=== PATIENT | female | born 1975 | race Caucasian/White ===

== ENCOUNTER → 2021-05-23 11:13 | Outpatient (BNVA) | payer MEDICAID, SELFPAY | PROVIDERS: Family Provider Nurse Practitioner Family; Visit Provider Nurse Practitioner Women's Health | DX: Z01.419 Encounter for gynecological examination (general) (routine) without abnormal findings (principal); N93.9 Abnormal uterine and vaginal bleeding, unspecified | CPT/HCPCS: 85025; 87624 ==

== ENCOUNTER → 2021-06-22 15:44 | Outpatient (BNVA) | payer MEDICAID, SELFPAY | PROVIDERS: Family Provider Nurse Practitioner Family; PCP Nurse Practitioner Family; Visit Provider Nurse Practitioner Women's Health | DX: N93.9 Abnormal uterine and vaginal bleeding, unspecified (principal) | CPT/HCPCS: 76830 ==

== ENCOUNTER → 2021-06-29 11:49 | Outpatient (BNVA) | payer MEDICAID, SELFPAY | PROVIDERS: Family Provider Nurse Practitioner Family; PCP Nurse Practitioner Family; Visit Provider Nurse Practitioner Women's Health | DX: N93.9 Abnormal uterine and vaginal bleeding, unspecified (principal) | CPT/HCPCS: 88305 ==

== ENCOUNTER → 2021-07-16 09:25 | Outpatient (BNVA) | payer MEDICAID, SELFPAY | PROVIDERS: Family Provider Nurse Practitioner Family; PCP Nurse Practitioner Family; Visit Provider Obstetrics & Gynecology | DX: Z20.822 Contact with and (suspected) exposure to COVID-19 (principal) | CPT/HCPCS: 87635 ==

== ENCOUNTER 2021-07-18 12:44 | Observation (INO) | payer MEDICAID, SELFPAY ==
[2021-07-17 10:00] VITALS: BMI 34.2
[2021-07-17 10:20] LABS: OR HCG Qualitative Urine Negative (Negative)
[2021-07-17 10:30] LABS: Add Urine Microscopic? NO; Charge for UA Resulting for Rev
[2021-07-17 10:45] LABS: Bilirubin Urine Neg (Negative); Blood Urine Neg (Negative); Glucose Urine UA Norm (Normal); Ketones Urine Negative (Negative); Leukocyte Esterase Urine Negative (Negative); Nitrate Urine Negative (Negative); Protein Urine Neg (Negative); Specific Gravity, Urine 1.015 (1.005-1.030); Urine Appearance Clear (CLEAR); Urine Color Yellow (Yellow); Urobilinogen Urine Norm (Negative); pH Urine 5 (5-7)
[2021-07-17 11:15] LABS: Alanine Aminotransferase 17 U/L (0-33); Albumin Level 4.5 g/dL (3.5-5.2); Alkaline Phosphatase 55 IU/L (35-105); Anion Gap 16.3 (5-19); Aspartate Amino Transferase 14 U/L (0-32); Blood Urea Nitrogen 12 mg/dL (6-20); Calcium 9.5 mg/dL (8.5-10.5); Carbon Dioxide 24 mmol/L (22-29); Chloride 101 mmol/L (98-107); Globulin 3.3 g/dL (1.3-4.6); Glomerular Filtration Rate 133.4 mL/min (90-130); Glucose 109 mg/dL (65-115); Osmolality Calculated 284 mOsm/kg (285-295); Potassium 4.3 mmol/L (3.5-5.1); Sodium 137 mmol/L (136-145); Total Bilirubin 0.3 mg/dL (0.15-1.2); Total Protein 7.8 g/dL (6.6-8.7)
--- NOTE | 2021-07-17 11:51 | P.ANESASSM_ITS ---
Pre-Anesthetic Assessment Height/Weight: Height 1.68 m Weight 96.162 kg Operation Date: 07/18/21 10:05 Proposed Procedures p Total Vaginal Hysterectomy(Not Applicable) - Matthew Panda MD Familial anesthetic complications: None Was Beta Genet taken within 24 hours: N/A Was Clonidine taken within 24 hours: N/A Social No alcohol and No tobacco Exam alert, oriented x 3, clear to auscultation bilaterally and regular rate & rhythm Airway Submandibular: within normal limits Cervical ROM: within normal limits Mallampati: Class II Dentition: full Metabolic Diabetes Mellitus, Morbid Obesity and Thyroid Disease Anesthetic Plan ASA status: 2 Anesthesia: General Risk of > 500 ml blood loss (7ml/kg in children): No Medications/Allergies Home Medications Medication Instructions Recorded Confirmed Last Taken Type levothyroxine 125 mcg capsule 125 mcg PO DAILY 05/23/21 07/17/21 Unknown History metformin 500 mg tablet 500 mg PO BID 05/23/21 07/17/21 Unknown History multivitamin (One Daily 1 tab PO DAILY 05/23/21 07/17/21 Unknown History Multivitamin) triamterene 37.5 1 tab PO DAILY 06/26/21 07/17/21 Unknown History mg-hydrochlorothiazide 25 mg tablet Iron supplement PO 07/16/21 07/16/21 Unknown History ibuprofen 800 mg tablet 800 mg PO Q8H PRN 07/16/21 07/17/21 Unknown History Allergies Allergy/AdvReac Type Severity Reaction Status Date / Time morphine Allergy anaphylaxis Verified 07/16/21 08:30 PFS Anesthesia Medical History Hypothyroid No pertinent past medical history neghx: htn,dvt/pe PCP: Comfort Ferguson Type 2 diabetes mellitus Surgical History (Updated 05/23/21 @ 13:20 by Alta Obrien APN, VARGHESE) Hx of abdominal surgery (~2020) tummy tuck, muscle reconstruction Hx of tubal ligation (~1996) Family History Family/Other Breast cancer Maternal Aunt--dx age 40's Colon cancer Paternal Uncle---dx age 60's Maternal Aunt-- dx age 60's Mother Diabetes Heart disease Hypercholesteremia Hypertension Ovarian cancer dx age 20's Thyroid disease Father Diabetes Heart disease Stroke Grandmother Diabetes Paternal Grandfather Diabetes Paternal Denies family history of Uterine cancer Data Anesthesia : 07/17/21 10:24 BMP 07/17/21 10:24 Sodium 137 Potassium 4.3 Chloride 101 Carbon Dioxide 24 BUN 12 Creatinine 0.5 Glucose 109 Calcium 9.5 Liver Function 07/17/21 Range/Units 10:24 Total Bilirubin 0.3 (0.15-1.2) mg/dL AST 14 (0-32) U/L ALT 17 (0-33) U/L Alkaline Phosphatase 55 (35-105) IU/L Albumin 4.5 (3.5-5.2) g/dL Urine 07/17/21 Range/Units 10:24 Urine Color Yellow (Yellow) Urine Appearance Clear (CLEAR) Urine pH 5 (5-7) Ur Specific [place] 1.015 (1.005-1.030) Urine Protein Neg (Negative) Urine Glucose (UA) Norm (Normal) Urine Ketones Negative (Negative) Urine Nitrate Negative (Negative) Urine Bilirubin Neg (Negative) Ur Leukocyte Esterase Negative (Negative) Blood Bank 07/17/21 10:24 Blood Type O Positive Rho(D) Type Positive Antibody Screen Negative Cardiac Studies: No Data to Display
[2021-07-18] VITALS (21 sets, daily range): BP systolic 96–143; BP diastolic 59–96; PULSE 79–109; RESP 16–18; TEMP 36.2–36.9; O2SAT 92–100
[2021-07-18] MEDS: sodium chloride 0.9% 500 ML IV (08:37)
[2021-07-18] MEDS: scopolamine 1.5 Patch 1 PATCH TRANSDERMA (08:40)
[2021-07-18 08:47] LABS: Glucose Point of Care 134 mg/dL (70-110)
--- NOTE | 2021-07-18 09:39 | P.ANESUD_ITS ---
Pre-Anesthetic Update Pre-Anesthetic Assessment: Date of Surgery/Procedure: 07/18/21 Preop Tracy gnosis: Abnormal uterine bleeding, stress incontinence, pelvic pain Proposed Procedure: Operation Date: 07/18/21 09:55 Proposed Procedures p Total Vaginal Hysterectomy(Not Applicable) - Matthew Panda MD Any changes to Pre-Anesthetic Assessment?: No Last Intake: Intake Last Liquid Date 07/17/21 Last Liquid Time 21:30 Last Solid Date 07/17/21 Last Solid Time 21:30 Labs Last 48hrs: BMP 07/17/21 10:24 Sodium 137 Potassium 4.3 Chloride 101 Carbon Dioxide 24 BUN 12 Creatinine 0.5 Glucose 109 Calcium 9.5 Liver Function 07/17/21 Range/Units 10:24 Total Bilirubin 0.3 (0.15-1.2) mg/dL AST 14 (0-32) U/L ALT 17 (0-33) U/L Alkaline Phosphata se 55 (35-105) IU/L Albumin 4.5 (3.5-5.2) g/dL Urine 07/17/21 Range/Units 10:24 Urine Color Yellow (Yellow) Urine Appearance Clear (CLEAR) Urine pH 5 (5-7) Ur Specific [place] 1.015 (1.005-1.030) Urine Protein Neg (Negative) Urine Glucose (UA) Norm (Normal) Urine Ketones Negative (Negative) Urine Nitrate Negative (Negative) Urine Bilirubin Neg (Negative) Ur Leukocyte [place] Negative (Negative) Blood Bank 07/17/21 10:24 Blood Type O Positive Rho(D) Type Positive Antibody Screen Negative Vitals: Temperature 98.2 F 07/18/21 08:26 Temperature Source Temporal Artery S can 07/18/21 08:26 Pulse Rate 79 07/18/21 08:26 Respiratory Rate 16 07/18/21 08:26 Blood Pressure 116/96 07/18/21 08:26 Blood Pressure Katherine n 102 07/18/21 08:26 Pulse Oximetry 98 07/18/21 08:26 Oxygen Delivery Me thod 07/18/21 08:26 Exam: Pre-Anes Outpt Exam: alert, oriented x 3, clear to auscultation bilaterally and regular rate & rhythm Cardiac Studies: No Data to Display
--- NOTE | 2021-07-18 09:40 | W.PM.OPSUD ---
Surgery/Procedure H&P Update DATE OF PROCEDURE: July 18, 2021 DATE H&P PERFORMED: 07/16/21 H&P UPDATE INFORMATION: I have reviewed H&P completed within last 30 days, I have examined patient prior to procedure and No changes to prior documentation PREOP DIAGNOSIS: Abnormal uterine bleeding, stress incontinence, pelvic pain PLANNED PROCEDURE: Operation Date: 07/18/21 09:55 Proposed Procedures p Total Vaginal Hysterectomy(Not Applicable) - Matthew Panda MD
[2021-07-18] MEDS: ceFOXitin 2,000 MG in sodium chloride 0.9% (plus) 50 ML 100 MG IV (09:53)
[2021-07-18] MEDS: sodium chloride 0.9% 1,000 ML 30 ML IV (10:22)
--- NOTE | 2021-07-18 10:59 | SUR.OPER ---
1040 updated of surgical status
--- NOTE | 2021-07-18 11:40 | P.OP_ITS ---
Operative Report Date of procedure: July 18, 2021 Pre-op diagnosis: Preop Diagnosis Abnormal uterine bleeding, stress incontinence, pelvic pain Post-op diagnosis: same Procedure done: Total vaginal hysterectomy. Single incision mid urethral sling. Cystoscopy. Implants: Coloplast Altis single incision sling Specimens removed/disposition: Uterus and left fallopian tube Surgeon: Matthew Panda MD Estimated blood loss: 250 IV fluids: 800 Urine output: 300 Complications: None Findings: Enlarged uterus dilated left fallopian tube Procedure: After informed consent and risks, benefits, indications and alternatives reviewed with the patient was taken to the operating room. The patient was placed in dorsal lithotomy position prepped, and draped in the usual sterile fashion. The pre-procedure timeout verifying the correct patient, procedure, site and side, could not requirements was performed and acknowledge by the OR team. A Rivera catheter was placed. A Bookwalter vaginal retractor was placed into the vagina in usual manner visualize the cervix. Cervix was grasped with a single tooth tenaculum and circumferentially infiltrated with 2% Lidocaine with epinephrine. Then cervix was circumferentially incised with bovie and the bladder was dissected off the pubovesical cervical fascia anteriorly with a sponge stick and Metzenbaum scissors. The anterior peritoneal reflection was identified and the anterior cul-de-sac was entered sharply with Metzenbaum scissors. The same procedure was performed posteriorly and a posterior c olpotomy was made through the posterior cul-de-sac space without difficulty and the posterior blade of the Bookwalter vaginal retractor was advanced posteriorly into the cul-de-sac. At this time, the left and right uterosacral ligaments were isolated and ligated with 0 Vicryl. The Enseal device was placed over the uterosacral ligaments on either side and was then used in a serial fashion up through the cardinal ligaments bilaterally cross-clamped, cut, and sealed with the Enseal device. Finally, the uterine arteries were cross-clamped, cut, sealed and ligated with the Enseal device. Hemostasis was assured. The broad ligaments were then serially clamped, sealed and cut with the Enseal device on both sides. Excellent hemostasis was visualized. Both cornua were clamped, sealed and cut with the Enseal device. Then the pedicles were then suture ligated with excellent hemostasis. The uterus was excised and submitted for pathologic evaluation. No other abnormalities were noted in the pelvic cavity. The peritoneum was then closed in a pursestring fashion with 0 Vicryl suture. The vaginal cuff angles were closed with [id number] #0 Vicryl suture on both sides and transfixed with the ipsilateral cardinal and uterosacral ligaments. The remainder of the vaginal cuff was closed with #0 Vicryl in a running locked fashion. Then proceeded to perform the single incision midurethr al sling. The anterior vaginal mucosa beneath the midurethra was infiltrated with 0.5% Marcaine with epinephrine. A vertical midline incision was made beneath the midurethra, nearly 1.5 cm length. Careful submucosal dissection was performed bilaterally up to the interior portion of the inferior pubic ramus. The insertion of adductor longus tendon on the patient?s pubic ramus was identified as reference land bernard. Palpated the notch along the internal edge of ischiopubic ramus where the adductor longus tendon and the inferior pubic ramus meet. The Altis single incision sling (SIS) was selected. Then the needle of the SIS inserted aiming at the location of this notch. One of the integrated self- fixating tips place onto the needle by sliding it over the end of the needle. The needle/sling assembly was inserted toward the location of identified reference notch making sure that the flat of the handle is perpendicular to the desired path. The needle was tracked along the posterior surface of the ischiopubic ramus until the midline bernard on the mesh is approximately at the midline position under the urethra. The needle was removed and the same was repeated on the contralateral side until the appropriate sling tension under the urethra was achieved ensuring that the mesh lays flat. The needle was removed and vaginal incision was closed in a running interlocking fashion with 2-0 Vicryl. At this time, instruments were removed from the vagina at hemostasis assured. Then the Rivera catheter was removed and cystoscope was inserted. The bladder was filled with sterile water. Complete evaluation of the bladder mucosa was performed noting no lacerations, dimpling, tears, bleeding of the mucosa or muscular layers. Both ureteral orifices were identified. Prompt excretion of urine from both ureteral orifices was noted. Cystoscope was withdrawn. Rivera catheter was then placed yielding blue/clear urine. The patient was taken out of dorsal lithotomy position and awakened from the general anesthesia. The patient tolerated the procedure well and was taken to the PACU recovery room in a stable condition. Sponge, lap, needle and instruments counts were correct x3.
[2021-07-18] MEDS: HYDROmorphone 1 mg/mL INJ 1 mL 0.5 MG IVP ×2 (13:26→17:26)
[2021-07-18] MEDS: dextrose 5%-lactated ringers 1,000 ML 125 ML IV ×2 (14:17→22:14)
[2021-07-18] MEDS: HYDROcodone-acetaminophen 5-325 mg Tablet PO ×2 (14:17→20:20)
[2021-07-18] MEDS: fentaNYL 50 mcg/mL INJ 2mL IVP (15:53)
--- NOTE | 2021-07-18 16:18 | ANE.PACU2 ---
Inpatient post-anesthesia follow up: Airway intact: Yes Vital signs: Temperature 97.9 F Pulse Rate 91 Respiratory Rate 17 Blood Pressure 143/82 Pulse Oximetry 95 Oxygen Delivery Me thod Room Air Oxygen Flow Rate 6 Fraction of Inspir ed Oxygen Hydration adequate: Yes Nausea and vomiting: No Pain level: Pain well controlled in PACU prior to discharge to floor. Mental status: Baseline Additional Comments: Pain scores high on floor despite receiving multi modal theaaph.
[2021-07-18] MEDS: docusate sodium 100 mg Capsule PO (17:27)
[2021-07-18] MEDS: metformin 500 mg Tablet PO (17:27)
[2021-07-18] MEDS: ondansetron 2 mg/ML SDV 2 mL 4 MG IVP (17:38)
--- NOTE | 2021-07-18 17:50 | PC.NURSE ---
Pt up to chair this nurse assisted pt to chair, pt reported nausea and pain radiating from right quadrant pain into right leg. patient reported chest pressure and shoulder pain. blood pressure attained 96/59 pulse 109, respirations 17.
--- NOTE | 2021-07-18 18:02 | ECG_ITS ---
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 Measurements Intervals [place] Rate: 93 P: 63 IA: 201 QRS: 18 QRSD: 170 T: 35 QT: 448 QTc: 560 Interpretive Statements SINUS RHYTHM Compared to ECG 11/06/2015 13:00:22 Sinus tachycardia no longer present T-wave abnormality no longer present Electronically Signed On 07-18-2021 21:20:29 PROPAGATOR LABORER by Nyla Gonzalez M.D. [id number]
[2021-07-18 18:44] LABS: Basophils % 0.1 %; Hematocrit 35.4 % (37.0-47.0); Hemoglobin 11.2 g/dL (11.5-15.3); Lymphocytes # 1.2 10^3/uL (0.8-4.8); Lymphocytes % 7.9 %; Mean Corpuscular HGB Conc 31.6 g/dL (30.0-36.0); Mean Corpuscular Volume 82.1 fl (81-99); Mean Platelet Volume 10.2 fL (7.4-10.4); Monocytes # 0.2 10^3/uL (0.2-0.9); Monocytes % 1.4 %; Neutrophils # 13.29 10^3/uL (1.8-7.7); Neutrophils % 90.1 %; Nucleated Red Blood Cells % 0 %; Platelet Count 376 10^3/cmm (130-400); Red Blood Count 4.31 10^6/uL (4.1-5.3); Red Cell Distribution Width 14.3 % (12.1-15.1); White Blood Count 14.8 10^3/uL (4.0-10.0)
[2021-07-18] MEDS: zolpidem 5 mg Tablet 10 MG PO (22:45)
[2021-07-19] MEDS: HYDROcodone-acetaminophen 5-325 mg Tablet PO ×3 (01:05→10:36)
[2021-07-19 04:30] VITALS: BP 106/74; PULSE 86; TEMP 37; O2SAT 95
[2021-07-19 05:10] LABS: Hematocrit 33.4 % (37.0-47.0); Hemoglobin 10.5 g/dL (11.5-15.3); Mean Corpuscular HGB Conc 31.4 g/dL (30.0-36.0); Mean Corpuscular Hemoglobin 26.1 pg (28.0-34.0); Mean Corpuscular Volume 83.1 fl (81-99); Mean Platelet Volume 9.5 fL (7.4-10.4); Platelet Count 316 10^3/cmm (130-400); Red Blood Count 4.02 10^6/uL (4.1-5.3); Red Cell Distribution Width 14.4 % (12.1-15.1); White Blood Count 9.5 10^3/uL (4.0-10.0)
--- NOTE | 2021-07-19 07:52 | PM.OBGYDC ---
Discharge Providers ULTRASONIC SEAMING MACHINE OPERATOR Date of Admission: 07/18/21 12:44 Date of Discharge: 07/19/21 Attending Provider at Admission: Matthew Panda MD Attending Provider at Discharge: Matthew Panda MD Primary ULTRASONIC SEAMING MACHINE OPERATOR: Matthew Panda MD Primary Care Provider: Junie Ferguson APN Diagnoses at Discharge Discharge Diagnosis (1) Status post vaginal hysterectomy: Status: Acute Reason for Visit Reason for Visit: abnormal uterine bleeding, urinary incontinence Brief History: Mrs. Cortes 46-year-old female with a history of abnormal uterine bleeding unresponsive to medical management and stress urinary incontinence. Hospital Course Hospital Course Mrs. Cortes 46-year-old female admitted for planned total vaginal hysterectomy and single incision mid urethral sling. The procedures were performed without complication. Overnight observation was uneventful except for pain management. She is afebrile hemodynamically stable postoperative day 1. Tolerating diet well. Pain under control. Ambulating without difficulty. Passing flatus. Physical Exam Narrative: GA: Alert and oriented ?3. HEENT: WNL. Heart: Regular rate and rhythm. Lungs: Clear to auscultation bilaterally. Abdomen: Bowel sounds present, nontender, minimal tenderness, incision clean and dry, no redness, pain or edema. UNDER WATER ASSISTANT: Spotting bleeding. Extremities: No edema, no cyanosis, no calves pain. Urinary Catheter Management: Rivera Latex: Cath Placed During This Visit: yes Urinary Catheter Date of Insertion: 07/18/21 Urinary Catheter Time of Insertion: 10:20 History History History 4 Term 3 Miscarriages/Ectopic 1 0 Living Children 3 Discharge Data Studies Completed and Pending Pending at discharge Category Date Time Status ES surgery / GI images Routine Exams 07/18/21 09:50 Taken Pathology: Surgical [PTH] Routine Pth 07/18/21 11:35 Received Laboratory Results WBC 9.5 10^3/uL (4.0-10.0) 07/19/21 05:05 RBC 4.02 10^6/uL (4.1-5.3) L 07/19/21 05:05 Hgb 10.5 g/dL (11.5-15.3) L 07/19/21 05:05 Hct 33.4 % (37.0-47.0) L 07/19/21 05:05 MCV 83.1 fl (81-99) 07/19/21 05:05 MCH 26.1 pg (28.0-34.0) L 07/19/21 05:05 MCHC 31.4 g/dL (30.0-36.0) 07/19/21 05:05 RDW 14.4 % (12.1-15.1) 07/19/21 05:05 Plt Count 316 10^3/cmm (130-400) 07/19/21 05:05 MPV 9.5 fL (7.4-10.4) 07/19/21 05:05 Neut % (Auto) 90.1 % 07/18/21 18:13 Lymph % (Auto) 7.9 % 07/18/21 18:13 [place] % (Auto) 1.4 % 07/18/21 18:13 Eos % (Auto) 0.0 % 07/18/21 18:13 Baso % (Auto) 0.1 % 07/18/21 18:13 Neut # (Auto) 13.29 10^3/uL (1.8-7.7) H 07/18/21 18:13 Lymph # (Auto) 1.2 10^3/uL (0.8-4.8) 07/18/21 18:13 [place] # (Auto) 0.2 10^3/uL (0.2-0.9) 07/18/21 18:13 Eos # (Auto) 0.0 10^3/uL (0.0-0.8) 07/18/21 18:13 Baso # (Auto) 0.0 10^3/uL (0.0-0.1) 07/18/21 18:13 Nucleated RBC % (auto) 0 % 07/18/21 18:13 Nucleated RBCs # 0.0 /100WBC 07/18/21 18:13 Sodium 137 mmol/L (136-145) 07/17/21 10:24 Potassium 4.3 mmol/L (3.5-5.1) 07/17/21 10:24 Chloride 101 mmol/L (98-107) 07/17/21 10:24 Carbon Dioxide 24 mmol/L (22-29) 07/17/21 10:24 Anion Gap 16.3 (5-19) 07/17/21 10:24 BUN 12 mg/dL (6-20) 07/17/21 10:24 Creatinine 0.5 mg/dL (0.5-0.9) 07/17/21 10:24 GFR Calculation 133.4 mL/min (90-130) H 07/17/21 10:24 Glucose 109 mg/dL (65-115) 07/17/21 10:24 POC Glucose 134 mg/dL (70-110) H 07/18/21 08:35 Calculated Osmolality 284 mOsm/kg (285-295) L 07/17/21 10:24 Calcium 9.5 mg/dL (8.5-10.5) 07/17/21 10:24 Total Bilirubin 0.3 mg/dL (0.15-1.2) 07/17/21 10:24 AST 14 U/L (0-32) 07/17/21 10:24 ALT 17 U/L (0-33) 07/17/21 10:24 Alkaline Phosphatase 55 IU/L (35-105) 07/17/21 10:24 Total Protein 7.8 g/dL (6.6-8.7) 07/17/21 10:24 Albumin 4.5 g/dL (3.5-5.2) 07/17/21 10:24 Globulin 3.3 g/dL (1.3-4.6) 07/17/21 10:24 Urine Color Yellow (Yellow) 07/17/21 10:24 Urine Appearance Clear (CLEAR) 07/17/21 10:24 Urine pH 5 (5-7) 07/17/21 10:24 Ur Specific [place] 1.015 (1.005-1.030) 07/17/21 10:24 Urine Protein Neg (Negative) 07/17/21 10:24 Urine Glucose (UA) Norm (Normal) 07/17/21 10:24 Urine Ketones Negative (Negative) 07/17/21 10:24 Urine Blood Neg (Negative) 07/17/21 10:24 Urine Nitrate Negative (Negative) 07/17/21 10:24 Urine Bilirubin Neg (Negative) 07/17/21 10:24 Urine Urobilinogen Norm mg/dL (Negative) 07/17/21 10:24 Ur Leukocyte Esterase Negative (Negative) 07/17/21 10:24 Urine HCG, Qual Negative (Negative) 07/17/21 09:44 Blood Type O Positive 07/17/21 10:24 Rho(D) Type Positive 07/17/21 10:24 Antibody Screen Negative 07/17/21 10:24 Vitals Last Vital Signs Temp 98.6 F 07/19/21 04:30 Pulse 86 07/19/21 04:30 Resp 17 07/18/21 18:00 BP 106/74 07/19/21 04:30 Pulse Ox 95 07/19/21 04:30 Discharge Plan Discharge Patient Disposition: Home Condition: Stable Prescriptions: New docusate sodium [Colace] 100 mg capsule 100 mg PO BID Qty: 60 0RF acetaminophen 325 mg capsule 325 mg PO Q4H PRN (Reason: fever or pain) Qty: 60 0RF ferrous sulfate [Iron (ferrous sulfate)] 325 mg (65 mg iron) tablet 325 mg PO BID Qty: 30 0RF ketorolac 10 mg tablet 10 mg PO Q6H Qty: 30 0RF Continued triamterene-hydrochlorothiazid 37.5-25 mg tablet 1 tab PO DAILY 0RF Iron supplement 3 tab PO DAILY 0RF Label Comments: 3 capsules daily levothyroxine 125 mcg capsule 125 mcg PO DAILY 0RF metformin 500 mg tablet 500 mg PO BID 0RF multivitamin [One Daily Multivitamin] Tablet 1 tab PO DAILY 0RF ibuprofen 800 mg tablet 800 mg PO Q8H PRN (Reason: Pain) 0RF Discharge Orders: Discharge Order (Routine); Ordered 07/19/21 Ordered By: Matthew Panda Discharge Diet: Usual diet Discharge Activity: Limit activity as instructed Patient Instructions: Opioid Safety Activity Restrictions/Additional Instructions: 1. Please call [facility] on next working day to make your post-operative appointment in 2 weeks. 2. Please stay home until you come back to the clinic on first post-operative check up. 3. Please follow instructions on your medications CAREFULLY. 4. If you have abdominal incision, do not cover it unless dressing is necessary because of drainage. OK to shower, but avoid bath. Leave steri-strips until they fall off. If they are still on one week after surgery, you may remove them. 5. If you had vaginal surgery or vaginal repair, Dr. Panda may instruct you to take SITZ bath. 6. Yellow, blood tinged odorous vaginal discharge is usually normal after hysterectomy or vaginal surgeries. 7. No sexual intercourse, tampons, or douches until you are completely released from the post-operative care. 8. Avoid constipation by eating right and maybe using some Metamucil or Milk of Magnesia. 9. All prescription refills are given during the working hours. Please do no wait till it runs out. Call the clinic at [phone] before your medication runs out. The clinic will get in touch with your doctor to prescribe medications if necessary. 10. Please remain within 40 mile radius from our hospital because emergencies do happen now and then during the post-operative period. 11. If you have stairs at home, take one step at a time slowly and minimize the number of trips. It helps to stay in one floor for the next few days. No lifting except what you can lift by one hand until you are released from the post-operative care. 12. Driving is discouraged until you are well healed. It may be 3-4 weeks before you feel strong enough to drive. You should be able to turn and look through the rear window without pain and you should be able to push the brake pedal very hard without pain before you drive. No fast rules, but SAFETY should be your primary concern. DO NOT drive if you are on sedating medications such as narcotics. 13. Call the clinic (during working hours) to make urgent appointment or go to the Emergency room, if any of the following occurs: i. Vaginal bleeding becomes heavy, more than a period. ii. Incision becomes red and sore, or drains pus. iii. Your temperature is over 100.4 or you have chill. iv. IV site becomes red and swollen (a little ``knot?? is usually OK) v. Persistent nausea and vomiting vi. Persistent constipation or diarrhea vii. Rash or allergic reaction to medications. 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
[2021-07-19] MEDS: docusate sodium 100 mg Capsule PO (10:36)
[2021-07-19] MEDS: metformin 500 mg Tablet PO (10:36)
[2021-07-19] MEDS: prenatal vitamin Capsule 1 CAP PO (10:36)
[2021-07-19 11:00] VITALS: BP 103/78; PULSE 84; RESP 17; TEMP 36.8; O2SAT 98
[2021-07-19 11:05] VITALS: BP 103/78; PULSE 84; RESP 17; TEMP 36.8; O2SAT 98
== END 2021-07-19 11:05 | disposition home or self-care (01) ==
LOC: OBGYN 12:44
PROVIDERS: Admitting Provider Obstetrics & Gynecology; PCP Nurse Practitioner Family; Visit Provider Obstetrics & Gynecology
PROC: (CPT 57288; principal; 2021-07-18 09:35)
PROC: (CPT 57288; 2021-07-18 09:35)
PROC: 0TJB8ZZ Inspection of Bladder, Via Natural or Artificial Opening Endoscopic (ICD-10-PCS; CPT 52000; 2021-07-18 09:35)
DX: N93.9 Abnormal uterine and vaginal bleeding, unspecified (principal); N39.3 Stress incontinence (female) (male); R10.2 Pelvic and perineal pain; E11.9 Type 2 diabetes mellitus without complications; E66.01 Morbid (severe) obesity due to excess calories; Z68.34 Body mass index [BMI] 34.0-34.9, adult; E03.9 Hypothyroidism, unspecified; Z80.0 Family history of malignant neoplasm of digestive organs; Z80.3 Family history of malignant neoplasm of breast; Z82.49 Family history of ischemic heart disease and other diseases of the circulatory system; Z83.3 Family history of diabetes mellitus; Z82.3 Family history of stroke; Z79.84 Long term (current) use of oral hypoglycemic drugs
CPT/HCPCS: 57288; 58150; 36415; 36416; 51798; 80053; 81003; 81025; 82962; 84703; 85025; 85027; 86850; 86900; 88307; 93005; 96365; 96374; C1713; G0378; J0694; J1100; J1170; J2405; J2704; J3010; J3490; J7030; J7040

== ENCOUNTER 2021-07-21 18:17 | Emergency (ER) | payer MEDICAID, SELFPAY ==
[2021-07-21 18:33] VITALS: BP 167/97; PULSE 83; RESP 18; TEMP 36.8; O2SAT 98; BMI 35.6
--- NOTE | 2021-07-21 18:45 | ED_ITS ---
HPI - Abdominal Pain General: Chief Complaint: Abdominal Pain Stated Complaint: Surgury wed\Keeps peeing Drops Time Seen by Provider: 07/21/21 18:45 History of Present Illness: 46-year-old female comes in today for complaints of left lower abdominal tenderness for the last 2 days. Patient had a hysterectomy and bladder sling done by Dr. Panda on Friday. Patient was discharged from the hospital on . Since arriving home patient has had urinary frequency with small amounts of urination. Patient denies any fever or chills. Patient reports significant pain and discomfort with pressure in the bladder area. Patient denies any significant bleeding. Patient reports passing of gas. MD elicited complaint: abdominal pain Pertinent past history: other (recent hysterectomy) Onset (ago): day(s) Location: LLQ Quality: fullness Migration to: no migration Context: recent surgery/procedure and other (urinary frequency) Review of Systems General: Reports: 10 or more systems reviewed and unremarkable except in HPI and below : Reports: difficulty voiding, urinary urgency, urinary hesitancy and dribbling PFSH ED PFSH: Medical History Hypothyroid No pertinent past medical history neghx: htn,dvt/pe PCP: Comfort Ferguson Type 2 diabetes mellitus Surgical History (Updated 07/19/21 @ 08:07 by Matthew Panda MD) Hx of abdominal surgery (~2020) tummy tuck, muscle reconstruction Hx of tubal ligation (~1996) Family History Family/Other Breast cancer Maternal Aunt--dx age 40's Colon cancer Paternal Uncle---dx age 60's Maternal Aunt-- dx age 60's Mother Diabetes Heart disease Hypercholesteremia Hypertension Ovarian cancer dx age 20's Thyroid disease Father Diabetes Heart disease Stroke Grandmother Diabetes Paternal Grandfather Diabetes Paternal Denies family history of Uterine cancer Physical Exam Const: COMMON NORMALS: alert Neck/C-Spine: COMMON NORMALS: full ROM Resp: COMMON NORMALS: normal respiratory effort Cardio: COMMON NORMALS: regular rate and regular rhythm RATE: regular rate RHYTHM: regular rhythm GI: COMMON NORMALS: Soft to palpation PALPATION: Yes Soft to palpation and Yes Tenderness to palpation present (GI) Details: LLQ Neuro: SENSORIUM/ORIENTATION: Yes alert Psych: COMMON NORMALS: cooperative Skin: COMMON NORMALS: no rashes or lesions noted GENERAL SKIN EXAM: no r ashes or lesions noted Course Vital Signs: Vital signs: Vital Signs Temperature 98.2 F 07/21/21 18:33 Pulse Rate 77 07/21/21 21:49 Respiratory Rate 17 07/21/21 21:50 Blood Pressure 139/79 07/21/21 21:49 Pulse Oximetry 96 07/21/21 21:50 MDM - Abdominal Pain Medical Decision Making 46-year-old female comes in today with urinary difficulty for the last 2 days. Patient had a hysterectomy on Friday with a bladder tie. Patient was discharged on and notes that she has been able to urinate but has had frequent small amounts of urine now instead of good voiding pattern. Patient denies any fever. On exam abdomen soft nontender. No CVA tenderness. Respirations even lungs are clear to auscultation. Vital signs normal. Differential diagnosis includes but not limited to acute urinary retention, cystitis, surgical wound infection. CBC had no abnormality in white blood cell count, CMP was unremarkable. Urinalysis had a large amount of red blood cells and white blood cells but did also note contamination. CT of the abdomen and pelvis was done which noted no significant abnormalities. I believe patient probably has some mild cystitis. Patient will be started on Macrobid 100 mg twice a day for 5 days. Patient was also given some Pyridium 200 mg every 8 hours as needed for urinary discomfort. We did insert a Rivera catheter at first but it only drained out 100 mL of urine. Patient was given the option to keep Rivera catheter in but opted not to. Recommended patient come back to the ER in 12 hours if there is no urine output. Patient reported understanding. Lab Data : 07/21/21 19:43 07/21/21 19:43 Labs/Radiology: Radiology Impressions Abdomen/Pelvis CT 07/21/21 20:15 IMPRESSION: Hazy in strandy opacities are seen along the pelvic floor likely representing mild edematous or inflammatory changes in this patient is status post recent hysterectomy. 2. Probable mild edematous or inflammatory changes seen within the subcutaneous fat and fascia of the anterior pelvis. Laboratory Results WBC 9.2 10^3/uL (4.0-10.0) 07/21/21 19:43 RBC 4.23 10^6/uL (4.1-5.3) 07/21/21 19:43 Hgb 11.3 g/dL (11.5-15.3) L 07/21/21 19:43 Hct 35.1 % (37.0-47.0) L 07/21/21 19:43 MCV 83.0 fl (81-99) 07/21/21 19:43 MCH 26.7 pg (28.0-34.0) L 07/21/21 19:43 MCHC 32.2 g/dL (30.0-36.0) 07/21/21: RDW 14.1 % (12.1-15.1) 07/21/21: Plt Count 385 10^3/cmm (130-400) 07/21/21:43 MPV 9.6 fL (7.4-10.4) 07/21/21 19:43 Neut % (Auto) 56.8 % 07/21/21 19:43 Lymph % (Auto) 33.9 % 07/21/21 19:43 [place] % (Auto) 5.6 % 07/21/21 19:43 Eos % (Auto) 2.7 % 07/21/21 19:43 Baso % (Auto) 0.7 % 07/21/21 19:43 Neut # (Auto) 5.24 10^3/uL (1.8-7.7) 07/21/21 19:43 Lymph # (Auto) 3.1 10^3/uL (0.8-4.8) 07/21/21 19:43 [place] # (Auto) 0.5 10^3/uL (0.2-0.9) 07/21/21 19:43 Eos # (Auto) 0.3 10^3/uL (0.0-0.8) 07/21/21:43 Baso # (Auto) 0.1 10^3/uL (0.0-0.1) 07/21/21 19:43 Nucleated RBC % (auto) 0 % 07/21/21: Nucleated RBCs # 0.0 /100WBC 07/21/21 19: Sodium 138 mmol/L (136-145) 07/21/21 19:43 Potassium 3.9 mmol/L (3.5-5.1) 07/21/21 19:43 Chloride 98 mmol/L (98-107) 07/21/21 19:43 Carbon Dioxide 27 mmol/L (22-29) 07/21/21 19:43 Anion Gap 16.9 (5-19) 07/21/21 19:43 BUN 10 mg/dL (6-20) 07/21/21 19:43 Creatinine 0.5 mg/dL (0.5-0.9) 07/21/21 19:43 GFR Calculation 133.4 mL/min (90-130) H 07/21/21:43 Glucose 135 mg/dL (65-115) H 07/21/21:43 Calculated Osmolality 287 mOsm/kg (285-295) 07/21/21:43 Calcium 9.6 mg/dL (8.5-10.5) 07/21/21:43 Total Bilirubin 0.2 mg/dL (0.15-1.2) 07/21/21:43 AST 15 U/L (0-32) 07/21/21 19:43 ALT 18 U/L (0-33) 07/21/21 19:43 Alkaline Phosphatase 56 IU/L (35-105) 07/21/21 19:43 Total Protein 7.6 g/dL (6.6-8.7) 07/21/21 19:43 Albumin 4.3 g/dL (3.5-5.2) 07/21/21 19:43 Globulin 3.3 g/dL (1.3-4.6) 07/21/21 19:43 Urine Color Yellow (Yellow) 07/21/21 18:58 Urine Appearance Sl hazy (CLEAR) 07/21/21 18:58 Urine pH 9 (5-7) H 07/21/21 18:58 Ur Specific [place] 1.010 (1.005-1.030) 07/21/21 18:58 Urine Protein Neg (Negative) 07/21/21 18:58 Urine Glucose (UA) Norm (Normal) 07/21/21 18:58 Urine Ketones 1+ (Negative) H 07/21/21 18:58 Urine Blood 3+ (Negative) H 07/21/21 18:58 Urine Nitrate Negative (Negative) 07/21/21 18:58 Urine Bilirubin Neg (Negative) 07/21/21 18:58 Prot Sulfosalicylic Acd Negative (Negative) 07/21/21 18:58 Urine Urobilinogen Norm mg/dL (Negative) 07/21/21 18:58 Ur Leukocyte Esterase 2+ (Negative) H 07/21/21 18:58 Urine RBC 25-40 /hpf (0-2) H 07/21/21 18:58 Urine WBC 15-25 /hpf (0-5) H 07/21/21 18:58 Ur Squamous Epith Cells 15-25 /hpf (0-5) H 07/21/21 18:58 Amorphous Sediment 1+ /hpf 07/21/21 18:58 Urine Bacteria 2+ /hpf (NONE) H 07/21/21 18:58 Discharge Plan Discharge Patient Disposition: Home Clinical Impression: Cystitis Condition: Stable Prescriptions: New Macrobid 100 mg capsule 100 mg PO BID 5 Days Qty: 10 0RF Rx Instructions: must administer with a meal/food phenazopyridine 200 mg tablet 200 mg PO Q8H PRN (Reason: urinary discomfort) Qty: 6 0RF No Action triamterene-hydrochlorothiazid 37.5-25 mg tablet 1 tab PO DAILY 0RF Iron supplement 3 tab PO DAILY 0RF Label Comments: 3 capsules daily levothyroxine 125 mcg capsule 125 mcg PO DAILY 0RF metformin 500 mg tablet 500 mg PO BID 0RF multivitamin [One Daily Multivitamin] Tablet 1 tab PO DAILY 0RF ibuprofen 800 mg tablet 800 mg PO Q8H PRN (Reason: Pain) 0RF acetaminophen 325 mg capsule 325 mg PO Q4H PRN (Reason: fever or pain) Qty: 60 0RF ketorolac 10 mg tablet 10 mg PO Q6H Qty: 30 0RF Iron (ferrous sulfate) 325 mg (65 mg iron) tablet 325 mg PO BID Qty: 30 0RF Colace 100 mg capsule 100 mg PO BID Qty: 60 0RF Discharge Orders: Discharge ED (Routine); Ordered 07/21/21 Ordered By: Porfirio Billy Referrals: Junie Ferguson APN [Primary Care Provider] - Discharge Diet: Usual diet Discharge Activity: Increase activity as tolerated Patient Instructions: Urinary Tract Infection in Women (ED) Activity Restrictions/Additional Instructions: Drink plenty of water. Use medications as directed. Follow-up with primary care or surgeon on Friday. Return to the ER for no urinary output within 12 hours. Coding Level of Care Code ED Senior Quality Methods Specialist for Kelyg Fwd Exam Detailed
[2021-07-21 19:06] VITALS: BP 147/102; PULSE 80; RESP 17; O2SAT 97
[2021-07-21 19:23] LABS: Add Urine Microscopic? YES; Bilirubin Urine Neg (Negative); Blood Urine 3+ (Negative); Glucose Urine UA Norm (Normal); Ketones Urine 1+ (Negative); Leukocyte Esterase Urine 2+ (Negative); Nitrate Urine Negative (Negative); Protein Urine Neg (Negative); Sulfosalicylic Acid Urine Negative (Negative); Urine Appearance SL Hazy (CLEAR); Urine Color Yellow (Yellow); Urobilinogen Urine Norm (Negative); pH Urine 9 (5-7)
[2021-07-21 19:25] LABS: Add Urine Culture? No; Amorphous Sediment Urine 1+ /hpf; Bacteria Urine 2+ /hpf; RBC Urine 25-40 /hpf (0-2); Squamous Epithelial Cell Urine 15-25 /hpf (0-5); WBC Urine 15-25 /hpf (0-5)
[2021-07-21 19:54] LABS: Basophils # 0.1 10^3/uL (0.0-0.1); Basophils % 0.7 %; Eosinophils # 0.3 10^3/uL (0.0-0.8); Eosinophils % 2.7 %; Hematocrit 35.1 % (37.0-47.0); Hemoglobin 11.3 g/dL (11.5-15.3); Lymphocytes # 3.1 10^3/uL (0.8-4.8); Lymphocytes % 33.9 %; Mean Corpuscular HGB Conc 32.2 g/dL (30.0-36.0); Mean Corpuscular Hemoglobin 26.7 pg (28.0-34.0); Mean Platelet Volume 9.6 fL (7.4-10.4); Monocytes # 0.5 10^3/uL (0.2-0.9); Monocytes % 5.6 %; Neutrophils # 5.24 10^3/uL (1.8-7.7); Neutrophils % 56.8 %; Nucleated Red Blood Cells % 0 %; Platelet Count 385 10^3/cmm (130-400); Red Blood Count 4.23 10^6/uL (4.1-5.3); Red Cell Distribution Width 14.1 % (12.1-15.1); White Blood Count 9.2 10^3/uL (4.0-10.0)
--- NOTE | 2021-07-21 20:15 | CTR_ITS ---
PROCEDURE INFORMATION: Exam: CT Abdomen And Pelvis With Contrast Exam date and time: 07/21/2021 8:15 PM Age: 46 years old Clinical indication: Abdominal pain; Localized; Lower; Prior surgery; Surgery date: Post-operative (0-2 days); Surgery type: Hyst; Additional info: Abd pain, recent hysterectomy, trouble urinating TECHNIQUE: Imaging protocol: Computed tomography of the abdomen and pelvis with contrast. Radiation optimization: All CT scans at this facility use at least one of these dose optimization techniques: automated exposure control; mA and/or kV adjustment per patient size (includes targeted exams where dose is matched to clinical indication); or iterative reconstruction. Contrast material: OMNI 300; Contrast volume: 95 ml; Contrast route: INTRAVENOUS (IV); COMPARISON: CT abdomen pelvis w con* [id number] 07/10/2015 4:29 PM RADIATION DOSE METRICS: Total DLP (mGy-cm): 1810.09 FINDINGS: Tubes, catheters and devices: A Rivera catheter is present. Liver: Normal. No mass. Gallbladder and bile ducts: Normal. No calcified stones. No ductal dilation. Pancreas: Normal. No ductal dilation. Spleen: Normal. No splenomegaly. Adrenal glands: Normal. No mass. Kidneys and ureters: Normal. No hydronephrosis. Stomach and bowel: Unremarkable. No obstruction. No mucosal thickening. Appendix: No evidence of appendicitis. Intraperitoneal space: Unremarkable. No free air. No significant fluid collection. Vasculature: Unremarkable. No abdominal aortic aneurysm. Lymph nodes: Unremarkable. No enlarged lymph nodes. Urinary bladder: The bladder appears contracted. Reproductive: Status post hysterectomy. There are some hazy in strandy opacity seen along the pelvic floor likely representing mild postoperative edema or inflammatory changes. Bones/joints: Unremarkable. No acute fracture. Soft tissues: Some strandy opacities are seen in the anterior pelvic wall subcutaneous fat possibly representing mild edematous or inflammatory postoperative changes as well. CT/CT abdomen pelvis w con* [id number] IMPRESSION: Hazy in strandy opacities are seen along the pelvic floor likely representing mild edematous or inflammatory changes in this patient is status post recent hysterectomy. 2. Probable mild edematous or inflammatory changes seen within the subcutaneous fat and fascia of the anterior pelvis.
[2021-07-21 20:17] LABS: Alanine Aminotransferase 18 U/L (0-33); Albumin Level 4.3 g/dL (3.5-5.2); Alkaline Phosphatase 56 IU/L (35-105); Anion Gap 16.9 (5-19); Aspartate Amino Transferase 15 U/L (0-32); Blood Urea Nitrogen 10 mg/dL (6-20); Calcium 9.6 mg/dL (8.5-10.5); Carbon Dioxide 27 mmol/L (22-29); Chloride 98 mmol/L (98-107); Globulin 3.3 g/dL (1.3-4.6); Glomerular Filtration Rate 133.4 mL/min (90-130); Glucose 135 mg/dL (65-115); Osmolality Calculated 287 mOsm/kg (285-295); Potassium 3.9 mmol/L (3.5-5.1); Sodium 138 mmol/L (136-145); Total Bilirubin 0.2 mg/dL (0.15-1.2); Total Protein 7.6 g/dL (6.6-8.7)
[2021-07-21] MEDS: iohexol 300 mg/mL 100 mL Btl IV (21:34)
[2021-07-21 21:49] VITALS: BP 139/79; PULSE 77; RESP 16; O2SAT 96
[2021-07-21 21:50] VITALS: RESP 17; O2SAT 96
[2021-07-21] MEDS: fentaNYL 50 mcg/mL INJ 2mL 25 MCG IVP (21:50)
[2021-07-21] MEDS: phenazopyridine 100 mg Tablet 200 MG PO (23:03)
[2021-07-21] MEDS: nitrofurantoin SR (BID) 100 mg Capsule PO (23:03)
[2021-07-21 23:08] VITALS: BP 129/79; PULSE 88; RESP 16; O2SAT 96
== END 2021-07-21 23:15 | disposition home or self-care (01) ==
PROVIDERS: Emergency Provider Nurse Practitioner Family; PCP Nurse Practitioner Family
DX: N30.90 Cystitis, unspecified without hematuria (principal); Z98.890 Other specified postprocedural states; Z90.710 Acquired absence of both cervix and uterus; E11.9 Type 2 diabetes mellitus without complications; Z79.84 Long term (current) use of oral hypoglycemic drugs
CPT/HCPCS: 51702; 74177; 80053; 81001; 85025; 96374; 99284; J3010; Q9967

== ENCOUNTER → 2021-07-31 09:29 | Outpatient (BNVA) | payer MEDICAID, SELFPAY | PROVIDERS: PCP Nurse Practitioner Family; Visit Provider Obstetrics & Gynecology | DX: R30.0 Dysuria (principal) | CPT/HCPCS: 81000 ==

== ENCOUNTER → 2021-08-10 13:27 | Outpatient (BNVA) | payer MEDICAID, SELFPAY | PROVIDERS: PCP Nurse Practitioner Family; Visit Provider Obstetrics & Gynecology | DX: R39.9 Unspecified symptoms and signs involving the genitourinary system (principal) | CPT/HCPCS: 81000; 87086 ==

== ENCOUNTER → 2021-08-28 11:20 | Outpatient (BNVA) | payer MEDICAID, SELFPAY | PROVIDERS: PCP Nurse Practitioner Family; Visit Provider Obstetrics & Gynecology | DX: R23.2 Flushing (principal); Z48.816 Encounter for surgical aftercare following surgery on the genitourinary system; Z90.710 Acquired absence of both cervix and uterus | CPT/HCPCS: 83001; 84443; 85025 ==

== ENCOUNTER 2021-12-19 08:41 | Emergency (ER) | payer MEDICAID, SELFPAY ==
--- NOTE | 2021-12-19 08:51 | ECG_ITS ---
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 Measurements Intervals [place] Rate: 75 P: 65 IA: 207 QRS: 38 QRSD: 86 T: 43 QT: 418 QTc: 467 Interpretive Statements SINUS RHYTHM POSSIBLE LEFT ATRIAL ENLARGEMENT [-0.1mV P WAVE IN V1/V2] Compared to ECG 07/18/2021 18:22:30 No significant changes Electronically Signed On 12-19-2021 16:29:31 CDT by Nikita Klein M.D. [email or web address] / Meont[employer] Incsharkey issaquena community hospitalGearbox Softwarelakehealth tripoint medical center.GoMoto/store/[id number] f
--- NOTE | 2021-12-19 08:51 | XR_ITS ---
WS: [id number] XR chest 1V portable [id number] REASON FOR EXAM: cp FINDINGS: The heart and mediastinum are within normal limits. Calcified granulomatous disease in both hemithoraces. No acute pulmonary parenchymal or pleural abnormality. Bony thorax is intact with no significant abnormality. XR/XR chest 1V portable [id number] IMPRESSION: No acute chest abnormality.
[2021-12-19 08:57] VITALS: BP 147/112; PULSE 81; RESP 15; O2SAT 97
--- NOTE | 2021-12-19 09:08 | W.ED.CHESTPA ---
Documented by User: QUINTIN Resendez 12/20/21 07:30 HPI - Chest Pain General: Chief Complaint: Chest Pain Stated Complaint: Chest pain Time Seen by Provider: 12/19/21 08:51 History of Present Illness: Patient is a 46-year-old female comes to the ED with chest pain. Past medical history of type 2 diabetes, hypothyroid. Symptoms started yesterday at rest when she woke up. She describes feeling pain on the right side of her chest that radiates up into her right shoulder. She rates the pain currently a 7 out of 10. Endorses feeling some chest pressure and short of breath. She also states she has a dry cough as well. She has never had chest pain like this before. She describes feeling like she has some fluid in her lungs that she cannot get out. Patient took a baby aspirin yesterday, but none today. Patient does endorse being under a lot of stress recently. She has 2 kids that are going through a lot of stressful life events and patient says she has been working a lot as well. Associated symptoms: Reports dyspnea; Deny abdominal pain, fever(s), nausea, palpitations or vomiting Review of Systems Const: Denies: fever(s), chills or fatigue Eyes: Denies: change in vision or eye discomfort ENMT: Denies: throat pain, odynophagia, nasal discharge or nasal congestion Card: Reports: chest pain; Denies: palpitations, edema, swelling of feet/ankles, dyspnea on exertion or orthopnea Resp: Reports: dyspnea and non-productive cough; Denies: productive cough GI: Denies: abdominal pain, nausea, vomiting, diarrhea, constipation or hematochezia : Denies: flank pain, dysuria or hematuria Musc: Denies: neck pain, back pain or extremity swelling Skin/Breast: Denies: rash or new lesions Neuro: Reports: headache(s); Denies: numbness in extremities or weakness in extremities PFSH ED PFSH: Medical History Aftercare following surgery of the genitourinary system Hypothyroid No pertinent past medical history neghx: htn,dvt/pe PCP: Comfort Ferguson Type 2 diabetes mellitus Surgical History Hx of abdominal surgery (~2020) joi clemente, muscle reconstruction Hx of tubal ligation (~1996) Family History Family/Other Breast cancer Maternal Aunt--dx age 40's Colon cancer Paternal Uncle---dx age 60's Maternal Aunt-- dx age 60's Mother Diabetes Heart disease Hypercholesteremia Hypertension Ovarian cancer dx age 20's Thyroid disease Father Diabetes Heart disease Stroke Grandmother Diabetes Paternal Grandfather Diabetes Paternal Denies family history of Uterine cancer Physical Exam Const: COMMON NORMALS: patient oriented x3 and alert GENERAL APPEARANCE: cooperative HENMT: COMMON NORMALS: normocephalic HEAD & SCALP: normocephalic MOUTH: Normal oral and palatal mucosa present THROAT: posterior oropharynx normal and uvula midline Eye: COMMON NORMALS: Equal, round and reactive pupils present and conjunctivae normal CONJUNCTIVA: Yes conjunctivae normal PUPIL: Yes Equal, round and reactive pupils present Neck/C-Spine: COMMON NORMALS: supple GENERAL: Yes normal visual inspection Resp: COMMON NORMALS: normal respiratory effort, No retractions, No use of accessory muscles and clear to auscultation bilaterally AUSCULTATION: clear to auscultation bilaterally Cardio: COMMON NORMALS: regular rate, regular rhythm, S1 normal heart sound present, S2 normal heart sound present, No gallops present (Cardio), No clicks present (Cardio), No murmurs present (Cardio) and Peripheral pulses 2+ throughout RATE: regular rate RHYTHM: regular rhythm HEART SOUNDS: S1 normal heart sound present and S2 normal heart sound present PERIPHERAL PULSES: Peripheral pulses 2+ throughout GI: COMMON NORMALS: Normal to inspection, nondistended, normoactive bowel sounds present, Soft to palpation, non-tender and no masses PALPATION: Yes Soft to palpation : COMMON NORMALS: Yes no CVA tenderness BLADDER/KIDNEY EXAM: Yes no CVA tenderness Back/Pelvis: COMMON NORMALS: no CVA tenderness Extremity: COMMON NORMALS: normal to inspection Neuro: COMMON NORMALS: patient oriented x3 and moves all extremities SENSORIUM/ORIENTATION: Yes alert Skin: GENERAL SKIN EXAM: dry skin Course Vital Signs: Vital signs: Vital Signs Pulse Rate 73 12/19/21 13:26 Respiratory Rate 15 12/19/21 08:57 Blood Pressure 118/88 12/19/21 13:26 Pulse Oximetry 96 12/19/21 13:26 MDM - Chest Pain Medical Decision Making Patient is a 46-year-old female comes in the ED with chest pain. Symptoms started yesterday at rest when she woke up. 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 Vitals are stable. Exam of patient is benign. Baseline troponin 6 and 2-hour troponin was 6 as well with a delta of 0. D-dimer was normal at 0.4 and the rest of CBC and CMP were unremarkable. Chest x-ray showed no acute findings. EKG showed sinus rhythm with no ST segment elevation or depression seen. Patient was given a dose of Ativan in the symptoms improved. She was stable for discharge home and diagnosed with noncardiac chest pain likely due to stress/anxiety. Send her home with a prescription for Vistaril for any acute anxiety. She was told to follow-up with her PCP in the next week for reevaluation. Return ED precautions given. Patient understood and agreed with plan. Lab Data I reviewed the patient's lab results. : 12/19/21 10:40 12/19/21 10:40 Radiology Impressions Chest X-Ray 12/19/21 08:51 IMPRESSION: No acute chest abnormality. Laboratory Results WBC 4.7 10^3/uL (4.0-10.0) 12/19/21 10:40 RBC 4.60 10^6/uL (4.1-5.3) 12/19/21 10:40 Hgb 12.6 g/dL (11.5-15.3) 12/19/21 10:40 Hct 38.6 % (37.0-47.0) 12/19/21 10:40 MCV 83.9 fl (81-99) 12/19/21 10:40 MCH 27.4 pg (28.0-34.0) L 12/19/21 10:40 MCHC 32.6 g/dL (30.0-36.0) 12/19/21 10:40 RDW 12.9 % (12.1-15.1) 12/19/21 10:40 Plt Count 280 10^3/cmm (130-400) 12/19/21 10:40 MPV 10.0 fL (7.4-10.4) 12/19/21 10:40 Neut % (Auto) 41.1 % 12/19/21 10:40 Lymph % (Auto) 46.3 % 12/19/21 10:40 [place] % (Auto) 10.0 % 12/19/21 10:40 Eos % (Auto) 1.5 % 12/19/21 10:40 Baso % (Auto) 0.9 % 12/19/21 10:40 Neut # (Auto) 1.93 10^3/uL (1.8-7.7) 12/19/21 10:40 Lymph # (Auto) 2.2 10^3/uL (0.8-4.8) 12/19/21 10:40 [place] # (Auto) 0.5 10^3/uL (0.2-0.9) 12/19/21 10:40 Eos # (Auto) 0.1 10^3/uL (0.0-0.8) 12/19/21 10:40 Baso # (Auto) 0.0 10^3/uL (0.0-0.1) 12/19/21 10:40 Nucleated RBC % (auto) 0 % 12/19/21 10:40 Nucleated RBCs # 0.0 /100WBC 12/19/21 10:40 D-Dimer 0.40 ug/mIFEU (0-0.59) 12/19/21 10:40 Sodium 134 mmol/L (136-145) L 12/19/21 10:40 Potassium 3.9 mmol/L (3.5-5.1) 12/19/21 10:40 Chloride 97 mmol/L (98-107) L 12/19/21 10:40 Carbon Dioxide 25 mmol/L (22-29) 12/19/21 10:40 Anion Gap 15.9 (5-19) 12/19/21 10:40 BUN 13 mg/dL (6-20) 12/19/21 10:40 Creatinine 0.6 mg/dL (0.5-0.9) 12/19/21 10:40 GFR Calculation 108.1 mL/min (90-130) 12/19/21 10:40 Glucose 136 mg/dL (65-115) H 12/19/21 10:40 Calculated Osmolality 280 mOsm/kg (285-295) L 12/19/21 10:40 Calcium 9.1 mg/dL (8.5-10.5) 12/19/21 10:40 Total Bilirubin 0.3 mg/dL (0.15-1.2) 12/19/21 10:40 AST 21 U/L (0-32) 12/19/21 10:40 ALT 34 U/L (0-33) H 12/19/21 10:40 Alkaline Phosphatase 55 IU/L (35-105) 12/19/21 10:40 Troponin T Baseline 6 ng/L (0-10) 12/19/21 10:40 Troponin T 120 Minute 6.00 ng/L (0-10) 12/19/21 12:15 Delta Troponin T 0 ABS# (0-10) 12/19/21 12:15 Total Protein 7.1 g/dL (6.6-8.7) 12/19/21 10:40 Albumin 4.3 g/dL (3.5-5.2) 12/19/21 10:40 Globulin 2.8 g/dL (1.3-4.6) 12/19/21 10:40 EKG Data EKG 1: EKG interpretation date: 12/19/21 Interpretation: Sinus rhythm, no ST segment elevation or depression seen. 75 bpm. Discharge Plan Discharge Patient Disposition: Home Clinical Impression: Non-cardiac chest pain Condition: Stable Prescriptions: New Vistaril 50 mg capsule 50 mg PO Q8H PRN (Reason: acute anxiety) Qty: 30 0RF No Action triamterene-hydrochlorothiazid 37.5-25 mg tablet 1 tab PO QAM 0RF metformin 500 mg tablet 500 mg PO BID 0RF ibuprofen 800 mg tablet 800 mg PO Q8H PRN (Reason: Pain) 0RF multivitamin Tablet 2 tab PO DAILY 0RF levothyroxine 137 mcg tablet 137 mcg PO QAM 0RF Aspir-81 81 mg Tablet,Delayed Release (Dr/Ec) 81 mg PO .ONCE 0RF Probiotic 15 billion cell Capsule 1 cap PO DAILY 0RF albuterol sulfate 90 mcg/actuation HFA aerosol inhaler 2 puff INHALATION QID PRN (Reason: Shortness Of Breath) 0RF Discharge Orders: Discharge ED (Routine); Ordered 12/19/21 Ordered By: Garfield Brothers Referrals: Ferguson,CLAUDIA Zaman [Primary Care Provider] - Discharge Diet: Regular Discharge Activity: Increase activity as tolerated Patient Instructions: Noncardiac Chest Pain (ED) Activity Restrictions/Additional Instructions: Follow-up with medical provider as directed in the next 5 to 7 days for reevaluation. Continue taking all home meds as previously prescribed. Return to the ER or your medical provider if condition worsens. Please read and understand discharge instructions. Thank you for choosing [facility] for your healthcare needs today. Please realize this is an emergency room and that we are providing you with a medical screening exam and this may not be complete and all inclusive of all the testing and or work up that you may need to determine your ailment or severity of your illness. It is very important that you follow up as instructed or that you return to the Emergency Department should you have concerns or if your condition changes or worsens in any way. Coding Level of Care Code ED Joint Cutter Machine for Chg Fwd Exam Comprehensive Documented by User: Thuan Gatica DO 12/20/21 08:50 HPI - Chest Pain General: Chief Complaint: Chest Pain Stated Complaint: Chest pain Time Seen by Provider: 12/19/21 08:51 [facility] ED PFSH: Medical History Aftercare following surgery of the genitourinary system Hypothyroid No pertinent past medical history neghx: htn,dvt/pe PCP: Comfort Ferguson Type 2 diabetes mellitus Surgical History Hx of abdominal surgery (~2020) tummy tuck, muscle reconstruction Hx of tubal ligation (~1996) Family History Family/Other Breast cancer Maternal Aunt--dx age 40's Colon cancer Paternal Uncle---dx age 60's Maternal Aunt-- dx age 60's Mother Diabetes Heart disease Hypercholesteremia Hypertension Ovarian cancer dx age 20's Thyroid disease Father Diabetes Heart disease Stroke Grandmother Diabetes Paternal Grandfather Diabetes Paternal Denies family history of Uterine cancer Course Vital Signs: Vital signs: Vital Signs Pulse Rate 73 12/19/21 13:26 Respiratory Rate 15 12/19/21 08:57 Blood Pressure 118/88 12/19/21 13:26 Pulse Oximetry 96 12/19/21 13:26 MDM - Chest Pain Medical Decision Making Patient is a 46-year-old female comes in the ED with chest pain. Symptoms started yesterday at rest when she woke up. 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 Vitals are stable. Exam of patient is benign. Baseline troponin 6 and 2-hour troponin was 6 as well with a delta of 0. D-dimer was normal at 0.4 and the rest of CBC and CMP were unremarkable. Chest x-ray showed no acute findings. EKG showed sinus rhythm with no ST segment elevation or depression seen. Patient was given a dose of Ativan in the symptoms improved. She was stable for discharge home and diagnosed with noncardiac chest pain likely due to stress/anxiety. Send her home with a prescription for Vistaril for any acute anxiety. She was told to follow-up with her PCP in the next week for reevaluation. Return ED precautions given. Patient understood and agreed with plan. Chart reviewed and patient discussed with midlevel. Agree with assessment and plan. Lab Data : 12/19/21 10:40 12/19/21 10:40 Radiology Impressions Chest X-Ray 12/19/21 08:51 IMPRESSION: No acute chest abnormality. Laboratory Results WBC 4.7 10^3/uL (4.0-10.0) 12/19/21 10:40 RBC 4.60 10^6/uL (4.1-5.3) 12/19/21 10:40 Hgb 12.6 g/dL (11.5-15.3) 12/19/21 10:40 Hct 38.6 % (37.0-47.0) 12/19/21 10:40 MCV 83.9 fl (81-99) 12/19/21 10:40 MCH 27.4 pg (28.0-34.0) L 12/19/21 10:40 MCHC 32.6 g/dL (30.0-36.0) 12/19/21 10:40 RDW 12.9 % (12.1-15.1) 12/19/21 10:40 Plt Count 280 10^3/cmm (130-400) 12/19/21 10:40 MPV 10.0 fL (7.4-10.4) 12/19/21 10:40 Neut % (Auto) 41.1 % 12/19/21 10:40 Lymph % (Auto) 46.3 % 12/19/21 10:40 [place] % (Auto) 10.0 % 12/19/21 10:40 Eos % (Auto) 1.5 % 12/19/21 10:40 Baso % (Auto) 0.9 % 12/19/21 10:40 Neut # (Auto) 1.93 10^3/uL (1.8-7.7) 12/19/21 10:40 Lymph # (Auto) 2.2 10^3/uL (0.8-4.8) 12/19/21 10:40 [place] # (Auto) 0.5 10^3/uL (0.2-0.9) 12/19/21 10:40 Eos # (Auto) 0.1 10^3/uL (0.0-0.8) 12/19/21 10:40 Baso # (Auto) 0.0 10^3/uL (0.0-0.1) 12/19/21 10:40 Nucleated RBC % (auto) 0 % 12/19/21 10:40 Nucleated RBCs # 0.0 /100WBC 12/19/21 10:40 D-Dimer 0.40 ug/mIFEU (0-0.59) 12/19/21 10:40 Sodium 134 mmol/L (136-145) L 12/19/21 10:40 Potassium 3.9 mmol/L (3.5-5.1) 12/19/21 10:40 Chloride 97 mmol/L (98-107) L 12/19/21 10:40 Carbon Dioxide 25 mmol/L (22-29) 12/19/21 10:40 Anion Gap 15.9 (5-19) 12/19/21 10:40 BUN 13 mg/dL (6-20) 12/19/21 10:40 Creatinine 0.6 mg/dL (0.5-0.9) 12/19/21 10:40 GFR Calculation 108.1 mL/min (90-130) 12/19/21 10:40 Glucose 136 mg/dL (65-115) H 12/19/21 10:40 Calculated Osmolality 280 mOsm/kg (285-295) L 12/19/21 10:40 Calcium 9.1 mg/dL (8.5-10.5) 12/19/21 10:40 Total Bilirubin 0.3 mg/dL (0.15-1.2) 12/19/21 10:40 AST 21 U/L (0-32) 12/19/21 10:40 ALT 34 U/L (0-33) H 12/19/21 10:40 Alkaline Phosphatase 55 IU/L (35-105) 12/19/21 10:40 Troponin T Baseline 6 ng/L (0-10) 12/19/21 10:40 Troponin T 120 Minute 6.00 ng/L (0-10) 12/19/21 12:15 Delta Troponin T 0 ABS# (0-10) 12/19/21 12:15 Total Protein 7.1 g/dL (6.6-8.7) 12/19/21 10:40 Albumin 4.3 g/dL (3.5-5.2) 12/19/21 10:40 Globulin 2.8 g/dL (1.3-4.6) 12/19/21 10:40 Discharge Plan Discharge Patient Disposition: Home Clinical Impression: Non-cardiac chest pain Condition: Stable Prescriptions: New Vistaril 50 mg capsule 50 mg PO Q8H PRN (Reason: acute anxiety) Qty: 30 0RF No Action triamterene-hydrochlorothiazid 37.5-25 mg tablet 1 tab PO QAM 0RF metformin 500 mg tablet 500 mg PO BID 0RF ibuprofen 800 mg tablet 800 mg PO Q8H PRN (Reason: Pain) 0RF multivitamin Tablet 2 tab PO DAILY 0RF levothyroxine 137 mcg tablet 137 mcg PO QAM 0RF Aspir-81 81 mg Tablet,Delayed Release (Dr/Ec) 81 mg PO .ONCE 0RF Probiotic 15 billion cell Capsule 1 cap PO DAILY 0RF albuterol sulfate 90 mcg/actuation HFA aerosol inhaler 2 puff INHALATION QID PRN (Reason: Shortness Of Breath) 0RF Discharge Orders: Discharge ED (Routine); Ordered 12/19/21 Ordered By: Garfield Brothers Referrals: Junie Ferguson APN [Primary Care Provider] - Discharge Diet: Regular Discharge Activity: Increase activity as tolerated Patient Instructions: Noncardiac Chest Pain (ED) Activity Restrictions/Additional Instructions: Follow-up with medical provider as directed in the next 5 to 7 days for reevaluation. Continue taking all home meds as previously prescribed. Return to the ER or your medical provider if condition worsens. Please read and understand discharge instructions. Thank you for choosing [facility] for your healthcare needs today. Please realize this is an emergency room and that we are providing you with a medical screening exam and this may not be complete and all inclusive of all the testing and or work up that you may need to determine your ailment or severity of your illness. It is very important that you follow up as instructed or that you return to the Emergency Department should you have concerns or if your condition changes or worsens in any way. Coding Level of Care Code ED Joint Cutter Machine for [place] Fwd Exam Comprehensive
[2021-12-19] MEDS: aspirin 81 mg Chew Tablet 324 MG PO (09:46)
[2021-12-19 10:44] LABS: Basophils % 0.9 %; Eosinophils # 0.1 10^3/uL (0.0-0.8); Eosinophils % 1.5 %; Hematocrit 38.6 % (37.0-47.0); Hemoglobin 12.6 g/dL (11.5-15.3); Lymphocytes # 2.2 10^3/uL (0.8-4.8); Lymphocytes % 46.3 %; Mean Corpuscular HGB Conc 32.6 g/dL (30.0-36.0); Mean Corpuscular Hemoglobin 27.4 pg (28.0-34.0); Mean Corpuscular Volume 83.9 fl (81-99); Monocytes # 0.5 10^3/uL (0.2-0.9); Neutrophils # 1.93 10^3/uL (1.8-7.7); Neutrophils % 41.1 %; Nucleated Red Blood Cells % 0 %; Platelet Count 280 10^3/cmm (130-400); Red Cell Distribution Width 12.9 % (12.1-15.1); White Blood Count 4.7 10^3/uL (4.0-10.0)
--- NOTE | 2021-12-19 10:51 | ECG_ITS ---
[facility] Test Date: 2021-12-19 Pat Name: Kathleen Cortes Department: Room: Gender: Female Pacu Rn: : 1975 Requested By: Garfield Brothers Order Number: [id number] MD: Nikita Klein M.D. Measurements Intervals [place] Rate: 74 P: 61 VT: 202 QRS: 37 QRSD: 84 T: 48 QT: 428 QTc: 475 Interpretive Statements SINUS RHYTHM POSSIBLE LEFT ATRIAL ENLARGEMENT [-0.1mV P-WAVE IN V1/V2] Compared to ECG 12/19/2021 09:30:07 No significant changes Electronically Signed On 12-19-2021 16:33:27 CDT by Nikita Klein M.D. [id number]
[2021-12-19 11:29] LABS: Troponin(5th) Baseline 6 ng/L (0-10)
[2021-12-19 11:30] LABS: Alanine Aminotransferase 34 U/L (0-33); Albumin Level 4.3 g/dL (3.5-5.2); Alkaline Phosphatase 55 IU/L (35-105); Anion Gap 15.9 (5-19); Aspartate Amino Transferase 21 U/L (0-32); Blood Urea Nitrogen 13 mg/dL (6-20); Calcium 9.1 mg/dL (8.5-10.5); Carbon Dioxide 25 mmol/L (22-29); Chloride 97 mmol/L (98-107); Globulin 2.8 g/dL (1.3-4.6); Glomerular Filtration Rate 108.1 mL/min (90-130); Glucose 136 mg/dL (65-115); Osmolality Calculated 280 mOsm/kg (285-295); Potassium 3.9 mmol/L (3.5-5.1); Sodium 134 mmol/L (136-145); Total Bilirubin 0.3 mg/dL (0.15-1.2); Total Protein 7.1 g/dL (6.6-8.7)
[2021-12-19] MEDS: LORazepam 1 mg Tablet PO (11:47)
--- NOTE | 2021-12-19 11:51 | PC.PHAR ---
pt states she takes care of her own medications-pt states she stop taking lisinopril a month ago ext med history shows lisinopril 10mg daily filled 10/25/21 30d/s-pt states she takes metformin 500mg bid ext med history shows last filled 09/10/21 30d/s for 1000mg bid-notes are made in the pharmacy comments
[2021-12-19] MEDS: ketorolac 30 mg/mL INJ IVP (12:14)
[2021-12-19 13:26] VITALS: BP 118/88; PULSE 73; O2SAT 96
[2021-12-19 14:09] LABS: Troponin 5 2HR Delta 0 ABS# (0-10)
== END 2021-12-19 13:28 | disposition home or self-care (01) ==
PROVIDERS: Emergency Provider Physician Assistant; PCP Nurse Practitioner Family
DX: R07.89 Other chest pain (principal); Z79.84 Long term (current) use of oral hypoglycemic drugs; Z79.82 Long term (current) use of aspirin; E11.9 Type 2 diabetes mellitus without complications
CPT/HCPCS: 71045; 80053; 84484; 85025; 85378; 93005; 96374; 99285; J1885

== ENCOUNTER → 2022-01-01 10:18 | Outpatient (BNVA) | payer MEDICAID, SELFPAY | PROVIDERS: PCP Nurse Practitioner Family; Visit Provider Nurse Practitioner Family | DX: I10 Essential (primary) hypertension (principal); J45.41 Moderate persistent asthma with (acute) exacerbation | CPT/HCPCS: 71046 ==

== ENCOUNTER 2022-12-06 14:20 | Emergency (ER) | payer MEDICAID, SELFPAY ==
[2022-12-06 14:54] VITALS: BP 131/86; PULSE 82; RESP 17; TEMP 36.5; O2SAT 100; BMI 33.9
--- NOTE | 2022-12-06 16:43 | ED_ITS ---
HPI - Weakness General: Chief complaint: Weakness Stated complaint: Gastric bipass 2 wks ago, Headpain,weakness Time Seen by Provider: 12/06/22 16:34 Source: patient Mode of arrival: ambulatory History of Present Illness: 47-year-old female presents emergency room on December 21 patient had gastric bypass surgery at [place]. She has been nauseous has been having a difficult time with being lightheaded dizzy headaches decreased energy she denies any dysuria urgency or frequency she has some siri-incisional pain but no significant abdominal pain she denies any dysuria urgency or frequency. No vomiting or diarrhea. She has nausea scrips at home but has not really taken anything for it yet. MD Complaint: generalized weakness Onset (ago): day(s) Duration: constant Location: generalized Severity: mild Relieving factors: none Exacerbating factors: none Associated symptoms: Denies chest pain, chills, confusion, melena, decreased appetite, diaphoresis, dysuria, easy bruising, fever(s), headache(s), myalgias, nausea, rash, short of breath, syncope or vomiting Review of Systems Const: Denies: fever(s), chills or diaphoresis Card: Denies: chest pain or syncope Resp: Denies: dyspnea or productive cough GI: Reports: abdominal pain; Denies: nausea, vomiting or melena : Denies: dysuria, urinary frequency or urinary urgency Musc: Denies: neck pain or back pain Neuro: Denies: headache(s) or confusion Danilo/Lymph: Denies: easy bruising PFSH ED PFSH: Medical History Aftercare following surgery of the genitourinary system Hypothyroid No pertinent past medical history neghx: htn,dvt/pe PCP: Comfort Ferguson Type 2 diabetes mellitus Surgical History Hx of abdominal surgery (~2020) jeanmariemy tuck, muscle reconstruction Hx of tubal ligation (~1996) Family History Family/Other Breast cancer Maternal Aunt--dx age 40's Colon cancer Paternal Uncle---dx age 60's Maternal Aunt-- dx age 60's Mother Diabetes Heart disease Hypercholesteremia Hypertension Ovarian cancer dx age 20's Thyroid disease Father Diabetes Heart disease Stroke Grandmother Diabetes Paternal Grandfather Diabetes Paternal Denies family history of Uterine cancer Physical Exam Const: GENERAL APPEARANCE: cooperative and comfortable ORIENTATION/CONSCIOUSNESS: Yes awake, Yes oriented to person, Yes oriented to place and Yes oriented to time HENMT: COMMON NORMALS: normocephalic, atraumatic and hearing grossly normal bilaterally HEAD & SCALP: normocephalic and atraumatic Resp: COMMON NORMALS: normal respiratory effort, No retractions, No use of a ccessory muscles and clear to auscultation bilaterally AUSCULTATION: clear to auscultation bilaterally Cardio: COMMON NORMALS: regular rate, regular rhythm and No murmurs present (Cardio) RATE: regular rate RHYTHM: regular rhythm GI: COMMON NORMALS: Soft to palpation and No hepatosplenomegaly present AUSCULTATION: Yes normoactive bowel sounds PALPATION: Yes Soft to palpation, No Tenderness to palpation present (GI), No Guarding due to palpation present (GI) and Yes No hepatosplenomegaly present OTHER: Incision sites on the abdomen show no sign of erythema thickening drainage or infection no induration Extremity: COMMON NORMALS: normal to inspection, capillary refill normal, no clubbing, cyanosis or edema, no calf tenderness and no pedal edema Neuro: SENSORIUM/ORIENTATION: Yes oriented to person, Yes oriented to place and Yes oriented to time Skin: COMMON NORMALS: no rashes or lesions noted GENERAL SKIN EXAM: no rashes or lesions noted Course Vital Signs: Vital signs: Vital Signs Temperature 97.7 F 12/06/22 14:54 Pulse Rate 78 12/06/22 18:41 Respiratory Rate 17 12/06/22 14:54 Blood Pressure 129/89 12/06/22 18:41 Pulse Oximetry 97 12/06/22 18:41 Oxygen Delivery Me thod Room Air 12/06/22 16:50 MDM - Weakness Medical Decision Making Labs and imaging reviewed. Patient has been instructed to take given around 13 to 1500 mL water per day which she is struggling with. She has extremely early satiety since her Bal-en-Y gastric bypass. Encouraged her to drink small amounts of fluids consistently throughout the day. She is given IV fluids is feeling better will discharge home with ondansetron to use as needed follow-up as needed Medical Records I reviewed the patient's medical records. Lab Data I reviewed the patient's lab results. 12/06/22 16:45 12/06/22 16:45 Laboratory Results WBC 7.5 10^3/uL (4.0-10.0) 12/06/22 16:45 RBC 4.59 10^6/uL (4.1-5.3) 12/06/22 16:45 Hgb 12.1 g/dL (11.5-15.3) 12/06/22 16:45 Hct 39.6 % (37.0-47.0) 12/06/22 16:45 MCV 86.3 fl (81-99) 12/06/22 16:45 MCH 26.4 pg (28.0-34.0) L 12/06/22 16:45 MCHC 30.6 g/dL (30.0-36.0) 12/06/22 16:45 RDW 12.8 % (12.1-15.1) 12/06/22 16:45 Plt Count 403 10^3/cmm (130-400) H 12/06/22 16:45 MPV 9.5 fL (7.4-10.4) 12/06/22 16:45 Neut % (Auto) 57.0 % 12/06/22 16:45 Lymph % (Auto) 34.0 % 12/06/22 16:45 [place] % (Auto) 6.2 % 12/06/22 16:45 Eos % (Auto) 1.9 % 12/06/22 16:45 Baso % (Auto) 0.5 % 12/06/22 16:45 Neut # (Auto) 4.30 10^3/uL (1.8-7.7) 12/06/22 16:45 Lymph # (Auto) 2.6 10^3/uL (0.8-4.8) 12/06/22 16:45 [place] # (Auto) 0.5 10^3/uL (0.2-0.9) 12/06/22 16:45 Eos # (Auto) 0.1 10^3/uL (0.0-0.8) 12/06/22 16:45 Baso # (Auto) 0.0 10^3/uL (0.0-0.1) 12/06/22 16:45 Nucleated RBC % (auto) 0 % 12/06/22 16:45 Nucleated RBCs # 0.0 /100WBC 12/06/22 16:45 Sodium 136 mmol/L (136-145) 12/06/22 16:45 Potassium 3.9 mmol/L (3.5-5.1) 12/06/22 16:45 Chloride 101 mmol/L (98-107) 12/06/22 16:45 Carbon Dioxide 23 mmol/L (22-29) 12/06/22 16:45 Anion Gap 15.9 (5-19) 12/06/22 16:45 BUN 19 mg/dL (6-20) 12/06/22 16:45 Creatinine 0.6 mg/dL (0.5-0.9) 12/06/22 16:45 GFR Calculation 107.6 mL/min (90-130) 12/06/22 16:45 Glucose 106 mg/dL (65-115) 12/06/22 16:45 Calculated Osmolality 285 mOsm/kg (285-295) 12/06/22 16:45 Calcium 9.4 mg/dL (8.5-10.5) 12/06/22 16:45 Total Bilirubin 0.2 mg/dL (0.15-1.2) 12/06/22 16:45 AST 16 U/L (0-32) 12/06/22 16:45 ALT 24 U/L (0-33) 12/06/22 16:45 Alkaline Phosphatase 50 U/L (35-105) 12/06/22 16:45 Total Protein 7.8 g/dL (6.6-8.7) 12/06/22 16:45 Albumin 4.5 g/dL (3.5-5.2) 12/06/22 16:45 Globulin 3.3 g/dL (1.3-4.6) 12/06/22 16:45 Lipase 77 U/L (13-60) H 12/06/22 16:45 Urine Color Yellow (Yellow) 12/06/22 16:49 Urine Appearance Clear (CLEAR) 12/06/22 16:49 Urine pH 5 (5-7) 12/06/22 16:49 Ur Specific [place] 1.020 (1.005-1.030) 12/06/22 16:49 Urine Protein Neg (Negative) 12/06/22 16:49 Urine Glucose (UA) Norm (Normal) 12/06/22 16:49 Urine Ketones 2+ (Negative) H 12/06/22 16:49 Urine Blood Neg (Negative) 12/06/22 16:49 Urine Nitrate Negative (Negative) 12/06/22 16:49 Urine Bilirubin Neg (Negative) 12/06/22 16:49 Urine Urobilinogen Norm mg/dL (Negative) 12/06/22 16:49 Ur Leukocyte Esterase Negative (Negative) 12/06/22 16:49 Discharge Plan Discharge Patient Disposition: Home Clinical Impression: Dehydration, S/P gastric bypass Condition: Stable Prescriptions: New ondansetron HCl 4 mg tablet 4 mg PO Q6H PRN (Reason: nausea and vomiting) Qty: 20 0RF No Action triamterene-hydrochlorothiazid 37.5-25 mg tablet 1 tab PO QAM metformin 500 mg tablet 500 mg PO BID ibuprofen 800 mg tablet 800 mg PO Q8H PRN (Reason: Pain) lisinopril 20 mg tablet 20 mg PO DAILY multivitamin Tablet 2 tab PO DAILY levothyroxine 137 mcg tablet 137 mcg PO QAM Aspir-81 81 mg Tablet,Delayed Release (Dr/Ec) 81 mg PO .ONCE Probiotic 15 billion cell Capsule 1 cap PO DAILY albuterol sulfate 90 mcg/actuation HFA aerosol inhaler 2 puff INHALATION QID PRN (Reason: Shortness Of Breath) Vistaril 50 mg capsule 50 mg PO Q8H PRN (Reason: acute anxiety) Qty: 30 0RF Discharge Orders: Discharge ED (Routine); Ordered 12/06/22 Ordered By: Thuan Gatica Referrals: Ferguson,GIULIANA ZamanN [Primary Care Provider] - Discharge Diet: Usual diet Discharge Activity: Resume usual activity Patient Instructions: Opioid Safety, Pain Management Activity Restrictions/Additional Instructions: Small amounts of fluid frequently. Coding Level of Care Code ED Electronic Warfare Operator for Katalina Kolb
[2022-12-06 16:50] VITALS: BP 125/93; PULSE 74; O2SAT 100
[2022-12-06 16:54] LABS: Basophils % 0.5 %; Eosinophils # 0.1 10^3/uL (0.0-0.8); Eosinophils % 1.9 %; Hematocrit 39.6 % (37.0-47.0); Hemoglobin 12.1 g/dL (11.5-15.3); Lymphocytes # 2.6 10^3/uL (0.8-4.8); Mean Corpuscular HGB Conc 30.6 g/dL (30.0-36.0); Mean Corpuscular Hemoglobin 26.4 pg (28.0-34.0); Mean Corpuscular Volume 86.3 fl (81-99); Mean Platelet Volume 9.5 fL (7.4-10.4); Monocytes # 0.5 10^3/uL (0.2-0.9); Monocytes % 6.2 %; Nucleated Red Blood Cells % 0 %; Platelet Count 403 10^3/cmm (130-400); Red Blood Count 4.59 10^6/uL (4.1-5.3); Red Cell Distribution Width 12.8 % (12.1-15.1); White Blood Count 7.5 10^3/uL (4.0-10.0)
[2022-12-06 16:54] LABS: Add Urine Microscopic? NO; Charge for UA Resulting for Rev
[2022-12-06] MEDS: ondansetron 2 mg/ML SDV 2 mL 4 MG IVP (16:54)
[2022-12-06] MEDS: sodium chloride 0.9% 1,000 ML 999 ML IV ×2 (16:54→17:53)
[2022-12-06 17:00] LABS: Bilirubin Urine Neg (Negative); Blood Urine Neg (Negative); Glucose Urine UA Norm (Normal); Ketones Urine 2+ (Negative); Leukocyte Esterase Urine Negative (Negative); Nitrate Urine Negative (Negative); Protein Urine Neg (Negative); Urine Appearance Clear (CLEAR); Urine Color Yellow (Yellow); Urobilinogen Urine Norm (Negative); pH Urine 5 (5-7)
[2022-12-06 17:11] LABS: Alanine Aminotransferase 24 U/L (0-33); Albumin Level 4.5 g/dL (3.5-5.2); Alkaline Phosphatase 50 U/L (35-105); Anion Gap 15.9 (5-19); Aspartate Amino Transferase 16 U/L (0-32); Blood Urea Nitrogen 19 mg/dL (6-20); Calcium 9.4 mg/dL (8.5-10.5); Carbon Dioxide 23 mmol/L (22-29); Chloride 101 mmol/L (98-107); Globulin 3.3 g/dL (1.3-4.6); Glomerular Filtration Rate 107.6 mL/min (90-130); Glucose 106 mg/dL (65-115); Lipase 77 U/L (13-60); Osmolality Calculated 285 mOsm/kg (285-295); Potassium 3.9 mmol/L (3.5-5.1); Sodium 136 mmol/L (136-145); Total Bilirubin 0.2 mg/dL (0.15-1.2); Total Protein 7.8 g/dL (6.6-8.7)
[2022-12-06 17:55] VITALS: BP 131/86; PULSE 75; O2SAT 98
[2022-12-06 18:41] VITALS: BP 129/89; PULSE 78; O2SAT 97
--- NOTE | 2022-12-07 09:33 | PC.NURSE ---
[facility] CALLED FOR ZOFRAN 4 MG PO Q6H PRN X 20 TAB PER DAGMAR. - EB 12/07/22
== END 2022-12-06 18:41 | disposition home or self-care (01) ==
PROVIDERS: Physician Assistant; Emergency Provider Family Medicine; PCP Nurse Practitioner Family
DX: E86.0 Dehydration (principal); Z98.84 Bariatric surgery status; Z79.84 Long term (current) use of oral hypoglycemic drugs; E11.9 Type 2 diabetes mellitus without complications
CPT/HCPCS: 80053; 81003; 83690; 85025; 96361; 96374; 99284; J2405; J7030

== ENCOUNTER 2023-03-07 20:06 | Emergency (ER) | payer MEDICAID, SELFPAY ==
[2023-03-07 20:08] VITALS: PULSE 93; RESP 20; TEMP 36.6; O2SAT 99; BMI 22.6
--- NOTE | 2023-03-07 20:25 | W.ED.ABDPA2 ---
HPI - Abdominal Pain General: Chief Complaint: Abdominal Pain Stated Complaint: ABD PAIN Time Seen by Provider: 03/07/23 20:10 History of Present Illness: This 47-year-old female was brought in by EMS with progressively worsening abdominal pain. She had a laparoscopic cholecystectomy at [facility] earlier today and notes that even before she was discharged from the hospital she was already having significant abdominal pain. She states that the surgeon had explained to her that because her gallbladder was enlarged, they had to cut through her anterior abdominal wall muscle to retrieve the gallbladder. Patient notes that on getting home, she tried to get into bed and felt a rip through her abdominal muscle. Since then, pain has significantly worsened. She presents to the ER, quite tearful despite receiving fentanyl from EMS. She has no fever and has not vomited. Associated Symptoms: Denies chills and dysuria Review of Systems Const: Denies: chills, body aches or change in appetite Eyes: Denies: change in vision or eye discharge ENMT: Denies: throat pain, dental pain or nasal discharge Card: Denies: chest pain or lightheadedness GI: Reports: abdominal pain : Denies: dysuria Musc: Denies: neck pain or back pain Neuro: Denies: headache(s) or weakness in extremities Psych: Denies: depression Danilo/Lymph: Denies: easy bruising All/Imm: Denies: urticaria, tongue swelling or facial swelling PFSH ED PFSH: Medical History Aftercare following surgery of the genitourinary system Hypothyroid No pertinent past medical history neghx: htn,dvt/pe PCP: Comfort Ferguson Type 2 diabetes mellitus Surgical History Hx of abdominal surgery (~2020) tummy tuck, muscle reconstruction Hx of tubal ligation (~1996) Family History Family/Other Breast cancer Maternal Aunt--dx age 40's Colon cancer Paternal Uncle---dx age 60's Maternal Aunt-- dx age 60's Mother Diabetes Heart disease Hypercholesteremia Hypertension Ovarian cancer dx age 20's Thyroid disease Father Diabetes Heart disease Stroke Grandmother Diabetes Paternal Grandfather Diabetes Paternal Denies family history of Uterine cancer Physical Exam Const: COMMON NORMALS: patient oriented x3, no limitations and alert OTHER: Severe distress due to abdominal pain. HENMT: COMMON NORMALS: normocephalic HEAD & SCALP: normocephalic Eye: COMMON NORMALS: EOMs intact bilaterally Neck/C-Spine: COMMON NORMALS: full ROM and supple Chest: COMMONS NORMALS: normal inspection of the chest Resp: COMMON NORMALS: normal respiratory effort, No retractions, No use of accessory muscles and clear to auscultation bilaterally AUSCULTATION: clear to auscultation bilaterally Cardio: COMMON NORMALS: regular rate, regular rhythm and No murmurs present (Cardio) RATE: regular rate RHYTHM: regular rhythm GI: OTHER: 4 separate stab incisions from laparoscopic cholecystectomy earlier today. Abdomen is soft, nondistended. Tenderness on palpation of the right half of the abdomen. Normal bowel sounds. : COMMON NORMALS: Yes no CVA tenderness BLADDER/KIDNEY EXAM: Yes no CVA tenderness Back/Pelvis: COMMON NORMALS: no CVA tenderness and no thoracic nor lumbar tenderness Extremity: GENERAL: Yes normal exam except as noted Neuro: COMMON NORMALS: patient oriented x3 and no focal motor deficits SENSORIUM/ORIENTATION: Yes alert Psych: COMMON NORMALS: mental status grossly normal and cooperative Course Reevaluation(s): Reevaluation #1: Patient reevaluated. Pain is considerably better. She is comfortable going home. Consultations: Consultation #1: Case discussed with Dr. Brock with general surgery at [facility]. He notes that no additional intervention is needed besides controlling her pain. Patient should follow-up in their office. Vital Signs: Vital signs: Vital Signs Temperature 98 F 03/07/23 20:08 Pulse Rate 68 03/07/23 21:31 Respiratory Rate 22 H 03/07/23 21:31 Blood Pressure 144/93 03/07/23 21:31 Pulse Oximetry 98 03/07/23 21:31 MDM - Abdominal Pain Medical Decision Making Medical decision making: Patient had a laparoscopic cholecystitis earlier today at [facility]. She presents to the ER with progressively worsening postoperative pain. The family had gone to fill oxycodone that was prescribed for patient but the pharmacist refused because patient is allergic to morphine. She notes that when she takes morphine she quits breathing. CT abdomen/pelvis shows no postoperative complications. Completed blood tests are unremarkable. It is reasonable to believe that patient is having postoperative pain due to poorly controlled pain. After receiving IV fentanyl in the ER, patient felt considerably better. She feels comfortable going home. Regarding pain control, she cannot take morphine or any of the derivatives like hydrocodone or oxycodone. In addition, patient has taken tramadol in the past and did not tolerate it. So she would prefer something totally different. We will give her ketorolac and advised her to follow-up with her primary care physician within the next 2 days. Reasons to return were discussed. Patient verbalized understanding and agrees with the plan. Lab Data 03/07/23 20:12 03/07/23 20:12 Labs/Radiology: Radiology Impressions Abdomen/Pelvis CT 03/07/23 20:26 IMPRESSION: 1. Exam demonstrates features recent cholecystectomy. No complications seen along the laparoscopy port tracks. No sub hepatic fluid collection to suggest bile leak. 2. There is mild prominence of the bilateral intrarenal collecting systems and ureters without visible obstructing calculus. Findings could reflect robust hydration status. A simple supine KUB should suffice to exclude ureteral obstruction as contrast should opacify the collecting systems and bladder. Laboratory Results WBC 10.13 10^3/uL (3.29-11.43) 03/07/23 20:12 RBC 5.00 10^6/uL (3.85-5.65) 03/07/23 20:12 Hgb 13.20 g/dL (11.27-16.99) 03/07/23 20:12 Hct 40.0 % (36-47) 03/07/23 20:12 MCV 80.0 fl (85-98) L 03/07/23 20:12 MCH 26.4 pg (27-33) L 03/07/23 20:12 MCHC 33.0 g/dL (30-55) 03/07/23 20:12 RDW 13.4 % (12.1-15.1) 03/07/23 20:12 Plt Count 398 10^3/cmm (157-399) 03/07/23 20:12 MPV 10.1 fL (7.4-10.4) 03/07/23 20:12 Neut % (Auto) 88.1 % 03/07/23 20:12 Lymph % (Auto) 9.9 % 03/07/23 20:12 [place] % (Auto) 1.6 % 03/07/23 20:12 Eos % (Auto) 0.0 % 03/07/23 20:12 Baso % (Auto) 0.1 % 03/07/23 20:12 Neut # (Auto) 8.93 10^3/uL (1.8-7.7) H 03/07/23 20:12 Lymph # (Auto) 1.0 10^3/uL (0.8-4.8) 03/07/23 20:12 [place] # (Auto) 0.2 10^3/uL (0.2-0.9) 03/07/23 20:12 Eos # (Auto) 0.0 10^3/uL (0.0-0.8) 03/07/23 20:12 Baso # (Auto) 0.0 10^3/uL (0.0-0.1) 03/07/23 20:12 Nucleated RBC % (auto) 0 % 03/07/23 20:12 Nucleated RBCs # 0.0 /100WBC 03/07/23 20:12 Sodium 134 mmol/L (136-145) L 03/07/23 20:12 Potassium 4.1 mmol/L (3.5-5.1) 03/07/23 20:12 Chloride 97 mmol/L (98-107) L 03/07/23 20:12 Carbon Dioxide 21 mmol/L (22-29) L 03/07/23 20:12 Anion Gap 20.1 (5-19) H 03/07/23 20:12 BUN 13 mg/dL (6-20) 03/07/23 20:12 Creatinine 0.6 mg/dL (0.5-0.9) 03/07/23 20:12 GFR Calculation 107.6 mL/min (90-130) 03/07/23 20:12 Glucose 171 mg/dL (65-115) H 03/07/23 20:12 Calculated Osmolality 282 mOsm/kg (285-295) L 03/07/23 20:12 Calcium 9.8 mg/dL (8.5-10.5) 03/07/23 20:12 Total Bilirubin 0.4 mg/dL (0.15-1.2) 03/07/23 20:12 AST 17 U/L (0-32) 03/07/23 20:12 ALT 29 U/L (0-33) 03/07/23 20:12 Alkaline Phosphatase 75 U/L (35-105) 03/07/23 20:12 Total Protein 8.0 g/dL (6.6-8.7) 03/07/23 20:12 Albumin 4.9 g/dL (3.5-5.2) 03/07/23 20:12 Globulin 3.1 g/dL (1.3-4.6) 03/07/23 20:12 Lipase 29 U/L (13-60) 03/07/23 20:12 All radiology interpretation(s) finalized by discharge Discharge Plan Discharge Patient Disposition: Home Clinical Impression: Postoperative pain Condition: Stable Prescriptions: New ketorolac 10 mg tablet 10 mg PO Q6H PRN (Reason: pain) 1 Days Qty: 20 0RF No Action triamterene-hydrochlorothiazid 37.5-25 mg tablet 1 tab PO QAM lisinopril 20 mg tablet 20 mg PO DAILY multivitamin Tablet 2 tab PO DAILY levothyroxine 137 mcg tablet 137 mcg PO QAM albuterol sulfate 90 mcg/actuation HFA aerosol inhaler 2 puff INHALATION QID PRN (Reason: Shortness Of Breath) ondansetron HCl 4 mg tablet 4 mg PO Q6H PRN (Reason: nausea and vomiting) Qty: 20 0RF Discharge Orders: Discharge ED (Routine); Ordered 03/07/23 Ordered By: Frantz Couch Referrals: Ferguson,CLAUDIA Zaman [Primary Care Provider] - Discharge Diet: Usual diet Discharge Activity: Resume usual activity Patient Instructions: Opioid Safety, Pain Management Activity Restrictions/Additional Instructions: Take ketorolac as needed for pain. Rest. Maintain adequate hydration. Follow-up with your primary care physician within 2 to 3 days for reevaluation. Return if you develop any new or worsening symptoms. Coding Level of Care Code ED Wire Mill Operator for Katalina Kolb
--- NOTE | 2023-03-07 20:26 | CTR_ITS ---
PROCEDURE INFORMATION: Exam: CT Abdomen And Pelvis With Contrast Exam date and time: 03/07/2023 8:47 PM Age: 47 years old Clinical indication: Abdominal pain; Generalized; Prior surgery; Surgery date: Post-operative (0-2 days); Surgery type: Gb surgery today. Gastric bypass. Hysterectomy; Patient HX: Severe abd pain post gb surgery earlier today in [facility]. Patient states surgeon had to make larger muscular incsion in order to extract gb. ; Additional info: Post op abdominal pain TECHNIQUE: Imaging protocol: Computed tomography of the abdomen and pelvis with contrast. Radiation optimization: All CT scans at this facility use at least one of these dose optimization techniques: automated exposure control; mA and/or kV adjustment per patient size (includes targeted exams where dose is matched to clinical indication); or iterative reconstruction. Contrast material: OMNI 350; Contrast volume: 100 ml; Contrast route: INTRAVENOUS (IV); REPORTING DATA: Count of CT and Cardiac NM exams in prior 12 months: This patient has received 0 known CTs and 0 known cardiac nuclear medicine studies in the 12 months prior to the current study. COMPARISON: CT abdomen pelvis w con* [id number] 07/21/2021 9:36 PM RADIATION DOSE METRICS: Total DLP (mGy-cm): 1459.54 FINDINGS: Tubes, catheters and devices: Laparoscopy port sites are noted without complication. Lungs: Clear basilar lung parenchyma. Pleural spaces: No pleural fluid. Heart: Normal heart size. Liver: Liver is normal in attenuation measuring 22.2 cm in length. Gallbladder and bile ducts: Changes of cholecystectomy are noted. No biliary tree dilation. Pancreas: Normal. No ductal dilation. Spleen: Spleen measures 12.0 cm in length and is homogeneous. Adrenal glands: Normal configuration. Kidneys and ureters: There is mild prominence of the intrarenal collecting systems and ureters bilaterally without obstructing stones. Stomach and bowel: Changes of prior gastric bypass procedure with Bal-en-Y reconstruction noted. Normal caliber small bowel. Mild diverticulosis in the distal colon without evidence of acute diverticulitis. Appendix: Normal appendix is confirmed. Intraperitoneal space: Nose subhepatic fluid collection. Expected low volume postoperative pneumoperitoneum noted. Vasculature: Normal caliber arterial structures. Lymph nodes: No enlarged lymph nodes. Urinary bladder: Unremarkable as visualized. Reproductive: Physiologic appearance for age. Bones/joints: No fracture or destructive lesion. Soft tissues: Unremarkable. CT/CT abdomen pelvis w con* [id number] IMPRESSION: 1. Exam demonstrates features recent cholecystectomy. No complications seen along the laparoscopy port tracks. No sub hepatic fluid collection to suggest bile leak. 2. There is mild prominence of the bilateral intrarenal collecting systems and ureters without visible obstructing calculus. Findings could reflect robust hydration status. A simple supine KUB should suffice to exclude ureteral obstruction as contrast should opacify the collecting systems and bladder.
[2023-03-07 20:33] LABS: Basophils % 0.1 %; Lymphocytes % 9.9 %; Mean Corpuscular Hemoglobin 26.4 pg (27-33); Mean Platelet Volume 10.1 fL (7.4-10.4); Monocytes # 0.2 10^3/uL (0.2-0.9); Monocytes % 1.6 %; Neutrophils # 8.93 10^3/uL (1.8-7.7); Neutrophils % 88.1 %; Nucleated Red Blood Cells % 0 %; Platelet Count 398 10^3/cmm (157-399); Red Cell Distribution Width 13.4 % (12.1-15.1); White Blood Count 10.13 10^3/uL (3.29-11.43)
[2023-03-07 20:49] LABS: Alanine Aminotransferase 29 U/L (0-33); Albumin Level 4.9 g/dL (3.5-5.2); Alkaline Phosphatase 75 U/L (35-105); Anion Gap 20.1 (5-19); Aspartate Amino Transferase 17 U/L (0-32); Blood Urea Nitrogen 13 mg/dL (6-20); Calcium 9.8 mg/dL (8.5-10.5); Carbon Dioxide 21 mmol/L (22-29); Chloride 97 mmol/L (98-107); Globulin 3.1 g/dL (1.3-4.6); Glomerular Filtration Rate 107.6 mL/min (90-130); Glucose 171 mg/dL (65-115); Lipase 29 U/L (13-60); Osmolality Calculated 282 mOsm/kg (285-295); Potassium 4.1 mmol/L (3.5-5.1); Sodium 134 mmol/L (136-145); Total Bilirubin 0.4 mg/dL (0.15-1.2)
[2023-03-07] MEDS: iohexol 350 mg/mL 500 mL Btl (per mL) IV (20:50)
[2023-03-07 21:15] VITALS: RESP 24; O2SAT 98
[2023-03-07] MEDS: fentaNYL 50 mcg/mL INJ 2mL 25 MCG IVP (21:15)
[2023-03-07] MEDS: ondansetron 2 mg/ML SDV 2 mL 4 MG IVP (21:15)
[2023-03-07 21:31] VITALS: BP 144/93; PULSE 68; RESP 22; O2SAT 98
[2023-03-07] MEDS: ketorolac 30 mg/mL INJ IVP (22:59)
[2023-03-07 23:18] VITALS: BP 132/89; PULSE 90; O2SAT 97
[2023-03-07] MEDS: TRAMadol 50 mg Tablet 100 MG PO (23:38)
== END 2023-03-07 23:40 | disposition home or self-care (01) ==
PROVIDERS: Emergency Provider Family Medicine; PCP Nurse Practitioner Family
DX: G89.18 Other acute postprocedural pain (principal); E11.9 Type 2 diabetes mellitus without complications; Z90.49 Acquired absence of other specified parts of digestive tract
CPT/HCPCS: 74177; 80053; 83690; 85025; 96374; 96375; 99285; J1885; J2405; J3010; Q9967

== ENCOUNTER 2023-12-06 14:02 | Emergency (ER) | payer MEDICAID, SELFPAY ==
[2023-12-06 14:13] VITALS: BP 131/76; PULSE 79; RESP 17; TEMP 36.3; O2SAT 100; BMI 25.0
--- NOTE | 2023-12-06 14:21 | ED_ITS ---
HPI - Abdominal Pain 2 General: Chief Complaint: Abdominal Pain Stated Complaint: previous hysterectomy, swollen abd, abd pain Time Seen by Provider: 12/06/23 14:12 History of Present Illness: 48-year-old female comes in today for co mplaints of swollen abdomen and lower abdominal pain. Patient was seen 1 week ago on Friday at [facility] in [place] and was diagnosed with ovarian cyst. Patient was instructed to follow-up with [facility]. Patient comes in today due to increased pain and discomfort starting yesterday evening. Patient appears nontoxic. Patient has a history of gastric bypass, cholecystectomy, and hysterectomy. Patient also takes medications for thyroid, type 2 diabetes and blood pressure. Review of Systems 2 General: Reports: 10 or more systems reviewed and unremarkable except in HPI and below PFSH ED 2 PFSH: Medical History Aftercare following surgery of the genitourinary system Hypothyroid No pertinent past medical history neghx: htn,dvt/pe PCP: Comfort Ferguson Type 2 diabetes mellitus Surgical History Hx of abdominal surgery (~2020) tummy tuck, muscle reconstruction Hx of tubal ligation (~1996) Family History Family/Other Breast cancer Maternal Aunt--dx age 40's Colon cancer Paternal Uncle---dx age 60's Maternal Aunt-- dx age 60's Mother Diabetes Heart disease Hypercholesteremia Hypertension Ovarian cancer dx age 20's Thyroid disease Father Diabetes Heart disease Stroke Grandmother Diabetes Paternal Grandfather Diabetes Paternal Denies family history of Uterine cancer Physical Exam 2 Const: COMMON NORMALS: alert HENMT: COMMON NORMALS: normocephalic HEAD & SCALP: normocephalic Neck/C-Spine: COMMON NORMALS: full ROM Resp: COMMON NORMALS: normal respiratory effort Cardio: COMMON NORMALS: regular rate RATE: regular rate GI: COMMON NORMALS: Soft to palpation PALPATION: Yes Soft to palpation and Yes Tenderness to palpation present (GI) Details: RLQ : COMMON NORMALS: Yes no CVA tenderness BLADDER/KIDNEY EXAM: Yes no CVA tenderness Back/Pelvis: COMMON NORMALS: no CVA tenderness Extremity: COMMON NORMALS: no pedal edema Neuro: SENSORIUM/ORIENTATION: Yes alert Skin: COMMON NORMALS: turgor normal GENERAL SKIN EXAM: turgor normal Course 2 Vital Signs: Vital signs: Vital Signs Temperature 97.4 F L 12/06/23 14:13 Pulse Rate 58 L 12/06/23 15:27 Respiratory Rate 18 12/06/23 15:27 Blood Pressure 120/76 12/06/23 15:27 Pulse Oximetry 100 12/06/23 15:27 Oxygen Delivery Me thod Room Air 12/06/23 15:27 MDM - Abdominal Pain Medical Decision Making 48-year-old female comes in today for complaints of right lower abdominal pain for about 1 week. Patient was diagnosed with ovarian cyst last Friday at [facility] in [place]. Patient appears nontoxic. Patient appears in no acute distress. Respirations are even. Abdomen soft with some right lower tenderness. Vital signs are normal. Differential diagnosis surgical adhesions, ovarian cyst, UTI, appendicitis, constipation. I reviewed the record from [facility]. It was noted patient had a ovarian cyst that was stable at 3 cm on the left ovary. No signs of abnormality was noted to patient's gallbladder surgery or bile ducts. Remainder of the CT and MRIs were unremarkable. Laboratory values were unremarkable. Patient was recommended to follow-up with [facility] for further instructions. Lab Data 12/06/23 14:24 12/06/23 14:24 Labs/Radiology: Laboratory Results WBC 6.22 10^3/uL (3.29-11.43) 12/06/23 14:24 RBC 4.90 10^6/uL (3.85-5.65) 12/06/23 14:24 Hgb 13.60 g/dL (11.27-16.99) 12/06/23 14:24 Hct 41.8 % (36-47) 12/06/23 14:24 MCV 85.3 fl (85-98) 12/06/23 14:24 MCH 27.8 pg (27-33) 12/06/23 14:24 MCHC 32.5 g/dL (30-55) 12/06/23 14:24 RDW 12.8 % (12.1-15.1) 12/06/23 14:24 Plt Count 307 10^3/cmm (157-399) 12/06/23 14:24 MPV 9.5 fL (7.4-10.4) 12/06/23 14:24 Neut % (Auto) 53.2 % 12/06/23 14:24 Lymph % (Auto) 38.6 % 12/06/23 14:24 Mariposa % (Auto) 6.1 % 12/06/23 14:24 Eos % (Auto) 1.4 % 12/06/23 14:24 Baso % (Auto) 0.5 % 12/06/23 14:24 Neut # (Auto) 3.31 10^3/uL (1.8-7.7) 12/06/23 14:24 Lymph # (Auto) 2.4 10^3/uL (0.8-4.8) 12/06/23 14:24 Mariposa # (Auto) 0.4 10^3/uL (0.2-0.9) 12/06/23 14:24 Eos # (Auto) 0.1 10^3/uL (0.0-0.8) 12/06/23 14:24 Baso # (Auto) 0.0 10^3/uL (0.0-0.1) 12/06/23 14:24 Nucleated RBC % (auto) 0 % 12/06/23 14: Nucleated RBCs # 0.0 /100WBC 12/06/23 14:24 Sodium 138 mmol/L (136-145) 12/06/23 14:24 Potassium 4.1 mmol/L (3.5-5.1) 12/06/23 14:24 Chloride 100 mmol/L (98-107) 12/06/23 14:24 Carbon Dioxide 27 mmol/L (22-29) 12/06/23 14:24 Anion Gap 15.1 (5-19) 12/06/23 14:24 BUN 20 mg/dL (6-20) 12/06/23 14:24 Creatinine 0.6 mg/dL (0.5-0.9) 12/06/23 14:24 GFR Calculation 107.2 mL/min (90-130) 12/06/23 14:24 Glucose 92 mg/dL (65-115) 12/06/23 14:24 Calculated Osmolality 288 mOsm/kg (285-295) 12/06/23 14:24 Calcium 9.1 mg/dL (8.5-10.5) 12/06/23 14:24 Total Bilirubin 0.4 mg/dL (0.15-1.2) 12/06/23 14:24 AST 35 U/L (0-32) H 12/06/23 14:24 ALT 70 U/L (0-33) H 12/06/23 14:24 Alkaline Phosphatase 102 U/L (35-105) 12/06/23 14:24 Total Protein 7.8 g/dL (6.6-8.7) 12/06/23 14:24 Albumin 4.5 g/dL (3.5-5.2) 12/06/23 14:24 Globulin 3.3 g/dL (1.3-4.6) 12/06/23 14:24 Urine Color Yellow (Yellow) 12/06/23 14:37 Urine Appearance Clear (CLEAR) 12/06/23 14:37 Urine pH 6 (5-7) 12/06/23 14:37 Ur Specific Maple 1.010 (1.005-1.030) 12/06/23 14:37 Urine Protein Neg (Negative) 12/06/23 14:37 Urine Glucose (UA) Norm (Normal) 12/06/23 14:37 Urine Ketones Negative (Negative) 12/06/23 14:37 Urine Blood Neg (Negative) 12/06/23 14:37 Urine Nitrate Negative (Negative) 12/06/23 14:37 Urine Bilirubin Neg (Negative) 12/06/23 14:37 Urine Urobilinogen Norm mg/dL (Negative) 12/06/23 14:37 Ur Leukocyte Esterase Negative (Negative) 12/06/23 14:37 XR interpretation done by ED provider, pending radiology final review Discharge Plan Discharge Patient Disposition: Home Clinical Impression: Abdominal pain Qualifiers: Abdominal location: right lower quadrant Qualified Code(s): R10.31 - Right lower quadrant pain Condition: Stable Prescriptions: No Action triamterene-hydrochlorothiazid 37.5-25 mg tablet 1 tab PO QAM lisinopril 20 mg tablet 20 mg PO DAILY multivitamin Tablet 2 tab PO DAILY levothyroxine 137 mcg tablet 137 mcg PO QAM albuterol sulfate 90 mcg/actuation HFA aerosol inhaler 2 puff INHALATION QID PRN (Reason: Shortness Of Breath) ondansetron HCl 4 mg tablet 4 mg PO Q6H PRN (Reason: nausea and vomiting) Qty: 20 0RF Discharge Orders: Discharge ED (Routine); Ordered 12/06/23 Ordered By: Porfirio Billy Referrals: Junie Ferguson APN [Primary Care Provider] - Discharge Diet: Usual diet Discharge Activity: Increase activity as tolerated Patient Instructions: Abdominal Pain (ED) Activity Restrictions/Additional Instructions: Home and rest. Drink plenty water and fluids. Activity as tolerated. Follow- up with primary care for further instructions. Return to ED for new concerns, worsening symptoms such as high fever, blood in vomit or stool, or inability to hold down fluids. Coding Level of Care Code ED [place] Ring Sewer for Katalina Kolb
--- NOTE | 2023-12-06 14:22 | USR_ITS ---
PROCEDURE INFORMATION: Exam: US Pelvis, Complete, Non-Obstetric Exam date and time: 12/06/2023 3:14 PM Age: 48 years old Clinical indication: Condition or disease; Other: Cyst; Prior surgery; Surgery date: 6+ months; Surgery type: Unsure of dates. Patient had hysterectomy; Additional info: Ovarian cyst TECHNIQUE: Imaging protocol: Transabdominal pelvic nonobstetric ultrasound. Complete exam. Real time ultrasound with image documentation. COMPARISON: CT abdomen pelvis w con* [id number] 03/07/2023 8:47 PM FINDINGS: Uterus: Hysterectomy. Vaginal cuff is unremarkable. Left ovary/adnexa: Left adnexal simple appearing cyst measuring 3.4 x 3.0 x 3.8 cm. Intraperitoneal space: No intraperitoneal fluid. Other findings: Neither ovary is definitively identified on exam due to overlying bowel gas. US/US pelv w/transvag [id number] IMPRESSION: Simple appearing 3.8 cm cyst in the left adnexa, likely benign. Nonvisualized ovaries due to overlying bowel gas.
[2023-12-06 14:30] LABS: Basophils % 0.5 %; Eosinophils # 0.1 10^3/uL (0.0-0.8); Eosinophils % 1.4 %; Hematocrit 41.8 % (36-47); Lymphocytes # 2.4 10^3/uL (0.8-4.8); Lymphocytes % 38.6 %; Mean Corpuscular HGB Conc 32.5 g/dL (30-55); Mean Corpuscular Hemoglobin 27.8 pg (27-33); Mean Corpuscular Volume 85.3 fl (85-98); Mean Platelet Volume 9.5 fL (7.4-10.4); Monocytes # 0.4 10^3/uL (0.2-0.9); Monocytes % 6.1 %; Neutrophils # 3.31 10^3/uL (1.8-7.7); Neutrophils % 53.2 %; Nucleated Red Blood Cells % 0 %; Platelet Count 307 10^3/cmm (157-399); Red Cell Distribution Width 12.8 % (12.1-15.1); White Blood Count 6.22 10^3/uL (3.29-11.43)
[2023-12-06 14:40] LABS: Add Urine Microscopic? NO; Charge for UA Resulting for Rev
[2023-12-06 14:43] LABS: Urine Appearance Clear (CLEAR); Urine Color Yellow (Yellow); pH Urine 6 (5-7)
[2023-12-06 14:44] LABS: Bilirubin Urine Neg (Negative); Blood Urine Neg (Negative); Glucose Urine UA Norm (Normal); Ketones Urine Negative (Negative); Leukocyte Esterase Urine Negative (Negative); Nitrate Urine Negative (Negative); Protein Urine Neg (Negative); Urobilinogen Urine Norm (Negative)
[2023-12-06] MEDS: fentaNYL 50 mcg/mL INJ 2mL 70 MCG IVP (14:47)
[2023-12-06] MEDS: ketorolac 30 mg/mL INJ 15 MG IVP (14:48)
[2023-12-06] MEDS: ondansetron 2 mg/ML SDV 2 mL 4 MG IVP (14:48)
[2023-12-06 14:51] LABS: Alanine Aminotransferase 70 U/L (0-33); Albumin Level 4.5 g/dL (3.5-5.2); Alkaline Phosphatase 102 U/L (35-105); Anion Gap 15.1 (5-19); Aspartate Amino Transferase 35 U/L (0-32); Blood Urea Nitrogen 20 mg/dL (6-20); Calcium 9.1 mg/dL (8.5-10.5); Carbon Dioxide 27 mmol/L (22-29); Chloride 100 mmol/L (98-107); Creatinine Clr Calc Pharmacy 116.5673; Globulin 3.3 g/dL (1.3-4.6); Glomerular Filtration Rate 107.2 mL/min (90-130); Glucose 92 mg/dL (65-115); Osmolality Calculated 288 mOsm/kg (285-295); Potassium 4.1 mmol/L (3.5-5.1); Sodium 138 mmol/L (136-145); Total Bilirubin 0.4 mg/dL (0.15-1.2); Total Protein 7.8 g/dL (6.6-8.7)
[2023-12-06 14:58] VITALS: BP 120/76; PULSE 56; RESP 18; O2SAT 99
[2023-12-06 15:27] VITALS: BP 120/76; PULSE 58; RESP 18; O2SAT 100
[2023-12-06 16:05] VITALS: BP 117/72; PULSE 57; RESP 17; TEMP 36.3; O2SAT 100
--- NOTE | 2023-12-08 09:09 | DCPLANNER ---
Message sent to OFFICE CLERK ASSISTANT for follow up-
== END 2023-12-06 16:02 | disposition home or self-care (01) ==
PROVIDERS: Emergency Provider Nurse Practitioner Family; PCP Nurse Practitioner Family
DX: R10.31 Right lower quadrant pain (principal); E11.9 Type 2 diabetes mellitus without complications; Z79.899 Other long term (current) drug therapy; Z90.49 Acquired absence of other specified parts of digestive tract; Z90.710 Acquired absence of both cervix and uterus; Z98.84 Bariatric surgery status
CPT/HCPCS: 76830; 76856; 80053; 81003; 85025; 96374; 96375; 99285; J1885; J2405; J3010

== ENCOUNTER 2024-05-31 14:43 | Outpatient (CLI) | payer MEDICAID, SELFPAY ==
--- NOTE | 2024-05-31 14:51 | XR_ITS ---
WS: [id number] Left shoulder, 3 views, 05/31/2024 Clinical Data: LEFT SHOULDER PAIN Comparison: None. Findings: No fractures or dislocations are seen. The AC joint is normal. The adjacent left clavicle, left scapu la and ribs are normal. The soft tissues are unremarkable. XR/XR shoulder LT min 2V* [id number] Impression: Negative left shoulder.
== END 2024-05-31 14:44 | disposition home or self-care (01) ==
PROVIDERS: PCP Nurse Practitioner Family; Visit Provider Nurse Practitioner Family
DX: M25.512 Pain in left shoulder (principal)
CPT/HCPCS: 73030

== ENCOUNTER 2024-08-28 07:06 | Emergency (ER) | payer MEDICAID, SELFPAY ==
[2024-08-28 07:15] VITALS: BP 139/78; PULSE 92; RESP 18; TEMP 36.7; O2SAT 100; BMI 24.8
--- NOTE | 2024-08-28 07:17 | W.ED.EXTPRO ---
HPI - Extremity Problem General: Chief complaint: Extremity Problem,Nontraumatic Stated complaint: left arm shoulder pain Time Seen by Provider: 08/28/24 07:17 History of Present Illness: Patient presents with chronic shoulder pain. She says this been going on for a long time. She is been to see her primary had negative x-rays. She said the pain just got worse. Said Tylenol helps but then she will reach for something and will start hurting again. No recent injuries. No deformities. Pain is posterior rotator cuff area to the deltoid. Related Data Home Medications ?Medication ?Instructions ?Recorded ?Confirmed triamterene 37.5 1 tab PO QAM 06/26/21 01/23/24 mg-hydrochlorothiazide 25 mg tablet albuterol sulfate 90 mcg/actuation 2 puff inhalation QID PRN 12/19/21 01/23/24 aerosol inhaler Shortness Of Breath levothyroxine 137 mcg tablet 137 mcg PO QAM 12/19/21 01/23/24 multivitamin 2 tab PO DAILY 12/19/21 01/23/24 lisinopril 20 mg tablet 20 mg PO DAILY 09/06/22 01/23/24 Previous Rx's ?Medication ?Instructions ?Recorded ondansetron HCl 4 mg tablet 4 mg PO Q6H PRN nausea and 12/07/22 vomiting #20 tabs cyclobenzaprine 10 mg tablet 10 mg PO Q8H PRN muscle spasm #20 08/28/24 tabs tramadol 50 mg tablet 50 mg PO Q8H PRN pain #20 tabs 08/28/24 Allergies Allergy/AdvReac Type Severity Reaction Status Date / Time morphine Allergy anaphylaxis Verified 01/23/24 10:24 Review of Systems Narrative: Constitutional symptoms: Negative except as documented in HPI. Skin symptoms: Negative except as documented in HPI. Eye symptoms: Negative except as documented in HPI. ENMT symptoms: Negative except as documented in HPI. Respiratory symptoms: Negative except as documented in HPI. Cardiovascular symptoms: Negative except as documented in HPI. Gastrointestinal symptoms: Negative except as documented in HPI. Genitourinary symptoms: Negative except as documented in HPI. Musculoskeletal symptoms: Negative except as documented in HPI. Neurologic symptoms: Negative except as documented in HPI. Psychiatric symptoms: Negative except as documented in HPI. Endocrine symptoms: Negative except as documented in HPI. [facility] ED PFSH: Medical History Aftercare following surgery of the genitourinary system Hypothyroid No pertinent past medical history neghx: htn,dvt/pe PCP: Comfort Ferguson Type 2 diabetes mellitus Surgical History Hx of abdominal surgery (~2020) tummy tuck, muscle reconstruction Hx of tubal ligation (~1996) Family History Family/Other Breast cancer Maternal Aunt--dx age 40's Colon cancer Paternal Uncle---dx age 60's Maternal Aunt-- dx age 60's Mother Diabetes Heart disease Hypercholesteremia Hypertension Ovarian cancer dx age 20's Thyroid disease Father Diabetes Heart disease Stroke Grandmother Diabetes Paternal Grandfather Diabetes Paternal Denies family history of Uterine cancer Physical Exam Narrative: EXAM NARRATIVE: General: Alert, no acute distress. Skin: Warm, dry. Head: Normocephalic, atraumatic. Neck: Supple, trachea midline. Eye: Extraocular movements are intact. Ears, nose, mouth and throat: mucosa moist. Cardiovascular: Regular, Normal peripheral perfusion. Respiratory: Lungs are clear to auscultation, respirations are non-labored, breath sounds are equal, Symmetrical chest wall expansion. Gastrointestinal: Soft, Nontender, Non distended Musculoskeletal: Normal ROM, no deformity. Neurological: Alert and oriented, No focal neurological deficit observed. Psychiatric: Cooperative, appropriate mood & affect. Course Vital Signs: Vital signs: Vital Signs Temperature 98.1 F 08/28/24 07:15 Pulse Rate 92 08/28/24 07:15 Respiratory Rate 18 08/28/24 07:15 Blood Pressure 139/78 08/28/24 07:15 Pulse Oximetry 100 08/28/24 07:15 Oxygen Delivery Me thod Room Air 08/28/24 07:15 MDM - Extremity (Nontraumatic) Medical Decision Making Assessment and plan: Rotator cuff injury Shoulder pain - Discharged home - Discussed plan with patient. Answered any questions. - Evaluation and treatment of this problem were appropriate in the emergency setting. No radiology studies performed this visit Discharge Plan Discharge Patient Disposition: Home Clinical Impression: Left shoulder pain Condition: Stable Prescriptions: New cyclobenzaprine 10 mg tablet 10 mg PO Q8H PRN (Reason: muscle spasm) Qty: 20 0RF tramadol 50 mg tablet 50 mg PO Q8H PRN (Reason: pain) Qty: 20 0RF No Action triamterene-hydrochlorothiazid 37.5-25 mg tablet 1 tab PO QAM lisinopril 20 mg tablet 20 mg PO DAILY multivitamin Tablet 2 tab PO DAILY levothyroxine 137 mcg tablet 137 mcg PO QAM albuterol sulfate 90 mcg/actuation HFA aerosol inhaler 2 puff INHALATION QID PRN (Reason: Shortness Of Breath) ondansetron HCl 4 mg tablet 4 mg PO Q6H PRN (Reason: nausea and vomiting) Qty: 20 0RF Discharge Orders: Discharge ED (Routine); Ordered 08/28/24 Ordered By: Sonia Rice Referrals: Stewart Cee DO [Physician] - (Please call for follow-up with Dr. Cee or the orthopedist of your choice.) Junie Ferguson APN [Primary Care Provider] - Patient Instructions: Shoulder Pain (ED), Opioid Safety, Pain Management Activity Restrictions/Additional Instructions: Thank you for choosing [facility] for your healthcare needs today. Please realize this is an emergency room and that we are providing you with a medical screening exam and this may not be complete and all inclusive of all the testing and or work up that you may need to determine your ailment or severity of your illness. You have been screened and evaluated and felt safe for discharge. Health conditions do change or evolve sometimes and as such it is important that you follow up with your Primary Doctor to be re checked, 3-5 days is a general good time frame for follow up. You are always welcome to return to the ED for re assessment if your symptoms are worsening or you have new concerns Print Language: Taiwanese Coding Level of Care Code ED Class A Lineman for Katalina Kolb
[2024-08-28 07:40] VITALS: BP 118/81; PULSE 80; O2SAT 98
== END 2024-08-28 07:40 | disposition home or self-care (01) ==
PROVIDERS: Emergency Provider Emergency Medicine; PCP Nurse Practitioner Family
DX: M25.512 Pain in left shoulder (principal); E11.9 Type 2 diabetes mellitus without complications
CPT/HCPCS: 99283

== ENCOUNTER 2024-11-17 15:10 | Emergency (ER) | payer MEDICAID, SELFPAY ==
[2024-11-17] VITALS (22 sets, daily range): BP systolic 97–120; BP diastolic 58–75; PULSE 66–90; RESP 13–22; TEMP 36.6–37.1; O2SAT 95–99; BMI 24.7
--- NOTE | 2024-11-17 15:13 | XR_ITS ---
WS: [id number] Portable AP supine chest, 11/17/2024 Clinical Data: dyspnea/cough Comparison: Two-view chest, 01/01/2022 Findings: No nodules, masses or effusions are seen. The heart is normal. The pulmonary vascularity is not increased. No pneumonia or pneumothorax is seen. XR/XR chest 1V portable [id number] Impression: Negative chest.
--- NOTE | 2024-11-17 15:27 | ED_ITS ---
Documented by User: Thuan Gatica DO 11/18/24 05:20 HPI - General Adult 2 General: Chief complaint: General Medical Stated complaint: Post surgery issues Time Seen by Provider: 11/17/24 15:13 History of Present Illness: Patient is a 49-year-old female who presents to the ED via EMS for dizziness and chest palpitations. Last Friday patient had a gluteal with done in [place] at . She states there were some complications involving excessive bleeding and she had to have a second surgery to fix this issue. She was discharged 3 days ago and has been having postural change dizziness and heart palpitations since being home. She has accompanying nausea, headache, and chills, but denies a fever. She had a presyncopal episode after standing up today, which is why she decided to come in. She is having normal bowel movements and no urinary symptoms. She was seen at the chiropractor today as she thought this would help with her symptoms, but it has not. She has taken a dose of Zofran, which has helped slightly with the nausea. She says she has been trying to keep her fluids up. Denies history of any heart conditions, clotting disorders, or on blood thinners. Associated symptoms: Reports nausea and palpitations; Deny chest pain, dyspnea, malaise, rash or vomiting Related Data Home Medications ?Medication ?Instructions ?Recorded ?Confirmed levothyroxine 137 mcg tablet 137 mcg PO QAM 12/19/21 0 11/17/24 multivitamin 2 tab PO DAILY 12/19/2110/31 albuterol sulfate 90 mcg/actuation 2 puff inhalation Q ID 11/17/24 11/17/24 aerosol inhaler (Ventolin HFA) docusate calcium 240 mg capsule 240 mg PO DAILY consti pation 11/17/24 11/17/24 (Stool Softener (docusate calcium)) estradiol 0.1 mg/24 hr weekly 1 patch topical Q7D 10/3111/17/24 transdermal patch tamsulosin 0.4 mg capsule (Flomax) 0.4 mg PO DAILY 11/17/24 Previous Rx's ?Medication ?Instructions ?Recorded ondansetron HCl 4 mg tablet 4 mg PO Q6H PRN nausea and 12/07/22 vomiting #20 tabs tramadol 50 mg tablet 50 mg PO Q8H PRN pain #20 ta bs 08/28/24 Allergies Allergy/AdvReac Type Severity Reaction Status Date / Time morphine Allergy anaphylaxis Verified 01/23/24 10:24 Review of Systems 2 Const: Reports: chills and body aches; Denies: fever(s), change in appetite, fatigue or malaise Card: Reports: palpitations, lightheadedness and pre-syncope; Denies: chest pain, edema, dyspnea on exertion or orthopnea Resp: Denies: dyspnea, productive cough or non-productive cough GI: Reports: nausea; Denies: abdominal pain, vomiting, hematemesis, coffee ground emesis, diarrhea, constipation, bloating, hematochezia or melena : Denies: flank pain, difficulty voiding, dysuria, urinary frequency or urinary urgency Skin/Breast: Reports: surgical incision and other (Bruising along surgical site. No draining, redness, streaking.); Denies: rash or pruritus PFSH ED 2 PFSH: Medical History Aftercare following surgery of the genitourinary system Hypothyroid No pertinent past medical history neghx: htn,dvt/pe PCP: Comfort Ferguson Type 2 diabetes mellitus Surgical History Hx of abdominal surgery (~2020) tummy tuck, muscle reconstruction Hx of tubal ligation (~1996) Family History Family/Other Breast cancer Maternal Aunt--dx age 40's Colon cancer Paternal Uncle---dx age 60's Maternal Aunt-- dx age 60's Mother Diabetes Heart disease Hypercholesteremia Hypertension Ovarian cancer dx age 20's Thyroid disease Father Diabetes Heart disease Stroke Grandmother Diabetes Paternal Grandfather Diabetes Paternal Denies family history of Uterine cancer Physical Exam 2 Const: COMMON NORMALS: no acute distress GENERAL APPEARANCE: cooperative and comfortable ORIENTATION/CONSCIOUSNESS: Yes awake, Yes oriented to person, Yes oriented to place and Yes oriented to time Resp: COMMON NORMALS: normal respiratory effort, No retractions, No use of accessory muscles and clear to auscultation bilaterally AUSCULTATION: clear to auscultation bilaterally Cardio: COMMON NORMALS: regular rate, regular rhythm and No murmurs present (Cardio) RATE: regular rate RHYTHM: regular rhythm GI: COMMON NORMALS: Normal to inspection, nondistended, normoactive bowel sounds present, Soft to palpation and No hepatosplenomegaly present A USCULTATION: Yes normoactive bowel sounds PALPATION: Yes Soft to palpation, No Tenderness to palpation present (GI), No Guarding due to palpation present (GI) and Yes No hepatosplenomegaly present Extremity: COMMON NORMALS: normal to inspection, capillary refill normal, no clubbing, cyanosis or edema, no calf tenderness and no pedal edema Neuro: SENSORIUM/ORIENTATION: Yes oriented to person, Yes oriented to place and Yes oriented to time Skin: COMMON NORMALS: no rashes or lesions noted (Bruising present bilateral gluteus dania, mons pubis, vulva) GENERAL SKIN EXAM: no rashes or lesions noted (Bruising present bilateral gluteus dania, mons pubis, vulva) Course 2 Vital Signs: Vital signs: Vital Signs Temperature 98.8 F 11/17/24 22:20 Pulse Rate 68 11/18/24 00:08 Respiratory Rate 13 11/17/24 23:30 Blood Pressure 107/71 11/18/24 00:08 Pulse Oximetry 99 11/18/24 00:08 Oxygen Delivery Me thod Room Air 11/17/24 17:39 [facility] - General Adult Lab Data 11/17/24 14:48 11/17/24 14:48 Radiology Impressions Chest X-Ray 11/17/24 15:13 Impression: Negative chest. Laboratory Results WBC 5.94 10^3/uL (3.29-11.43) 11/17/24 14:48 RBC 2.77 10^6/uL (3.85-5.65) L 11/17/24 14:48 Hgb 7.50 g/dL (11.27-16.99) L 11/17/24 14:48 Hct 23.4 % (36-47) L 11/17/24 14:48 MCV 84.5 fl (85-98) L 11/17/24 14:48 MCH 27.1 pg (27-33) 11/17/24 14:48 MCHC 32.1 g/dL (30-55) 11/17/24 14:48 RDW 13.7 % (12.1-15.1) 11/17/24 14:48 Plt Count 273 10^3/cmm (157-399) 11/17/24 14:48 MPV 9.9 fL (7.4-10.4) 11/17/24 14:48 Neut % (Auto) 58.3 % 11/17/24 14:48 Lymph % (Auto) 29.5 % 11/17/24 14:48 [place] % (Auto) 7.1 % 11/17/24 14:48 Eos % (Auto) 2.4 % 11/17/24 14:48 Baso % (Auto) 0.3 % 11/17/24 14:48 Neut # (Auto) 3.47 10^3/uL (1.8-7.7) 11/17/24 14:48 Lymph # (Auto) 1.8 10^3/uL (0.8-4.8) 11/17/24 14:48 [place] # (Auto) 0.4 10^3/uL (0.2-0.9) 11/17/24 14:48 Eos # (Auto) 0.1 10^3/uL (0.0-0.8) 11/17/24 14:48 Baso # (Auto) 0.0 10^3/uL (0.0-0.1) 11/17/24 14:48 Nucleated RBC % (auto) 0 % 11/17/24 14:48 Nucleated RBCs # 0.0 /100WBC 11/17/24 14:48 Sodium 144 mmol/L (136-145) 11/17/24 14:48 Potassium 3.9 mmol/L (3.5-5.1) 11/17/24 14:48 Chloride 106 mmol/L (98-107) 11/17/24 14:48 Carbon Dioxide 26 mmol/L (22-29) 11/17/24 14:48 Anion Gap 15.9 (5-19) 11/17/24 14:48 BUN 14 mg/dL (6-20) 11/17/24 14:48 Creatinine 0.5 mg/dL (0.5-0.9) 11/17/24 14:48 GFR Calculation 131.7 mL/min (90-130) H 11/17/24 14:48 Glucose 79 mg/dL (65-115) 11/17/24 14:48 Calculated Osmolality 297 mOsm/kg (285-295) H 11/17/24 14:48 Calcium 8.9 mg/dL (8.5-10.5) 11/17/24 14:48 Total Bilirubin 0.6 mg/dL (0.15-1.2) 11/17/24 14:48 AST 32 U/L (0-32) 11/17/24 14:48 ALT 40 U/L (0-33) H 11/17/24 14:48 Alkaline Phosphatase 69 U/L (35-105) 11/17/24 14:48 Total Protein 6.7 g/dL (6.6-8.7) 11/17/24 14:48 Albumin 3.8 g/dL (3.5-5.2) 11/17/24 14:48 Globulin 2.9 g/dL (1.3-4.6) 11/17/24 14:48 Urine Color Yellow (Yellow) 11/17/24 15:35 Urine Appearance Clear (CLEAR) 11/17/24 15:35 Urine pH 8.5 (5-7) A 11/17/24 15:35 Ur Specific Hol[place] 1.009 (1.005-1.030) 11/17/24 15:35 Urine Protein Negative (Negative) 11/17/24 15:35 Urine Glucose (UA) Negative (Normal) 11/17/24 15:35 Urine Ketones Negative (Negative) 11/17/24 15:35 Urine Blood Negative (Negative) 11/17/24 15:35 Urine Nitrate Negative (Negative) 11/17/24 15:35 Urine Bilirubin Negative (Negative) 11/17/24 15:35 Urine Urobilinogen 1.0 mg/dL (Negative) 11/17/24 15:35 Ur Leukocyte Esterase Negative (Negative) 11/17/24 15:35 Urine RBC 0-2 /hpf (0-2) 11/17/24 15:35 Urine WBC 0-5 /hpf (0-5) 11/17/24 15:35 Ur Squamous Epith Cells 0-5 /hpf (0-5) 11/17/24 15:35 Amorphous Sediment Not Reportable 11/17/24 15:35 Urine Bacteria None seen /hpf (NONE) 11/17/24 15:35 Hyaline Casts 0-4 /lpf H 11/17/24 15:35 Blood Type O Positive 11/17/24 16:52 Rho(D) Type Rh positive 11/17/24 16:52 Antibody Screen Negative 11/17/24 16:52 Crossmatch See Detail 11/17/24 16:52 Discharge Plan Discharge Patient Disposition: Home Clinical Impression: Postoperative anemia Condition: Stable Prescriptions: No Action multivitamin Tablet 2 tab PO DAILY levothyroxine 137 mcg tablet 137 mcg PO QAM tramadol 50 mg tablet 50 mg PO Q8H PRN (Reason: pain) Qty: 20 0RF albuterol sulfate [Ventolin HFA] 90 mcg/actuation HFA aerosol inhaler 2 puff inhalation QID estradiol 0.1 mg/24 hr patch weekly 1 patch topical Q7D docusate calcium [Stool Softener (docusate jabier)] 240 mg Capsule 240 mg PO DAILY tamsulosin [Flomax] 0.4 mg Capsule 0.4 mg PO DAILY ondansetron HCl 4 mg tablet 4 mg PO Q6H PRN (Reason: nausea and vomiting) Qty: 20 0RF Discharge Orders: Discharge ED (Routine); Ordered 11/17/24 Ordered By: Sonia Rice Referrals: Ferguson,CLAUDIA Zaman [Primary Care Provider, Nurse Practitioner] Discharge Diet: Usual diet Discharge Activity: Increase activity as tolerated Patient Instructions: Anemia (ED), Opioid Safety, Pain Management Activity Restrictions/Additional Instructions: Thank you for choosing [facility] [place] for your healthcare needs today. You have been screened and evaluated and felt safe for discharge. Health conditions do change or evolve sometimes and as such it is important that you follow up with your Primary Doctor to be re checked, 3-5 days is a general good time frame for follow up. You are always welcome to return to the ED for re assessment if your symptoms are worsening or you have new concerns Print Language: Urdu Coding Level of Care Code ED Cooler Conveyor Loader for Chg Fwd Documented by User: Sonia Rice MD 11/17/24 17:55 HPI - General Adult 2 General: Chief complaint: General Medical Stated complaint: Post surgery issues Time Seen by Provider: 11/17/24 15:13 Related Data Home Medications ?Medication ?Instructions ?Recorded ?Confirmed levothyroxine 137 mcg tablet 137 mcg PO QAM 12/19/21 0 11/17/24 multivitamin 2 tab PO DAILY 12/19/2110/31 albuterol sulfate 90 mcg/actuation 2 puff inhalation Q ID 11/17/24 11/17/24 aerosol inhaler (Ventolin HFA) docusate calcium 240 mg capsule 240 mg PO DAILY consti pation 11/17/24 11/17/24 (Stool Softener (docusate calcium)) estradiol 0.1 mg/24 hr weekly 1 patch topical Q7D 10/3111/17/24 transdermal patch tamsulosin 0.4 mg capsule (Flomax) 0.4 mg PO DAILY 11/17/24 Previous Rx's ?Medication ?Instructions ?Recorded ondansetron HCl 4 mg tablet 4 mg PO Q6H PRN nausea and 12/07/22 vomiting #20 tabs tramadol 50 mg tablet 50 mg PO Q8H PRN pain #20 ta bs 08/28/24 Allergies Allergy/AdvReac Type Severity Reaction Status Date / Time morphine Allergy anaphylaxis Verified 01/23/24 10:24 PFS ED 2 PFSH: Medical History Aftercare following surgery of the genitourinary system Hypothyroid No pertinent past medical history neghx: htn,dvt/pe PCP: Comfort Ferguson Type 2 diabetes mellitus Surgical History Hx of abdominal surgery (~2020) tummy tuck, muscle reconstruction Hx of tubal ligation (~1996) Family History Family/Other Breast cancer Maternal Aunt--dx age 40's Colon cancer Paternal Uncle---dx age 60's Maternal Aunt-- dx age 60's Mother Diabetes Heart disease Hypercholesteremia Hypertension Ovarian cancer dx age 20's Thyroid disease Father Diabetes Heart disease Stroke Grandmother Diabetes Paternal Grandfather Diabetes Paternal Denies family history of Uterine cancer Course 2 Vital Signs: Vital signs: Vital Signs Temperature 98.8 F 11/17/24 22:20 Pulse Rate 68 11/18/24 00:08 Respiratory Rate 13 11/17/24 23:30 Blood Pressure 107/71 11/18/24 00:08 Pulse Oximetry 99 11/18/24 00:08 Oxygen Delivery Me thod Room Air 11/17/24 17:39 MDM - General Adult Medical Decision Making Patient care transitioned me at shift change. Patient is anemic. With a hemoglobin of 7.5 with symptoms. Apparently she had some blood loss during surgery. No signs of current bleeding. Being transfused 2 units PRBC and sent home. Lab Data 11/17/24 14:48 11/17/24 14:48 Radiology Impressions Chest X-Ray 11/17/24 15:13 Impression: Negative chest. Laboratory Results WBC 5.94 10^3/uL (3.29-11.43) 11/17/24 14:48 RBC 2.77 10^6/uL (3.85-5.65) L 11/17/24 14:48 Hgb 7.50 g/dL (11.27-16.99) L 11/17/24 14:48 Hct 23.4 % (36-47) L 11/17/24 14:48 MCV 84.5 fl (85-98) L 11/17/24 14:48 MCH 27.1 pg (27-33) 11/17/24 14:48 MCHC 32.1 g/dL (30-55) 11/17/24 14:48 RDW 13.7 % (12.1-15.1) 11/17/24 14:48 Plt Count 273 10^3/cmm (157-399) 11/17/24 14:48 MPV 9.9 fL (7.4-10.4) 11/17/24 14:48 Neut % (Auto) 58.3 % 11/17/24 14:48 Lymph % (Auto) 29.5 % 11/17/24 14:48 [place] % (Auto) 7.1 % 11/17/24 14:48 Eos % (Auto) 2.4 % 11/17/24 14:48 Baso % (Auto) 0.3 % 11/17/24 14:48 Neut # (Auto) 3.47 10^3/uL (1.8-7.7) 11/17/24 14:48 Lymph # (Auto) 1.8 10^3/uL (0.8-4.8) 11/17/24 14:48 [place] # (Auto) 0.4 10^3/uL (0.2-0.9) 11/17/24 14:48 Eos # (Auto) 0.1 10^3/uL (0.0-0.8) 11/17/24 14:48 Baso # (Auto) 0.0 10^3/uL (0.0-0.1) 11/17/24 14:48 Nucleated RBC % (auto) 0 % 11/17/24 14:48 Nucleated RBCs # 0.0 /100WBC 11/17/24 14:48 Sodium 144 mmol/L (136-145) 11/17/24 14:48 Potassium 3.9 mmol/L (3.5-5.1) 11/17/24 14:48 Chloride 106 mmol/L (98-107) 11/17/24 14:48 Carbon Dioxide 26 mmol/L (22-29) 11/17/24 14:48 Anion Gap 15.9 (5-19) 11/17/24 14:48 BUN 14 mg/dL (6-20) 11/17/24 14:48 Creatinine 0.5 mg/dL (0.5-0.9) 11/17/24 14:48 GFR Calculation 131.7 mL/min (90-130) H 11/17/24 14:48 Glucose 79 mg/dL (65-115) 11/17/24 14:48 Calculated Osmolality 297 mOsm/kg (285-295) H 11/17/24 14:48 Calcium 8.9 mg/dL (8.5-10.5) 11/17/24 14:48 Total Bilirubin 0.6 mg/dL (0.15-1.2) 11/17/24 14:48 AST 32 U/L (0-32) 11/17/24 14:48 ALT 40 U/L (0-33) H 11/17/24 14:48 Alkaline Phosphatase 69 U/L (35-105) 11/17/24 14:48 Total Protein 6.7 g/dL (6.6-8.7) 11/17/24 14:48 Albumin 3.8 g/dL (3.5-5.2) 11/17/24 14:48 Globulin 2.9 g/dL (1.3-4.6) 11/17/24 14:48 Urine Color Yellow (Yellow) 11/17/24 15:35 Urine Appearance Clear (CLEAR) 11/17/24 15:35 Urine pH 8.5 (5-7) A 11/17/24 15:35 Ur Specific [place] 1.009 (1.005-1.030) 11/17/24 15:35 Urine Protein Negative (Negative) 11/17/24 15:35 Urine Glucose (UA) Negative (Normal) 11/17/24 15:35 Urine Ketones Negative (Negative) 11/17/24 15:35 Urine Blood Negative (Negative) 11/17/24 15:35 Urine Nitrate Negative (Negative) 11/17/24 15:35 Urine Bilirubin Negative (Negative) 11/17/24 15:35 Urine Urobilinogen 1.0 mg/dL (Negative) 11/17/24 15:35 Ur Leukocyte Esterase Negative (Negative) 11/17/24 15:35 Urine RBC 0-2 /hpf (0-2) 11/17/24 15:35 Urine WBC 0-5 /hpf (0-5) 11/17/24 15:35 Ur Squamous Epith Cells 0-5 /hpf (0-5) 11/17/24 15:35 Amorphous Sediment Not Reportable 11/17/24 15:35 Urine Bacteria None seen /hpf (NONE) 11/17/24 15:35 Hyaline Casts 0-4 /lpf H 11/17/24 15:35 Blood Type O Positive 11/17/24 16:52 Rho(D) Type Rh positive 11/17/24 16:52 Antibody Screen Negative 11/17/24 16:52 Crossmatch See Detail 11/17/24 16:52 No radiology studies performed this visit Discharge Plan Discharge Patient Disposition: Home Clinical Impression: Postoperative anemia Condition: Stable Prescriptions: No Action multivitamin Tablet 2 tab PO DAILY levothyroxine 137 mcg tablet 137 mcg PO QAM tramadol 50 mg tablet 50 mg PO Q8H PRN (Reason: pain) Qty: 20 0RF albuterol sulfate [Ventolin HFA] 90 mcg/actuation HFA aerosol inhaler 2 puff inhalation QID estradiol 0.1 mg/24 hr patch weekly 1 patch topical Q7D docusate calcium [Stool Softener (docusate jabier)] 240 mg Capsule 240 mg PO DAILY tamsulosin [Flomax] 0.4 mg Capsule 0.4 mg PO DAILY ondansetron HCl 4 mg tablet 4 mg PO Q6H PRN (Reason: nausea and vomiting) Qty: 20 0RF Discharge Orders: Discharge ED (Routine); Ordered 11/17/24 Ordered By: Sonia Rice Referrals: Ferguson,CLAUDIA Zaman [Primary Care Provider, Nurse Practitioner] Discharge Diet: Usual diet Discharge Activity: Increase activity as tolerated Patient Instructions: Anemia (ED), Opioid Safety, Pain Management Activity Restrictions/Additional Instructions: Thank you for choosing [facility] [place] for your healthcare needs today. You have been screened and evaluated and felt safe for discharge. Health conditions do change or evolve sometimes and as such it is important that you follow up with your Primary Doctor to be re checked, 3-5 days is a general good time frame for follow up. You are always welcome to return to the ED for re assessment if your symptoms are worsening or you have new concerns Print Language: Urdu Coding Level of Care Code ED Cooler Conveyor Loader for Katalina Kolb
[2024-11-17 15:41] LABS: Bilirubin Urine Negative (Negative); Blood Urine Negative (Negative); Glucose Urine UA Negative (Normal); Ketones Urine Negative (Negative); Leukocyte Esterase Urine Negative (Negative); Nitrate Urine Negative (Negative); Protein Urine Negative (Negative); Specific Gravity, Urine 1.009 (1.005-1.030); Urine Appearance Clear (CLEAR); Urine Color Yellow (Yellow); pH Urine 8.5 (5-7)
[2024-11-17 15:43] LABS: Basophils % 0.3 %; Eosinophils # 0.1 10^3/uL (0.0-0.8); Eosinophils % 2.4 %; Hematocrit 23.4 % (36-47); Lymphocytes # 1.8 10^3/uL (0.8-4.8); Lymphocytes % 29.5 %; Mean Corpuscular HGB Conc 32.1 g/dL (30-55); Mean Corpuscular Hemoglobin 27.1 pg (27-33); Mean Corpuscular Volume 84.5 fl (85-98); Mean Platelet Volume 9.9 fL (7.4-10.4); Monocytes # 0.4 10^3/uL (0.2-0.9); Monocytes % 7.1 %; Neutrophils # 3.47 10^3/uL (1.8-7.7); Neutrophils % 58.3 %; Nucleated Red Blood Cells % 0 %; Platelet Count 273 10^3/cmm (157-399); Red Blood Count 2.77 10^6/uL (3.85-5.65); Red Cell Distribution Width 13.7 % (12.1-15.1); White Blood Count 5.94 10^3/uL (3.29-11.43)
[2024-11-17 15:43] LABS: Add Urine Microscopic? YES; Bacteria Urine None Seen /hpf; Hyaline Casts Urine 0-4 /lpf; RBC Urine 0-2 /hpf (0-2); Squamous Epithelial Cell Urine 0-5 /hpf (0-5); WBC Urine 0-5 /hpf (0-5)
[2024-11-17 15:51] LABS: Alanine Aminotransferase 40 U/L (0-33); Albumin Level 3.8 g/dL (3.5-5.2); Alkaline Phosphatase 69 U/L (35-105); Anion Gap 15.9 (5-19); Aspartate Amino Transferase 32 U/L (0-32); Blood Urea Nitrogen 14 mg/dL (6-20); Calcium 8.9 mg/dL (8.5-10.5); Carbon Dioxide 26 mmol/L (22-29); Chloride 106 mmol/L (98-107); Creatinine Clr Calc Pharmacy 137.5886; Globulin 2.9 g/dL (1.3-4.6); Glomerular Filtration Rate 131.7 mL/min (90-130); Glucose 79 mg/dL (65-115); Osmolality Calculated 297 mOsm/kg (285-295); Potassium 3.9 mmol/L (3.5-5.1); Sodium 144 mmol/L (136-145); Total Bilirubin 0.6 mg/dL (0.15-1.2); Total Protein 6.7 g/dL (6.6-8.7)
[2024-11-17] MEDS: sodium chloride 0.9% 100 mL Bag 50 ML IV ×2 (17:01→20:31)
--- NOTE | 2024-11-17 18:17 | PC.NURSE ---
Blood transfusion started. Pt reports a headache rated4/10 prior to transfusion start time. Pt states that she has had one for the past 3 days. Reports that it had gone away almost with the Fentanyl ivp that ems administered prior to arrival.
[2024-11-17] MEDS: acetaminophen 500 mg Tablet 1000 MG PO (18:40)
[2024-11-17] MEDS: LORazepam 1 MG/0.5 ML injection IVP (18:41)
[2024-11-18 00:08] VITALS: BP 107/71; PULSE 68; O2SAT 99
== END 2024-11-18 00:09 | disposition home or self-care (01) ==
PROVIDERS: Family Medicine; Emergency Provider Emergency Medicine; PCP Nurse Practitioner Family
DX: D64.89 Other specified anemias (principal); E11.9 Type 2 diabetes mellitus without complications
CPT/HCPCS: 36415; 36430; 71045; 80053; 81001; 85025; 86850; 86900; 86920; 96374; 99284; J2060; J9999; P9016

== ENCOUNTER 2024-12-04 09:05 | Emergency (ER) | payer MEDICAID, SELFPAY ==
--- OUTSIDE RECORDS SUMMARY | 2024-12-02 05:13 | XMS_ITS | Continuity of Care Document ---
Author Name [facility] Address [address] [place] [address] Organization [facility] Care Team Providers Care Remote Encoding Center Manager Name Role Phone [facility] Unavailable Unavailable Problems Problem Status Onset Date Problem Type Date of Resolution Comments Source Post-surgical malabsorption (disorder) 11/17/2024 Diagnosis Nausea (finding) 11/12/2024 Diagnosis Postoperative pain (finding) 08/09/2024 Diagnosis Precipitous drop in hematocrit (finding) 08/09/2024 Diagnosis Contusion of lower leg (disorder) 08/09/2024 Diagnosis Gastritis (disorder) 01/06/2024 Diagnosis Body mass index 30+ - obesity (finding) Active Condition Added by Discern Rule PROB_ADD_BMI Obesity (disorder) Active Condition A dded by Discern Rule PROB_ADD_BMI Chronic cholecystitis with calculus (disorder) Diagnosis Essential hypertension (disorder) Diagnosis Hypothyroidism (disorder) Diagnosis First degree atrioventricular block (disorder) Diagnosis Asthma (disorder) Diagnosis Gastroesophageal reflux disease without esophagitis (disorder) Diagnosis Retained foreign body (disorder) Diagnosis Drug allergy (disorder) Diagnosis Incontinence of feces (finding) Diagnosis Acquired absence of organ Diagnosis Excessive skin and subcutaneous tissue (disorder) Diagnosis Intertrigo (disorder) Diagnosis Abnormal weight loss (finding) Diagnosis Overweight in adulthood with body mass index of 25 or more but less than 30 (finding) Diagnosis History of - tubal ligation (context-dependent category) Diagnosis Past history of procedure (context-dependent category) Diagnosis Long-term current use of drug therapy (situation) Diagnosis Hematoma of surgical wound of skin following surgical procedure Diagnosis Anemia (disorder) Diagnosis Complication of surgical procedure (disorder) Diagnosis Serious reportable event associated with product or device (event) Diagnosis Place of occurrence of accident or poisoning (environment) Diagnosis Long-term current use of anticoagulant (situation) Diagnosis Chronic gastritis (disorder) Diagnosis Obese class II (finding) Diagnosis Nonalcoholic steatohepatitis (disorder) Diagnosis Type II diabetes mellitus without complication (disorder) Diagnosis Long-term current use of oral hypoglycemic medication Diagnosis Obese class II (finding) Diagnosis Hormone replacement monitoring status (finding) Diagnosis Depressive disorder (disorder) Diagnosis Swollen abdomen (finding) Diagnosis Chest pain (finding) Diagnosis Encounter for other preprocedural examination Active Diagnosis Morbid (severe) obesity due to excess calories Active Diagnosis Dysphagia, unspecified Active Diagnosis Epigastric pain Active Diagnosis Calculus of gallbladder without cholecystitis without obstruction Active Diagnosis Lower abdominal pain, unspecified Active Diagnosis Excessive and redundant skin and subcutaneous tissue Active Diagnosis Postprocedural hematoma of skin and subcutaneous tissue following other procedure Active Diagnosis Erythema intertrigo Active Diagnosis Reduced mobility (finding) Diagnosis Walking disability (finding) Diagnosis Difficulty passing urine (finding) Diagnosis Pain in thoracic spine (finding) Diagnosis Fall from operating room table (event) Diagnosis Medications Medication Details Route Status Patient Instructions Ordering Provider Order Date Source Multiple Vitamins with Iron oral tablet 1 Tablet(s) with zinc, Oral, Daily, Refill(s) 0 Active 4 [facility] Allergies, Adverse Reactions, Alerts Substance Category Reaction Severity Reaction type Status Date Reported Comments Source morphine Assertion stopped breathing Drug allergy Active [facility] Results Order Name Results Value Reference Range Date Interpretation Comments Source GENERAL CHEMISTRY Total Protein 7.1 g/dL 5.7 - 8.2 11/22 13:56 :00 [facility] GENERAL CHEMISTRY Anion gap 12 mmol/L 0 - 20 11/22 13:56 :00 [facility] GENERAL CHEMISTRY T Bili 0.64 mg/dL 0.30 - 1.20 11/22 13:56 :00 [facility] GENERAL CHEMISTRY Potassium 3.9 mmol/L 3.5 - 5.1 11/22 13:56 :00 [facility] GENERAL CHEMISTRY CO2 28 mmol/L 20 - 31 11/22 13:56 :00 [facility] GENERAL CHEMISTRY Creatinine, standardized 0.6 mg/dL 0.5 - 1.0 11/22 13:56 :00 Interpretive Data: Pbiuxo-de-kqn e transgender patients on testosterone therapy should have results assessed using the male reference range. Oqwo-za-kopqj e transgender patients on hormone-modul ating therapy clinical judgment is advisedfor assessment. [facility] GENERAL CHEMISTRY Estimated GFR for Adults 112 mL/min/1.7 3m 11/22 13:56 :00 Interpretive Data: Changed to CKD-EPI 2020 on 2020. [facility] GENERAL CHEMISTRY Estimated GFR for peds Not Calculated mL/min/1.7 3m 11/22 13:56 :00 Interpretive Data: The estimated GFR was calculated using the B vandana Webster equation (2009) . Reference: Pediatric GFR calculator at [employer] Website. [facility] GENERAL CHEMISTRY ALT-SGPT 55 U/L 10 - 40 11/22 13:56 :00 [facility] GENERAL CHEMISTRY BUN 20 mg/dL 6 - 20 11/22 13:56 :00 [facility] GENERAL CHEMISTRY Albumin 3.6 g/dL 3.4 - 5.0 11/22 13:56 :00 [facility] GENERAL CHEMISTRY Alkaline Phosphatase 73 U/L 35 - 104 11/22 13:56 :00 [facility] GENERAL CHEMISTRY AST-SGOT 32 U/L 11/22 13:56 :00 [facility] GENERAL CHEMISTRY Chloride 104 mmol/L 98 - 107 11/22 13:56 :00 [facility] GENERAL CHEMISTRY Sodium 140 mmol/L 136 - 145 11/22 13:56 :00 [facility] GENERAL CHEMISTRY Glucose Lvl 108 mg/dL 70 - 139 11/22 13:56 :00 [facility] GENERAL CHEMISTRY Calcium 9.4 mg/dL 8.3 - 10.6 11/22 13:56 :00 [facility] GENERAL CHEMISTRY Ferritin 20.9 ng/mL 7.3 - 270.7 11/22 13:56 :00 [facility] GENERAL CHEMISTRY TIBC 373 ug/dL 250 - 425 11/22 13:56 :00 [facility] GENERAL CHEMISTRY Iron 41 ug/dL 50 - 170 11/22 13:56 :00 [facility] GENERAL CHEMISTRY Iron Saturation 11.0 % 20.0 - 55.0 11/22 13:56 :00 [facility] GENERAL CHEMISTRY HDL Cholesterol 51 mg/dL 11/22 13:56 :00 Interpretive Data: HDL Cholesterol Level mg/dL Category Less than 40(for Men) Low HDL cholesterol. A major risk factor for heart disease. Less than 50 (for Women) 60 and above High HDL cholesterol. An HDL of 60 mg/dL and above is considered protective against heart disease. National Cholesterol Education Program [facility] [address] [address] [place] [phone] http:www.nhlb i.nih.gov [facility] GENERAL CHEMISTRY Triglyceride s 167 mg/dL 11/22 13:56 :00 Interpretive Data: Less than 150 Normal 150 - 199 Borderline high 200 - 499 High 500 and above Very high National Cholesterol Education Program [facility] [address] [address] [place] [phone] http://www.[facility] health carei,nih.gov [facility] GENERAL CHEMISTRY LDL (Calculated) 143 mg/dL 0 - 129 11/22 13:56 :00 Interpretive Data: LDL cholesterol is calculated based on the NIH-Jaziel equation effective 01-08-2024. The NIH equation gives valid calculated LDL-C results with triglyceride concentration s up to 800 mg/dL. LDL Cholesterol Level mg/dL Category Less than 100 Optimal 100 to 129 Near or above optimal 130 to 159 Borderline high 160 to 189 High 190 and above Very High Note: Values < 80 mg/dL may indicate hypobetalipop roteinemia, if not on Statin therapy. Reference: Jaziel et al. VIVIAN Cardiol. 2020; 26: 1-9. [facility] GENERAL CHEMISTRY Cholesterol 224 mg/dL 11/22 13:56 :00 [facility] GENERAL CHEMISTRY Cholesterol HDL Ratio 4.4 11/22 13:56 :00 [facility] GENERAL CHEMISTRY Magnesium 2.31 mg/dL 1.60 - 2.60 11/22 13:56 :00 [facility] GENERAL CHEMISTRY Phosphorus 4.4 mg/dL 2.4 - 5.1 11/22 13:56 :00 [facility] GENERAL CHEMISTRY Vitamin B12 3157 pg/mL 211 - 911 11/22 13:56 :00 [facility] GENERAL CHEMISTRY 25-OH Vitamin D Level 56.32 ng/mL 20.00 - 100.00 11/22 13:56 :00 [facility] GENERAL CHEMISTRY Folate 17.85 ng/mL 11/22 13:56 :00 [facility] HEMATOLOGY PROFILES WBC 6.33 x10(9)/L 3.50 - 10.50 11/22 13:56 :00 [facility] HEMATOLOGY PROFILES MPV 8.8 8.0 - 12.0 11/22 13:56 :00 [facility] HEMATOLOGY PROFILES MCH 27.0 pg 26.0 - 33.0 11/22 13:56 :00 [facility] HEMATOLOGY PROFILES RBC 4.03 x10(12)/L 3.90 - 5.03 11/22 13:56 :00 [facility] HEMATOLOGY PROFILES MCHC 31.7 g/dL 32.0 - 36.0 11/22 13:56 :00 [facility] HEMATOLOGY PROFILES HGB 10.9 g/dL 12.0 - 15.5 11/22 13:56 :00 Interpretive Data: Lhidwg-iy-ekm e transgender patients on testosterone therapy should have results assessed using the male reference range. Imrv-ds-ojtdh e transgender patients on hormone-modul ating therapy clinical judgment is advisedfor assessment. [facility] HEMATOLOGY PROFILES PLT 364 x10(9)/L 150 - 450 11/22 13:56 :00 [facility] HEMATOLOGY PROFILES RDW CV 15.5 % 11.9 - 15.5 11/22 13:56 :00 [facility] HEMATOLOGY PROFILES HCT 34.4 % 34.9 - 44.5 11/22 13:56 :00 Interpretive Data: Xmvpew-mh-zyc e transgender patients on testosterone therapy should have results assessed using the male reference range. Vkpn-es-dsvsz e transgender patients on hormone-modul ating therapy clinical judgment is advisedfor assessment. [facility] HEMATOLOGY PROFILES RDW SD 45.3 fL 36.4 - 46.3 11/22 13:56 :00 [facility] HEMATOLOGY PROFILES MCV 85.4 fL 81.6 - 98.3 11/22 13:56 :00 [facility] HEMATOLOGY PROFILES Abs Lymphocytes 2.19 x10(9)/L 0.90 - 2.90 11/22 13:56 :00 [facility] HEMATOLOGY PROFILES Abs Monocytes 0.48 x10(9)/L 0.30 - 0.90 11/22 13:56 :00 [facility] HEMATOLOGY PROFILES % Immature Granulocytes 1.30 % 0.02 - 0.42 11/22 13:56 :00 [facility] HEMATOLOGY PROFILES Absolute Neutrophils 3.37 x10(9)/L 1.70 - 7.00 11/22 13:56 :00 [facility] HEMATOLOGY PROFILES Abs Eosinophils 0.17 x10(9)/L 0.05 - 0.50 11/22 13:56 :00 [facility] HEMATOLOGY PROFILES % Lymphocytes 34.6 % 11/22 13:56 :00 [facility] HEMATOLOGY PROFILES % Monocytes 7.6 % 11/22 13:56 :00 [facility] HEMATOLOGY PROFILES % Neutrophils 53.2 % 11/22 13:56 :00 [facility] HEMATOLOGY PROFILES % Eosinophils 2.7 % 11/22 13:56 :00 [facility] HEMATOLOGY PROFILES % Basophils 0.6 % 11/22 13:56 :00 [facility] HEMATOLOGY PROFILES % Nucleated RBCs 0.0 % 11/22 13:56 :00 [facility] HEMATOLOGY PROFILES Absolute Nucleated RBCs 0.0 x10(9)/L 0.0 - 0.0 11/22 13:56 :00 Interpretive Data: Normal values not established in patients less than 18 years old. [facility] HEMATOLOGY PROFILES Abs Basophils 0.04 x10(9)/L 0.00 - 0.30 11/22 13:56 :00 [facility] HEMATOLOGY PROFILES Abs Immature Granulocytes 0.08 x10(9)/L 0.00 - 0.03 11/22 13:56 :00 [facility] MISC CHEMISTRY Intact PTH 56.0 pg/mL 18.4 - 80.1 11/22 13:56 :00 [facility] HEMATOLOGY PROFILES HGB 9.5 g/dL 12.0 - 15.5 11/13 01:56 :00 Interpretive Data: Tghoye-kh-jjz e transgender patients on testosterone therapy should have results assessed using the male reference range. Nkul-kx-hsyvn e transgender patients on hormone-modul ating therapy clinical judgment is advisedfor assessment. [facility] HEMATOLOGY PROFILES HCT 29.1 % 34.9 - 44.5 11/13 01:56 :00 Interpretive Data: Xrutxt-im-tww e transgender patients on testosterone therapy should have results assessed using the male reference range. Bxsv-al-njgaj e transgender patients on hormone-modul ating therapy clinical judgment is advisedfor assessment. [facility] GENERAL CHEMISTRY Creatinine, standardized 0.5 mg/dL 0.5 - 1.0 08/09 08:38 :00 Interpretive Data: Paotig-mu-pnk e transgender patients on testosterone therapy should have results assessed using the male reference range. Xuqy-ku-fvpbs e transgender patients on hormone-modul ating therapy clinical judgment is advisedfor assessment. [facility] GENERAL CHEMISTRY T Bili 0.30 mg/dL 0.30 - 1.20 08/09 08:38 :00 [facility] GENERAL CHEMISTRY Total Protein 6.2 g/dL 5.7 - 8.2 08/09 08:38 :00 [facility] GENERAL CHEMISTRY CO2 28 mmol/L 20 - 31 08/09 08:38 :00 [facility] GENERAL CHEMISTRY Anion gap 11 mmol/L 0 - 20 08/09 08:38 :00 [facility] GENERAL CHEMISTRY Sodium 139 mmol/L 136 - 145 08/09 08:38 :00 [facility] GENERAL CHEMISTRY Potassium 4.0 mmol/L 3.5 - 5.1 08/09 08:38 :00 [facility] GENERAL CHEMISTRY Glucose Lvl 79 mg/dL 70 - 139 08/09 08:38 :00 [facility] GENERAL CHEMISTRY Chloride 104 mmol/L 98 - 107 08/09 08:38 :00 [facility] GENERAL CHEMISTRY Calcium 8.2 mg/dL 8.3 - 10.6 08/09 08:38 :00 [facility] GENERAL CHEMISTRY ALT-SGPT 32 U/L 10 - 40 08/09 08:38 :00 [facility] GENERAL CHEMISTRY BUN 16 mg/dL 6 - 20 08/09 08:38 :00 [facility] GENERAL CHEMISTRY Albumin 3.3 g/dL 3.4 - 5.0 08/09 08:38 :00 [facility] GENERAL CHEMISTRY Alkaline Phosphatase 57 U/L 35 - 104 08/09 08:38 :00 [facility] GENERAL CHEMISTRY AST-SGOT 17 U/L 08/09 08:38 :00 [facility] GENERAL CHEMISTRY Estimated GFR for peds Not Calculated mL/min/1.7 3m 08/09 08:38 :00 Interpretive Data: The estimated GFR was calculated using the Isadora ross Webster equation (2009) . Reference: Pediatric GFR calculator at [employer] Website. [facility] GENERAL CHEMISTRY Estimated GFR for Adults 118 mL/min/1.7 3m 08/09 08:38 :00 Interpretive Data: Changed to CKD-EPI 2020 on 2020. [facility] HEMATOLOGY PROFILES RDW SD 38.9 fL 36.4 - 46.3 08/09 08:38 :00 [facility] HEMATOLOGY PROFILES RDW CV 12.6 % 11.9 - 15.5 08/09 08:38 :00 [facility] HEMATOLOGY PROFILES MPV 9.6 8.0 - 12.0 08/09 08:38 :00 [facility] HEMATOLOGY PROFILES PLT 236 x10(9)/L 150 - 450 08/09 08:38 :00 [facility] HEMATOLOGY PROFILES HCT 28.5 % 34.9 - 44.5 08/09 08:38 :00 Interpretive Data: Zrryyf-rq-urh e transgender patients on testosterone therapy should have results assessed using the male reference range. Egdp-ki-ainkk e transgender patients on hormone-modul ating therapy clinical judgment is advisedfor assessment. [facility] HEMATOLOGY PROFILES HGB 9.6 g/dL 12.0 - 15.5 08/09 08:38 :00 Interpretive Data: Mvmjec-vt-wow e transgender patients on testosterone therapy should have results assessed using the male reference range. Sclu-ra-nvtzl e transgender patients on hormone-modul ating therapy clinical judgment is advisedfor assessment. [facility] HEMATOLOGY PROFILES MCV 85.8 fL 81.6 - 98.3 08/09 08:38 :00 [facility] HEMATOLOGY PROFILES MCHC 33.7 g/dL 32.0 - 36.0 08/09 08:38 :00 [facility] HEMATOLOGY PROFILES MCH 28.9 pg 26.0 - 33.0 08/09 08:38 :00 [facility] HEMATOLOGY PROFILES RBC 3.32 x10(12)/L 3.90 - 5.03 08/09 08:38 :00 [facility] HEMATOLOGY PROFILES WBC 7.73 x10(9)/L 3.50 - 10.50 08/09 08:38 :00 [facility] HEMATOLOGY PROFILES Absolute Nucleated RBCs 0.0 x10(9)/L 0.0 - 0.0 08/09 08:38 :00 Interpretive Data: Normal values not established in patients less than 18 years old. [facility] HEMATOLOGY PROFILES % Nucleated RBCs 0.0 % 08/09 08:38 :00 [facility] HEMATOLOGY PROFILES % Lymphocytes 49.8 % 08/09 08:38 :00 [facility] HEMATOLOGY PROFILES % Neutrophils 40.7 % 08/09 08:38 :00 [facility] HEMATOLOGY PROFILES % Eosinophils 2.8 % 08/09 08:38 :00 [facility] HEMATOLOGY PROFILES % Monocytes 6.0 % 08/09 08:38 :00 [facility] HEMATOLOGY PROFILES Abs Basophils 0.02 x10(9)/L 0.00 - 0.30 08/09 08:38 :00 [facility] HEMATOLOGY PROFILES Abs Eosinophils 0.22 x10(9)/L 0.05 - 0.50 08/09 08:38 :00 [facility] HEMATOLOGY PROFILES Abs Immature Granulocytes 0.03 x10(9)/L 0.00 - 0.03 08/09 08:38 :00 [facility] HEMATOLOGY PROFILES % Immature Granulocytes 0.40 % 0.02 - 0.42 08/09 08:38 :00 [facility] HEMATOLOGY PROFILES % Basophils 0.3 % 08/09 08:38 :00 [facility] HEMATOLOGY PROFILES Absolute Granulocytes 3.15 x10(9)/L 1.70 - 7.00 08/09 08:38 :00 [facility] HEMATOLOGY PROFILES Abs Monocytes 0.46 x10(9)/L 0.30 - 0.90 08/09 08:38 :00 [facility] HEMATOLOGY PROFILES Abs Lymphocytes 3.85 x10(9)/L 0.90 - 2.90 08/09 08:38 :00 [facility] GENERAL CHEMISTRY Estimated GFR for Adults 123 mL/min/1.7 3m 08/09 00:47 :00 Interpretive Data: Changed to CKD-EPI 2020 on 2020. [facility] GENERAL CHEMISTRY Estimated GFR for peds Not Calculated mL/min/1.7 3m 08/09 00:47 :00 Interpretive Data: The estimated GFR was calculated using the Isadora ross Webster equation (2009) . Reference: Pediatric GFR calculator at [employer] Website. [facility] GENERAL CHEMISTRY Total Protein 6.1 g/dL 5.7 - 8.2 08/09 00:47 :00 [facility] GENERAL CHEMISTRY Potassium 4.2 mmol/L 3.5 - 5.1 08/09 00:47 :00 [facility] GENERAL CHEMISTRY CO2 28 mmol/L 20 - 31 08/09 00:47 :00 [facility] GENERAL CHEMISTRY Anion gap 10 mmol/L 0 - 20 08/09 00:47 :00 [facility] GENERAL CHEMISTRY T Bili 0.30 mg/dL 0.30 - 1.20 08/09 00:47 :00 [facility] GENERAL CHEMISTRY Creatinine, standardized 0.4 mg/dL 0.5 - 1.0 08/09 00:47 :00 Interpretive Data: Skhelm-mn-rqp e transgender patients on testosterone therapy should have results assessed using the male reference range. Wuvp-oy-hlial e transgender patients on hormone-modul ating therapy clinical judgment is advisedfor assessment. [facility] GENERAL CHEMISTRY Sodium 139 mmol/L 136 - 145 08/09 00:47 :00 [facility] GENERAL CHEMISTRY BUN 17 mg/dL 6 - 20 08/09 00:47 :00 [facility] GENERAL CHEMISTRY Calcium 8.7 mg/dL 8.3 - 10.6 08/09 00:47 :00 [facility] GENERAL CHEMISTRY Glucose Lvl 106 mg/dL 70 - 139 08/09 00:47 :00 [facility] GENERAL CHEMISTRY Chloride 105 mmol/L 98 - 107 08/09 00:47 :00 [facility] GENERAL CHEMISTRY Alkaline Phosphatase 56 U/L 35 - 104 08/09 00:47 :00 [facility] GENERAL CHEMISTRY ALT-SGPT 34 U/L 10 - 40 08/09 00:47 :00 [facility] GENERAL CHEMISTRY AST-SGOT 19 U/L 08/09 00:47 :00 [facility] GENERAL CHEMISTRY Albumin 3.2 g/dL 3.4 - 5.0 08/09 00:47 :00 [facility] HEMATOLOGY PROFILES WBC 7.32 x10(9)/L 3.50 - 10.50 08/09 00:47 :00 [facility] HEMATOLOGY PROFILES RBC 3.19 x10(12)/L 3.90 - 5.03 08/09 00:47 :00 [facility] HEMATOLOGY PROFILES HGB 9.1 g/dL 12.0 - 15.5 08/09 00:47 :00 Interpretive Data: Tlskob-nw-thw e transgender patients on testosterone therapy should have results assessed using the male reference range. Cmce-om-digpr e transgender patients on hormone-modul ating therapy clinical judgment is advisedfor assessment. [facility] HEMATOLOGY PROFILES HCT 27.5 % 34.9 - 44.5 08/09 00:47 :00 Interpretive Data: Ixyhfy-cx-oid e transgender patients on testosterone therapy should have results assessed using the male reference range. Iklg-ph-uhitn e transgender patients on hormone-modul ating therapy clinical judgment is advisedfor assessment. [facility] HEMATOLOGY PROFILES MCV 86.2 fL 81.6 - 98.3 08/09 00:47 :00 [facility] HEMATOLOGY PROFILES MCH 28.5 pg 26.0 - 33.0 08/09 00:47 :00 [facility] HEMATOLOGY PROFILES MCHC 33.1 g/dL 32.0 - 36.0 08/09 00:47 :00 [facility] HEMATOLOGY PROFILES RDW CV 12.5 % 11.9 - 15.5 08/09 00:47 :00 [facility] HEMATOLOGY PROFILES RDW SD 39.4 fL 36.4 - 46.3 08/09 00:47 :00 [facility] HEMATOLOGY PROFILES PLT 239 x10(9)/L 150 - 450 08/09 00:47 :00 [facility] HEMATOLOGY PROFILES MPV 9.7 8.0 - 12.0 08/09 00:47 :00 [facility] HEMATOLOGY PROFILES Absolute Granulocytes 3.63 x10(9)/L 1.70 - 7.00 08/09 00:47 :00 [facility] HEMATOLOGY PROFILES Abs Lymphocytes 3.00 x10(9)/L 0.90 - 2.90 08/09 00:47 :00 [facility] HEMATOLOGY PROFILES Abs Monocytes 0.52 x10(9)/L 0.30 - 0.90 08/09 00:47 :00 [facility] HEMATOLOGY PROFILES Abs Eosinophils 0.14 x10(9)/L 0.05 - 0.50 08/09 00:47 :00 [facility] HEMATOLOGY PROFILES Abs Basophils 0.02 x10(9)/L 0.00 - 0.30 08/09 00:47 :00 [facility] HEMATOLOGY PROFILES Abs Immature Granulocytes 0.01 x10(9)/L 0.00 - 0.03 08/09 00:47 :00 [facility] HEMATOLOGY PROFILES % Nucleated RBCs 0.0 % 08/09 00:47 :00 [facility] HEMATOLOGY PROFILES Absolute Nucleated RBCs 0.0 x10(9)/L 0.0 - 0.0 08/09 00:47 :00 Interpretive Data: Normal values not established in patients less than 18 years old. [facility] HEMATOLOGY PROFILES % Neutrophils 49.6 % 08/09 00:47 :00 [facility] HEMATOLOGY PROFILES % Lymphocytes 41.0 % 08/09 00:47 :00 [facility] HEMATOLOGY PROFILES % Monocytes 7.1 % 08/09 00:47 :00 [facility] HEMATOLOGY PROFILES % Eosinophils 1.9 % 08/09 00:47 :00 [facility] HEMATOLOGY PROFILES % Basophils 0.3 % 08/09 00:47 :00 [facility] HEMATOLOGY PROFILES % Immature Granulocytes 0.10 % 0.02 - 0.42 08/09 00:47 :00 [facility] URINALYSIS Urine Collection Method Clean Catch UR (01/05/24 1:40 PM) 01/04 18:40 :00 [facility] URINALYSIS CLARITY Clear (01/05/24 1:40 PM) 01/04 18:40 :00 [facility] URINALYSIS COLOR Straw (01/05/24 1:40 PM) 01/04 18:40 :00 [facility] URINALYSIS SPECIFIC GRAVITY 1.006 1.006 - 1.030 01/04 18:40 :00 [facility] URINALYSIS UA PH 5 (01/05/24 1:40 PM) 4.5 - 8.0 01/04 18:40 :00 [facility] URINALYSIS UA GLUCOSE Negative mg/dL 01/04 18:40 :00 [facility] URINALYSIS UA KETONES Negative mg/dL 01/04 18:40 :00 [facility] URINALYSIS BILIRUBIN Negative (01/05/24 1:40 PM) 01/04 18:40 :00 [facility] URINALYSIS UA UROBILINOGEN Negative Aman unit/dL 0.2 - 1.0 01/04 18:40 :00 [facility] URINALYSIS UA BLOOD Negative 4 (01/05/24 1:40 PM) 01/04 18:40 :00 Result Comment: A hemoglobin concentration of 0.015-0.062 mg/dL is approximately equivalent to 5 -20 intact red blood cells per microliter. [facility] URINALYSIS UA LEUKOCYTES Negative (01/05/24 1:40 PM) 01/04 18:40 :00 [facility] URINALYSIS UA NITRITE Negative (01/05/24 1:40 PM) 01/04 18:40 :00 [facility] URINALYSIS UA PROTEIN Negative mg/dL 01/04 18:40 :00 [facility] GENERAL CHEMISTRY Lipase 221 U/L 12 - 60 01/04 17:46 :00 [facility] GENERAL CHEMISTRY AST-SGOT 39 U/L 01/04 17:46 :00 [facility] GENERAL CHEMISTRY Albumin 3.9 g/dL 3.4 - 5.0 01/04 17:46 :00 [facility] GENERAL CHEMISTRY Alkaline Phosphatase 81 U/L 35 - 104 01/04 17:46 :00 [facility] GENERAL CHEMISTRY ALT-SGPT 53 U/L 10 - 40 01/04 17:46 :00 [facility] GENERAL CHEMISTRY BUN 14 mg/dL 6 - 20 01/04 17:46 :00 [facility] GENERAL CHEMISTRY Calcium 8.8 mg/dL 8.3 - 10.6 01/04 17:46 :00 [facility] GENERAL CHEMISTRY Glucose Lvl 85 mg/dL 70 - 139 01/04 17:46 :00 [facility] GENERAL CHEMISTRY Chloride 107 mmol/L 98 - 107 01/04 17:46 :00 [facility] GENERAL CHEMISTRY Sodium 136 mmol/L 136 - 145 08/05 /2024 17:46 :00 [facility] GENERAL CHEMISTRY Potassium 4.1 mmol/L 3.5 - 5.1 01/04 17:46 :00 [facility] GENERAL CHEMISTRY CO2 25 mmol/L 20 - 31 01/04 17:46 :00 [facility] GENERAL CHEMISTRY Anion gap 8 mmol/L 0 - 20 01/04 17:46 :00 [facility] CHEMISTRY T Bili 0.44 mg/dL 0.30 - 1.20 01/04 17:46 :00 [facility] GENERAL CHEMISTRY Total Protein 7.4 g/dL 5.7 - 8.2 01/04 17:46 :00 [facility] CHEMISTRY Creatinine, standardized 0.6 mg/dL 0.5 - 1.0 01/04 17:46 :00 Interpretive Data: Jklyxq-nu-wsg e transgender patients on testosterone therapy should have results assessed using the male reference range. Cnjt-ma-ppviy e transgender patients on hormone-modul ating therapy clinical judgment is advisedfor assessment. [facility] CHEMISTRY Estimated GFR for Adults 112 mL/min/1.7 3m 01/04 17:46 :00 Interpretive Data: Changed to CKD-EPI 2020 on 2020. [facility] CHEMISTRY Estimated GFR for peds Not calculated 01/04 17:46 :00 Interpretive Data: The estimated GFR was calculated using the B vandana Webster equation (2009) . Reference: Pediatric GFR calculator at National Kid[employer] Website. [facility] GENERAL CHEMISTRY Phosphorus 4.1 mg/dL 2.4 - 5.1 01/04 17:46 :00 [facility] GENERAL CHEMISTRY Magnesium 2.10 mg/dL 1.60 - 2.60 01/04 17:46 :00 [facility] HEMATOLOGY PROFILES WBC 6.59 x10(9)/L 3.50 - 10.50 01/04 17:46 :00 [facility] HEMATOLOGY PROFILES RBC 4.41 x10(12)/L 3.90 - 5.03 01/04 17:46 :00 [facility] HEMATOLOGY PROFILES HGB 12.6 g/dL 12.0 - 15.5 01/04 17:46 :00 Interpretive Data: Urzmpi-fb-hya e transgender patients on testosterone therapy should have results assessed using the male reference range. Uonu-hh-zlqls e transgender patients on hormone-modul ating therapy clinical judgment is advisedfor assessment. [facility] HEMATOLOGY PROFILES HCT 37.7 % 34.9 - 44.5 01/04 17:46 :00 Interpretive Data: Ejgcyq-go-lzb e transgender patients on testosterone therapy should have results assessed using the male reference range. Yhuq-wn-znohh e transgender patients on hormone-modul ating therapy clinical judgment is advisedfor assessment. [facility] HEMATOLOGY PROFILES MCV 85.5 fL 81.6 - 98.3 01/04 17:46 :00 [facility] HEMATOLOGY PROFILES MCH 28.6 pg 26.0 - 33.0 01/04 17:46 :00 [facility] HEMATOLOGY PROFILES MCHC 33.4 g/dL 32.0 - 36.0 01/04 17:46 :00 [facility] HEMATOLOGY PROFILES RDW CV 12.2 % 11.9 - 15.5 01/04 17:46 :00 [facility] HEMATOLOGY PROFILES RDW SD 38.0 fL 36.4 - 46.3 01/04 17:46 :00 [facility] HEMATOLOGY PROFILES PLT 283 x10(9)/L 150 - 450 01/04 17:46 :00 [facility] HEMATOLOGY PROFILES MPV 9.3 8.0 - 12.0 01/04 17:46 :00 [facility] HEMATOLOGY PROFILES % Nucleated RBCs 0.0 % 01/04 17:46 :00 [facility] HEMATOLOGY PROFILES Absolute Nucleated RBCs 0.0 x10(9)/L 0.0 - 0.0 01/04 17:46 :00 Interpretive Data: Normal values not established in patients less than 18 years old. [facility] HEMATOLOGY PROFILES % Neutrophils 42.5 % 01/04 17:46 :00 [facility] HEMATOLOGY PROFILES % Lymphocytes 50.1 % 01/04 17:46 :00 [facility] HEMATOLOGY PROFILES % Monocytes 5.6 % 01/04 17:46 :00 [facility] HEMATOLOGY PROFILES % Eosinophils 1.1 % 01/04 17:46 :00 [facility] HEMATOLOGY PROFILES % Basophils 0.5 % 01/04 17:46 :00 [facility] HEMATOLOGY PROFILES % Immature Granulocytes 0.20 % 0.02 - 0.42 01/04 17:46 :00 [facility] HEMATOLOGY PROFILES Absolute Granulocytes 2.81 x10(9)/L 1.70 - 7.00 01/04 17:46 :00 [facility] HEMATOLOGY PROFILES Abs Lymphocytes 3.30 x10(9)/L 0.90 - 2.90 01/04 17:46 :00 [facility] HEMATOLOGY PROFILES Abs Monocytes 0.37 x10(9)/L 0.30 - 0.90 01/04 17:46 :00 [facility] HEMATOLOGY PROFILES Abs Eosinophils 0.07 x10(9)/L 0.05 - 0.50 01/04 17:46 :00 [facility] HEMATOLOGY PROFILES Abs Basophils 0.03 x10(9)/L 0.00 - 0.30 01/04 17:46 :00 [facility] HEMATOLOGY PROFILES Abs Immature Granulocytes 0.01 x10(9)/L 0.00 - 0.03 01/04 17:46 :00 [facility] GENERAL CHEMISTRY Estimated GFR for peds Not calculated 01/04 17:20 :35 Interpretive Data: The estimated GFR was calculated using the B vandana Webster equation (2009) . Reference: Pediatric GFR calculator at National Kid[employer] Website. [facility] GENERAL CHEMISTRY AST-SGOT 36 U/L 01/04 17:20 :35 [facility] GENERAL CHEMISTRY Albumin 3.8 g/dL 3.4 - 5.0 01/04 17:20 :35 [facility] GENERAL CHEMISTRY Alkaline Phosphatase 80 U/L 35 - 104 01/04 17:20 :35 [facility] GENERAL CHEMISTRY ALT-SGPT 53 U/L 10 - 40 01/04 17:20 :35 [facility] GENERAL CHEMISTRY BUN 16 mg/dL 6 - 20 01/04 17:20 :35 [facility] GENERAL CHEMISTRY Calcium 8.8 mg/dL 8.3 - 10.6 01/04 17:20 :35 [facility] GENERAL CHEMISTRY Glucose Lvl 86 mg/dL 70 - 139 01/04 17:20 :35 [facility] GENERAL CHEMISTRY Chloride 105 mmol/L 98 - 107 01/04 17:20 :35 [facility] GENERAL CHEMISTRY Sodium 137 mmol/L 136 - 145 01/04 17:20 :35 [facility] GENERAL CHEMISTRY Potassium 3.8 mmol/L 3.5 - 5.1 01/04 17:20 :35 [facility] GENERAL CHEMISTRY CO2 25 mmol/L 20 - 31 01/04 17:20 :35 [facility] GENERAL CHEMISTRY Anion gap 11 mmol/L 0 - 20 01/04 17:20 :35 [facility] GENERAL CHEMISTRY T Bili 0.43 mg/dL 0.30 - 1.20 01/04 17:20 :35 [facility] GENERAL CHEMISTRY Total Protein 7.4 g/dL 5.7 - 8.2 01/04 17:20 :35 [facility] GENERAL CHEMISTRY Creatinine, standardized 0.6 mg/dL 0.5 - 1.0 01/04 17:20 :35 Interpretive Data: Lajudf-jn-whk e transgender patients on testosterone therapy should have results assessed using the male reference range. Yppe-tn-orwtm e transgender patients on hormone-modul ating therapy clinical judgment is advisedfor assessment. [facility] GENERAL CHEMISTRY Estimated GFR for Adults 112 mL/min/1.7 3m 01/04 17:20 :35 Interpretive Data: Changed to CKD-EPI 2020 on 2020. [facility] GENERAL CHEMISTRY Cholesterol 148 mg/dL 01/04 17:20 :35 [facility] GENERAL CHEMISTRY HDL Cholesterol 35 mg/dL 01/04 17:20 :35 Interpretive Data: HDL Cholesterol Level mg/dL Category Less than 40(for Men) Low HDL cholesterol. A major risk factor for heart disease. Less than 50 (for Women) 60 and above High HDL cholesterol. An HDL of 60 mg/dL and above is considered protective against heart disease. National Cholesterol Education Program [facility] [address] [address] Beth AYOUB [phone] http:www.nhlb i.nih.gov [facility] GENERAL CHEMISTRY Triglyceride s 153 mg/dL 01/04 17:20 :35 Interpretive Data: Less than 150 Normal 150 - 199 Borderline high 200 - 499 High 500 and above Very high National Cholesterol Education Program [facility] [address] [address] [place] Beth [phone] http://www.me lbi,nih.gov [facility] GENERAL CHEMISTRY LDL (Calculated) 82 mg/dL 0 - 129 01/04 17:20 :35 Interpretive Data: LDL Cholesterol Level mg/dL Category Less than 100 Optimal 100 to 129 Near or above optimal 130 to 159 Borderline high 160 to 189 High 190 and above Very High Note: Values < 80 mg/dL may indicate hypobetalipop roteinemia, if not on Statin therapy. Reference: ATP III Guidelines, [email or web address] [facility] Cholesterol Education Program [facility] Health Information Network [address] [address] [place] AYOUB [address] http:www.[email or web address] access hospitalb i.nih.gov Footnote: Depending on cardiac risk factors, age, and sex, [facility] Cardiology prefers: <75 mg/dl optimal <100 mg/dl desirable [facility] GENERAL CHEMISTRY Cholesterol HDL Ratio 4.2 01/04 17:20 :35 [facility] GENERAL CHEMISTRY Vitamin B12 1903 pg/mL 211 - 911 01/04 17:20 :35 [facility] GENERAL CHEMISTRY Magnesium 2.06 mg/dL 1.60 - 2.60 01/04 17:20 :35 [facility] GENERAL CHEMISTRY Iron 50 ug/dL 50 - 170 01/04 17:20 :35 [facility] GENERAL CHEMISTRY TIBC 323 ug/dL 250 - 425 01/04 17:20 :35 [facility] GENERAL CHEMISTRY Iron Saturation 15.0 % 20.0 - 55.0 01/04 17:20 :35 [facility] GENERAL CHEMISTRY 25-OH Vitamin D Level 89.80 ng/mL 20.00 - 100.00 01/04 17:20 :35 [facility] HEMATOLOGY PROFILES WBC 6.30 x10(9)/L 3.50 - 10.50 01/04 17:20 :35 [facility] HEMATOLOGY PROFILES RBC 4.41 x10(12)/L 3.90 - 5.03 01/04 17:20 :35 [facility] HEMATOLOGY PROFILES HGB 12.3 g/dL 12.0 - 15.5 01/04 17:20 :35 Interpretive Data: Xzlyvj-uc-xva e transgender patients on testosterone therapy should have results assessed using the male reference range. Llow-nx-rwqox e transgender patients on hormone-modul ating therapy clinical judgment is advisedfor assessment. [facility] HEMATOLOGY PROFILES HCT 37.7 % 34.9 - 44.5 01/04 17:20 :35 Interpretive Data: Zrlmdx-zu-ryf e transgender patients on testosterone therapy should have results assessed using the male reference range. Vsin-os-rtmgp e transgender patients on hormone-modul ating therapy clinical judgment is advisedfor assessment. [facility] HEMATOLOGY PROFILES MCV 85.5 fL 81.6 - 98.3 01/04 17:20 :35 [facility] HEMATOLOGY PROFILES MCH 27.9 pg 26.0 - 33.0 01/04 17:20 :35 [facility] HEMATOLOGY PROFILES MCHC 32.6 g/dL 32.0 - 36.0 01/04 17:20 :35 [facility] HEMATOLOGY PROFILES RDW CV 12.4 % 11.9 - 15.5 01/04 17:20 :35 [facility] HEMATOLOGY PROFILES RDW SD 38.7 fL 36.4 - 46.3 01/04 17:20 :35 [facility] HEMATOLOGY PROFILES PLT 280 x10(9)/L 150 - 450 01/04 17:20 :35 [facility] HEMATOLOGY PROFILES MPV 9.6 8.0 - 12.0 01/04 17:20 :35 [facility] HEMATOLOGY PROFILES Absolute Neutrophils Manual 2.62 x10(9)/L 1.70 - 7.00 01/04 17:20 :35 [facility] HEMATOLOGY PROFILES Abs Lymphocytes Manual 3.57 x10(9)/L 0.90 - 2.90 01/04 17:20 :35 [facility] HEMATOLOGY PROFILES Abs Monocytes Manual 0.06 x10(9)/L 0.30 - 0.90 01/04 17:20 :35 [facility] HEMATOLOGY PROFILES Abs Eosinophils Manual 0.06 x10(9)/L 0.05 - 0.50 01/04 17:20 :35 [facility] HEMATOLOGY PROFILES Neuts Manual 41.6 % 01/04 17:20 :35 [facility] HEMATOLOGY PROFILES Lymphocytes Manual 56.6 % 01/04 17:20 :35 [facility] HEMATOLOGY PROFILES Monocytes Manual 0.9 % 01/04 17:20 :35 [facility] HEMATOLOGY PROFILES Eosinophils Manual 0.9 % 01/04 17:20 :35 [facility] HEMATOLOGY PROFILES Morphology Present *NA* (01/05/24 12:20 PM) 01/04 17:20 :35 [facility] HEMATOLOGY PROFILES Platelet Estimate Adequate *NA* (01/05/24 12:20 PM) 01/04 17:20 :35 [facility] HEMATOLOGY PROFILES Union Cells 2+ (25-50%) *NA* (01/05/24 12:20 PM) 01/04 17:20 :35 [facility] MISC CHEMISTRY Hemoglobin A1c 5.2 % 4.0 - 5.6 01/04 17:20 :35 Interpretive Data: Interpretativ e Information: Hemoglobin A1C (HbA1c) Comment Tab: [place] Diabetes [employer] criteria: 5.6% Normal 5.7 to 6.4 % Prediabetes 6.5% Diabetes Repeat hemoglobin A1c testing or follow-up with an alternative test such as the 2-hour OGTT is required prior to the diagnosis of diabetes. Prediabetes: Patient counseling and commitment to a course of lifestyle modification is recommended with follow-up testing 3-6 months later. Diabetes mellitus: HbA1c correlates highly with average daily glycemia over the preceding 60-90 day period. While g ood control is generally considered to be HbA1c < 7.0%, individual factors influence HbA1c goals and attained results, which providers should take into account when using HbA1c in patient management and counseling. In particular, HbA1c does not reliably capture frequency and severity of treatment-rel ated hypoglycemia, which may obligate relaxation of HbA1c goals for the patient. Note: Any condition that shortens erythrocyte survival or decreases mean erythrocyte age will lower HbA1c results regardless of the assay method. HbA1c results after blood transfusion should be interpreted with caution. REFERENCES: The Diabetes Control and Complications Trial Research Group: The effect of intensive treatment of diabetes on the development and progression of long-term complications in insulin-depen dent diabetes mellitus. N Engl J Med 329:977-86, 1992 National Glycohemoglob in Standardizati on Program (NGSP) website: http://www.ng sp.org [facility] MISC CHEMISTRY Estimated Average Glucose 103 mg/dL 01/04 17:20 :35 Interpretive Data: Interpretativ e Information: Estimated Average Glucose (eAG) Comment Tab: The table below shows the relationship between HbA1c and estimated average glucose (eAG). These data are presented only as a general guide for patient education. HbA1c (%) eAG (mg/dL) 4 70 5 97 6 126 7 154 8 183 9 212 10 240 11 269 12 298 Formula: eAG = 28.7 x HbA1c 46.7 REFERENCE: Sarthak CRENSHAW et al: Translating the A1c Assay into Estimated Average Glucose Values. Diabetes Care 31:1473-8, 2007 [facility] Thiamin( Bld)-Keavy 146 nmol/L 70 - 180 01/04 17:20 :35 Result Comment: ------ADDITIO NAL INFORMATION-- ---- This test was developed and its performance characteristi cs determined by [facility] in a manner consistent with CLIA requirements. This test has not been cleared or approved by the U.S. Food and Drug Administratio n. Test Performed by: [facility] [place] [address] Underwriter Solicitation Director: Mathew Murilol Ph.D.; CLIA# [id number] [facility] CT Abdomen and Pelvis CT Abdomen and Pelvis CT Scan/CT Angio Accession # Exam Date/Time Procedure Ordering Provider [id number] 01/05/2024 14:[address] Abdomen and Pelvis [place] Reason For Exam (CT Abdomen and Pelvis) abdominal pain, fecal incontinen ce, hx of bypass Report EXAMINATIO N: CT Abdomen and pelvis with IV contrast. TECHNIQUE: CT images were acquired through the abdomen and pelvis. Sagittal and coronal reformatte d series were provided. Oral contrast was administer ed. INDICATION : abdominal pain, fecal incontinen ce, hx of bypass COMPARISON : CT from 01/02/2023 FINDINGS: Lower Chest: Unremarkab le. Liver: Normal size and configurat ion. No suspicious lesions. Punctate hypodensit y in the left hepatic lobe is too small to characteri ze. Gallbladde r/Biliary: Not visualized No biliary ductal dilatation . Pancreas: Unremarkab le. The main pancreatic duct is nondilated . Spleen: Unremarkab le. Adrenal Glands: Unremarkab le. Kidneys: No nephrolith iasis. No hydronephr osis. No suspicious renal lesions. Bowel: No evidence of bowel obstructio n. The appendix was not visualized , however there is no acute inflammato ry process in the right lower quadrant. Postsurgic al changes of Vane-en-Y gastric bypass. Ingested contrast is seen within the Vane limb. There is diffuse thickening and enhancemen t of the gastric mucosa. Urinary Bladder: Unremarkab le. Reproducti ve Organs: Status post hysterecto my. No adnexal mass. Lymph Nodes: No pathologic ally enlarged lymph nodes. Vessels: No aortic aneurysm. Others: No ascites or pneumoperi toneum. Body Wall: Unremarkab le. Bones: No acute or suspicious osseous abnormalit y. IMPRESSION : 1. Diffuse gastric mucosal thickening which could be seen with gastritis. Otherwise no acute findings seen in the abdomen and pelvis, especially with respect to the Vane-en-Y gastric bypass surgical changes. I have personally reviewed the images and attest to the contents of this report. * * *Final Report* * * Electronic ally Signed by: Jerry AYOUB, Marilin Sumner Signed on: 01/05/24 15:54 01/04 14:49 :00 [facility] Consultation Notes Results Value Date Source General Surgery Clinic Note Chief Compla int Annual History of Present Illness Provider Located: Bariatric clinic Patient Located: Home Visit type: Telehealth postoperative follow-up (includes audio and video equipment)Consent: verbal consent for this telehealth visit was obtained from patient or guardian prior to beginning this encounter. Risks (tech failure, privacy and security, incomplete examination), and benefits (reduced exposure to infectious disease, convenience) of using a virtual platform were reviewed and addressed prior to beginning this encounter. Video and phone were used. Annual follow up Procedure: RYGB - Provider: Dr. Thompson Date of Procedure: 11/21/2022 Day of Surgery Weight: 102.72 kg Last Weight: 72.27 kg Current wt: 69 kg Lowest Weight: 69 kg Last EGD/EGJ: 02/25/2023 Symptoms: had Butt lift on Friday with bleeding and had to go back in to surgery. Has been able to go home. No issues with gastric bypass. Has follow up with Dr. Warner on FridayNovember 22. GERD: No Dysphagia: No Adequate fluid: Yes Adequate Protein: Yes 70+ Vitamins: takes flinstones with iron, hair supplement, collagen peptides, 1 zinc daily, Calcium with D PPI: No only if needed Exercise: Yes Smoking: No NSAID: No Oral Steroids: No Patient reports improvement or resolution of the following comorbidities: Diabetes:Yes -off metformin GERD:N/A Hyperlipidemia:N/A Hypertension:Yes-off BP meds Sleep Apnea: N/A Review of Systems Denies nausea, vomiting, bloating, constipation, diarrhea, heart burn, dysphagia, regurgitation Denies chest pain, shortness of breath, leg swelling Physical Exam Vitals and Measurements Constitutional: Conversive. No acute distress. Neurological: Alert and oriented. Psych: Normal mood and affect Clinic Procedure Assessment/Plan Orders: CBC with Auto Differential, Routine collect, Blood, *Est. Start date 11/17/24, Bariatric surgery status Postoperative malabsorption, Order for Future Visit, Copy Result To Dietitians, [facility] Ref Doc No ORP Reason: Self-referral Comprehensive Metabolic Panel, Routine collect, Blood, *Est. Start date 11/17/24, Bariatric surgery status Postoperative malabsorption, Order for Future Visit, Copy Result To Dietitians, [facility] Ref Doc No ORP Reason: Self-referral Copper, Serum-Espinoza, Routine collect, Serum, *Est. Start date 11/17/24, Bariatric surgery status Postoperative malabsorption, Order for Future Visit, Copy Result To Dietitians, [facility] Ref Doc No ORP Reason: Self-referral Ferritin Level, Routine collect, Blood, *Est. Start date 11/17/24, Bariatric surgery status Postoperative malabsorption, Order for Future Visit, Copy Result To Dietitians, [facility], [facility] Ref Doc No ORP Reason: Self-referral Folate Level, Routine collect, Blood, *Est. Start date 11/17/24, Bariatric surgery status Postoperative malabsorption, Order for Future Visit, Copy Result To Dietitians, [facility] Bariatric, Orig Ref Doc No ORP Reason: Self-referral Intact PTH, Routine collect, PLASMA, *Est. Start date 11/17/24, Bariatric surgery status Postoperative malabsorption, Order for Future Visit, Copy Result To Dietitians, [facility] Bariatric, Orig Ref Doc No ORP Reason: Self-referral Iron Level and TIBC, Routine collect, PLASMA, *Est. Start date 11/17/24, Bariatric surgery status Postoperative malabsorption, Order for Future Visit, Copy Result To Dietitians, [facility] Bariatric, Orig Ref Doc No ORP Reason: Self-referral Lipid Profile, Routine collect, Blood, *Est. Start date 11/17/24, Bariatric surgery status Postoperative malabsorption, Order for Future Visit, Copy Result To Dietitians, [facility] Bariatric, Orig Ref Doc No ORP Reason: Self-referral Magnesium Level, Routine collect, Blood, *Est. Start date 11/17/24, Bariatric surgery status Postoperative malabsorption, Order for Future Visit, Copy Result To Dietitians, [facility] Bariatric, Orig Ref Doc No ORP Reason: Self-referral Phosphorus Level, Routine collect, Blood, *Est. Start date 11/17/24, Bariatric surgery status Postoperative malabsorption, Order for Future Visit, Copy Result To Dietitians, [facility] Bariatric, Orig Ref Doc No ORP Reason: Self-referral Vitamin A Level-Keavy, Routine collect, Serum, *Est. Start date 11/17/24, Bariatric surgery status Postoperative malabsorption, Order for Future Visit, Copy Result To Dietitians, [facility] Bariatric, Orig Ref Doc No ORP Reason: Self-referral Vitamin B1 (Thiamin) Whole Blood-Keavy, Routine collect, Blood, *Est. Start date 11/17/24, Bariatric surgery status Postoperative malabsorption, Order for Future Visit, Copy Result To Dietitians, [facility] Bariatric, Orig Ref Doc No ORP Reason: Self-referral Vitamin B12 Level, Routine collect, Blood, *Est. Start date 11/17/24, Bariatric surgery status Postoperative malabsorption, Order for Future Visit, Copy Result To Dietitians, [facility] Bariatric, Orig Ref Doc No ORP Reason: Self-referral Vitamin D Level, Routine collect, Serum, *Est. Start date 11/17/24, Bariatric surgery status Postoperative malabsorption, Order for Future Visit, Copy Result To Dietitians, [facility] Bariatric, Orig Ref Doc No ORP Reason: Self-referral Vitamin E Level-Keavy, Routine collect, Serum, *Est. Start date 11/17/24, Bariatric surgery status Postoperative malabsorption, Order for Future Visit, Copy Result To Dietitians, [facility] Bariatric, Orig Ref Doc No ORP Reason: Self-referral Vitamin K1 Level-Keavy, Routine collect, Serum, *Est. Start date 11/17/24, Bariatric surgery status Postoperative malabsorption, Order for Future Visit, Copy Result To Dietitians, [facility] Bariatric, Orig Ref Doc No ORP Reason: Self-referral Zinc, Serum (ZN_S) - Keavy, Routine collect, Serum, *Est. Start date 11/17/24, Bariatric surgery status Postoperative malabsorption, Order for Future Visit, Copy Result To Dietitians, [facility] [place] Bariatric, [facility] Ref Doc No ORP Reason: Self-referral 1).Overweight, BMI: 25.1 kg/m2 obesity is chronic condition 2). Post Status RYGB -Overall, patient is doing well postoperatively. - Congratulated patient on weight loss success to date. - Follow up in 12 months per protocol - Obtain labs as below 3). Postoperative malabsorption-life long condition -full set of bariatric labs ordered today Bariatric labs: Pt will go after visit to have drawn. Our registered dietitians will review the results and send a letter to the patient regarding any deficiencies noted with any recommended supplementation. Ordered full bariatric lab panel including: CBC with Auto Differential Comprehensive Metabolic Panel Ferritin Level Folate Level Intact PTH Iron Level and TIBC Lipid Profile Magnesium Level Phosphorus Level Copper, serum-Keavy Vitamin B1 (Thiamin) Whole Blood-Keavy Vitamin B12 Level Vitamin K1 level-Keavy Vitamin A level-Keavy Vitamin D Level Zinc Level-Keavy Patient advised to continue Bariatric MVI along with [id number] mg per day with Vitamin D. 4) anemia-chronic -continue mVI with Iron-recommend bariatric version but has not tolerated in past -iron panel ordered today-will make further recommendations after results Dietary counseling: It is recommended that the patient focus on meeting protein grams goals 70 grams per day. 5) recent cosmetic surgery by Dr. Warner Exercise counseling and surveillance: It is recommended the patient engage in intentional exercise 5 days a week for at least 20 to 30 minutes a day. This should include cardiovascular exercise along with strength training exercise. Strength training 2 to 3 days/week and this may include body weight movements, resistance bands, or dumbbells/gym equipment. The visit required complex medical management through an ongoing care relationship with the patient. Problem List/Past Medical History Ongoing BMI 36.0-36.9,adult Obesity Procedure/Surgical History brachioplasty, thighplasty Service Date: 08/06/2024 lap carolin Service Date: 03/07/2023 EGD Service Date: 02/21/2023 Laparoscopic vane en Y gastric bypass Service Date: 11/21/2022 EGD Service Date: 09/13/2022 vaginal hysterectomy with bladder sling Service Date: 07/16/2021 Jonas clemente Service Date: 2020 BTL Service Date: 1997 Medications albuterol(Ventolin HFA 90 mcg/inh inhalation aerosol), PRN biotin, Oral, Daily calcium-vitamin D(Caltrate 600+D oral tablet, chewable), 1 Tablet(s), bid docusate(docusate sodium 100 mg oral tablet), 100 mg= 1 Tablet(s), Oral, bid estradiol(Estradiol Patch 0.1 mg/24 hours weekly transdermal film, extended release), qSunday levothyroxine, 137 mcg, Daily multivitamin(Flintstones Multivitamins), Daily multivitamin with iron(Multiple Vitamins with Iron oral tablet), 1 Tablet(s) with zinc, Oral, Daily tamsulosin(Flomax 0.4 mg oral capsule), 0.4 mg, Oral, Daily, PRN traMADol(traMADol 50 mg oral tablet), 50 mg= 1 Tablet(s), Oral, q6h Allergies morphine stopped breathing Social History Smoking Status Never smoker Tobacco Smoking HistoryNever smoker Family History Family history is negative Immunizations Health Maintenance Lab Results Diagnostic Results Visit Information Attending Physician: Adriel Bloom FOUNDRY MOLDER Primary Care Physician: Junie Ferguson FOUNDRY MOLDER Visit Date: 11/17/2024 11/17/2024 General Surgery Clinic Note Chief Compla int Annual History of Present Illness Provider Located: Bariatric clinic Patient Located: Home Visit type: Telehealth postoperative follow-up (includes audio and video equipment)Consent: verbal consent for this telehealth visit was obtained from patient or guardian prior to beginning this encounter. Risks (tech failure, privacy and security, incomplete examination), and benefits (reduced exposure to infectious disease, convenience) of using a virtual platform were reviewed and addressed prior to beginning this encounter. Annual follow up Procedure: RYGB - Provider: Dr. Thompson Date of Procedure: 11/21/2022 Day of Surgery Weight: 102.72 kg Last Weight: 72.27 kg Current wt: 69 kg Lowest Weight: 69 kg Last EGD/EGJ: 02/25/2023 Symptoms: had Butt lift on Friday with bleeding and had to go back in to surgery. Has been able to go home. No issues with gastric bypass. Has follow up with Dr. Warner on FridayNovember 22. GERD: No Dysphagia: No Adequate fluid: Yes Adequate Protein: Yes 70+ Vitamins: takes flinstones with iron, hair supplement, collagen peptides, 1 zinc daily, Calcium with D PPI: No only if needed Exercise: Yes Smoking: No NSAID: No Oral Steroids: No Patient reports improvement or resolution of the following comorbidities: Diabetes:Yes -off metformin GERD:N/A Hyperlipidemia:N/A Hypertension:Yes-off BP meds Sleep Apnea: N/A Review of Systems Denies nausea, vomiting, bloating, constipation, diarrhea, heart burn, dysphagia, regurgitation Denies chest pain, shortness of breath, leg swelling Physical Exam Vitals and Measurements Constitutional: Conversive. No acute distress. Neurological: Alert and oriented. Integument: No overt viewable cyanosis, pallor, or jaundice. Psych: Normal mood and affect Clinic Procedure Assessment/Plan Bariatric surgery status Ordered: CBC with Auto Differential, Routine collect, Blood, *Est. Start date 11/17/24, Bariatric surgery status Postoperative malabsorption, Order for Future Visit, Copy Result To Dietitians, [facility], [facility] Ref Doc No ORP Reason: Self-referral Comprehensive Metabolic Panel, Routine collect, Blood, *Est. Start date 11/17/24, Bariatric surgery status Postoperative malabsorption, Order for Future Visit, Copy Result To Dietitians, [facility], [facility] Ref Doc No ORP Reason: Self-referral Copper, Serum-Espinoza, Routine collect, Serum, *Est. Start date 11/17/24, Bariatric surgery status Postoperative malabsorption, Order for Future Visit, Copy Result To Dietitians, [facility], [facility] Ref Doc No ORP Reason: Self-referral Ferritin Level, Routine collect, Blood, *Est. Start date 11/17/24, Bariatric surgery status Postoperative malabsorption, Order for Future Visit, Copy Result To Dietitians, [facility] [place] Bariatric, Orig Ref Doc No ORP Reason: Self-referral Folate Level, Routine collect, Blood, *Est. Start date 11/17/24, Bariatric surgery status Postoperative malabsorption, Order for Future Visit, Copy Result To Dietitians, [facility] [place] Bariatric, Orig Ref Doc No ORP Reason: Self-referral Intact PTH, Routine collect, PLASMA, *Est. Start date 11/17/24, Bariatric surgery status Postoperative malabsorption, Order for Future Visit, Copy Result To Dietitians, [facility] [place] Bariatric, Orig Ref Doc No ORP Reason: Self-referral Iron Level and TIBC, Routine collect, PLASMA, *Est. Start date 11/17/24, Bariatric surgery status Postoperative malabsorption, Order for Future Visit, Copy Result To Dietitians, [facility] [place] Bariatric, Orig Ref Doc No ORP Reason: Self-referral Lipid Profile, Routine collect, Blood, *Est. Start date 11/17/24, Bariatric surgery status Postoperative malabsorption, Order for Future Visit, Copy Result To Dietitians, [facility] [place] Bariatric, Orig Ref Doc No ORP Reason: Self-referral Magnesium Level, Routine collect, Blood, *Est. Start date 11/17/24, Bariatric surgery status Postoperative malabsorption, Order for Future Visit, Copy Result To Dietitians, [facility] [place] Bariatric, Orig Ref Doc No ORP Reason: Self-referral Phosphorus Level, Routine collect, Blood, *Est. Start date 11/17/24, Bariatric surgery status Postoperative malabsorption, Order for Future Visit, Copy Result To Dietitians, [facility] [place] Bariatric, Orig Ref Doc No ORP Reason: Self-referral Vitamin A Level-Keavy, Routine collect, Serum, *Est. Start date 11/17/24, Bariatric surgery status Postoperative malabsorption, Order for Future Visit, Copy Result To Dietitians, [facility] [place] Bariatric, Orig Ref Doc No ORP Reason: Self-referral Vitamin B1 (Thiamin) Whole Blood-Keavy, Routine collect, Blood, *Est. Start date 11/17/24, Bariatric surgery status Postoperative malabsorption, Order for Future Visit, Copy Result To Dietitians, [facility] [place] Bariatric, Orig Ref Doc No ORP Reason: Self-referral Vitamin B12 Level, Routine collect, Blood, *Est. Start date 11/17/24, Bariatric surgery status Postoperative malabsorption, Order for Future Visit, Copy Result To Dietitians, [facility] [place] Bariatric, Orig Ref Doc No ORP Reason: Self-referral Vitamin D Level, Routine collect, Serum, *Est. Start date 11/17/24, Bariatric surgery status Postoperative malabsorption, Order for Future Visit, Copy Result To Dietitians, [facility] [place] Bariatric, Orig Ref Doc No ORP Reason: Self-referral Vitamin E Level-Espinoza, Routine collect, Serum, *Est. Start date 11/17/24, Bariatric surgery status Postoperative malabsorption, Order for Future Visit, Copy Result To Dietitians, [facility] [place] Bariatric, Orig Ref Doc No ORP Reason: Self-referral Vitamin K1 Level-Espinoza, Routine collect, Serum, *Est. Start date 11/17/24, Bariatric surgery status Postoperative malabsorption, Order for Future Visit, Copy Result To Dietitians, [facility] [place] Bariatric, Orig Ref Doc No ORP Reason: Self-referral Zinc, Serum (ZN_S) - Keavy, Routine collect, Serum, *Est. Start date 11/17/24, Bariatric surgery status Postoperative malabsorption, Order for Future Visit, Copy Result To Dietitians, [facility] [place] Bariatric, Orig Ref Doc No ORP Reason: Self-referral Postoperative malabsorption Ordered: CBC with Auto Differential, Routine collect, Blood, *Est. Start date 11/17/24, Bariatric surgery status Postoperative malabsorption, Order for Future Visit, Copy Result To Dietitians, [facility] [place] Bariatric, Orig Ref Doc No ORP Reason: Self-referral Comprehensive Metabolic Panel, Routine collect, Blood, *Est. Start date 11/17/24, Bariatric surgery status Postoperative malabsorption, Order for Future Visit, Copy Result To Dietitians, [facility] [place] Bariatric, Orig Ref Doc No ORP Reason: Self-referral Copper, Serum-Keavy, Routine collect, Serum, *Est. Start date 11/17/24, Bariatric surgery status Postoperative malabsorption, Order for Future Visit, Copy Result To Dietitians, [facility] [place] Bariatric, Orig Ref Doc No ORP Reason: Self-referral Ferritin Level, Routine collect, Blood, *Est. Start date 11/17/24, Bariatric surgery status Postoperative malabsorption, Order for Future Visit, Copy Result To Dietitians, [facility] [place] Bariatric, Orig Ref Doc No ORP Reason: Self-referral Folate Level, Routine collect, Blood, *Est. Start date 11/17/24, Bariatric surgery status Postoperative malabsorption, Order for Future Visit, Copy Result To Dietitians, [facility] [place] Bariatric, Orig Ref Doc No ORP Reason: Self-referral Intact PTH, Routine collect, PLASMA, *Est. Start date 11/17/24, Bariatric surgery status Postoperative malabsorption, Order for Future Visit, Copy Result To Dietitians, [facility] [place] Bariatric, Orig Ref Doc No ORP Reason: Self-referral Iron Level and TIBC, Routine collect, PLASMA, *Est. Start date 11/17/24, Bariatric surgery status Postoperative malabsorption, Order for Future Visit, Copy Result To Dietitians, [facility] [place] Bariatric, Orig Ref Doc No ORP Reason: Self-referral Lipid Profile, Routine collect, Blood, *Est. Start date 11/17/24, Bariatric surgery status Postoperative malabsorption, Order for Future Visit, Copy Result To Dietitians, [facility] [place] Bariatric, Orig Ref Doc No ORP Reason: Self-referral Magnesium Level, Routine collect, Blood, *Est. Start date 11/17/24, Bariatric surgery status Postoperative malabsorption, Order for Future Visit, Copy Result To Dietitians, [facility] [place] Bariatric, Orig Ref Doc No ORP Reason: Self-referral Phosphorus Level, Routine collect, Blood, *Est. Start date 11/17/24, Bariatric surgery status Postoperative malabsorption, Order for Future Visit, Copy Result To Dietitians, [facility] [place] Bariatric, Orig Ref Doc No ORP Reason: Self-referral Vitamin A Level-Keavy, Routine collect, Serum, *Est. Start date 11/17/24, Bariatric surgery status Postoperative malabsorption, Order for Future Visit, Copy Result To Dietitians, [facility] [place] Bariatric, Orig Ref Doc No ORP Reason: Self-referral Vitamin B1 (Thiamin) Whole Blood-Keavy, Routine collect, Blood, *Est. Start date 11/17/24, Bariatric surgery status Postoperative malabsorption, Order for Future Visit, Copy Result To Dietitians, [facility] [place] Bariatric, Orig Ref Doc No ORP Reason: Self-referral Vitamin B12 Level, Routine collect, Blood, *Est. Start date 11/17/24, Bariatric surgery status Postoperative malabsorption, Order for Future Visit, Copy Result To Dietitians, [facility] [place] Bariatric, Orig Ref Doc No ORP Reason: Self-referral Vitamin D Level, Routine collect, Serum, *Est. Start date 11/17/24, Bariatric surgery status Postoperative malabsorption, Order for Future Visit, Copy Result To Dietitians, [facility] [place] Bariatric, Orig Ref Doc No ORP Reason: Self-referral Vitamin E Level-Keavy, Routine collect, Serum, *Est. Start date 11/17/24, Bariatric surgery status Postoperative malabsorption, Order for Future Visit, Copy Result To Dietitians, [facility] [place] Bariatric, Orig Ref Doc No ORP Reason: Self-referral Vitamin K1 Level-Keavy, Routine collect, Serum, *Est. Start date 11/17/24, Bariatric surgery status Postoperative malabsorption, Order for Future Visit, Copy Result To Dietitians, [facility] [place] Bariatric, Orig Ref Doc No ORP Reason: Self-referral Zinc, Serum (ZN_S) - Keavy, Routine collect, Serum, *Est. Start date 11/17/24, Bariatric surgery status Postoperative malabsorption, Order for Future Visit, Copy Result To Dietitians, [facility] [place] Bariatric, Orig Ref Doc No ORP Reason: Self-referral 1). Normal Weight, BMI: kg/m2 obesity is chronic condition 2). Post Status RYGB -Overall, patient is doing well postoperatively. - Congratulated patient on weight loss success to date. - Follow up in 12 months per protocol - Obtain labs as below 3). Postoperative malabsorption-life long condition -full set of bariatric labs ordered today Bariatric labs: Pt will go after visit to have drawn. Our registered dietitians will review the results and send a letter to the patient regarding any deficiencies noted with any recommended supplementation. Ordered full bariatric lab panel including: CBC with Auto Differential Comprehensive Metabolic Panel Ferritin Level Folate Level Intact PTH Iron Level and TIBC Lipid Profile Magnesium Level Phosphorus Level Copper, serum-Keavy Vitamin B1 (Thiamin) Whole Blood-Keavy Vitamin B12 Level Vitamin K1 level-Keavy Vitamin A level-Keavy Vitamin D Level Zinc Level-Keavy Patient advised to continue Bariatric MVI along with [id number] mg per day with Vitamin D. 4) anemia-chronic -continue mVI with Iron-recommend bariatric version but has not tolerated in past -iron panel ordered today-will make further recommendations after results Dietary counseling: It is recommended that the patient focus on meeting protein grams goals 70 grams per day. Exercise counseling and surveillance: It is recommended the patient engage in intentional exercise 5 days a week for at least 20 to 30 minutes a day. This should include cardiovascular exercise along with strength training exercise. Strength training 2 to 3 days/week and this may include body weight movements, resistance bands, or dumbbells/gym equipment. The visit required complex medical management through an ongoing care relationship with the patient. Problem List/Past Medical History Ongoing BMI 36.0-36.9,adult Obesity Procedure/Surgical History brachioplasty, thighplasty Service Date: 08/06/2024 lap carolin Service Date: 03/07/2023 EGD Service Date: 02/21/2023 Laparoscopic vane en Y gastric bypass Service Date: 11/21/2022 EGD Service Date: 09/13/2022 vaginal hysterectomy with bladder sling Service Date: 07/16/2021 Jonas giovanyck Service Date: 2020 BTL Service Date: 1997 Medications albuterol(Ventolin HFA 90 mcg/inh inhalation aerosol), PRN biotin, Oral, Daily calcium-vitamin D(Caltrate 600+D oral tablet, chewable), 1 Tablet(s), bid docusate(docusate sodium 100 mg oral tablet), 100 mg= 1 Tablet(s), Oral, bid estradiol(Estradiol Patch 0.1 mg/24 hours weekly transdermal film, extended release), qSunday levothyroxine, 137 mcg, Daily multivitamin(Flintstones Multivitamins), Daily multivitamin with iron(Multiple Vitamins with Iron oral tablet), 1 Tablet(s) with zinc, Oral, Daily tamsulosin(Flomax 0.4 mg oral capsule), 0.4 mg, Oral, Daily, PRN traMADol(traMADol 50 mg oral tablet), 50 mg= 1 Tablet(s), Oral, q6h Allergies morphine stopped breathing Social History Smoking Status Never smoker Tobacco Smoking HistoryNever smoker Family History Family history is negative Immunizations Health Maintenance Lab Results Diagnostic Results Visit Information Attending Physician: Adriel Bloom FOUNDRY MOLDER Primary Care Physician: Junei Ferguson FOUNDRY MOLDER Visit Date: 11/17/2024 This note is in error-redicitated due to encounter change 11/17/2024 Op/Procedure Note Patient's Name: RACHEL LORENZ Date of Service: 11/12/2024 Preoperative Diagnosis: (1) left buttock hematoma Postoperative Diagnosis: (1) left buttock hematoma Procedure Performed: (1) evacuation of post-surgical hematoma (18566) Attending Surgeon: Dr. Chris Warner Juvenile Counselor Surgeon(s): Dr. Angi Scott Anesthesia: general Estimated Blood Loss: 50cc intraoperative; 200cc hematoma evacuated Specimens: hematoma (for disposal) Indication for Procedure: Ms. Cortes is a 49 year old who underwent lower body lift today. She was evaluated in the second-phase recovery area for a sudden increase in swelling of her left buttock. Hematoma was diagnosed and evacuation was recommended. She agreed with this plan and the case was posted as an urgent procedure. Consent: The procedure, risks, benefits, rationale, alternatives, and expectations were discussed with Ms. Cortes. We discussed the expected recovery process including medications, activity limitations, and follow up plan assuming she ends up back on the usual recovery track after this procedure. We discussed concerning signs and symptoms to watch for after expected discharge tomorrow. I explained that there are no warranties or guarantees associated with the procedure. I sought and answered her questions. She verbalized understanding and elected to proceed. The informed consent form had been completed and is in the chart. Description of Procedure: The patient was brought to the operating room and remained on the gurney. A preoperative time out was performed. Sequential compression devices were placed. Preoperative antibiotics were given. General anesthesia was induced by the anesthesia service. The patient was carefully transitioned onto the OR table in a prone position. All pressure points were padded. All team members agreed with the positioning. The patient was then prepped and draped in the usual sterile fashion. The left inferior gluteal crease incision was sharply reopened with a #10 blade. Hematoma was encountered in the deep space. This was evacuated and was about 200cc in total. The field was irrigated to remove adherent clot. We then systematically searched for bleeding. A perforating vessel was identified in the superior portion of the field overlying the gluteus muscle with arterial bleeding. There was leilani around the vessel. The vessel was cauterized and oversewn with a 3-0 Vicryl suture. We continued systematically searching the field, cauterizing any areas of ooze, but no other obvious source was identified. The field was again thoroughly irrigated with sterile saline. We once again systematically searched the field and found no additional bleeding. The incision was closed in layers with 2-0 monocryl Guevara's layer sutures followed by 3-0 Stratafix monocryl deep dermal sutures and 4-0 monocryl subcuticular stitches. Paper tape, fluffed Kerlix, and ABD pads were placed. Her compression garment was replaced. At this point the procedure concluded. The patient was returned to a supine position. She was then awakened from anesthesia, extubated, and taken to the recovery room in stable condition, having suffered no apparent untoward event. All sponge, needle, and instrument counts were correct at the conclusion of the procedure. I went to the surgical waiting room and spoke with her , Ari. We discussed the surgery, the expected recovery process, post-operative medications, activity restrictions, and the follow up plan after likely discharge home tomorrow. We discussed concerning signs and symptoms to watch for. I sought and answered his questions. He verbalized understanding and appreciation for Ms. Cortes's care. 11/13/2024 Op/Procedure Note Patient's Name: RACHEL LORENZ Date of Service: 11/12/2024 Preoperative Diagnosis: (1) erythema intertrigo (L30.4) (2) excess skin and subcutaneous tissue of the bilateral buttocks with chronic irritation (L98.7) (3) buttock chafing limiting daily activities including walking and sitting (Z74.09, R26.2) (4) history of massive weight loss Postoperative Diagnosis: (1) erythema intertrigo (L30.4) (2) excess skin and subcutaneous tissue of the bilateral buttocks with chronic irritation (L98.7) (3) buttock chafing limiting daily activities including walking and sitting (Z74.09, R26.2) (4) history of massive weight loss Procedure Performed: (1) bilateral buttock lift (70205 x2) Attending Surgeon: Dr. Chris Warner Juvenile Counselor Surgeon(s): Dr. Angi Scott; Dr. Krystle Hernandez Anesthesia: general Estimated Blood Loss: 100cc Specimens: excess buttock skin and subcutaneous tissue (for disposal) Indication for Procedure: Ms. Cortes is a 49 year old who has undergone substantial weight loss. Her overall health has improved, but she has been left with significant excess skin and subcutaneous tissue of the buttocks. This excess tissue causes rashes, chafing, and limits her activities of daily living. This has persisted despite maximal medical management by the patient and her primary care provider. She was seen in consultation and buttock lift was offered. This plan was accepted by the patient and she presents today for surgery. Consent: The procedure, risks, benefits, rationale, alternatives, and expectations were reviewed with Ms. Cortes. We discussed the expected recovery process including medications, activity limitations, and usual follow up. We discussed concerning signs and symptoms to watch for after discharge. I explained that there are no warranties or guarantees associated with the procedure. I sought and answered her questions. She verbalized understanding and elected to proceed. The informed consent form had been completed and is in the chart. Description of Procedure: The patient was met in the preoperative area where she was marked for buttock lift via gluteal crease approach; her bedside nurse was present. The patient was brought to the operating room and remained on the gurney. A preoperative time out was performed. Sequential compression devices were placed. Preoperative antibiotics were given. General anesthesia was induced by the anesthesia service. The patient was carefully transitioned onto the operating table in a prone position. All pressure points were padded and all team members were satisfied with the positioning. The marked incisions were infiltrated with 0.25% marcaine with epinephrine 1:200,000. The patient was prepped and draped in the usual sterile fashion. After waiting an appropriate period for the epinephrine to take effect, the marked incisions were made on each side using a #10 blade scalpel. The incisions were carried down to and just through the Guevara's fascia. The dissection then proceeded cranially in the plane just beneath Guevara's fascia up to the superior edge of each buttock. The skin was brought downward and the excess was marked at a level where we could achieve a tension-free closure. The excess skin and subcutaneous tissue were resected and sent for disposal. The remaining skin and subcutaneous tissue within the planned ellipse was de-epithelialized. Complete hemostasis was achieved and the plunkett were irrigated. The residual skin and subcutaneous tissue was mobilized superiorly into the pocket and was secured with 0 PDS sutures, taking care to achieve as much symmetry as possible. The superior skin flap was then brought inferiorly and we confirmed a tension-free closure was possible. Complete hemostasis was confirmed throughout the plunkett. The plunkett were thoroughly irrigated. The incisions were then closed in layers with 2-0 monocryl Guevara's layer sutures. This was followed by 3-0 Stratafix monocryl deep dermal sutures and 4-0 monocryl subcuticular stitches. The incisions were dressed with paper tape. This was followed by fluffed Kerlix and ABD pads. The patient had brought her own compression garments, so we placed them on her. At this point the procedure concluded. The patient was returned to a supine position on the hospital bed. They were then awakened from anesthesia, extubated, and taken to the recovery room in stable condition, having suffered no apparent untoward event. All sponge, needle, and instrument counts were correct at the conclusion of the procedure. I called her , Ari, as she had requested prior to surgery. We discussed the surgery, the expected recovery process, post-operative medications, activity restrictions, and the follow up plan. We discussed concerning signs and symptoms that should prompt a phone call, an early follow up visit, or a trip to the Emergency Department. I sought and answered his questions. He verbalized understanding and appreciation for Ms. Cortes's care. 11/12/2024 Emergency Services Note History Of Prese nt Illness Handoff received from QUINTIN Clemente. Please see previous providers note for full HPI, ROS, PE. At the time of handoff, ED observation evaluation pending. Review of Systems Reevaluation/Repeat Exam Vitals and Measurements HR: 73 RR: 18 BP: 122/56 SpO2: 99% WT: 77.7 kg Lab Results HEMATOLOGY PROFILES LATEST RESULTS HISTORICAL RESULTS WBC 08/08/24 19:47 7.32 01/05/24 6.59 RBC 08/08/24 19:47 3.19 Low 01/05/24 4.41 HGB 08/08/24 19:47 9.1 Low 01/05/24 12.6 HCT 08/08/24 19:47 27.5 Low 01/05/24 37.7 MCV 08/08/24 19:47 86.2 01/05/24 85.5 MCH 08/08/24 19:47 28.5 01/05/24 28.6 MCHC 08/08/24 19:47 33.1 01/05/24 33.4 RDW SD 08/08/24 19:47 39.4 01/05/24 38.0 RDW CV 08/08/24 19:47 12.5 01/05/24 12.2 PLT 08/08/24 19:47 239 01/05/24 283 MPV 08/08/24 19:47 9.7 01/05/24 9.3 % Neutrophils 08/08/24 19:47 49.6 01/05/24 42.5 Absolute Granulocytes 08/08/24 19:47 3.63 01/05/24 2.81 % Immature Granulocytes 08/08/24 19:47 .10 01/05/24 .20 Abs Immature Granulocytes 08/08/24 19:47 0.01 01/05/24 0.01 % Lymphocytes 08/08/24 19:47 41.0 01/05/24 50.1 Abs Lymphocytes 08/08/24 19:47 3.00 High 01/05/24 3.30 High % Monocytes 08/08/24 19:47 7.1 01/05/24 5.6 Abs Monocytes 08/08/24 19:47 0.52 01/05/24 0.37 % Eosinophils 08/08/24 19:47 1.9 01/05/24 1.1 Abs Eosinophils 08/08/24 19:47 0.14 01/05/24 0.07 % Basophils 08/08/24 19:47 0.3 01/05/24 0.5 Abs Basophils 08/08/24 19:47 0.02 01/05/24 0.03 % Nucleated RBCs 08/08/24 19:47 0.0 01/05/24 0.0 Absolute Nucleated RBCs 08/08/24 19:47 0.0 01/05/24 0.0 GENERAL CHEMISTRY LATEST RESULTS HISTORICAL RESULTS Sodium 08/08/24 19:47 139 01/05/24 136 Potassium 08/08/24 19:47 4.2 01/05/24 4.1 Chloride 08/08/24 19:47 105 01/05/24 107 CO2 08/08/24 19:47 28 01/05/24 25 Anion gap 08/08/24 19:47 10 01/05/24 8 Glucose Lvl 08/08/24 19:47 106 01/05/24 85 BUN 08/08/24 19:47 17 01/05/24 14 Creatinine, standardized 08/08/24 19:47 0.4 Low 01/05/24 0.6 Estimated GFR for Adults 08/08/24 19:47 123 01/05/24 112 Estimated GFR for peds 08/08/24 19:47 Not Calculated 01/05/24 Not calculated Calcium 08/08/24 19:47 8.7 01/05/24 8.8 Total Protein 08/08/24 19:47 6.1 01/05/24 7.4 Albumin 08/08/24 19:47 3.2 Low 01/05/24 3.9 T Bili 08/08/24 19:47 0.30 01/05/24 0.44 Alkaline Phosphatase 08/08/24 19:47 56 01/05/24 81 AST-SGOT 08/08/24 19:47 19 01/05/24 39 High ALT-SGPT 08/08/24 19:47 34 01/05/24 53 High Diagnostic Results ECG Medical Decision Making ED observation evaluate the patient. Will be admitted to their service for plastic surgery reevaluation in the morning. Attending: Rosangela Assessment/Plan 1. Post-operative pain Patient Education Dr Warner Contact Info (CUSTOM) Follow Up Medication Administration Given fentaNYL, 50 mcg, Slow IV Push Medication Reconciliation Unchanged albuterol (Ventolin HFA 90 mcg/inh inhalation aerosol)as needed as needed for wheezing. biotinOral Daily. calcium-vitamin D (Caltrate 600+D oral tablet, chewable)1 tab(s) Twice daily. docusate (docusate sodium 100 mg oral tablet)1 tab(s) Oral Twice daily for 7 Days. Refills: 0. enoxaparin (Lovenox 40 mg/0.4 mL injectable solution)0.4 Milliliter Subcutaneous Daily for 7 Days. Refills: 0. enoxaparin (Lovenox 40 mg/0.4 mL injectable solution)0.4 Milliliter Subcutaneous Daily for 7 Days. Refills: 0. estradiol (Estradiol Patch 0.1 mg/24 hours weekly transdermal film, extended release)Every Friday. [id number] Microgram Daily. multivitamin (Flintstones Multivitamins)Daily. multivitamin with iron (Multiple Vitamins with Iron oral tablet)1 Tablet(s) with zinc Oral Daily. ondansetron (ondansetron 4 mg oral tablet, disintegrating)4 Milligram Oral Every 4 hours as needed Nausea for 3 Days. Refills: 0. oxyCODONE (_oxyCODONE 5 mg oral tablet)1 tab(s) Oral Every 6 hours as needed Pain, Severe for 5 Days. Refills: 0. 08/08/2024 Emergency Services Note Basic Informatio n Chief Complaint History of Present Illness This is a 49-year-old female presenting to the emergency department postop day 2 from bilateral brachioplasty and bilateral medial thighplasty related to erythema intertrigo, excess skin with chronic irritation, thigh chafing and weight loss s/p Vane-en-Y gastric bypass. She is presenting to the emergency department with concern of persistent bleeding from her left proximal anterior thigh wound as well as worsening pain in that region. In addition she has had swelling of the thigh contralateral side. She states that she is taking Lovenox injections and has not taken 1 in the past 24 hours. Patient denies discharge, redness, swelling, temperature changes, fevers. Review of Systems Review of systems negative except for stated above in HPI. Physical Exam Vitals and Measurements HR: 73 RR: 18 BP: 122/56 SpO2: 99% WT: 77.7 kg General: Alert, no acute distress, nontoxic, appears uncomfortable Skin: Warm, dry, no rash. Incision sites are well-healing, closed without drainage without signs of erythema, induration or infection on bilateral arms and right lower extremity. Left lower extremity saturation of the proximal aspect of the thigh bandage with blood, does not appear to be active bleeding or covered, no surrounding cellulitis or indications of infection. Head: Normocephalic, atraumatic. Neck: Trachea midline Eye: Pupils are equal, round, and reactive to light, EOMI, normal conjunctiva Ears, nose, mouth, and throat: No facial asymmetry. Cardiovascular: Regular rate and rhythm, normal S1/S2, no murmur, normal peripheral perfusion, no edema Respiratory: Lungs are clear to auscultation, respirations are non-labored, breath sounds are equal Chest wall: Symmetric chest rise. No deformity. Musculoskeletal: Grossly normal ROM and strength throughout Neurological: Level of consciousness: Alert and oriented to person, place, time, and situation. Cranial nerves: II X II grossly intact Speech: normal speech Psychiatric: Cooperative. Medical Decision Making I have independently reviewed nursing triage information. I have independently reviewed prior medical records in the EMR. I have independently reviewed and interpreted all laboratory, radiology, EKG and diagnostic studies as documented in the MDM. Additional history obtained from: Acute problems addressed: Wound Check Chronic Problems noted/addressed: Vane-en-Y gastric bypass, weight loss, Lovenox use Differentials: Cellulitis, abscess, wound dehiscence, anticoagulation, bleeding, infection, compartment syndrome, DVT Independent interpretation by this provider: laboratory, radiology, and diagnostic studies Intensive Monitoring: No Other sources: n/a Notable discussions: n/a Notable Considerations: I have given consideration for discharge home I discussed the above findings with the patient. The entire plan of care has been decided through shared decision making with directed input from the patient. Patient verbalized understanding of all findings and agrees to plan of care. All questions from patient/guardian have been answered to their satisfaction. Scripts: Prescription(s) were provided to assist with symptom relief. This is a 49-year-old female presenting to the emergency department with concern of possible wound dehiscence and active bleeding from left lower extremity thigh wound 2 days postop. Vitals on arrival are within normal limits, patient is afebrile. She is acutely uncomfortable with swelling of the left thigh but none of her surgical incision sites and extremities appear to be infected. Will draw labs including CBC, CMP, administered fentanyl prior to removal of bandages for full assessment of the wounds. Plastics team was consulted for postoperative complication. Upon initial evaluation there is not appear to be any evidence of compartment syndrome, expanding hematoma, signs or symptoms pertaining to infection or major wound dehiscence Laboratory studies showed no leukocytosis, no significant anemia, no electrolyte abnormalities, no SHANE, no transaminitis. Patient will be admitted to ed observation with repeat exam iper plastics n the morning, patient to be n.p.o. after midnight, no further Lovenox, compression garments to bilateral lower extremities and possible operative washout in the morning. This visit was shared shared with Dr. Mandujano Assessment/Plan 1. Post-operative pain Ordered: acetaminophen(acetaminophen 500 mg oral tablet), 1000 mg= 2 Tablet(s), Oral, Once NPO After Midnight, *Est. Ordered on 08/09/24, NPO after midnight NPO After Midnight, Diagnosis Post-operative pain Orders: Consult Inpt Surgery Plastic, 08/08/24 20:03:00 CDT Reason for Consult: POD 2 thighplasty bleeding and swelling Attending: Rosangela AYOUB, Walker Q Priority: Within 4 Hours Yes w/notification to primary team, Once, ConsultPhysician, Surgery Plastic Patient Education Dr Warner Contact Info (CUSTOM) Follow Up Medication Reconciliation Unchanged albuterol (Ventolin HFA 90 mcg/inh inhalation aerosol)as needed as needed for wheezing. biotinOral Daily. calcium-vitamin D (Caltrate 600+D oral tablet, chewable)1 tab(s) Twice daily. docusate (docusate sodium 100 mg oral tablet)1 tab(s) Oral Twice daily for 7 Days. Refills: 0. enoxaparin (Lovenox 40 mg/0.4 mL injectable solution)0.4 Milliliter Subcutaneous Daily for 7 Days. Refills: 0. enoxaparin (Lovenox 40 mg/0.4 mL injectable solution)0.4 Milliliter Subcutaneous Daily for 7 Days. Refills: 0. estradiol (Estradiol Patch 0.1 mg/24 hours weekly transdermal film, extended release)Every Friday. [id number] Microgram Daily. multivitamin (Flintstones Multivitamins)Daily. multivitamin with iron (Multiple Vitamins with Iron oral tablet)1 Tablet(s) with zinc Oral Daily. ondansetron (ondansetron 4 mg oral tablet, disintegrating)4 Milligram Oral Every 4 hours as needed Nausea for 3 Days. Refills: 0. oxyCODONE (_oxyCODONE 5 mg oral tablet)1 tab(s) Oral Every 6 hours as needed Pain, Severe for 5 Days. Refills: 0. ED Forms Problem List/Past Medical History Ongoing BMI 36.0-36.9,adult Obesity Procedure/Surgical History lap carolin Service Date: 03/07/2023 EGD Service Date: 02/21/2023 Laparoscopic vane en Y gastric bypass Service Date: 11/21/2022 EGD Service Date: 09/13/2022 vaginal hysterectomy with bladder sling Service Date: 07/16/2021 Jonas clemente Service Date: 2020 BTL Service Date: 1997 Medication Administration Given fentaNYL, 50 mcg, Slow IV Push Allergies morphine stopped breathing Social History Smoking Status Never smoker Tobacco Smoking HistoryNever smoker Family History Lab Results HEMATOLOGY PROFILES LATEST RESULTS HISTORICAL RESULTS WBC 08/08/24 19:47 7.32 01/05/24 6.59 RBC 08/08/24 19:47 3.19 Low 01/05/24 4.41 HGB 08/08/24 19:47 9.1 Low 01/05/24 12.6 HCT 08/08/24 19:47 27.5 Low 01/05/24 37.7 MCV 08/08/24 19:47 86.2 01/05/24 85.5 MCH 08/08/24 19:47 28.5 01/05/24 28.6 MCHC 08/08/24 19:47 33.1 01/05/24 33.4 RDW SD 08/08/24 19:47 39.4 01/05/24 38.0 RDW CV 08/08/24 19:47 12.5 01/05/24 12.2 PLT 08/08/24 19:47 239 01/05/24 283 MPV 08/08/24 19:47 9.7 01/05/24 9.3 % Neutrophils 08/08/24 19:47 49.6 01/05/24 42.5 Absolute Granulocytes 08/08/24 19:47 3.63 01/05/24 2.81 % Immature Granulocytes 08/08/24 19:47 .10 01/05/24 .20 Abs Immature Granulocytes 08/08/24 19:47 0.01 01/05/24 0.01 % Lymphocytes 08/08/24 19:47 41.0 01/05/24 50.1 Abs Lymphocytes 08/08/24 19:47 3.00 High 01/05/24 3.30 High % Monocytes 08/08/24 19:47 7.1 01/05/24 5.6 Abs Monocytes 08/08/24 19:47 0.52 01/05/24 0.37 % Eosinophils 08/08/24 19:47 1.9 01/05/24 1.1 Abs Eosinophils 08/08/24 19:47 0.14 01/05/24 0.07 % Basophils 08/08/24 19:47 0.3 01/05/24 0.5 Abs Basophils 08/08/24 19:47 0.02 01/05/24 0.03 % Nucleated RBCs 08/08/24 19:47 0.0 01/05/24 0.0 Absolute Nucleated RBCs 08/08/24 19:47 0.0 01/05/24 0.0 GENERAL CHEMISTRY LATEST RESULTS HISTORICAL RESULTS Sodium 08/08/24 19:47 139 01/05/24 136 Potassium 08/08/24 19:47 4.2 01/05/24 4.1 Chloride 08/08/24 19:47 105 01/05/24 107 CO2 08/08/24 19:47 28 01/05/24 25 Anion gap 08/08/24 19:47 10 01/05/24 8 Glucose Lvl 08/08/24 19:47 106 01/05/24 85 BUN 08/08/24 19:47 17 01/05/24 14 Creatinine, standardized 08/08/24 19:47 0.4 Low 01/05/24 0.6 Estimated GFR for Adults 08/08/24 19:47 123 01/05/24 112 Estimated GFR for peds 08/08/24 19:47 Not Calculated 01/05/24 Not calculated Calcium 08/08/24 19:47 8.7 01/05/24 8.8 Total Protein 08/08/24 19:47 6.1 01/05/24 7.4 Albumin 08/08/24 19:47 3.2 Low 01/05/24 3.9 T Bili 08/08/24 19:47 0.30 01/05/24 0.44 Alkaline Phosphatase 08/08/24 19:47 56 01/05/24 81 AST-SGOT 08/08/24 19:47 19 01/05/24 39 High ALT-SGPT 08/08/24 19:47 34 01/05/24 53 High Diagnostic Results ECG I personally saw and evaluated the patient. I discussed the management with the Advanced Practice Provider and reviewed the RENUKA's note. I approved of the medical decision making at the time of patient care. 08/08/2024 Plastic Surgery Consult Note Chief Compl aint Left thigh swelling status post bilateral thighplasty Reason for Consultation Left thigh swelling status post bilateral thighplasty Requesting Provider Rosangela AYOUB, Walker Johnson History of Present Illness Patient is a 49 yo female 2 days status post bilateral brachioplasty and thighplasty who presents to on 08/08/2024 for worsening left thigh swelling. Patient initially noted onset of left thigh swelling and bleeding yesterday morning. Does not recall any preceding trauma. Due to elevated Caprini score she was put on postop Lovenox however instructed to hold it starting last night after she initially reported the swelling and bleeding of the left thigh yesterday. No numbness of the left thigh or foot. No lightheadedness. She continues to wear her compression garments bilaterally. Last ate approximately 3 hours ago, patient states it was a protein shake. Vitals are stable in the ER, afebrile, hgb 9.1, wbc 7.3. Review of Systems ROS reviewed as pertinent to chief complaint. Negative other than as stated above. Physical Exam Vitals and Measurements Vital Signs (most recent within last year) Temperature 36.8 (08/08/24 19:13) Heart Rate 73 (08/08/24 20:11) Resp Rate 18 (08/08/24 20:11) NIBP 122/56 (08/08/24 20:00) SpO2 99 (08/08/24 20:11) Pain Score 10 (08/08/24 19:47) GEN: Alert and oriented, NAD. Left thigh: Telfa and Tegaderm dressing is saturated with bright red blood. The left thigh is more tense than the right. Swelling superiomedially. No skin changes, no blanching of the skin on the left. No numbness of the lateral thigh or the foot. No evidence of incisional dehiscence. Assessment/Plan Patient is a 49-year-old female now postop day 2 status post bilateral brachioplasty and bilateral thighplasty who presents to at the ER this evening with a left thigh hematoma. We will plan to admit her for the evening, likely OR for washout tomorrow pending am exam. Reviewed risk benefits and potential complications of surgery, consent form reviewed and signed. NPO @wi. Plastic Surgery Recommendations: -Admit to obs. -Consent reviewed and signed. -Compression garments to all four extremities 24/ unless showering. -PRS to reevaluate tomorrow am, possible OR tomorrow. NPO @wi. -Hold DVT ppx. Patient discussed with Dr. Warner Attending Addendum: I have personally seen and evaluated Ms. Cortes. I agree with the resident documentation with the following exceptions: On my examination the left thigh is soft. It is slightly more swollen than the right side and the dressings are saturated. The dressings were removed. There is no ongoing bleeding. There is a small palpable fluid collection and mild, expected bruising. I discussed management options with Ms. Cortes. The hematoma is small and she is otherwise asymptomatic. We discussed that we can surgically wash out the hematoma, but that since it has not progressed, we can also continue to observe and compress the area. We discussed the typical recovery process with both options. We discussed concerning signs and symptoms to watch for if she chooses observation. I sought and answered her questions. She verbalized understanding and would like to observe. We will discharge her home today and plan for follow up early next week to check on her. We will switch her from pharmacologic DVT prophylaxis to ambulatory SCDs. She will call us if there are changes in the meanwhile. Chris Warner MD operation supervisor Plastic and Reconstructive Surgery 08/08/2024 Op/Procedure Note Patient's Name: RACHEL LORENZ Date of Service: 08/06/2024 Preoperative Diagnosis: (1) erythema intertrigo (L30.4) (2) excess upper arm skin and subcutaneous tissue with chronic irritation (L98.7) (3) excess medial thigh skin and subcutaneous tissue with chronic irritation (L98.7) (4) thigh chafing limiting activities including walking (Z74.09, R26.2) (5) history of massive weight loss Postoperative Diagnosis: (1) erythema intertrigo (L30.4) (2) excess upper arm skin and subcutaneous tissue with chronic irritation (L98.7) (3) excess medial thigh skin and subcutaneous tissue with chronic irritation (L98.7) (4) thigh chafing limiting activities including walking (Z74.09, R26.2) (5) history of massive weight loss Procedure Performed: (1) bilateral brachioplasty (46400 x2) (2) bilateral medial thighplasty (11063 x2) Attending Surgeon: Dr. Chris Warner Juvenile Counselor Surgeon(s): Dr. Howard Leonard; Dr. Angi Pedraza; Dr. Corine Perez Anesthesia: general Estimated Blood Loss: 100cc Specimens: (1) lipoaspirate (for disposal) (2) excess upper arm skin and subcutaneous tissue (for disposal) (3) excess medial thigh skin and subcutaneous tissue (for disposal) Indication for Procedure: Ms. Cortes is a 49 year old who has lost significant weight. Her overall health has improved, but she has been left with bothersome excess skin and subcutaneous tissue of the upper arms and medial thighs. She was seen in consultation and brachioplasty and medial thighplasty were offered. This was accepted by the patient and she presents today for the procedure. Consent: The procedure, risks, benefits, rationale, alternatives, and expectations were reviewed with Ms. Cortes. We discussed the expected recovery process including medications, activity limitations, compression garment use, and usual follow up. We discussed concerning signs and symptoms to watch for after discharge. I explained that there are no warranties or guarantees associated with the procedure. I sought and answered her questions. She verbalized understanding and elected to proceed. The informed consent form had been completed and is in the chart. Description of Procedure: The patient was met in the preoperative area where they were marked for medial thighplasty and brachioplasty; Dr. Leonard was present. The patient was brought to the operating room and placed supine on the operating table. A preoperative time out was performed. Sequential compression devices were placed. Preoperative antibiotics were given. General anesthesia was induced by the anesthesia service. The planned incisions were infiltrated with 0.25% marcaine with epinephrine 1:200,000. The patient was prepped and draped in the usual sterile fashion. Stab incisions were made along the planned anterior brachioplasty incisions using a #11 blade. Tumescent solution was infiltrated into each side, about 200cc per side. After waiting an appropriate period for the epinephrine in the tumescent solution to take effect, suction-assisted lipectomy was performed on each side. Care was taken to approach the plunkett from multiple angles, to feather the edges of the field, and to maintain even liposuction throughout. About 100cc of lipoaspirate was returned from each side. The marked anterior incisions were then made using a #10 blade scalpel. The incisions were carried down to the liposuction plane using electrocautery. The skin was carefully elevated in this plane on each side, preserving the deep structures as we elevated the skin and subcutaneous tissue flap posteriorly. We dissected posteriorly as far as possible and then lifted the skin flap. The excess was marked for resection at a level that would permit tension-free closure. Care was taken to ensure as much symmetry as was feasible between the two sides. The markings were incised with a #10 blade scalpel. The incisions were then carried down to the previous dissection plane using electrocautery. The excess skin and subcutaneous tissue was removed and sent for disposal. Complete hemostasis was achieved and the plunkett were irrigated. The incisions were then closed in layers with 2-0 monocryl deep sutures followed by 3-0 Stratafix monocryl deep dermal sutures and 4-0 monocryl subcuticular stitches. The incisions were dressed with paper tape followed by Telfa and Tegaderm. We then turned our attention to the thighs. Stab incisions were made along the planned anterior thighplasty incisions using a #11 blade. Tumescent solution was infiltrated into each side, about 300cc per side. After waiting an appropriate period for the epinephrine in the tumesecent solution to take effect, suction-assisted lipectomy was performed on both sides. We took care to approach the field from multiple directions, to maintain even liposuction throughout the field, and to feather the edges. About 200cc of lipoaspirate was returned from each side. The marked anterior incisions were made using a #10 blade scalpel. The incisions were carried down to the suction lipectomy plane using electrocautery. The skin was then carefully elevated in this plane on each side, preserving all deep structures as we elevated posteriorly. We dissected posteriorly as far as possible and then lifted the skin flap. The skin was marked for resection at a level that would permit tension-free closure. Care was taken to ensure as much symmetry as feasible between the two sides. The markings were incised with a #10 blade scalpel. The incisions were then carried down to the previous dissection plane using electrocautery. The excess skin and subcutaneous tissue was removed and sent for disposal. Complete hemostasis was achieved and the plunkett were irrigated. The incisions were then closed in layers with 2-0 monocryl Guevara's layer sutures followed by 3-0 Stratafix monocryl deep dermal sutures and 4-0 monocryl subcuticular stitches. The thighs were dressed with paper tape followed by Telfa and Tegaderm. The patient had brought her own compression garments, so we placed them on her. At this point the procedure concluded. The patient was awakened from anesthesia, extubated, and taken to the recovery room in stable condition, having suffered no apparent untoward event. All sponge, needle, and instrument counts were correct at the conclusion of the procedure. I went to the surgical waiting room and spoke with her . We discussed the surgery, the expected recovery process, post-operative medications, activity restrictions, and the follow up plan. We discussed concerning signs and symptoms that should prompt a phone call, an early follow up visit, or a trip to the Emergency Department. I sought and answered his questions. He verbalized understanding and appreciation for Ms. Cortes's care. 08/06/2024 Emergency Services Note Basic Informatio n Chief Complaint lower abdominal pain, distended after eating, incontinent of stool, gastric bypass october 2022 History of Present Illness Patient is a 48-year-old female with prior gastric bypass and October 2022 here for roughly 1 month of fecal incontinence and intermittent abdominal pain. Last night she reports significant episode of fecal incontinence during sleep. Has noticed the smell of passed gas without realizing that she does not, notes fecal contents when wiping after urination. Patient cannot say for certain if fecal incontinence is per rectum. No dysuria or hematuria, reports increased urgency. Denies fevers, chills, falls, trauma, chest pain, shortness of breath, vomiting, cold or flu Review of Systems Review of systems is negative except as otherwise stated in the HPI. Physical Exam Vitals and Measurements T: 36.5 C HR: 61 RR: 18 BP: 120/93 SpO2: 100% WT: 72.1 kg General: Alert and oriented, no acute distress. HEENT: Normocephalic, PERRLA, EOMI, normal conjunctiva, moist mucous membranes. Neck: Supple, no JVD. Cardiac: Regular rate and rhythm, no murmur, no edema, adequate peripheral perfusion. Pulmonary: Clear to auscultation bilaterally, symmetric expansion, normal inspiratory effort. Abdomen: Soft, non-tender, non-distended, no rebound or guarding. MSK: Normal strength, no deformity or ecchymosis. Integument: Warm, dry, no rash. Neuro: CN II-XII grossly intact, no focal deficits. Psych: Cooperative, appropriate mood and affect. Medical Decision Making Patient is a 48-year-old female with previous gastric bypass in October 2022 here for fecal incontinence Physical exam disclosed mild right-sided tenderness on palpation Vital signs within reasonable limits for this patient Differential includes fistula, gastritis, gastroenteritis, appendicitis, illness, dumping syndrome CBC, CMP, magnesium, urinalysis, phosphate levels ordered for further evaluation Urinalysis showed no signs of infection, CBC was unremarkable, CMP was significant for mildly elevated transaminases and a lipase of 221 Patient does not present like pancreatitis and other causes already evaluated at this time Banana bag started, magnesium and phosphorus were within normal limits CT abdomen ordered and it showed gastric mucosal thickening which could indicate gastritis Patient was discussed with bariatric surgery Bariatric surgery is seen the patient GI panel by PCR ordered as patient has experienced incontinence for an extended period of time Patient handed off to oncoming medical provider Dr. Guevara I reviewed triage and nursing records from this visit. I reviewed prior medical records in the EMR I reviewed all results of laboratory analysis, diagnostic studies, and imaging studies ordered and completed during this encounter. I independently interpreted results of all laboratory tests, and further imagining and diagnostic testing completed during this encounter as documented in the MDM paragraph. Additional history obtained from Chronic medical problems contributing to current encounter or at risk of deteriorating as a result of the patient's current presenting complaint addressed during this encounter: Vane-en-Y gastric bypass, Consultants: Bariatric surgery _ Reexamination/Reevaluation Patient resting comfortably in bed with at bedside Assessment/Plan Orders: GI Panel by PCR Patient Education Gastritis Follow Up With When Contact Information Return to Emergency Department Within As Needed Additional Instructions: Ferguson Junie [facility], Family Practice, Referring Physicians Within As Needed [address] [address]- Additional Instructions: Medication Reconciliation Unchanged albuterol (Ventolin HFA 90 mcg/inh inhalation aerosol)as needed as needed for wheezing. biotinOral Daily. calcium-vitamin D (Caltrate 600+D oral tablet, chewable)1 tab(s) Twice daily. estradiol (Estradiol Patch 0.1 mg/24 hours weekly transdermal film, extended release)Every Friday. [id number] Microgram Daily. multivitamin (Flintstones Multivitamins)Daily. multivitamin with iron (Multiple Vitamins with Iron oral tablet)1 Tablet(s) with zinc Oral Daily. ED Forms Attestation by Jett AYOUB, Herson Merrill on January 09, 2024 21:30 I personally saw and evaluated the patient. I discussed the management with the resident and reviewed the resident s note. I agree with the documented findings and plan of care. Procedures: _ Critical Care: _ Problem List/Past Medical History Ongoing BMI 36.0-36.9,adult Obesity Historical No qualifying data Procedure/Surgical History EGD (02/21/2023) Laparoscopic vane en Y gastric bypass (11/21/2022) EGD (09/13/2022) vaginal hysterectomy with bladder sling (07/16/2021) Jonas clemente (2020) BTL (1997) Medication Administration Given multivitamins for injection 10 mL + thiamine for IV infusion 100 mg + folic acid for IV infusion 1, IV iohexol, 74809 mg, IV iohexol 350 mg/mL injectable solution: Adult Bariatric Dosing, 10 mL, Oral ondansetron ODT, 4 mg, Oral Zofran Inj, 4 mg, Slow IV Push Allergies morphine (stopped breathing) Social History Smoking Status Never smoker Tobacco Smoking History: Never smoker. Family History Lab Results HEMATOLOGY PROFILES LATEST RESULTS HISTORICAL RESULTS WBC 01/05/24 12:46 6.59 01/05/24 6.30 RBC 01/05/24 12:46 4.41 01/05/24 4.41 HGB 01/05/24 12:46 12.6 01/05/24 12.3 HCT 01/05/24 12:46 37.7 01/05/24 37.7 MCV 01/05/24 12:46 85.5 01/05/24 85.5 MCH 01/05/24 12:46 28.6 01/05/24 27.9 MCHC 01/05/24 12:46 33.4 01/05/24 32.6 RDW SD 01/05/24 12:46 38.0 01/05/24 38.7 RDW CV 01/05/24 12:46 12.2 01/05/24 12.4 PLT 01/05/24 12:46 283 01/05/24 280 MPV 01/05/24 12:46 9.3 01/05/24 9.6 % Neutrophils 01/05/24 12:46 42.5 01/02/23 57.4 Absolute Granulocytes 01/05/24 12:46 2.81 01/02/23 3.77 % Immature Granulocytes 01/05/24 12:46 .20 01/02/23 .30 Abs Immature Granulocytes 01/05/24 12:46 0.01 01/02/23 0.02 % Lymphocytes 01/05/24 12:46 50.1 01/02/23 33.2 Abs Lymphocytes 01/05/24 12:46 3.30 High 01/02/23 2.18 % Monocytes 01/05/24 12:46 5.6 01/02/23 7.3 Abs Monocytes 01/05/24 12:46 0.37 01/02/23 0.48 % Eosinophils 01/05/24 12:46 1.1 01/02/23 1.5 Abs Eosinophils 01/05/24 12:46 0.07 01/02/23 0.10 % Basophils 01/05/24 12:46 0.5 01/02/23 0.3 Abs Basophils 01/05/24 12:46 0.03 01/02/23 0.02 % Nucleated RBCs 01/05/24 12:46 0.0 01/02/23 0.0 Absolute Nucleated RBCs 01/05/24 12:46 0.0 01/02/23 0.0 GENERAL CHEMISTRY LATEST RESULTS HISTORICAL RESULTS Sodium 01/05/24 12:46 136 01/05/24 137 Potassium 01/05/24 12:46 4.1 01/05/24 3.8 Chloride 01/05/24 12:46 107 01/05/24 105 CO2 01/05/24 12:46 25 01/05/24 25 Anion gap 01/05/24 12:46 8 01/05/24 11 Glucose Lvl 01/05/24 12:46 85 01/05/24 86 BUN 01/05/24 12:46 14 01/05/24 16 Creatinine, standardized 01/05/24 12:46 0.6 01/05/24 0.6 Estimated GFR for Adults 01/05/24 12:46 112 01/05/24 112 Estimated GFR for peds 01/05/24 12:46 Not calculated 01/05/24 Not calculated Calcium 01/05/24 12:46 8.8 01/05/24 8.8 Magnesium 01/05/24 12:46 2.10 01/05/24 2.06 Phosphorus 01/05/24 12:46 4.1 08/28/22 3.3 Total Protein 01/05/24 12:46 7.4 01/05/24 7.4 Albumin 01/05/24 12:46 3.9 01/05/24 3.8 T Bili 01/05/24 12:46 0.44 01/05/24 0.43 Alkaline Phosphatase 01/05/24 12:46 81 01/05/24 80 AST-SGOT 01/05/24 12:46 39 High 01/05/24 36 High ALT-SGPT 01/05/24 12:46 53 High 01/05/24 53 High Lipase 01/05/24 12:46 221 High 01/02/23 64 High URINALYSIS LATEST RESULTS HISTORICAL RESULTS COLOR 01/05/24 13:40 Straw 01/02/23 Yellow CLARITY 01/05/24 13:40 Clear 01/02/23 Slightly Cloudy SPECIFIC GRAVITY 01/05/24 13:40 1.006 01/02/23 1.015 UA PH 01/05/24 13:40 5 01/02/23 5 UA GLUCOSE 01/05/24 13:40 Negative 01/02/23 Negative UA KETONES 01/05/24 13:40 Negative 01/02/23 20 Abnormal BILIRUBIN 01/05/24 13:40 Negative 01/02/23 Negative UA UROBILINOGEN 01/05/24 13:40 Negative 01/02/23 Negative UA BLOOD 01/05/24 13:40 Negative 01/02/23 Negative UA LEUKOCYTES 01/05/24 13:40 Negative 01/02/23 Negative UA NITRITE 01/05/24 13:40 Negative 01/02/23 Negative UA PROTEIN 01/05/24 13:40 Negative 01/02/23 Negative Urine Collection Method 01/05/24 13:40 Clean Catch UR 01/02/23 Clean Catch UR Diagnostic Results CT Abdomen and Pelvis 01/05/2024 15:55 CDT ECG 01/05/2024 Emergency Services Note History Of Prese nt Illness Patient received during handoff from previous physician. For full history of present illness, please see their note from earlier. In short, this is a 48F presenting for c/o of fecal incontinence and abdominal pain. Patient is s/p bariatric surgery. Review of Systems N/A Reevaluation/Repeat Exam Vitals and Measurements T: 36.5 C HR: 61 RR: 18 BP: 120/93 SpO2: 100% WT: 72.1 kg Patient received during handoff from previous physician. For full physical exam, please see their note from earlier. General: no acute distress Respiratory: nonlabored respirations Lab Results HEMATOLOGY PROFILES LATEST RESULTS HISTORICAL RESULTS WBC 01/05/24 12:46 6.59 01/05/24 6.30 RBC 01/05/24 12:46 4.41 01/05/24 4.41 HGB 01/05/24 12:46 12.6 01/05/24 12.3 HCT 01/05/24 12:46 37.7 01/05/24 37.7 MCV 01/05/24 12:46 85.5 01/05/24 85.5 MCH 01/05/24 12:46 28.6 01/05/24 27.9 MCHC 01/05/24 12:46 33.4 01/05/24 32.6 RDW SD 01/05/24 12:46 38.0 01/05/24 38.7 RDW CV 01/05/24 12:46 12.2 01/05/24 12.4 PLT 01/05/24 12:46 283 01/05/24 280 MPV 01/05/24 12:46 9.3 01/05/24 9.6 % Neutrophils 01/05/24 12:46 42.5 01/02/23 57.4 Absolute Granulocytes 01/05/24 12:46 2.81 01/02/23 3.77 % Immature Granulocytes 01/05/24 12:46 .20 01/02/23 .30 Abs Immature Granulocytes 01/05/24 12:46 0.01 01/02/23 0.02 % Lymphocytes 01/05/24 12:46 50.1 01/02/23 33.2 Abs Lymphocytes 01/05/24 12:46 3.30 High 01/02/23 2.18 % Monocytes 01/05/24 12:46 5.6 01/02/23 7.3 Abs Monocytes 01/05/24 12:46 0.37 01/02/23 0.48 % Eosinophils 01/05/24 12:46 1.1 01/02/23 1.5 Abs Eosinophils 01/05/24 12:46 0.07 01/02/23 0.10 % Basophils 01/05/24 12:46 0.5 01/02/23 0.3 Abs Basophils 01/05/24 12:46 0.03 01/02/23 0.02 % Nucleated RBCs 01/05/24 12:46 0.0 01/02/23 0.0 Absolute Nucleated RBCs 01/05/24 12:46 0.0 01/02/23 0.0 GENERAL CHEMISTRY LATEST RESULTS HISTORICAL RESULTS Sodium 01/05/24 12:46 136 01/05/24 137 Potassium 01/05/24 12:46 4.1 01/05/24 3.8 Chloride 01/05/24 12:46 107 01/05/24 105 CO2 01/05/24 12:46 25 01/05/24 25 Anion gap 01/05/24 12:46 8 01/05/24 11 Glucose Lvl 01/05/24 12:46 85 01/05/24 86 BUN 01/05/24 12:46 14 01/05/24 16 Creatinine, standardized 01/05/24 12:46 0.6 01/05/24 0.6 Estimated GFR for Adults 01/05/24 12:46 112 01/05/24 112 Estimated GFR for peds 01/05/24 12:46 Not calculated 01/05/24 Not calculated Calcium 01/05/24 12:46 8.8 01/05/24 8.8 Magnesium 01/05/24 12:46 2.10 01/05/24 2.06 Phosphorus 01/05/24 12:46 4.1 08/28/22 3.3 Total Protein 01/05/24 12:46 7.4 01/05/24 7.4 Albumin 01/05/24 12:46 3.9 01/05/24 3.8 T Bili 01/05/24 12:46 0.44 01/05/24 0.43 Alkaline Phosphatase 01/05/24 12:46 81 01/05/24 80 AST-SGOT 01/05/24 12:46 39 High 01/05/24 36 High ALT-SGPT 01/05/24 12:46 53 High 01/05/24 53 High Lipase 01/05/24 12:46 221 High 01/02/23 64 High URINALYSIS LATEST RESULTS HISTORICAL RESULTS COLOR 01/05/24 13:40 Straw 01/02/23 Yellow CLARITY 01/05/24 13:40 Clear 01/02/23 Slightly Cloudy SPECIFIC GRAVITY 01/05/24 13:40 1.006 01/02/23 1.015 UA PH 01/05/24 13:40 5 01/02/23 5 UA GLUCOSE 01/05/24 13:40 Negative 01/02/23 Negative UA KETONES 01/05/24 13:40 Negative 01/02/23 20 Abnormal BILIRUBIN 01/05/24 13:40 Negative 01/02/23 Negative UA UROBILINOGEN 01/05/24 13:40 Negative 01/02/23 Negative UA BLOOD 01/05/24 13:40 Negative 01/02/23 Negative UA LEUKOCYTES 01/05/24 13:40 Negative 01/02/23 Negative UA NITRITE 01/05/24 13:40 Negative 01/02/23 Negative UA PROTEIN 01/05/24 13:40 Negative 01/02/23 Negative Urine Collection Method 01/05/24 13:40 Clean Catch UR 01/02/23 Clean Catch UR Diagnostic Results (01/05/2024 14:[address] Abdomen and Pelvis) IMPRESSION: 1. Diffuse gastric mucosal thickening which could be seen with gastritis. Otherwise no acute findings seen in the abdomen and pelvis, especially with respect to the Vane-en-Y gastric bypass surgical changes. [1] CT Abdomen and Pelvis 01/05/2024 15:55 CDT ECG Medical Decision Making Patient handed off to me by previous provider, see their note for complete details and work-up. Pending at the time of hand-off: Bariatric surgery recs okay to follow up with GI [facility]. Po challenge successfully passed in the ED. Dispo: Patient discharged home and provided with return precautions. Assessment/Plan 1. Gastritis Patient Education Gastritis Follow Up No qualifying data available Medication Administration Given multivitamins for injection 10 mL + thiamine for IV infusion 100 mg + folic acid for IV infusion 1, IV iohexol, 41273 mg, IV iohexol 350 mg/mL injectable solution: Adult Bariatric Dosing, 10 mL, Oral ondansetron ODT, 4 mg, Oral Zofran Inj, 4 mg, Slow IV Push Medication Reconciliation Unchanged albuterol (Ventolin HFA 90 mcg/inh inhalation aerosol)as needed as needed for wheezing. biotinOral Daily. calcium-vitamin D (Caltrate 600+D oral tablet, chewable)1 tab(s) Twice daily. estradiol (Estradiol Patch 0.1 mg/24 hours weekly transdermal film, extended release)Every Friday. [id number] Microgram Daily. multivitamin (Flintstones Multivitamins)Daily. multivitamin with iron (Multiple Vitamins with Iron oral tablet)1 Tablet(s) with zinc Oral Daily. Attestation by Jett AYOUB, Herson Garfield on January 07, 2024 09:52 I personally saw and evaluated the patient. I discussed the management with the resident and reviewed the resident s note. I agree with the documented findings and plan of care. Procedures: _ Critical Care: _ [1] CT Abdomen and Pelvis; Jerry AYOUB, Marilin Taisha 01/05/2024 14:53 CDT 01/05/2024 General Surgery Consult Note Chief Compl aint lower abdominal pain, distended after eating, incontinent of stool, gastric bypass october 2022 Reason for Consultation Fecal incontinence Requesting Provider Paul Marks MD History of Present Illness Ms. Cortes is a 48-year-old female with past medical history of hypothyroid and past surgical history of a hysterectomy, Vane-en-Y gastric bypass in October of last year and a laparoscopic cholecystectomy in March of last year who presents with 1 episode of fecal incontinence. She reports that over the last 2 weeks she has noticed some stool on the toilet paper after urinating. She reports that she is having foul-smelling flatus as well as grayish stools and has had these since her gallbladder operation. She has not had any operations on her anus or rectum. She reports that over the last 2 weeks she has also had generalized malaise. She has not had any other episodes of incontinence. She is not currently on any stool softeners or dietary fiber. She takes protein shakes daily as well as egg whites and this makes it most of her diet. She has not noticed any blood in any bowel movements. She reports that she had a colonoscopy 15 years ago and has not had one since. She reports that this colonoscopy was due to diverticulitis/enteritis. She does report that she has had an episode of abdominal pain about a month ago for which she was diagnosed with pancreatitis. She does not have symptoms of epigastric pain today although she does have an increased lipase at 221. T. bili is within normal limits. Other labs are also within normal limits. Vital signs are within normal limits. Past medical history: Hypothyroid, diverticulitis/enterocolitis Past surgical history: Hysterectomy, Vane-en-Y gastric bypass, laparoscopic cholecystectomy Social history: No drinking, no smoking, good exercise tolerance Family history: No history of cancers ulcerative colitis or Crohn's in the family. Review of Systems 14 Point Review of Systems negative unless mentioned in HPI. Physical Exam Vitals and Measurements T: 36.5 C HR: 61 RR: 18 BP: 120/93 SpO2: 100% WT: 72.1 kg Respiratory: Equal bilateral chest rise with normal effort on room air. Cardiovascular: Normal rate and rhythm with no murmurs. No peripheral edema. Gastrointestinal: Soft, not distended. Nontender to palpation Skin: Warm and dry. No obvious exposed lesions. Skin turgor wnl. Musculoskeletal: Extremities without deformity or tenderness to palpation, no cyanosis or clubbing. Psychiatric: Mood and affect WNL. Anorectal: Normal rectal tone, no palpable masses on digital rectal exam Assessment/Plan 48-year-old female with past surgical history of Vane-en-Y gastric bypass and laparoscopic cholecystectomy presenting with 1 episode of fecal incontinence. Also reports having jenn colored stools and an episode of pancreatitis about 1 month ago. Lipase today is 221. No abdominal pain or tenderness on palpation and CT scan does not show any evidence of problems with her bypass but only mild gastritis. N o acute indication for surgery at this point Recommend stool PCR if able Increase fiber Recommend colonoscopy outpatient Recommend that she get to her waiter/waitress cocktail lounge prior to May as previously scheduled, there is some concern for pancreatic insufficiency as she has been having changes in her bowel movements and bloom stools as well as an increased lipase Patient seen with bariatric fellow Orlin Valdez MD – Staff: Dr. Aviles Attestation by Traci AYOUB, Romario King on January 05, 2024 22:12 I personally saw and evaluated the patient on the result date found in the header of this document. I independently performed the critical/cuevas portions of the Evaluation and Management service and discussed the management with the author of this document. I agree with everything documented above with the following exceptions/additions: I have seen and examined the patient and reviewed her labs and imaging. She has had a single episode of fecal incontinence, some jenn colored stools, mildly elevalted transaminases and a mildlly elevated lipase. She has had three vaginal births with one tear and one episotomy. I am uncertain of the origin of her incontinence. It is reasonable to do stool studies, as there is some chance she just has a GI infection. I see no indication for surgery in the short term, and she has a waiter/waitress cocktail lounge that is already seeing her for these issues. I would suggest she see her waiter/waitress cocktail lounge sooner rather than later. 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 Problem List/Past Medical History Ongoing BMI 36.0-36.9,adult Obesity Historical No qualifying data Procedure/Surgical History EGD (02/21/2023) Laparoscopic vane en Y gastric bypass (11/21/2022) EGD (09/13/2022) vaginal hysterectomy with bladder sling (07/16/2021) Jonas clemente (2020) BTL (1997) Medications Inpatient No active inpatient medications Home biotin, Oral, Daily Caltrate 600+D oral tablet, chewable, 1 Tablet(s), bid Estradiol Patch 0.1 mg/24 hours weekly transdermal film, extended release, qSunday Flintstones Multivitamins, Daily levothyroxine, 137 mcg, Daily Multiple Vitamins with Iron oral tablet, 1 Tablet(s) with zinc, Oral, Daily Ventolin HFA 90 mcg/inh inhalation aerosol, PRN Allergies morphine (stopped breathing) Social History Smoking Status Never smoker Tobacco Smoking History: Never smoker. Family History Immunizations Lab Results Diagnostic Results CBC (01/05/24) WBC 6.30 Hgb 12.3 Hct 37.7 MCV 85.5 PLT 280 Comprehensive Metabolic Panel (01/05/24) Na+ 137 K+ 3.8 Cl- 105 CO2 25 Anion gap 11 GLU 86 BUN 16 Creat 0.6 Estimated GFR f 112 Estimated GFR f Not calculated Ca 8.8 Alk Phos 80 AST H 36 ALT H 53 T Bili 0.43 Total Protein 7.4 Alb 3.8 Hemolysis Index 0 Icteria Index 0 Lipemia Index 0 01/05/2024 Discharge Summaries Results Value Date Source Discharge Summary Date of Admission Date of Discharge 11/14/2024 Reason for Hospitalization Buttock Lift Hospital Course Pt is a 49 year old female with a history of massive weight loss who underwent bilateral buttock lift on 11/12 with post op course complicated by left buttock hematoma requiring return to the OR for evacuation this same evening. She has done well from a hematoma standpoint since that time. She did have difficulty voiding after surgery and thus remained inpatient through 11/14. She underwent a straight cath followed by continued inability to void after this and placement of a crawford cath. She requested one more void trial and crawford cath was removed. She as then able to void 11/14 and suitable for discharge. Discharge Diagnoses Postoperative nausea Orders: lidocaine topical(lidocaine 4% patch), 1 Patch, Transdermal, [id number] oxyCODONE(_oxyCODONE 5 mg oral tablet), 5 mg= 1 Tablet(s), Oral, q4h, PRN Other Diagnoses Ongoing BMI 36.0-36.9,adult Obesity Operations and Procedures brachioplasty, thighplasty (08/06/2024) Discharge Disposition Home Medications New, Changed, or Refilled Medications docusate (docusate sodium 100 mg) 100 mg, 1 Tablet(s), Oral, bid, for 7 day(s), 14 Tablet(s), 0 Refill(s) methocarbamol (methocarbamol 500 mg) 1,000 mg, 2 Tablet(s), Oral, qid, for 3 day(s), PRN: Muscle Spasm, 24 Tablet(s), 0 Refill(s) ondansetron (ondansetron 4 mg) 4 mg, 1 Tablet(s), Oral, q8h, for 3 day(s), 9 Tablet(s), 0 Refill(s) tamsulosin (Flomax 0.4 mg) 0.4 mg, Oral, Daily, for 10 day(s), PRN: Bladder Spasm, 10 Tablet(s), 0 Refill(s) traMADol (traMADol 50 mg) 50 mg, 1 Tablet(s), Oral, q6h, 20 Tablet(s), 0 Refill(s) Medications to be Continued albuterol (Ventolin HFA 90 mcg/inh inhalation aerosol) PRN: as needed for wheezing, 0 Refill(s) biotin Oral, Daily, 0 Refill(s) calcium-vitamin D (Caltrate 600+D , chewable) 1 Tablet(s), bid, 0 Refill(s) estradiol (Estradiol Patch 0.1 mg/24 hours weekly transdermal film, extended release) qSunday, 0 Refill(s) levothyroxine 137 mcg, Daily, 0 Refill(s) multivitamin (Flintstones Multivitamins) Daily, 0 Refill(s) multivitamin with iron (Multiple Vitamins with Iron) 1 Tablet(s) with zinc, Oral, Daily, 0 Refill(s) Discontinued Medications None Physical Exam at Discharge Vitals and Measurements T: 36.5 C TMIN: 36.4 C TMAX: 36.6 C HR: 79 RR: 16 BP: 102/65 SpO2: 99% General: NAD, lying in the bed BUTTOCK: No active ooze from incisions. The left buttock is more firm than the right secondary to swelling but no sign of recurrent hematoma and over all significantly less firm compared to 11/12. No new ecchymosis. Incisions are clean, dry, and intact. Follow Up Appointments Appointment Type When With Where Contact Information Status H RT1 11/17/2024 11:45 AM CDT [facility] [address] [id number] Confirmed POP 11/22/2024 09:40 AM CDT Timmy AYOUB, [facility] [place] [address]- Confirmed Nursing/Other Orders Regular Diet. Ordered on 11/13/24 8:32:00 CDT, Meal Start Time Breakfast 0700 to 0900 Intake and Output (Strict I&O). 11/12/24 16:58:00 CDT, Continuous Order No Heavy Lifting. 11/12/24 16:58:00 CDT, Daily Ambulate Patient. 11/12/24 18:28:00 CDT, tid, with assistance and PRN 11/14/2024 Discharge Summary Date of Admission Date of Discharge 08/09/2024 Reason for Hospitalization Hospital Course Patient is a 49-year-old female now postop day 2 status post bilateral brachioplasty and bilateral thighplasty who presents to at the ER this evening with a left thigh hematoma 08/08/24. Upon AM evaluation with attending, there is mild swelling and tenderness to palpation but no ecchymosis or incisional dehiscience. Discussed with patient that there is blood clot in the thigh but there is no overlying skin changes and we would manage conservatively for now with compression. Discussed with patient the signs to look for including skin bruising, increased swelling, redness. She is tolerating pain on PO meds, voiding, and hemodynamically stable. Ready for discharge with ambulatory compression device and follow up 08/16 Discharge Diagnoses 1. Post-operative pain Orders: Ambulatory Compression Device, 08/09/24 6:53:00 CDT, Calf, Needs to d/c with compression device Other Diagnoses Ongoing BMI 36.0-36.9,adult [facility] In[facility] Surgery Plastic Pending Labs Discharge Disposition Home/ Self Care Medications New, Changed, or Refilled Medications None Medications to be Continued albuterol (Ventolin HFA 90 mcg/inh inhalation aerosol) PRN: as needed for wheezing, 0 Refill(s) biotin Oral, Daily, 0 Refill(s) calcium-vitamin D (Caltrate 600+D , chewable) 1 Tablet(s), bid, 0 Refill(s) docusate (docusate sodium 100 mg) 100 mg, 1 Tablet(s), Oral, bid, for 7 day(s), 14 Tablet(s), 0 Refill(s) enoxaparin (Lovenox 40 mg/0.4 mL injectable solution) 40 mg, 0.4 mL, Subcutaneous, Daily, for 7 day(s), 2.8 mL, 0 Refill(s) enoxaparin (Lovenox 40 mg/0.4 mL injectable solution) 40 mg, 0.4 mL, Subcutaneous, Daily, for 7 day(s), 2.8 mL, 0 Refill(s) estradiol (Estradiol Patch 0.1 mg/24 hours weekly transdermal film, extended release) qSunday, 0 Refill(s) levothyroxine 137 mcg, Daily, 0 Refill(s) multivitamin (Flintstones Multivitamins) Daily, 0 Refill(s) multivitamin with iron (Multiple Vitamins with Iron) 1 Tablet(s) with zinc, Oral, Daily, 0 Refill(s) ondansetron (ondansetron 4 mg , disintegrating) 4 mg, Oral, q4h, for 3 day(s), PRN: Nausea, 10 Tablet(s), 0 Refill(s) oxyCODONE (_oxyCODONE 5 mg) 5 mg, 1 Tablet(s), Oral, q6h, for 5 day(s), PRN: Pain, Severe, 20 Tablet(s), 0 Refill(s) Discontinued Medications None Physical Exam at Discharge Vitals and Measurements T: 36.5 C TMIN: 36.5 C TMAX: 36.7 C HR: 74 RR: 16 BP: 128/48 SpO2: 100% WT: 77.7 kg GEN: Alert and oriented, NAD. Left thigh: Telfa and Tegaderm dressing is saturated with bright red blood. The left thigh is more tense than the right. Upon taking down the dressings, no significant ecchymosis on the L thigh. Tenderness to palpation. Swelling superiomedially. No skin changes, no blanching of the skin on the left. No numbness of the lateral thigh or the foot. No evidence of incisional dehiscence. Time Spent <30 minutes Follow Up Appointments Appointment Type When With Where Contact Information Status POP 08/16/2024 10:30 AM CDT Chris Warner MD Surg Plastic Surgery [facility] [place] [address]- Confirmed TLH RT1 11/17/2024 11:45 AM CDT Adriel Garcia [facility] [address] [id number] Confirmed Nursing/Other Orders Regular Diet. Ordered on 08/09/24 6:54:00 CDT, Meal Start Time Breakfast 0700 to 0900 Ambulate Patient. 08/08/24 21:09:00 CDT, Daily 0100, as tolerated 08/09/2024 History and Physicals Results Value Date Source History and Physical Chief Complaint History of Present Illness Pt is a 49 year old female who has already undergone thighplasty and brachioplasty without service and now presents for buttock lift. She has bought a donut for off loading pressure and brought her compression with her today. Review of Systems A 14 point ROS was completed and negative except as stated above in HPI. Physical Exam Vitals and Measurements T: 36.6 C HR: 61 RR: 18 BP: 110/78 SpO2: 98% WT: 71.2 kg GENERAL: NAD, well-appearing HENT: normocephalic, atraumatic RESPIRATORY: Non-labored respirations GI: Non distended abdomen INTGUMENT: Warm, dry NEURO: No focal deficits Assessment/Plan Pt is a 49 year old female who has already undergone thighplasty and brachioplasty without service and now presents for buttock lift. A consent was obtained prior to today but redone due to change in consent forms. She has otherwise had no major changes since her clinic pre op. Plan to proceed to the OR for buttock lift. Problem List/Past Medical History Ongoing BMI 36.0-36.9,adult Obesity Procedure/Surgical History brachioplasty, thighplasty Service Date: 08/06/2024 Medications Inpatient ceFAZolin, 2 g, IV Push, OnCall hydrALAZINE, 10 mg= 0.5 mL, Slow IV Push, q15min, PRN Lactated Ringers 1,000 mL(LR 1,000 mL), 1000 mL, IV lidocaine(Lidocaine 1% inj solution (PF)), 10 mg= 1 mL, IntraDermal, As Directed, PRN Home albuterol(Ventolin HFA 90 mcg/inh inhalation aerosol), PRN biotin, Oral, Daily calcium-vitamin D(Caltrate 600+D oral tablet, chewable), 1 Tablet(s), bid docusate(docusate sodium 100 mg oral tablet), 100 mg= 1 Tablet(s), Oral, bid enoxaparin(Lovenox 40 mg/0.4 mL injectable solution), 40 mg= 0.4 mL, Subcutaneous, Daily estradiol(Estradiol Patch 0.1 mg/24 hours weekly transdermal film, extended release), qSunday levothyroxine, 137 mcg, Daily multivitamin(Flintstones Multivitamins), Daily multivitamin with iron(Multiple Vitamins with Iron oral tablet), 1 Tablet(s) with zinc, Oral, Daily ondansetron(ondansetron 4 mg oral tablet), 4 mg= 1 Tablet(s), Oral, q8h traMADol(traMADol 50 mg oral tablet), 50 mg= 1 Tablet(s), Oral, q6h Allergies morphine stopped breathing Social History Smoking Status Never smoker Tobacco Smoking HistoryNever smoker Family History Family history is negative Immunizations Lab Results Diagnostic Results 11/12/2024 History and Physical Admission Note Benita mederos I have examined the patient. A full history and physical has been documented on _07/27_ by _Dr. Pedraza_. There is no change in the patient's condition and we will proceed with the plan of care as previously documented. 08/06/2024 Vital Signs Vital Sign Value Date Comments Source SpO2 99 % 08/09/2024 15:58:32 [facility] Heart Rate 72 bpm 08/09/2024 15:58:23 [facility] Heart Rate 77 bpm 08/09/2024 13:46:14 [facility] SpO2 100 % 08/09/2024 13:46:14 [facility] Heart Rate 79 bpm 08/09/2024 13:30:55 [facility] SpO2 100 % 08/09/2024 13:30:54 [facility] SBP NIBP 124 mm[Hg] 08/09/2024 13:27:01 [facility] DBP NIBP 59 mm[Hg] 08/09/2024 13:27:01 [facility] Mean NIBP 74 mm[Hg] 08/09/2024 13:27:01 [facility] SBP NIBP 128 mm[Hg] 08/09/2024 08:18:00 [facility] DBP NIBP 48 mm[Hg] 08/09/2024 08:18:00 [facility] Temperature (Celsius) 36.5 Kareen 08/09/2024 08:18:00 [facility] Respiratory Rate 16 breaths/min 08/09/2024 08:18:00 [facility] Mean NIBP 77 mm[Hg] 08/09/2024 08:18:00 [facility] Heart Rate 74 bpm 08/09/2024 08:18:00 [facility] SpO2 100 % 08/09/2024 08:18:00 [facility] Temperature (Celsius) 36.7 Kareen 08/09/2024 04:30:00 [facility] SBP NIBP 116 mm[Hg] 08/09/2024 04:30:00 [facility] DBP NIBP 53 mm[Hg] 08/09/2024 04:30:00 [facility] Respiratory Rate 14 breaths/min 08/09/2024 04:30:00 [facility] Mean NIBP 78 mm[Hg] 08/09/2024 04:30:00 [facility] Respiratory Rate 20 breaths/min 08/09/2024 03:34:55 [facility] Respiratory Rate 19 breaths/min 08/09/2024 03:29:20 [facility] Mean NIBP 77 mm[Hg] 08/09/2024 02:30:00 [facility] SBP NIBP 117 mm[Hg] 08/09/2024 02:30:00 [facility] DBP NIBP 59 mm[Hg] 08/09/2024 02:30:00 [facility] Weight (kg) 77.7 kg 08/09/2024 00:39:00 [facility] Heart Rate 70 bpm 08/06/2024 22:00:00 [facility] Respiratory Rate 16 breaths/min 08/06/2024 22:00:00 [facility] SBP NIBP 130 mm[Hg] 08/06/2024 22:00:00 [facility] DBP NIBP 90 mm[Hg] 08/06/2024 22:00:00 [facility] SpO2 100 % 08/06/2024 22:00:00 [facility] Heart Rate 70 bpm 08/06/2024 20:45:00 [facility] SpO2 100 % 08/06/2024 20:45:00 [facility] SBP NIBP 130 mm[Hg] 08/06/2024 20:45:00 [facility] DBP NIBP 90 mm[Hg] 08/06/2024 20:45:00 [facility] Respiratory Rate 16 breaths/min 08/06/2024 20:45:00 [facility] Heart Rate 60 bpm 08/06/2024 20:32:12 [facility] SpO2 100 % 08/06/2024 20:32:11 [facility] Respiratory Rate 14 breaths/min 08/06/2024 20:31:51 [facility] Mean NIBP 90 mm[Hg] 08/06/2024 20:30:00 [facility] SBP NIBP 130 mm[Hg] 08/06/2024 20:30:00 [facility] DBP NIBP 69 mm[Hg] 08/06/2024 20:30:00 [facility] Heart Rate 61 bpm 08/06/2024 20:16:37 [facility] SpO2 97 % 08/06/2024 20:16:37 [facility] Respiratory Rate 16 breaths/min 08/06/2024 20:16:17 [facility] SBP NIBP 122 mm[Hg] 08/06/2024 20:15:00 [facility] DBP NIBP 70 mm[Hg] 08/06/2024 20:15:00 [facility] Mean NIBP 90 mm[Hg] 08/06/2024 20:15:00 [facility] Mean NIBP 80 mm[Hg] 08/06/2024 20:00:00 [facility] Mean NIBP 88 mm[Hg] 08/06/2024 19:45:00 [facility] Temperature (Celsius) 36.2 Kareen 08/06/2024 19:15:00 [facility] Height (cm) 168 cm 08/06/2024 13:14:00 [facility] Weight (kg) 70.5 kg 08/06/2024 13:14:00 [facility] Temperature (Celsius) 36.2 Kareen 08/06/2024 13:14:00 [facility] Height (cm) 168 cm 07/26/2024 17:21:00 [facility] BSA Michelle 1.81 07/26/2024 17:21:00 [facility] SBP NIBP 104 mm[Hg] 07/26/2024 17:21:00 [facility] DBP NIBP 71 mm[Hg] 07/26/2024 17:21:00 [facility] Weight (kg) 71.1 kg 07/26/2024 17:21:00 [facility] Temperature (Celsius) 36.7 Kareen 07/26/2024 17:21:00 [facility] BMI 25.2 kg/m2 07/26/2024 17:21:00 [facility] Heart Rate 66 bpm 07/26/2024 17:21:00 [facility] Heart Rate 74 bpm 01/06/2024 01:30:00 [facility] SpO2 98 % 01/06/2024 01:30:00 [facility] SpO2 100 % 01/06/2024 00:34:01 [facility] Heart Rate 59 bpm 01/06/2024 00:34:00 [facility] Mean NIBP 104 mm[Hg] 01/06/2024 00:34:00 [facility] SBP NIBP 121 mm[Hg] 01/06/2024 00:34:00 [facility] DBP NIBP 83 mm[Hg] 01/06/2024 00:34:00 [facility] Heart Rate 56 bpm 01/05/2024 23:30:00 [facility] SpO2 97 % 01/05/2024 23:30:00 [facility] Heart Rate 61 bpm 01/05/2024 21:25:00 [facility] SpO2 100 % 01/05/2024 21:25:00 [facility] Mean NIBP 105 mm[Hg] 01/05/2024 20:10:00 [facility] SBP NIBP 120 mm[Hg] 01/05/2024 20:10:00 [facility] DBP NIBP 93 mm[Hg] 01/05/2024 20:10:00 [facility] Weight (kg) 72.1 kg 01/05/2024 17:35:00 [facility] SBP NIBP 116 mm[Hg] 01/05/2024 17:35:00 [facility] DBP NIBP 81 mm[Hg] 01/05/2024 17:35:00 [facility] Respiratory Rate 18 breaths/min 01/05/2024 17:35:00 [facility] Temperature (Celsius) 36.5 Kareen 01/05/2024 17:35:00 [facility] Temperature (Celsius) 35.9 Kareen 01/05/2024 16:16:00 [facility] Heart Rate 76 bpm 01/05/2024 16:16:00 [facility] SBP NIBP 108 mm[Hg] 01/05/2024 16:16:00 [facility] DBP NIBP 72 mm[Hg] 01/05/2024 16:16:00 [facility] Height (cm) 166.2 cm 01/05/2024 16:16:00 [facility] Weight (kg) 70.95 kg 01/05/2024 16:16:00 [facility] BMI 25.7 kg/m2 01/05/2024 16:16:00 [facility] BSA Michelel 1.79 01/05/2024 16:16:00 [facility] Encounters Location Location Details Encounter Type Encounter Number Reason For Visit Attending Provider ADM Date DC Date Status Source Surg Plastic Surgery Clinic [id number] Chris Warner 01/04 15:37 :17 01/05 04:59 :59 [facility] Emergency [id number] Len Marks 01/04 17:28 :23 01/05 01:32 :00 [facility] PreReg [id number] Chris Warner 04/02 11:00 :00 06/02 05:59 :59 [facility] Surg Plastic Surgery Between Visit [id number] 04/13 17:17 :27 04/14 05:59 :59 [facility] Surg Plastic Surgery Between Visit [id number] 07/02 14:32 :11 07/03 05:59 :59 [facility] Surg Plastic Surgery Clinic [id number] Chris Warner 07/26 16:03 :23 07/27 05:59 :59 [facility] Day Surgery [id number] Chris Warner 08/06 12:31 :39 08/06 22:46 :00 [facility] Nurse Phone Call Clinic [id number] Aram Chou 08/06 13:56 :11 08/07 05:59 :59 [facility] Observation [id number] Pravin Raymundo 08/09 00:12 :50 08/09 16:42 :00 [facility] zzMU Surg General Surgery Between Visit [id number] 08/11 18:14 :12 08/12 04:59 :59 [facility] Surg Plastic Surgery Clinic [id number] Chris Warner 08/16 15:05 :29 08/17 04:59 :59 [facility] Surg Plastic Surgery Clinic [id number] Chris Warner 08/30 16:12 :57 08/31 04:59 :59 [facility] Surg Plastic Surgery Clinic [id number] Chris Warner 10/06 12:58 :07 10/07 04:59 :59 [facility] Observation [id number] Angi Scott 11/12 09:27 :51 11/14 16:00 :00 [facility] Nurse Phone Call Clinic [id number] Aram Chou 11/12 12:37 :33 11/13 04:59 :59 [facility] Non-Admit [id number] Adriel Bloom 11/17 13:09 :38 11/18 04:59 :59 [facility] Virtual Care [id number] Adriel Bloom 11/17 17:21 :21 11/18 04:59 :59 [facility] Surg Plastic Surgery Clinic [id number] Chris Warner 11/22 13:42 :50 11/23 04:59 :59 [facility] Between Visit [id number] 12/02 10:13 :01 12/02 23:59 :59 Discharg ed [facility] Procedures Procedure Code Date Perfomer Comments Source brachioplasty, thighplasty 08/06/2024 06:00:00 [facility] Social History Social History Date Source Social History TypeResponse Sex Female Sex Representation Female (finding) 11/23/2024 [facility] Social History TypeResponse Sex Female Sex Representation Female (finding) 11/18/2024 [facility] Social History TypeResponse Sex Female Sex Representation Female (finding) 11/14/2024 [facility] Social History TypeResponse Sex Female Sex Representation Female (finding) 11/13/2024 [facility] Social History TypeResponse Sex Female Sex Representation Female (finding) 10/07/2024 [facility] Social History TypeResponse Sex Female Sex Representation Female (finding) 08/31/2024 [facility] Social History TypeResponse Sex Female Sex Representation Female (finding) 08/17/2024 [facility] Social History TypeResponse Sex Female Sex Representation Female (finding) 08/12/2024 [facility] Social History TypeResponse Sex Female Sex Representation Female (finding) 08/09/2024 [facility] Social History TypeResponse Sex Female Sex Representation Female (finding) 08/07/2024 [facility] Social History TypeResponse Sex Female Sex Representation Female (finding) 08/06/2024 [facility] Social History TypeResponse Sex Female Sex Representation Female (finding) 07/27/2024 [facility] Social History TypeResponse Sex Female Sex Representation Female (finding) 07/03/2024 [facility] Social History TypeResponse Sex Female Sex Representation Female (finding) 06/02/2024 [facility] Social History TypeResponse Sex Female Sex Representation Female (finding) 04/14/2024 [facility] Social History TypeResponse Sex Female Sex Representation Female (finding) 01/06/2024 [facility] Social History TypeResponse Sex Female Sex Representation Female (finding) 01/06/2024 [facility]
--- OUTSIDE RECORDS SUMMARY | 2024-12-03 22:24 | XMS_ITS | Continuity of Care Document ---
Author Organization [facility] Address [address] [place] [address]- Care Team Providers Care Educational Interpreter Name Role Phone Ferguson [employer]SEM[employer] SUPERVISOR, Junie White Primary Care Physician Encounter [employer] Financial Number [id number] Date(s): 12/03/24 - 12/03/24 [facility] [address] [place] [address]- Discharge Disposition: .Left against medical advice Attending Physician: Dania Lemon Encounter Type: ER Allergies, Adverse Reactions, Alerts Substance Criticality Severity Reaction Reaction Severity Status morphine Unable to assess criticality Moderate Hypotension Active Assessment and Plan Future Scheduled Tests Laboratory* Pancreatic Elastase-1 01/14/24 * Fecal Lactoferrin 01/14/24 Radiology* US Abdomen Limited w Liver Elastography 09/10/24 Medications biotin See Instructions, 1,000 mcg By mouth a couple times weekly, Refill(s) 0, Instructions Replace Required Details Start Date: 09/17/19 Status: Ordered Repeat number: 1 cephalexin By mouth, 0, Substitution Permitted Start Date: 09/17/24 Status: Ordered Repeat number: 1 fluticasone 27.5 mcg/inh nasal spray 1 spray, Both Nostrils, Daily, for allergy symptoms, # 10 g, Refill(s) 0 Start Date: 09/17/19 Status: Ordered Quantity: 10.0 Unit: g Repeat number: 1 hydrochlorothiazide-triamterene 25 mg-37.5 mg oral capsule 1 cap, By mouth, Daily, PRN, # 30 cap, Refill(s) 0 Start Date: 09/17/19 Status: Ordered Quantity: 30.0 Unit: CAP Repeat number: 1 immunity support immunity support, See Instructions, Refills(s) 0, Supply Start Date: 06/06/20 Status: Ordered Repeat number: 1 levothyroxine 137 mcg (0.137 mg) oral tablet = 1 tab, By mouth, Daily, # 30 tab, Refill(s) 12, Pharmacy: [id number], [id number], TAKE 1 TABLET BY MOUTH EVERY DAY, 66, 06/06/20 13:40:00 GUIDE CHANGER, in, 112.27, 06/06/20 13:40:00 GUIDE CHANGER, kg, Weight Start Date: 09/22/20 Status: Ordered Quantity: 30.0 Unit: tab Repeat number: 1 metformin 500 mg oral tablet 1,000 mg = 2 tab, By mouth, BID, # 30 tab, Refill(s) 0 Start Date: 09/17/19 Status: Ordered Quantity: 30.0 Unit: tab Repeat number: 1 Multivitamin 1 tab, By mouth, Daily, Refill(s) 0 Start Date: 09/17/19 Status: Ordered Repeat number: 1 Problem List Condition Confirmation Course Effective Dates Status H ealth Status Informant Abdominal bloating Confirmed Active Adhesive capsulitis of left shoulder Confirmed Active History of Bal-en-Y gastric bypass Confirmed Active Hypothyroidism Confirmed Active Hepatomegaly Confirmed Active Abnormal liver enzymes Confirmed Active Hyperactive gag reflex Confirmed Active Tenderness of neck Confirmed Active Abnormal thyroid function test Confirmed Active Type 2 diabetes mellitus Confirmed Active Procedures Procedure Date Related Diagnosis Body Site Status skin removal 08/06/24 Completed gastric surgery Completed hysterectomy Completed Liposuction Completed Tubal ligation Completed Tummy Tuck Completed Social History Social History Type Response Smoking Status Never smoker; Smokel ess tobacco use: Never; Has the patient smoked in the last 365 days, even once? No entered on: 11/30/23 Sex Female Sex Representation Female (finding) Patient Care team information Care Team Personnel Name: Junie Ferguson NP Position: 2 Restricted Providers Member Role: Primary Care Physician Address: [address] [place] [id number] [place] [address] Telecom: Care Team Related Persons Name: HUGO SORENSEN Name: HUGO GAUTAM Insurance Providers Guarantor name: RACHELFORTUNATO JOHNSON EDU Health Plan Information #: 1 Payer: NA Payer Identifier: [id number] Member Number: [id number] Group Number: [id number] Subscriber Identifier: [id number] Relationship to Subscriber: Self Coverage Type: MEDICAID Coverage Verification Date: NA Telecom: NA Address: NA Health Plan Information #: 2 Payer: NA Payer Identifier: [id number] Member Number: [id number] Group Number: [id number] Subscriber Identifier: [id number] Relationship to Subscriber: Self Coverage Type: MEDICAID Coverage Verification Date: Telecom: Address: [facility] Information #: 3 Payer: NA Payer Identifier: CHARLY Member Number: [id number] Group Number: Subscriber Identifier: [id number] Relationship to Subscriber: Self Coverage Type: MEDICAID Coverage Verification Date: Telecom: Address:
--- OUTSIDE RECORDS SUMMARY | 2024-12-04 09:09 | XMS_ITS | Clinical Summary ---
Author Organization [employer] Address [address] [place]: Epic Prelude ADT [place] [address] Care Team Providers Care Ocean Import Representative Name Role Phone Ferguson, Junie Christopher TAYLOR Primary Care Provider [phone] Allergies Active Allergy Reactions Criticality Noted Date Comments Morphine Other (See Comments) 10/08/2013 Quit breathing Medications cephALEXin (KEFLEX) 500 mg capsule Take 1 Capsule (500 mg) by mouth 4 times daily. 30 Capsule None 8 Active levothyroxine 125 mcg tablet Take 125 mcg by mouth daily. 8 Active albuterol sulfate HFA 90 mcg/actuation aerosol inhaler Take 2 Puffs by inhalation every 6 hours as needed for Wheezing or Shortness of Breath. 8.5 Gram None 8 Active metFORMIN (GLUCOPHAGE) 500 mg tablet Take 500 mg by mouth 4 times daily . 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 Gender Identity Not on file Sexual Orientation Not on file Last Filed Vital Signs Vital Sign Reading Time Taken Comments Blood Pressure 133/90 06/11/2017 11:54 AM CORING MACHINE OPERATOR Pulse 87 06/11/2017 11:54 AM CORING MACHINE OPERATOR Temperature 37 C (98.6 F) 06/11/2017 11:54 AM CORING MACHINE OPERATOR Respiratory Rate 20 06/11/2017 11:54 AM CORING MACHINE OPERATOR Oxygen Saturation - - Inhaled Oxygen Concentration - - Weight 96.6 kg (213 lb) 06/11/2017 8:47 AM CORING MACHINE OPERATOR Height 167.6 cm (5' 6 ) 06/11/2017 8:47 AM CORING MACHINE OPERATOR Body Mass Index 34.38 06/11/2017 8:47 AM CORING MACHINE OPERATOR Plan of Treatment Health Maintenance Due Date Last Done Comments HEPATITIS B VACCINES (1 of 3 - 19+ 3-dose series) 1995 02/17/2009, 01/16/2009 HPV/Cotest (21-29) 1997 CERVICAL CANCER SCREENING 2006 HPV/Cotest (30-65) 2006 PAP SMEAR 2006 BREAST CANCER SCREENING 2016 DTAP/TDAP/TD VACCINES (2 - Td or Tdap) 01/16/2019 COLORECTAL SCREENING 2021 Colorectal Cancer Screening 2021 FIT-DNA Q 3 years 2021 FIT/FOBT Q 1 year 2021 Flex Sig/CT Colonography Q 5 years 2021 INFLUENZA VACCINE (#1) 2024 Care Teams Ocean Import Representative Relationship Specialty Start Date End Date Junie Ferguson APN [address] [place] [address] PCP - General NURSE PRACTITIONER 06/15/15
--- OUTSIDE RECORDS SUMMARY | 2024-12-04 09:09 | XMS_ITS | Clinical Summary ---
Author Organization [facility] Address [address] [place] [phone] Care Team Providers Care Beet Topper Name Role Phone Ferguson, Junie White APN Primary Care Provider Allergies Active Allergy Reactions Criticality Noted Date Comments Morphine Other (See Comments) 10/08/2013 Quit breathing Medications metFORMIN (GLUCOPHAGE) 500 mg tablet Take 500 mg by mouth 4 times daily . Active levothyroxine 125 mcg tablet Take 125 mcg by mouth daily. Active cephALEXin (KEFLEX) 500 mg capsule Take 1 Capsule (500 mg) by mouth 4 times daily. 30 Capsule None 8 Active albuterol HFA 90 mcg inhaler Take 2 Puffs by inhalation every 6 hours as needed for Wheezing or Shortness of Breath. 8.5 Gram None 8 Active Immunizations Immunization Administration Dates Next Due [...] = 0.6 oz pur e alcohol) Comments No Sex and Gender Information Value Date Recorded Sex Assigned at Not on file Legal Sex Female 4:39 AM FISH CUTTING MACHINE OPERATOR Gender Identity Not on file Sexual Orientation Not on file Occupation Industry Job Start Date Job End Date Not on file Not on file Not on file Not on file Last Filed Vital Signs Vital Sign Reading Time Taken Comments Blood Pressure 133/90 06/11/2017 11:54 AM FISH CUTTING MACHINE OPERATOR Pulse 87 06/11/2017 11:54 AM FISH CUTTING MACHINE OPERATOR Temperature 37 C (98.6 F) 06/11/2017 11:54 AM FISH CUTTING MACHINE OPERATOR Respiratory Rate 20 06/11/2017 11:54 AM FISH CUTTING MACHINE OPERATOR Oxygen Saturation 99% 06/11/2017 11:54 AM FISH CUTTING MACHINE OPERATOR Inhaled Oxygen Concentration - - Weight 96.6 kg (213 lb) 06/11/2017 8:47 AM FISH CUTTING MACHINE OPERATOR Height 167.6 cm (5' 6 ) 06/11/2017 8:47 AM FISH CUTTING MACHINE OPERATOR Body Mass Index 34.38 06/11/2017 8:47 AM FISH CUTTING MACHINE OPERATOR Plan of Treatment Health Maintenance [...] 2021 INFLUENZA VACCINE (#1) 2024 Care Teams Beet Topper Relationship Specialty Start Date End Date Junie Ferguson APN [facility] [address] [address] PCP - General NURSE PRACTITIONER 06/15/15
--- OUTSIDE RECORDS SUMMARY | 2024-12-04 09:09 | XMS_ITS | Patient Health Record ---
Author Organization [facility] Address [address] [place] [address] Care Team Providers Care Quality Technician Fiberglass Name Role Phone Ferguson [facility] Primary Care Provider [facility] Unavailable Unavailable Allergies Allergen (clinical drug ingredient) Drug/Non Drug Allergy documented on EMR Reaction Allergy Type Onset Date Status morphine Morphine Unknown Drug Allergy Active Results Component Value Reference Range Notes Vitamin D Total (B) 83207 Reviewed date:09/20/2024 12:56:44 PM Interpretation: Performing Lab: Notes/Report: Diagnosis Description: Other supervisor intermediates (current) drug therapy Vitamin D Total 67.4 30.0-100.0 ng/mL Deficiency: < 20 ng/mL Insufficiency: 20??? < 30 ng/mL Sufficiency: 30???100 ng/mL Performed on the Siemens Atellica IM Analyzer Vitamin B12 (B) 07461 Reviewed date:09/20/2024 12:55:08 PM Interpretation: Performing Lab: Notes/Report: Diagnosis Description: Other supervisor intermediates (current) drug therapy [id number] 1486 211-911 pg/mL Thyroid Stimulating Hormone (TSH) 26598 Reviewed date:09/20/2024 12:54:27 PM Interpretation: Performing Lab: Notes/Report: Diagnosis Description: Hypothyroidism, unspecified TSH .556 .358-3.740 MlU/ML Lipid Panel Reflex DLDL 8006 1, 96191 Reviewed date:09/20/2024 12:54:13 PM Interpretation: Performing Lab: Notes/Report: Diagnosis Description: Essential (primary) hypertension Trig 159 Classification Guidelines:Triglycerides Adults: >20yrs Desirable <150 Borderline High 150-199 High 200-499 Very high >=500 Children: Male 0-4 yr 22-99 5-9 yr 30-101 10-14 yr 32-125 15-19 yr 37-148 Children: Female 0-4 yr 34-112 5-9 yr 32-105 10-14 yr 37-131 15-19 yr 39-132 Chol 200 <=200 MG/DL HDL 49 39-96 MG/DL Reference Ranges:HDL Male: 5-9y 38-75 10-14y 37-74 15-19y 30-63 >=20y 40-59 Female: 5-9y 36-73 10-14y 37-70 15-19y 35-74 >=20y 40-59 CH/HDL 4.1 0.0-4.9 RATIO LDL 119 0-130 MG/DL LDL result is i naccurate , if Trig is >400 mg/dl. See DLDL result. Hemoglobin A1c 06569 Reviewed date:09/20/2024 12:53:43 PM Interpretation: Performing Lab: Notes/Report: Diagnosis Description: Type 2 diabetes mellitus without complications Hgb A1c 4.6 3.8-6.4 % Interpretation Of Hgb A1c: 4.5-6.2 % nondiabetics. >7.0 % diabetics. EAG 85 Estimated [place] ge Glucose(EAG). Comprehensive Metabolic Pane l ([facility]) [address] Reviewed date:09/20/2024 12:55:55 PM Interpretation: Performing Lab: Notes/Report: Diagnosis Description: Essential (primary) hypertension Glucose Serum 88 71-110 MG/DL Testing perfor med at [facility], [address] [place] [address] [place] [address]. CLIA ID#: [id number] BUN 17 7-21 MG/DL Creat .54 .51-1.17 MG/DL K-tlamrq-o-benzoquinone imine (NAPQI) is a metabolite of acetaminophen, NAPQI concentrations of apparoximately 10 mg/L correlation to toxic levels of acetaminophen demonstrates a greater than or equil to 10% change in results. NAPQI concentrations greater than this may lead to falsely depressed results for patient samples. Use of this assay is not recommended for patients undergoing treatment with phenindione, due to the potential for falsely depressed results. GFR 113.0 Calculation per formed from GFR calculator provided by the National [employer]. Glomerular Filtration rate(GRF) is the best overall index of kidney function. Normal GFR varies according to age,sex, body size, and declines with age. The National Kidney Foundation recommends using the CKD-EPI Creatinine Equation(2020) to estimate GFR. BUN/Creat Ratio 31.5 12.0-20.0 % Total Protein 7.0 5.8-8.0 G/DL Albumin 4.5 3.2-4.8 G/DL Globulin 2.5 2.3-3.5 G/DL Alb/Glob 1.8 0.8-2.2 Calcium 9.9 8.7-10.4 MG/DL Sodium 141 136-145 MMOL/L Potassium 4.7 3.5-5.1 MMOL/L Chloride 107 98-107 MMOL/L CO2 29.5 20.0-31.0 MMOL/L Anion Gap 9 5-15 Alk Phos 87 46-116 Bili Total .3 .3-1.2 MG/DL Use of this ass ay is not recommended for patients undergoing treatment with eltrombopag due to the potential for falsely elevated results. AST/SGOT 33 15-37 UNIT/L ALT/SGPT 50 12-78 UNIT/L Osmo Serum,Calculated 293 280-300 MOSM/KG CBC w\ Auto Diff 12137 Reviewed date:09/20/2024 12:54:57 PM Interpretation: Performing Lab: Notes/Report: Diagnosis Description: Essential (primary) hypertension WBC 5.0 4.5-11.0 X10'3 RBC 4.47 4.00-5.20 X10'6 Hgb 12.0 12.0-16.0 G/DL Hct 39.7 36.0-46.0 % MCV 88.8 80.0-100.0 FL MCH 26.8 27.0-31.0 PG MCHC 30.2 31.0-37.0 G/DL Platelet 331 150-400 X10'3 RDW-SD 41.7 35.0-49.0 FL RDW-CV 12.6 12.2-15.6 % MPV 10.0 9.2-12.0 FL Neutro Auto% 40.6 40.0-70.0 % Lymph Auto% 48.8 22.0-44.0 % Carson Auto% 6.4 3.0-7.0 % Eos Auto% 3.2 2.0-4.0 % Baso Auto% 0.8 0.0-1.0 % Imm Gran% .2 .0-.4 % Neutro Abs 2.03 .80-7.70 Absolute Neutrophil Count 2030 Lymph Abs 2.44 .10-4.10 Carson Abs .32 .20-1.00 Eos Abs .16 .00-.40 Baso Abs .04 .00-.20 Imm Gran Abs .01 .00-.10 NRBC# .00 .00-.20 X10'3 NRBC% .00 .00-.20 /100 int act WBC's Hemoglobin A1c 35806 Reviewed date:04/26/2024 07:51:04 AM Interpretation:Normal Performing Lab: Notes/Report: Normal Hgb A1c 5.2 EAG 103 Reason For Referral Reason actinic keratosis; d yschromia Diagnosis 1 Actinic keratoses (L 57.0) Referral Organization [facility] Referring Provider First Name Junie Referring Provider Last Name Ferguson Referring Provider Speciality Nurse Kush her [facility] Referred Provider Specialty Dermatology Referral Priority Routine Reason Left Shoulder pain Diagnosis 1 Shoulder pain, left (M25.512) Referral Organization [facility] Referring Provider First Name Junie Referring Provider Last Name Ferguson Referring Provider Speciality Nurse Kush her Referred Organization [facility] Referred Address [address] [place] [phone], Referred Provider Specialty Orthopedic S urgery Referral Priority Routine Medications Medication SIG (Take, Route, Frequency, Duration) Notes Start Date End Date Status Levothyroxine Sodium 150 MCG TAKE 1 TABLET BY MOUTH EVERY DAY IN THE MORNING ON EMPTY STOMACH FOR 30 DAYS for 30 Not-Taking Pantoprazole Sodium 40 MG TAKE 1 TABLET BY MOUTH EVERY DAY FOR 30 DAYS for 30 Active Victoza 18 MG/3ML 0.6 mg sq q day x 1 week then 1.2 mg sq q day as directed Subcutaneous daily for 30 days Not-Taking Ventolin HFA 108 (90 Base) MCG/ACT INHALE 2 PUFFS BY MOUTH 4 TIMES DAILY NEEDED FOR 30 DAYS for 30 days Active metFORMIN HCl 500 MG TAKE 2 TABLETS BY MOUTH TWICE DAILY AFTER A MEAL FOR BLOOD SUGAR for 30 Not-Taking Multivitamin Active Levothyroxine Sodium 137 MCG TAKE 1 TABLET BY MOUTH IN THE MORNING ON AN EMPTY STOMACH ONCE A DAY FOR 30 DAYS for 30 Active Cyclobenzaprine HCl 10 MG TAKE 1 TABLET BY MOUTH EVERY 8 HOURS NEEDED FOR MUSCLE SPASM Oral for 7 Days Not-Taking Docusate Sodium 100 MG TAKE 1 CAPSULE BY MOUTH TWICE A DAY for 30 Not-Taking traMADol HCl 50 MG TAKE 1 TABLET BY PATTI TH EVERY 8 HOURS NEEDED FOR PAIN Oral for 7 Days Not-Taking Estradiol 0.1 MG/24HR APPLY ONE PATCH TO SKIN EVERY WEEK for 28 days Active Furosemide 20 MG TAKE 1 TABLET BY PATTI TH EVERY DAY NEEDED FOR SWELLING for 30 days Not-Taking Triamterene-HCTZ 37.5-25 MG TAKE 1 TABLET BY MOUTH EVERY DAY IN THE MORNING FOR 30 DAYS for 30 Not-Taking busPIRone HCl 10 MG TAKE 1/2-1 TABLET BY MOUTH TWICE DAILY NEEDED FOR ANXIETY FOR 30 DAYS for 30 days Active Immunizations Vaccine Route Administration Date Status Comme nts Flucelvax Trivalent, Syringe 0.5 mL, PF Unknown 025 Refused Social History Tobacco Use: Social History Observation Description Date Details (start date - stop date) Never Smoker NA - NA xTobacco Use/Smoking Question Answer Notes Are you a nonsmoker Alcohol Screen (Audit-C) Question Answer Notes Did you have a drink contain ing alcohol in the past year? Yes How often did you have a dri nk containing alcohol in the past year? Monthly or less (1 point) How many drinks did you have on a typical day when you were drinking in the past year? 1 or 2 drinks (0 point) How often did you have 6 or more drinks on one occasion in the past year? Never (0 point) Points 1 Interpretation Negative PHQ-9 Question Answer Notes Little interest or pleasure in doing things Not at all Feeling down, depressed, or hopeless Not at all Trouble falling or staying asleep, or sleeping t oo much Not at all Feeling tired or having little energy Not at all Poor appetite or overeating Not at all Feeling bad about yourself, or that you are a failure, or have let yourself or your family down Not at all Trouble concentrating on thi ngs, such as reading the newspaper or watching television Not at all Moving or speaking so slowly that other people could have noticed. Or the opposite ? 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) 09/15/19 25 Active confirmed Problem 932848119 Adverse effect o f angiotensin-conver ting-enzyme inhibitors, initial encounter (T46.4X5A) Active confirmed Problem 963005596 Controlled type 2 diabetes mellitus without complication, without long-term current use of insulin (E11.9) Active confirmed Problem 92029670 Bronchitis (J40) Active confirmed Problem 58322401 Anxiety (F41.9) Active confirmed Problem 699988107 Type 2 diabetes mellitus without complication, without long-term current use of insulin (E11.9) Active confirmed Problem 43830025 Hyponatremia (E87.1) Active confirmed Problem 31356611 Type 2 diabetes mellitus with hyperglycemia, without long-term current use of insulin (E11.65) Active confirmed Problem Sinusitis (06490157) Sinusitis (J32.9) Active confirmed Problem 319649382 Moderate persistent asthmatic bronchitis with acute exacerbation (J45.41) Active confirmed Problem 53834259 Acute non-recurrent maxillary sinusitis (J01.00) Active confirmed Problem 276395026 Obesity (BMI 30-39.9) (E66.9) Active confirmed Problem 619600533 Menopause (Z78.0) Active confirmed Problem 843907984 Acquired hypothyroidism (E03.9) Active confirmed Problem 79805202 Acute non-recurrent frontal sinusitis (J01.10) Active confirmed Problem 94567597 Swelling (R60.9) Active confirmed Problem 126655097 Morbid obesity (E66.01) Active confirmed Problem 178204318 Body mass index [BMI] 35.0-35.9, adult (Z68.35) Active confirmed Problem 499289689 Body mass index [BMI] 37.0-37.9, adult (Z68.37) Active confirmed Problem 70378476 Primary hypertension (I10) Active confirmed Problem 23506571 Acute cough (R05.1) Active confirmed Problem Cough (finding) (13660781) Other specified cough (R05.8) Active confirmed Vital Signs Heart Rate 65 /min 09/14/2024 Temperature 97.7 degrees Fahrenheit 09/14/2024 Respiratory Rate 18 /min 09/14/2024 Blood pressure diastolic 82 mm Hg 09/14/2024 Oximetry 100 % 09/14/2024 Height-cm 167.64 cm 09/14/2024 Weight-kg 72.12 kg 09/14/2024 Height 66 in 09/14/2024 Blood pressure systolic 125 mm Hg 09/14/2024 Weight 159 lbs 09/14/2024 BMI 25.66 kg/m2 09/14/2024 Encounters Encounter Location Date Provider Diagnosis [facility] [address] [address] 05/31/2024 [facility] Shoulder pain, left M25.512 ; Acquired hypothyroidism E03.9 ; Gastric bypass status for obesity Z98.84 ; Menopause Z78.0 ; Bronchitis J40 ; Anxiety F41.9 ; Actinic keratoses L57.0 and Depression screen Z13.31 [facility] [address] [address] 09/14/2024 [facility] Immunization not car ried out because of patient refusal Z28.21 ; Bronchitis J40 ; Acquired hypothyroidism E03.9 ; Type 2 diabetes mellitus without complications E11.9 ; Sinusitis J32.9 ; Primary hypertension I10 ; Bariatric surgery status Z98.84 ; Drug therapy continued Z79.899 and Absence of uterus Z90.710 [facility] [address] [address] 01/01/2024 [facility] Type 2 diabetes christopher itus without complication, without long-term current use of insulin E11.[address] [address] 03/25/[address] [place] [address] 05/03/[address] [address] 05/03/2024 [facility] [address] [place] [address] 09/02/[address] [place] [address] 09/24/2024 [facility] Assessments Encounter Date Diagnosis (ICD Code) Assessment Notes Treatment Notes Treatment Clinical Notes Section Notes 09/14/2024 Immunization not carried out because of patient refusal (ICD-10 - Z28.21) 09/14/2024 Bronchitis (ICD-10 - J40) cephalexin depomedrol/decadr on im 05/31/2024 Shoulder pain, left (ICD-10 - M25.512) x ray 05/31/2024 Acquired hypothyroidism (ICD-10 - E03.9) tsh; levothyroxine 01/01/2024 Type 2 diabetes mellitus without complication, without long-term current use of insulin (ICD-10 - E11.9) 05/31/2024 Gastric bypass status for obesity (ICD-10 - Z98.84) 09/14/2024 Acquired hypothyroidism (ICD-10 - E03.9) tsh 09/14/2024 Type 2 diabetes mellitus without complications (ICD-10 - E11.9) ha1c 05/31/2024 Menopause (ICD-10 - Z78.0) 09/14/2024 Sinusitis (ICD-10 - J32.9) 05/31/2024 Bronchitis (ICD-10 - J40) inhaler prn 05/31/2024 Anxiety (ICD-10 - F41.9) buspar 09/14/2024 Primary hypertension (ICD-10 - I10) cbc cmp lipids 05/31/2024 Actinic keratoses (ICD-10 - L57.0) renetta derm 09/14/2024 Bariatric surgery status (ICD-10 - Z98.84) 09/14/2024 Drug therapy continued (ICD-10 - Z79.899) b12 vit d 05/31/2024 Depression screen (ICD-10 - Z13.31) 09/14/2024 Absence of uterus (ICD-10 - Z90.710) 05/31/2024 Other Questions asked and answered; discharged to home. 09/14/2024 Other Questions asked and answered; discharged to home. Venipuncture: Performed by: Giovanna TAPIA Attempts: X1 Location: RAC Needle gauge: 21g Patient tolerated well. Plan Of Treatment Pending Test Test Name Order Date Thyroid Stimulating Hormone (TSH) 72455 05/31/2024 Shoulder Min 3V Left-23540 05/31/2024 Insurance Providers Payer Name Payer Address Payer Phone Subscriber Number Group Number Insured Name Patient Relationship to Insured Coverage Start Date Coverage End Date [facility] [employer] [address] [place] [address] [id number] Kathleen Tuttle Self - patient is the insured Medications Administered Medication Instructions Date of Administration Dosage Notes DEPO-Medrol 12/30/2022 40 mg [facility] 64720-066 3-01 pt tolerated well/instructed to wait 20 min DEPO-Medrol 09/14/2024 40 mg [facility] 69054-367 3-01 pt tolerated well/instructed to wait 20 min dexAMETHasone 12/30/2022 4 mg [facility] 11578-8 423-00 pt tolerated well/instructed to wait 20 min dexAMETHasone 09/14/2024 4 mg [facility] [address]54[address]-4 423-00 pt tolerated well/instructed to wait 20 min Rocephin 12/30/2022 1 g [facility] [address] -11 pt tolerated well/instructed to wait 20 min Medical (General) History Medical History History ICD Code Pneumonia anemia migraine headaches diabetes mellitus Back Trouble bronchitis Hypothyroidism Surgical History Surgery Date(Month/Year) gastric bypass 2022 partial hysterectomy 2021 tummy tuck 2020 tubal ligation 1996 Hospitalization History Reason Date(Month/Year) see surgical history childbirth childbirth childbirth
--- OUTSIDE RECORDS SUMMARY | 2024-12-04 09:09 | XMS_ITS | Encounter Summary ---
Author Organization [facility] Address [address] [place] [address] Care Team Providers Care Supervisor Cytogenetic Laboratory Name Role Phone Junie Ferguson APN Primary Care Provider [phone] Encounter Details Date Type Department Care Team (Latest Contact Info) Description 02/15/2003 Outpatient Historical [facility] Concepción Daley MD NO ADDRESS ON FILE SKIN HYPERTRO/ATROPH NOS (Primary Dx); DIASTASIS OF MUSCLE Social History Tobacco Use Types Packs/Day Years Used Date Smoking Tobacco: Never Assessed Comments Unknown Sex and Gender Information Value Date Recorded Sex Assigned at Not on file 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
[2024-12-04 09:10] VITALS: BP 114/62; PULSE 71; RESP 17; TEMP 36.6; O2SAT 100; BMI 24.5
--- NOTE | 2024-12-04 09:23 | W.ED.WOUNDLC ---
HPI - Wound/Laceration General: Chief Complaint: Wound/Laceration Stated Complaint: surg incision re-opening Time Seen by Provider: 12/04/24 09:23 History of Present Illness: 49-year-old female had a plastic surgery with a removal of excess skin from the buttocks at the gluteal fold. Patient has noticed an area that has been draining clear yellow fluid and noted that the wound seems to be opening up in the small area she has not had any bleeding no fever sweats chills no bloody drainage Associated symptoms: Denies chills or fever(s) Related Data Home Medications ?Medication ?Instructions ?Recorded ?Confirmed levothyroxine 137 mcg tablet 137 mcg PO QAM 12/19/21 11/17/24 multivitamin 2 tab PO DAILY 12/19/21 11/17/24 albuterol sulfate 90 mcg/actuation 2 puff inhalation QID 11/17/24 11/17/24 aerosol inhaler (Ventolin HFA) docusate calcium 240 mg capsule 240 mg PO DAILY constipation 11/17/24 11/17/24 (Stool Softener (docusate calcium)) estradiol 0.1 mg/24 hr weekly 1 patch topical Q7D 11/17/24 11/17/24 transdermal patch tamsulosin 0.4 mg capsule (Flomax) 0.4 mg PO DAILY 11/17/24 11/17/24 Previous Rx's ?Medication ?Instructions ?Recorded ondansetron HCl 4 mg tablet 4 mg PO Q6H PRN nausea and 12/07/22 vomiting #20 tabs tramadol 50 mg tablet 50 mg PO Q8H PRN pain #20 tabs 08/28/24 Allergies Allergy/AdvReac Type Severity Reaction Status Date / Time morphine Allergy anaphylaxis Verified 01/23/24 10:24 Review of Systems Const: Denies: fever(s) or chills PFSH ED PFSH: Medical History Aftercare following surgery of the genitourinary system No pertinent past medical history neghx: htn,dvt/pe PCP: Comfort Ferguson Hypothyroid Type 2 diabetes mellitus Surgical History Hx of tubal ligation (~1996) Hx of abdominal surgery (~2020) tummy tuck, muscle reconstruction Family History Family/Other Breast cancer Maternal Aunt--dx age 40's Colon cancer Paternal Uncle---dx age 60's Maternal Aunt-- dx age 60's Mother Diabetes Heart disease Hypercholesteremia Hypertension Ovarian cancer dx age 20's Thyroid disease Father Diabetes Heart disease Stroke Grandmother Diabetes Paternal Grandfather Diabetes Paternal Denies family history of Uterine cancer Physical Exam Skin: OTHER: Examination of the wound there is a very small area maybe 2 mm in width send 3 to 4 mm in length along the incision line at the gluteal fold on the left buttock about mid scapular line. No induration no purulent drainage them unable to express any fluid from the area. The remainder the wound appears to be healing well. Course Vital Signs: Vital signs: Vital Signs Temperature 97.8 F 12/04/24 09:10 Pulse Rate 71 12/04/24 09:10 Respiratory Rate 17 12/04/24 09:10 Blood Pressure 114/62 12/04/24 09:10 Pulse Oximetry 100 12/04/24 09:10 Oxygen Delivery Me thod Room Air 12/04/24 09:10 MDM - Wound/Laceration Medical Decision Making Wound looks good suspect she developed a small seroma in that area it opened up and is drained. At this point I do not think there is anything more to do it certainly does not need closing. It does not look to be infected. Continue wound care can apply topical antibiotic ointment to the wound once or twice a day. Continue all other postop instructions per her surgeon and follow-up as scheduled No radiology studies performed this visit Discharge Plan Discharge Patient Disposition: Home Clinical Impression: Wound dehiscence, Seroma after procedure Condition: Stable Prescriptions: No Action multivitamin Tablet 2 tab PO DAILY levothyroxine 137 mcg tablet 137 mcg PO QAM tramadol 50 mg tablet 50 mg PO Q8H PRN (Reason: pain) Qty: 20 0RF albuterol sulfate [Ventolin HFA] 90 mcg/actuation HFA aerosol inhaler 2 puff inhalation QID estradiol 0.1 mg/24 hr patch weekly 1 patch topical Q7D docusate calcium [Stool Softener (docusate jabier)] 240 mg Capsule 240 mg PO DAILY tamsulosin [Flomax] 0.4 mg Capsule 0.4 mg PO DAILY ondansetron HCl 4 mg tablet 4 mg PO Q6H PRN (Reason: nausea and vomiting) Qty: 20 0RF Discharge Orders: Discharge ED (Routine); Ordered 12/04/24 Ordered By: Thuan Gatica Referrals: Ferguson,GIULIANA ZamanN [Primary Care Provider, Nurse Practitioner] Discharge Diet: Usual diet Discharge Activity: Limit activity as instructed Patient Instructions: Opioid Safety, Pain Management, Patient Portal & A[facility]ou Instructions Activity Restrictions/Additional Instructions: Thank you for choosing [facility] for your healthcare needs today. It is very important that you follow up as instructed or that you return to the Emergency Department should you have concerns or if your condition changes or worsens in any way. You are seen in the emergency room with concerns about the incision at the gluteal fold. There is a very small area of dehiscence suspect from your description that this was created by seroma which is the fluid that you had noted draining from the wound. There is no sign of infection. Apply topical antibiotic ointment [id number] to the wound once or twice a day and follow-up with your surgeon as previously scheduled. Continue to follow all other recommendations that your surgeon gave you for postop care Print Language: Mongolian Coding Level of Care Code ED Taste Tester for Katalina Kolb
== END 2024-12-04 09:40 | disposition home or self-care (01) ==
PROVIDERS: Emergency Provider Family Medicine; PCP Nurse Practitioner Family
DX: T81.31XA Disruption of external operation (surgical) wound, not elsewhere classified, initial encounter (principal); L76.34 Postprocedural seroma of skin and subcutaneous tissue following other procedure; E11.9 Type 2 diabetes mellitus without complications; X58.XXXA Exposure to other specified factors, initial encounter
CPT/HCPCS: 99282

== ENCOUNTER 2024-12-12 23:44 | Emergency (ER) | payer MEDICAID, SELFPAY ==
--- OUTSIDE RECORDS SUMMARY | 2024-12-06 23:59 | XMS_ITS | Continuity of Care Document ---
Author Name [facility] Address [address] [place] [address] Organization [facility] Care Team Providers Care Bagman/Woman Name Role Phone [facility] Unavailable Unavailable Problems Problem Status Onset Date [...] zinc, Oral, Daily, Refill(s) 0 Active 4 [facility] Allergies, Adverse Reactions, Alerts Substance Category Reaction Severity Reaction type Status Date Reported Comments Source morphine Assertion stopped breathing Drug allergy Active [facility] Results Order Name Results Value Reference Range Date Interpretation Comments Source GENERAL CHEMISTRY Total Protein 7.1 g/dL 5.7 - 8.2 11/22 13:56 :00 [facility] GENERAL CHEMISTRY Anion gap 12 mmol/L 0 - 20 11/22 13:56 :00 [facility] GENERAL CHEMISTRY T Bili 0.64 mg/dL 0.30 - 1.20 11/22 13:56 :00 [facility] GENERAL CHEMISTRY Potassium 3.9 mmol/L 3.5 - 5.1 11/22 13:56 :00 [facility] GENERAL CHEMISTRY CO2 28 mmol/L 20 - 31 11/22 13:56 :00 [facility] GENERAL CHEMISTRY Creatinine, standardized 0.6 mg/dL 0.5 - 1.0 11/22 13:56 :00 Interpretive Data: Jwacza-zj-ynr e transgender patients on testosterone therapy should have results assessed using the male reference range. Cysa-mq-fazwf e transgender patients on hormone-modul ating therapy clinical judgment is advisedfor assessment. [facility] GENERAL CHEMISTRY Estimated GFR for Adults 112 mL/min/1.7 3m 11/22 13:56 :00 Interpretive Data: Changed to CKD-EPI 2020 on 2020. [facility] GENERAL CHEMISTRY Estimated GFR for peds Not Calculated mL/min/1.7 3m 11/22 13:56 :00 Interpretive Data: The estimated GFR was calculated using the B vandana Webster equation (2009) . Reference: Pediatric GFR calculator at [employer] Website. [facility] GENERAL CHEMISTRY ALT-SGPT 55 U/L 10 - 40 11/22 13:56 :00 [facility] GENERAL CHEMISTRY BUN 20 mg/dL 6 - 20 11/22 13:56 :00 [facility] GENERAL CHEMISTRY Albumin 3.6 g/dL 3.4 - 5.0 11/22 13:56 :00 [facility] GENERAL CHEMISTRY Alkaline Phosphatase 73 U/L 35 - 104 11/22 13:56 :00 [facility] GENERAL CHEMISTRY AST-SGOT 32 U/L 11/22 13:56 :00 [facility] GENERAL CHEMISTRY Chloride 104 mmol/L 98 - 107 11/22 13:56 :00 [facility] GENERAL CHEMISTRY Sodium 140 mmol/L 136 - 145 11/22 13:56 :00 [facility] GENERAL CHEMISTRY Glucose Lvl 108 mg/dL 70 - 139 11/22 13:56 :00 [facility] GENERAL CHEMISTRY Calcium 9.4 mg/dL 8.3 - 10.6 11/22 13:56 :00 [facility] GENERAL CHEMISTRY Ferritin 20.9 ng/mL 7.3 - 270.7 11/22 13:56 :00 [facility] GENERAL CHEMISTRY TIBC 373 ug/dL 250 - 425 11/22 13:56 :00 [facility] GENERAL CHEMISTRY Iron 41 ug/dL 50 - 170 11/22 13:56 :00 [facility] GENERAL CHEMISTRY Iron Saturation 11.0 % 20.0 - 55.0 11/22 13:56 :00 [facility] GENERAL CHEMISTRY HDL Cholesterol 51 mg/dL 11/22 [...] Program [facility] [address] [address] [place] A[place]B [address] [email or web address] [facility] GENERAL CHEMISTRY Triglyceride s 167 mg/dL 11/22 13:56 :00 Interpretive Data: Less than 150 Normal 150 - 199 Borderline high 200 - 499 High 500 and above Very high National Cholesterol Education Program [facility] [address] [address] [place] [phone] [email or web address] [facility] GENERAL CHEMISTRY LDL (Calculated) 143 mg/dL 0 [...] et al. VIVIAN Cardiol. 2020; 26: 1-9. [facility] GENERAL CHEMISTRY Cholesterol 224 mg/dL 11/22 13:56 :00 [facility] GENERAL CHEMISTRY Cholesterol HDL Ratio 4.4 11/22 13:56 :00 [facility] GENERAL CHEMISTRY Magnesium 2.31 mg/dL 1.60 - 2.60 11/22 13:56 :00 [facility] GENERAL CHEMISTRY Phosphorus 4.4 mg/dL 2.4 - 5.1 11/22 13:56 :00 [facility] GENERAL CHEMISTRY Vitamin B12 3157 pg/mL 211 - 911 11/22 13:56 :00 [facility] GENERAL CHEMISTRY 25-OH Vitamin D Level 56.32 ng/mL 20.00 - 100.00 11/22 13:56 :00 [facility] GENERAL CHEMISTRY Folate 17.85 ng/mL 11/22 13:56 :00 [facility] HEMATOLOGY PROFILES WBC 6.33 x10(9)/L 3.50 - 10.50 11/22 13:56 :00 [facility] HEMATOLOGY PROFILES MPV 8.8 8.0 - 12.0 11/22 13:56 :00 [facility] HEMATOLOGY PROFILES MCH 27.0 pg 26.0 - 33.0 11/22 13:56 :00 [facility] HEMATOLOGY PROFILES RBC 4.03 x10(12)/L 3.90 - 5.03 11/22 13:56 :00 [facility] HEMATOLOGY PROFILES MCHC 31.7 g/dL 32.0 - 36.0 11/22 13:56 :00 [facility] HEMATOLOGY PROFILES HGB 10.9 g/dL 12.0 - 15.5 11/22 13:56 :00 Interpretive Data: Qbwtig-ns-snu e transgender patients on testosterone therapy should have results assessed using the male reference range. Wggg-cm-agzqv e transgender patients on hormone-modul ating therapy clinical judgment is advisedfor assessment. [facility] HEMATOLOGY PROFILES PLT 364 x10(9)/L 150 - 450 11/22 13:56 :00 [facility] HEMATOLOGY PROFILES RDW CV 15.5 % 11.9 - 15.5 11/22 13:56 :00 [facility] HEMATOLOGY PROFILES HCT 34.4 % 34.9 - 44.5 11/22 13:56 :00 Interpretive Data: Gcesmj-eo-nox e transgender patients on testosterone therapy should have results assessed using the male reference range. Tpmg-ct-mqhkg e transgender patients on hormone-modul ating therapy clinical judgment is advisedfor assessment. [facility] HEMATOLOGY PROFILES RDW SD 45.3 fL 36.4 - 46.3 11/22 13:56 :00 [facility] HEMATOLOGY PROFILES MCV 85.4 fL 81.6 - 98.3 11/22 13:56 :00 [facility] HEMAT[facility] PROFILES Abs Lymphocytes 2.19 x10(9)/L 0.90 - 2.90 11/22 13:56 :00 [facility] HEMATOLOGY PROFILES Abs Monocytes 0.48 x10(9)/L 0.30 - 0.90 11/22 13:56 :00 [facility] HEMATOLOGY PROFILES % Immature Granulocytes 1.30 % 0.02 - 0.42 11/22 13:56 :00 [facility] HEMAT[facility] PROFILES Absolute Neutrophils 3.37 x10(9)/L 1.70 - 7.00 11/22 13:56 :00 [facility] HEMATOLOGY PROFILES Abs Eosinophils 0.17 x10(9)/L 0.05 - 0.50 11/22 13:56 :00 [facility] HEMATOLOGY PROFILES % Lymphocytes 34.6 % 11/22 13:56 :00 [facility] HEMATOLOGY PROFILES % Monocytes 7.6 % 11/22 13:56 :00 [facility] HEMATOLOGY PROFILES % Neutrophils 53.2 % 11/22 13:56 :00 [facility] HEMATOLOGY PROFILES % Eosinophils 2.7 % 11/22 13:56 :00 [facility] HEMATOLOGY PROFILES % Basophils 0.6 % 11/22 13:56 :00 [facility] HEMATOLOGY PROFILES % Nucleated RBCs 0.0 % 11/22 13:56 :00 [facility] HEMATOLOGY PROFILES Absolute Nucleated RBCs 0.0 x10(9)/L 0.0 - 0.0 11/22 13:56 :00 Interpretive Data: Normal values not established in patients less than 18 years old. [facility] HEMATOLOGY PROFILES Abs Basophils 0.04 x10(9)/L 0.00 - 0.30 11/22 13:56 :00 [facility] HEMATOLOGY PROFILES Abs Immature Granulocytes 0.08 x10(9)/L 0.00 - 0.03 11/22 13:56 :00 [facility] CHEMISTRY Intact PTH 56.0 pg/mL 18.4 - 80.1 11/22 13:56 :00 [facility] Thiamin( Bld)-Espinoza 136 nmol/L 70 - 180 11/22 13:56 :00 Result Comment: ------ADDITIO NAL INFORMATION-- ---- This test was developed and its performance characteristi cs determined by [facility] in a manner consistent with CLIA requirements. This test has not been cleared or approved by the U.S. Food and Drug Administratio n. Test Performed by: [facility] [place] [address] Pier Hand: Mathew Murillo Ph.D.; CLIA# [id number] [facility] Free Retinol(Vit A)-[place] 68.3 ug/dL 32.5 - 78.0 11/22 13:56 :00 Result Comment: ------ADDITIO NAL INFORMATION-- ---- This test was developed and its performance characteristi cs determined by [facility] in a manner consistent with CLIA requirements. This test has not been cleared or approved by the U.S. Food and Drug Administratio n. Test Performed by: [facility] [place] [address] Pier Hand: Mathew Murillo Ph.D.; CLIA# [id number] [facility] A-Tocopherol , Vit E-[place]land 13.8 mg/L 5.5 - 17.0 11/22 13:56 :00 Result Comment: ------ADDITIO NAL INFORMATION-- ---- This test was developed and its performance characteristi cs determined by [facility] in a manner consistent with CLIA requirements. This test has not been cleared or approved by the U.S. Food and Drug Administratio n. Test Performed by: [facility] [place] [address] Pier Hand: Mathew Murillo Ph.D.; CLIA# [id number] [facility] Vitamin K1-[place]land 0.15 ng/mL 0.10 - 2.20 11/22 13:56 :00 Result Comment: ------ADDITIO NAL INFORMATION-- ---- This test was developed and its performance characteristi cs determined by [facility] in a manner consistent with CLIA requirements. This test has not been cleared or approved by the U.S. Food and Drug Administratio n. Test Performed by: [facility] [place] [address] Pier Hand: Mathew Murillo Ph.D.; CLIA# [id number] [facility] Zinc, S-Espinoza 105 ug/dL 60 - 106 11/22 13:56 :00 Result Comment: ------ADDITIO NAL INFORMATION-- ---- This test was developed and its performance characteristi cs determined by [facility] in a manner consistent with CLIA requirements. This test has not been cleared or approved by the U.S. Food and Drug Administratio n. Test Performed by: [facility] [place] [address] Pier Hand: Mathew Murillo Ph.D.; CLIA# [id number] [facility] Copper, S-Espinoza 122 ug/dL 77 - 206 11/22 13:56 :00 Result Comment: ------ADDITIO NAL INFORMATION-- ---- This test was developed and its performance characteristi cs determined by [facility] in a manner consistent with CLIA requirements. This test has not been cleared or approved by the U.S. Food and Drug Administratio n. Test Performed by: [place] [address] Pier Hand: Mathew Murillo Ph.D.; CLIA# [id number] [facility] HEMAT[facility]Y PROFILES HGB 9.5 g/dL 12.0 - 15.5 11/13 01:56 :00 Interpretive Data: Byhghf-to-zhs e transgender patients on testosterone therapy should have results assessed using the male reference range. Wtkm-yn-zlmnj e transgender patients on hormone-modul ating therapy clinical judgment is advisedfor assessment. [facility] HEMATOLOGY PROFILES HCT 29.1 % 34.9 - 44.5 11/13 01:56 :00 Interpretive Data: Kwwaoi-tg-ctf e transgender patients on testosterone therapy should have results assessed using the male reference range. Qqiw-vs-jrhep e transgender patients on hormone-modul ating therapy clinical judgment is advisedfor assessment. [facility] GENERAL CHEMISTRY Creatinine, standardized 0.5 mg/dL 0.5 - 1.0 08/09 08:38 :00 Interpretive Data: Ttgqix-je-clw e transgender patients on testosterone therapy should have results assessed using the male reference range. Otey-tz-dqykn e transgender patients on hormone-modul ating therapy clinical judgment is advisedfor assessment. [facility] GENERAL CHEMISTRY T Bili 0.30 mg/dL 0.30 - 1.20 08/09 08:38 :00 [facility] GENERAL CHEMISTRY Total Protein 6.2 g/dL 5.7 - 8.2 08/09 08:38 :00 [facility] GENERAL CHEMISTRY CO2 28 mmol/L 20 - 31 08/09 08:38 :00 [facility] GENERAL CHEMISTRY Anion gap 11 mmol/L 0 - 20 08/09 08:38 :00 [facility] GENERAL CHEMISTRY Sodium 139 mmol/L 136 - 145 08/09 08:38 :00 [facility] GENERAL CHEMISTRY Potassium 4.0 mmol/L 3.5 - 5.1 08/09 08:38 :00 [facility] GENERAL CHEMISTRY Glucose Lvl 79 mg/dL 70 - 139 08/09 08:38 :00 [facility] GENERAL CHEMISTRY Chloride 104 mmol/L 98 - 107 08/09 08:38 :00 [facility] GENERAL CHEMISTRY Calcium 8.2 mg/dL 8.3 - 10.6 08/09 08:38 :00 [facility] GENERAL CHEMISTRY ALT-SGPT 32 U/L 10 - 40 08/09 08:38 :00 [facility] GENERAL CHEMISTRY BUN 16 mg/dL 6 - 20 08/09 08:38 :00 [facility] GENERAL CHEMISTRY Albumin 3.3 g/dL 3.4 - 5.0 08/09 08:38 :00 [facility] GENERAL CHEMISTRY Alkaline Phosphatase 57 U/L 35 - 104 08/09 08:38 :00 [facility] GENERAL CHEMISTRY AST-SGOT 17 U/L 08/09 08:38 :00 [facility] GENERAL CHEMISTRY Estimated GFR for peds Not Calculated mL/min/1.7 3m 08/09 08:38 :00 Interpretive Data: The estimated GFR was calculated using the B vandana Webster equation (2009) . Reference: Pediatric GFR calculator at [employer] Website. [facility] GENERAL CHEMISTRY Estimated GFR for Adults 118 mL/min/1.7 3m 08/09 08:38 :00 Interpretive Data: Changed to CKD-EPI 2020 on 2020. [facility] HEMATOLOGY PROFILES RDW SD 38.9 fL 36.4 - 46.3 08/09 08:38 :00 [facility] HEMATOLOGY PROFILES RDW CV 12.6 % 11.9 - 15.5 08/09 08:38 :00 [facility] HEMATOLOGY PROFILES MPV 9.6 8.0 - 12.0 08/09 08:38 :00 [facility] HEMATOLOGY PROFILES PLT 236 x10(9)/L 150 - 450 08/09 08:38 :00 [facility] HEMATOLOGY PROFILES HCT 28.5 % 34.9 - 44.5 08/09 08:38 :00 Interpretive Data: Qbbycn-iv-jcv e transgender patients on testosterone therapy should have results assessed using the male reference range. Pggn-hf-iikev e transgender patients on hormone-modul ating therapy clinical judgment is advisedfor assessment. [facility] HEMATOLOGY PROFILES HGB 9.6 g/dL 12.0 - 15.5 08/09 08:38 :00 Interpretive Data: Nuaxdz-bn-ibe e transgender patients on testosterone therapy should have results assessed using the male reference range. Szyu-jg-aswtc e transgender patients on hormone-modul ating therapy clinical judgment is advisedfor assessment. [facility] HEMATOLOGY PROFILES MCV 85.8 fL 81.6 - 98.3 08/09 08:38 :00 [facility] HEMATOLOGY PROFILES MCHC 33.7 g/dL 32.0 - 36.0 08/09 08:38 :00 [facility] HEMATOLOGY PROFILES MCH 28.9 pg 26.0 - 33.0 08/09 08:38 :00 [facility] HEMATOLOGY PROFILES RBC 3.32 x10(12)/L 3.90 - 5.03 08/09 08:38 :00 [facility] HEMATOLOGY PROFILES WBC 7.73 x10(9)/L 3.50 - 10.50 08/09 08:38 :00 [facility] HEMATOLOGY PROFILES Absolute Nucleated RBCs 0.0 x10(9)/L 0.0 - 0.0 08/09 08:38 :00 Interpretive Data: Normal values not established in patients less than 18 years old. [facility] HEMATOLOGY PROFILES % Nucleated RBCs 0.0 % 08/09 08:38 :00 [facility] HEMATOLOGY PROFILES % Lymphocytes 49.8 % 08/09 08:38 :00 [facility] HEMATOLOGY PROFILES % Neutrophils 40.7 % 08/09 08:38 :00 [facility] HEMATOLOGY PROFILES % Eosinophils 2.8 % 08/09 08:38 :00 [facility] HEMATOLOGY PROFILES % Monocytes 6.0 % 08/09 08:38 :00 [facility] HEMATOLOGY PROFILES Abs Basophils 0.02 x10(9)/L 0.00 - 0.30 08/09 08:38 :00 [facility] HEMATOLOGY PROFILES Abs Eosinophils 0.22 x10(9)/L 0.05 - 0.50 08/09 08:38 :00 [facility] HEMATOLOGY PROFILES Abs Immature Granulocytes 0.03 x10(9)/L 0.00 - 0.03 08/09 08:38 :00 [facility] HEMATOLOGY PROFILES % Immature Granulocytes 0.40 % 0.02 - 0.42 08/09 08:38 :00 [facility] HEMATOLOGY PROFILES % Basophils 0.3 % 08/09 08:38 :00 [facility] HEMATOLOGY PROFILES Absolute Granulocytes 3.15 x10(9)/L 1.70 - 7.00 08/09 08:38 :00 [facility] HEMATOLOGY PROFILES Abs Monocytes 0.46 x10(9)/L 0.30 - 0.90 08/09 08:38 :00 [facility] HEMATOLOGY PROFILES Abs Lymphocytes 3.85 x10(9)/L 0.90 - 2.90 08/09 08:38 :00 [facility] GENERAL CHEMISTRY Estimated GFR for Adults 123 mL/min/1.7 3m 08/09 00:47 :00 Interpretive Data: Changed to CKD-EPI 2020 on 2020. [facility] GENERAL CHEMISTRY Estimated GFR for peds Not Calculated mL/min/1.7 3m 08/09 00:47 :00 Interpretive Data: The estimated GFR was calculated using the Isadora ross Webster equation (2009) . Reference: Pediatric GFR calculator at [employer] Website. [facility] GENERAL CHEMISTRY Total Protein 6.1 g/dL 5.7 - 8.2 08/09 00:47 :00 [facility] GENERAL CHEMISTRY Potassium 4.2 mmol/L 3.5 - 5.1 08/09 00:47 :00 [facility] GENERAL CHEMISTRY CO2 28 mmol/L 20 - 31 08/09 00:47 :00 [facility] GENERAL CHEMISTRY Anion gap 10 mmol/L 0 - 20 08/09 00:47 :00 [facility] GENERAL CHEMISTRY T Bili 0.30 mg/dL 0.30 - 1.20 08/09 00:47 :00 [facility] GENERAL CHEMISTRY Creatinine, standardized 0.4 mg/dL 0.5 - 1.0 08/09 00:47 :00 Interpretive Data: Kkgwwc-wg-jqk e transgender patients on testosterone therapy should have results assessed using the male reference range. Qktn-ih-rhrhj e transgender patients on hormone-modul ating therapy clinical judgment is advisedfor assessment. [facility] GENERAL CHEMISTRY Sodium 139 mmol/L 136 - 145 08/09 00:47 :00 [facility] GENERAL CHEMISTRY BUN 17 mg/dL 6 - 20 08/09 00:47 :00 [facility] GENERAL CHEMISTRY Calcium 8.7 mg/dL 8.3 - 10.6 08/09 00:47 :00 [facility] GENERAL CHEMISTRY Glucose Lvl 106 mg/dL 70 - 139 08/09 00:47 :00 [facility] GENERAL CHEMISTRY Chloride 105 mmol/L 98 - 107 08/09 00:47 :00 [facility] GENERAL CHEMISTRY Alkaline Phosphatase 56 U/L 35 - 104 08/09 00:47 :00 [facility] GENERAL CHEMISTRY ALT-SGPT 34 U/L 10 - 40 08/09 00:47 :00 [facility] GENERAL CHEMISTRY AST-SGOT 19 U/L 08/09 00:47 :00 [facility] GENERAL CHEMISTRY Albumin 3.2 g/dL 3.4 - 5.0 08/09 00:47 :00 [facility] HEMATOLOGY PROFILES WBC 7.32 x10(9)/L 3.50 - 10.50 08/09 00:47 :00 [facility] HEMATOLOGY PROFILES RBC 3.19 x10(12)/L 3.90 - 5.03 08/09 00:47 :00 [facility] HEMATOLOGY PROFILES HGB 9.1 g/dL 12.0 - 15.5 08/09 00:47 :00 Interpretive Data: Ymzafr-up-omk e transgender patients on testosterone therapy should have results assessed using the male reference range. Ajvu-po-yfczd e transgender patients on hormone-modul ating therapy clinical judgment is advisedfor assessment. [facility] HEMATOLOGY PROFILES HCT 27.5 % 34.9 - 44.5 08/09 00:47 :00 Interpretive Data: Uexkih-cd-wdd e transgender patients on testosterone therapy should have results assessed using the male reference range. Evkh-ff-jndis e transgender patients on hormone-modul ating therapy clinical judgment is advisedfor assessment. [facility] HEMATOLOGY PROFILES MCV 86.2 fL 81.6 - 98.3 08/09 00:47 :00 [facility] HEMATOLOGY PROFILES MCH 28.5 pg 26.0 - 33.0 08/09 00:47 :00 [facility] HEMATOLOGY PROFILES MCHC 33.1 g/dL 32.0 - 36.0 08/09 00:47 :00 [facility] HEMATOLOGY PROFILES RDW CV 12.5 % 11.9 - 15.5 08/09 00:47 :00 [facility] HEMATOLOGY PROFILES RDW SD 39.4 fL 36.4 - 46.3 08/09 00:47 :00 [facility] HEMATOLOGY PROFILES PLT 239 x10(9)/L 150 - 450 08/09 00:47 :00 [facility] HEMATOLOGY PROFILES MPV 9.7 8.0 - 12.0 08/09 00:47 :00 [facility] HEMATOLOGY PROFILES Absolute Granulocytes 3.63 x10(9)/L 1.70 - 7.00 08/09 00:47 :00 [facility] HEMATOLOGY PROFILES Abs Lymphocytes 3.00 x10(9)/L 0.90 - 2.90 08/09 00:47 :00 [facility] HEMATOLOGY PROFILES Abs Monocytes 0.52 x10(9)/L 0.30 - 0.90 08/09 00:47 :00 [facility] HEMATOLOGY PROFILES Abs Eosinophils 0.14 x10(9)/L 0.05 - 0.50 08/09 00:47 :00 [facility] HEMATOLOGY PROFILES Abs Basophils 0.02 x10(9)/L 0.00 - 0.30 08/09 00:47 :00 [facility] HEMATOLOGY PROFILES Abs Immature Granulocytes 0.01 x10(9)/L 0.00 - 0.03 08/09 00:47 :00 [facility] HEMATOLOGY PROFILES % Nucleated RBCs 0.0 % 08/09 00:47 :00 [facility] HEMATOLOGY PROFILES Absolute Nucleated RBCs 0.0 x10(9)/L 0.0 - 0.0 08/09 00:47 :00 Interpretive Data: Normal values not established in patients less than 18 years old. [facility] HEMATOLOGY PROFILES % Neutrophils 49.6 % 08/09 00:47 :00 [facility] HEMATOLOGY PROFILES % Lymphocytes 41.0 % 08/09 00:47 :00 [facility] HEMATOLOGY PROFILES % Monocytes 7.1 % 08/09 00:47 :00 [facility] HEMATOLOGY PROFILES % Eosinophils 1.9 % 08/09 00:47 :00 [facility] HEMATOLOGY PROFILES % Basophils 0.3 % 08/09 00:47 :00 [facility] HEMATOLOGY PROFILES % Immature Granulocytes 0.10 % 0.02 - 0.42 08/09 00:47 :00 [facility] URINALYSIS Urine Collection Method Clean Catch UR (01/05/24 1:40 PM) 01/04 18:40 :00 [facility] URINALYSIS CLARITY Clear (01/05/24 1:40 PM) 01/04 18:40 :00 [facility] URINALYSIS COLOR Straw (01/05/24 1:40 PM) 01/04 18:40 :00 [facility] URINALYSIS SPECIFIC GRAVITY 1.006 1.006 - 1.030 01/04 18:40 :00 [facility] URINALYSIS UA PH 5 (01/05/24 1:40 PM) 4.5 - 8.0 01/04 18:40 :00 [facility] URINALYSIS UA GLUCOSE Negative mg/dL 01/04 18:40 :00 [facility] URINALYSIS UA KETONES Negative mg/dL 01/04 18:40 :00 [facility] URINALYSIS BILIRUBIN Negative (01/05/24 1:40 PM) 01/04 18:40 :00 [facility] URINALYSIS UA UROBILINOGEN Negative Aman unit/dL 0.2 - 1.0 01/04 18:40 :00 [facility] URINALYSIS UA BLOOD Negative 4 (01/05/24 1:40 PM) 01/04 18:40 :00 Result Comment: A hemoglobin concentration of 0.015-0.062 mg/dL is approximately equivalent to 5 -20 intact red blood cells per microliter. [facility] URINALYSIS UA LEUKOCYTES Negative (01/05/24 1:40 PM) 01/04 18:40 :00 [facility] URINALYSIS UA NITRITE Negative (01/05/24 1:40 PM) 01/04 18:40 :00 [facility] URINALYSIS UA PROTEIN Negative mg/dL 01/04 18:40 :00 [facility] GENERAL CHEMISTRY Lipase 221 U/L 12 - 60 01/04 17:46 :00 [facility] GENERAL CHEMISTRY AST-SGOT 39 U/L 01/04 17:46 :00 [facility] GENERAL CHEMISTRY Albumin 3.9 g/dL 3.4 - 5.0 01/04 17:46 :00 [facility] GENERAL CHEMISTRY Alkaline Phosphatase 81 U/L 35 - 104 01/04 17:46 :00 [facility] GENERAL CHEMISTRY ALT-SGPT 53 U/L 10 - 40 01/04 17:46 :00 [facility] GENERAL CHEMISTRY BUN 14 mg/dL 6 - 20 01/04 17:46 :00 [facility] GENERAL CHEMISTRY Calcium 8.8 mg/dL 8.3 - 10.6 01/04 17:46 :00 [facility] GENERAL CHEMISTRY Glucose Lvl 85 mg/dL 70 - 139 01/04 17:46 :00 [facility] GENERAL CHEMISTRY Chloride 107 mmol/L 98 - 107 01/04 17:46 :00 [facility] GENERAL CHEMISTRY Sodium 136 mmol/L 136 - 145 01/04 17:46 :00 [facility] GENERAL CHEMISTRY Potassium 4.1 mmol/L 3.5 - 5.1 01/04 17:46 :00 [facility] GENERAL CHEMISTRY CO2 25 mmol/L 20 - 31 01/04 17:46 :00 [facility] CHEMISTRY Anion gap 8 mmol/L 0 - 20 01/04 17:46 :00 [facility] GENERAL CHEMISTRY T Bili 0.44 mg/dL 0.30 - 1.20 01/04 17:46 :00 [facility] GENERAL CHEMISTRY Total Protein 7.4 g/dL 5.7 - 8.2 01/04 17:46 :00 [facility] CHEMISTRY Creatinine, standardized 0.6 mg/dL 0.5 - 1.0 01/04 17:46 :00 Interpretive Data: Ictsus-ki-dvt e transgender patients on testosterone therapy should have results assessed using the male reference range. Jotr-ks-xoyaq e transgender patients on hormone-modul ating therapy clinical judgment is advisedfor assessment. [facility] CHEMISTRY Estimated GFR for Adults 112 mL/min/1.7 3m 01/04 17:46 :00 Interpretive Data: Changed to CKD-EPI 2020 on 2020. [facility] CHEMISTRY Estimated GFR for peds Not calculated 01/04 17:46 :00 Interpretive Data: The estimated GFR was calculated using the B vandana Webster equation (2009) . Reference: Pediatric GFR calculator at [employer] Website. [facility] GENERAL CHEMISTRY Phosphorus 4.1 mg/dL 2.4 - 5.1 01/04 17:46 :00 [facility] GENERAL CHEMISTRY Magnesium 2.10 mg/dL 1.60 - 2.60 01/04 17:46 :00 [facility] HEMATOLOGY PROFILES WBC 6.59 x10(9)/L 3.50 - 10.50 01/04 17:46 :00 [facility] HEMATOLOGY PROFILES RBC 4.41 x10(12)/L 3.90 - 5.03 01/04 17:46 :00 [facility] HEMATOLOGY PROFILES HGB 12.6 g/dL 12.0 - 15.5 01/04 17:46 :00 Interpretive Data: Hdykbl-cy-ugv e transgender patients on testosterone therapy should have results assessed using the male reference range. Snnx-ug-tivkn e transgender patients on hormone-modul ating therapy clinical judgment is advisedfor assessment. [facility] HEMATOLOGY PROFILES HCT 37.7 % 34.9 - 44.5 01/04 17:46 :00 Interpretive Data: Zpcplz-dc-ecd e transgender patients on testosterone therapy should have results assessed using the male reference range. Mrmy-er-imobz e transgender patients on hormone-modul ating therapy clinical judgment is advisedfor assessment. [facility] HEMATOLOGY PROFILES MCV 85.5 fL 81.6 - 98.3 01/04 17:46 :00 [facility] HEMATOLOGY PROFILES MCH 28.6 pg 26.0 - 33.0 01/04 17:46 :00 [facility] HEMATOLOGY PROFILES MCHC 33.4 g/dL 32.0 - 36.0 01/04 17:46 :00 [facility] HEMATOLOGY PROFILES RDW CV 12.2 % 11.9 - 15.5 01/04 17:46 :00 [facility] HEMATOLOGY PROFILES RDW SD 38.0 fL 36.4 - 46.3 01/04 17:46 :00 [facility] HEMATOLOGY PROFILES PLT 283 x10(9)/L 150 - 450 01/04 17:46 :00 [facility] HEMATOLOGY PROFILES MPV 9.3 8.0 - 12.0 01/04 17:46 :00 [facility] HEMATOLOGY PROFILES % Nucleated RBCs 0.0 % 01/04 17:46 :00 [facility] HEMATOLOGY PROFILES Absolute Nucleated RBCs 0.0 x10(9)/L 0.0 - 0.0 01/04 17:46 :00 Interpretive Data: Normal values not established in patients less than 18 years old. [facility] HEMATOLOGY PROFILES % Neutrophils 42.5 % 01/04 17:46 :00 [facility] HEMATOLOGY PROFILES % Lymphocytes 50.1 % 01/04 17:46 :00 [facility] HEMATOLOGY PROFILES % Monocytes 5.6 % 01/04 17:46 :00 [facility] HEMATOLOGY PROFILES % Eosinophils 1.1 % 01/04 17:46 :00 [facility] HEMATOLOGY PROFILES % Basophils 0.5 % 01/04 17:46 :00 [facility] HEMATOLOGY PROFILES % Immature Granulocytes 0.20 % 0.02 - 0.42 01/04 17:46 :00 [facility] HEMATOLOGY PROFILES Absolute Granulocytes 2.81 x10(9)/L 1.70 - 7.00 01/04 17:46 :00 [facility] HEMATOLOGY PROFILES Abs Lymphocytes 3.30 x10(9)/L 0.90 - 2.90 01/04 17:46 :00 [facility] HEMATOLOGY PROFILES Abs Monocytes 0.37 x10(9)/L 0.30 - 0.90 01/04 17:46 :00 [facility] HEMATOLOGY PROFILES Abs Eosinophils 0.07 x10(9)/L 0.05 - 0.50 01/04 17:46 :00 [facility] HEMATOLOGY PROFILES Abs Basophils 0.03 x10(9)/L 0.00 - 0.30 01/04 17:46 :00 [facility] HEMATOLOGY PROFILES Abs Immature Granulocytes 0.01 x10(9)/L 0.00 - 0.03 01/04 17:46 :00 [facility] GENERAL CHEMISTRY Estimated GFR for peds Not calculated 01/04 17:20 :35 Interpretive Data: The estimated GFR was calculated using the B vandana Webster equation (2009) . Reference: Pediatric GFR calculator at [employer] Website. [facility] GENERAL CHEMISTRY AST-SGOT 36 U/L 01/04 17:20 :35 [facility] GENERAL CHEMISTRY Albumin 3.8 g/dL 3.4 - 5.0 01/04 17:20 :35 [facility] GENERAL CHEMISTRY Alkaline Phosphatase 80 U/L 35 - 104 01/04 17:20 :35 [facility] GENERAL CHEMISTRY ALT-SGPT 53 U/L 10 - 40 01/04 17:20 :35 [facility] GENERAL CHEMISTRY BUN 16 mg/dL 6 - 20 01/04 17:20 :35 [facility] GENERAL CHEMISTRY Calcium 8.8 mg/dL 8.3 - 10.6 01/04 17:20 :35 [facility] GENERAL CHEMISTRY Glucose Lvl 86 mg/dL 70 - 139 01/04 17:20 :35 [facility] GENERAL CHEMISTRY Chloride 105 mmol/L 98 - 107 01/04 17:20 :35 [facility] GENERAL CHEMISTRY Sodium 137 mmol/L 136 - 145 01/04 17:20 :35 [facility] GENERAL CHEMISTRY Potassium 3.8 mmol/L 3.5 - 5.1 01/04 17:20 :35 [facility] GENERAL CHEMISTRY CO2 25 mmol/L 20 - 31 01/04 17:20 :35 [facility] GENERAL CHEMISTRY Anion gap 11 mmol/L 0 - 20 01/04 17:20 :35 [facility] GENER[facility] CHEMISTRY T Bili 0.43 mg/dL 0.30 - 1.20 01/04 17:20 :35 [facility] GENERAL CHEMISTRY Total Protein 7.4 g/dL 5.7 - 8.2 01/04 17:20 :35 [facility] CHEMISTRY Creatinine, standardized 0.6 mg/dL 0.5 - 1.0 01/04 17:20 :35 Interpretive Data: Kyxgvr-ih-lpm e transgender patients on testosterone therapy should have results assessed using the male reference range. Ymua-dd-ggnlp e transgender patients on hormone-modul ating therapy clinical judgment is advisedfor assessment. [facility] GENERAL CHEMISTRY Estimated GFR for Adults 112 mL/min/1.7 3m 01/04 17:20 :35 Interpretive Data: Changed to CKD-EPI 2020 on 2020. [facility] GENERAL CHEMISTRY Cholesterol 148 mg/dL 01/04 17:20 :35 [facility] GENERAL CHEMISTRY HDL Cholesterol 35 mg/dL 01/04 [...] Program [employer] [facility] [address] [address] [facility] [address] http:www.nhlb i.nih.gov [facility] GENERAL CHEMISTRY Triglyceride s 153 mg/dL 01/04 17:20 :35 Interpretive Data: Less than 150 Normal 150 - 199 Borderline high 200 - 499 High 500 and above Very high National Cholesterol Education Program [facility] Health Information Network [address] [address] [place] [phone] http://www.tn lbi,nih.gov [facility] GENERAL CHEMISTRY LDL (Calculated) 82 mg/dL 0 - 129 01/04 17:20 :35 Interpretive Data: LDL Cholesterol Level mg/dL Category Less than 100 Optimal 100 to 129 Near or above optimal 130 to 159 Borderline high 160 to 189 High 190 and above Very High Note: Values < 80 mg/dL may indicate hypobetalipop roteinemia, if not on Statin therapy. Reference: ATP III Guidelines, http://fcm-al [email or web address] [email or web address] d.htm [place] Cholesterol Education Program [facility] Health Information Network [address] [address] [place]B [address] http:www.[email or web address] i.nih.gov Footnote: Depending on cardiac risk factors, age, and sex, [facility] Cardiology prefers: <75 mg/dl optimal <100 mg/dl desirable [facility] GENERAL CHEMISTRY Cholesterol HDL Ratio 4.2 01/04 17:20 :35 [facility] GENERAL CHEMISTRY Vitamin B12 1903 pg/mL 211 - 911 01/04 17:20 :35 [facility] GENERAL CHEMISTRY Magnesium 2.06 mg/dL 1.60 - 2.60 01/04 17:20 :35 [facility] GENERAL CHEMISTRY Iron 50 ug/dL 50 - 170 01/04 17:20 :35 [facility] GENERAL CHEMISTRY TIBC 323 ug/dL 250 - 425 01/04 17:20 :35 [facility] GENERAL CHEMISTRY Iron Saturation 15.0 % 20.0 - 55.0 01/04 17:20 :35 [facility] GENERAL CHEMISTRY 25-OH Vitamin D Level 89.80 ng/mL 20.00 - 100.00 01/04 17:20 :35 [facility] HEMATOLOGY PROFILES WBC 6.30 x10(9)/L 3.50 - 10.50 01/04 17:20 :35 [facility] HEMATOLOGY PROFILES RBC 4.41 x10(12)/L 3.90 - 5.03 01/04 17:20 :35 [facility] HEMATOLOGY PROFILES HGB 12.3 g/dL 12.0 - 15.5 01/04 17:20 :35 Interpretive Data: Babqjm-br-tzf e transgender patients on testosterone therapy should have results assessed using the male reference range. Bpbr-pp-lyamx e transgender patients on hormone-modul ating therapy clinical judgment is advisedfor assessment. [facility] HEMATOLOGY PROFILES HCT 37.7 % 34.9 - 44.5 01/04 17:20 :35 Interpretive Data: Ypzuim-lc-lsc e transgender patients on testosterone therapy should have results assessed using the male reference range. Kiwk-ri-pwegw e transgender patients on hormone-modul ating therapy clinical judgment is advisedfor assessment. [facility] HEMATOLOGY PROFILES MCV 85.5 fL 81.6 - 98.3 01/04 17:20 :35 [facility] HEMATOLOGY PROFILES MCH 27.9 pg 26.0 - 33.0 01/04 17:20 :35 [facility] HEMATOLOGY PROFILES MCHC 32.6 g/dL 32.0 - 36.0 01/04 17:20 :35 [facility] HEMATOLOGY PROFILES RDW CV 12.4 % 11.9 - 15.5 01/04 17:20 :35 [facility] HEMATOLOGY PROFILES RDW SD 38.7 fL 36.4 - 46.3 01/04 17:20 :35 [facility] HEMATOLOGY PROFILES PLT 280 x10(9)/L 150 - 450 01/04 17:20 :35 [facility] HEMATOLOGY PROFILES MPV 9.6 8.0 - 12.0 01/04 17:20 :35 [facility] HEMATOLOGY PROFILES Absolute Neutrophils Manual 2.62 x10(9)/L 1.70 - 7.00 01/04 17:20 :35 [facility] HEMATOLOGY PROFILES Abs Lymphocytes Manual 3.57 x10(9)/L 0.90 - 2.90 01/04 17:20 :35 [facility] HEMATOLOGY PROFILES Abs Monocytes Manual 0.06 x10(9)/L 0.30 - 0.90 01/04 17:20 :35 [facility] HEMATOLOGY PROFILES Abs Eosinophils Manual 0.06 x10(9)/L 0.05 - 0.50 01/04 17:20 :35 [facility] HEMATOLOGY PROFILES Neuts Manual 41.6 % 01/04 17:20 :35 [facility] HEMATOLOGY PROFILES Lymphocytes Manual 56.6 % 01/04 17:20 :35 [facility] HEMATOLOGY PROFILES Monocytes Manual 0.9 % 01/04 17:20 :35 [facility] HEMATOLOGY PROFILES Eosinophils Manual 0.9 % 01/04 17:20 :35 [facility] HEMATOLOGY PROFILES Morphology Present *NA* (01/05/24 12:20 PM) 01/04 17:20 :35 [facility] HEMATOLOGY PROFILES Platelet Estimate Adequate *NA* (01/05/24 12:20 PM) 01/04 17:20 :35 [facility] HEMATOLOGY PROFILES [place] Cells 2+ (25-50%) *NA* (01/05/24 12:20 PM) 01/04 17:20 :35 [facility] Hemoglobin A1c 5.2 % 4.0 - 5.6 01/04 17:20 :35 Interpretive Data: Interpretativ e Information: Hemoglobin A1C (HbA1c) Comment Tab: [place] Diabetes [employer] criteria: 5.6% Normal 5.7 to [...] Standardizati on Program (NGSP) website: http://www.ng sp.org [facility] MISC CHEMISTRY Estimated Average Glucose 103 mg/dL [...] Average Glucose Values. Diabetes Care 31:1473-8, 2007 [facility] Thiamin(Wh Bld)-[place] 146 nmol/L 70 - 180 01/04 17:20 :35 Result Comment: ------ADDITIO NAL INFORMATION-- ---- This test was developed and its performance characteristi cs determined by [facility] in a manner consistent with CLIA requirements. This test has not been cleared or approved by the U.S. Food and Drug Administratio n. Test Performed by: [facility] - [place] [id number] Pier Hand: Mathew Murillo Ph.D.; CLIA# [id number] [facility] CT Abdomen and Pelvis CT Abdomen and [...] Signed on: 01/05/24 15:54 01/04 14:49 :00 [facility] Consultation Notes Results Value Date Source General [...] for Future Visit, Copy Result To Dietitians, [facility] Ref Doc No ORP Reason: Self-referral Comprehensive Metabolic Panel, Routine collect, Blood, *Est. Start date 11/17/24, Bariatric surgery status Postoperative malabsorption, Order for Future Visit, Copy Result To Dietitians, [facility], [facility] Ref Doc No ORP Reason: Self-referral Copper, Serum-Espinoza, Routine collect, Serum, *Est. Start date 11/17/24, Bariatric surgery status Postoperative malabsorption, Order for Future Visit, Copy Result To Dietitians, [facility], [facility] Ref Doc No ORP Reason: Self-referral Ferritin Level, Routine collect, Blood, *Est. Start date 11/17/24, Bariatric surgery status Postoperative malabsorption, Order for Future Visit, Copy Result To Dietitians, [facility], Orig Ref Doc No ORP Reason: Self-referral Folate Level, Routine collect, Blood, *Est. Start date 11/17/24, Bariatric surgery status Postoperative malabsorption, Order for Future Visit, Copy Result To Dietitians, [facility], Orig Ref Doc No ORP Reason: Self-referral Intact PTH, Routine collect, PLASMA, *Est. Start date 11/17/24, Bariatric surgery status Postoperative malabsorption, Order for Future Visit, Copy Result To Dietitians, [facility], Orig Ref Doc No ORP Reason: Self-referral Iron Level and TIBC, Routine collect, PLASMA, *Est. Start date 11/17/24, Bariatric surgery status Postoperative malabsorption, Order for Future Visit, Copy Result To Dietitians, [facility], Orig Ref Doc No ORP Reason: Self-referral Lipid Profile, Routine collect, Blood, *Est. Start date 11/17/24, Bariatric surgery status Postoperative malabsorption, Order for Future Visit, Copy Result To Dietitians, [facility], Orig Ref Doc No ORP Reason: Self-referral Magnesium Level, Routine collect, Blood, *Est. Start date 11/17/24, Bariatric surgery status Postoperative malabsorption, Order for Future Visit, Copy Result To Dietitians, [facility], Orig Ref Doc No ORP Reason: Self-referral Phosphorus Level, Routine collect, Blood, *Est. Start date 11/17/24, Bariatric surgery status Postoperative malabsorption, Order for Future Visit, Copy Result To Dietitians, [facility], Orig Ref Doc No ORP Reason: Self-referral Vitamin A Level-[place], Routine collect, Serum, *Est. Start date 11/17/24, Bariatric surgery status Postoperative malabsorption, Order for Future Visit, Copy Result To Dietitians, [facility], Orig Ref Doc No ORP Reason: Self-referral Vitamin B1 (Thiamin) Whole Blood-[place], Routine collect, Blood, *Est. Start date 11/17/24, Bariatric surgery status Postoperative malabsorption, Order for Future Visit, Copy Result To Dietitians, [facility], Orig Ref Doc No ORP Reason: Self-referral Vitamin B12 Level, Routine collect, Blood, *Est. Start date 11/17/24, Bariatric surgery status Postoperative malabsorption, Order for Future Visit, Copy Result To Dietitians, [facility], Orig Ref Doc No ORP Reason: Self-referral Vitamin D Level, Routine collect, Serum, *Est. Start date 11/17/24, Bariatric surgery status Postoperative malabsorption, Order for Future Visit, Copy Result To Dietitians, [facility], Orig Ref Doc No ORP Reason: Self-referral Vitamin E Level-[place], Routine collect, Serum, *Est. Start date 11/17/24, Bariatric surgery status Postoperative malabsorption, Order for Future Visit, Copy Result To Dietitians, [facility], Orig Ref Doc No ORP Reason: Self-referral Vitamin K1 Level-[place], Routine collect, Serum, *Est. Start date 11/17/24, Bariatric surgery status Postoperative malabsorption, Order for Future Visit, Copy Result To Dietitians, [facility], Orig Ref Doc No ORP Reason: Self-referral Zinc, Serum (ZN_S) - [place], Routine collect, Serum, *Est. Start date 11/17/24, Bariatric surgery status Postoperative malabsorption, Order for Future Visit, Copy Result To Dietitians, [facility], Orig Ref Doc No ORP Reason: Self-referral 1).Overweight, [...] Lipid Profile Magnesium Level Phosphorus Level Copper, serum-[place] Vitamin B1 (Thiamin) Whole Blood-[place] Vitamin B12 Level Vitamin K1 level-[place] Vitamin A level-[place] Vitamin D Level Zinc Level-[place] Patient advised to continue Bariatric MVI along with [id number] mg per day with Vitamin D. 4) [...] Diagnostic Results Visit Information Attending Physician: Adriel TREVINOP Primary Care Physician: Junie Ferguson RADIOLOGIC TECHNOLOGIST Visit Date: 11/17/2024 11/17/2024 General Surgery Clinic [...] for Future Visit, Copy Result To Dietitians, [facility], Orig Ref Doc No ORP Reason: Self-referral Comprehensive Metabolic Panel, Routine collect, Blood, *Est. Start date 11/17/24, Bariatric surgery status Postoperative malabsorption, Order for Future Visit, Copy Result To Dietitians, [facility], Orig Ref Doc No ORP Reason: Self-referral Copper, Serum-Espinoza, Routine collect, Serum, *Est. Start date 11/17/24, Bariatric surgery status Postoperative malabsorption, Order for Future Visit, Copy Result To Dietitians, [facility], Orig Ref Doc No ORP Reason: Self-referral Ferritin Level, Routine collect, Blood, *Est. Start date 11/17/24, Bariatric surgery status Postoperative malabsorption, Order for Future Visit, Copy Result To Dietitians, [facility], Orig Ref Doc No ORP Reason: Self-referral Folate Level, Routine collect, Blood, *Est. Start date 11/17/24, Bariatric surgery status Postoperative malabsorption, Order for Future Visit, Copy Result To Dietitians, [facility], Orig Ref Doc No ORP Reason: Self-referral Intact PTH, Routine collect, PLASMA, *Est. Start date 11/17/24, Bariatric surgery status Postoperative malabsorption, Order for Future Visit, Copy Result To Dietitians, [facility], Orig Ref Doc No ORP Reason: Self-referral Iron Level and TIBC, Routine collect, PLASMA, *Est. Start date 11/17/24, Bariatric surgery status Postoperative malabsorption, Order for Future Visit, Copy Result To Dietitians, [facility], Orig Ref Doc No ORP Reason: Self-referral Lipid Profile, Routine collect, Blood, *Est. Start date 11/17/24, Bariatric surgery status Postoperative malabsorption, Order for Future Visit, Copy Result To Dietitians, [facility], Orig Ref Doc No ORP Reason: Self-referral Magnesium Level, Routine collect, Blood, *Est. Start date 11/17/24, Bariatric surgery status Postoperative malabsorption, Order for Future Visit, Copy Result To Dietitians, [facility], Orig Ref Doc No ORP Reason: Self-referral Phosphorus Level, Routine collect, Blood, *Est. Start date 11/17/24, Bariatric surgery status Postoperative malabsorption, Order for Future Visit, Copy Result To Dietitians, [facility], Orig Ref Doc No ORP Reason: Self-referral Vitamin A Level-[place], Routine collect, Serum, *Est. Start date 11/17/24, Bariatric surgery status Postoperative malabsorption, Order for Future Visit, Copy Result To Dietitians, [facility], Orig Ref Doc No ORP Reason: Self-referral Vitamin B1 (Thiamin) Whole Blood-[place], Routine collect, Blood, *Est. Start date 11/17/24, Bariatric surgery status Postoperative malabsorption, Order for Future Visit, Copy Result To Dietitians, [facility], Orig Ref Doc No ORP Reason: Self-referral Vitamin B12 Level, Routine collect, Blood, *Est. Start date 11/17/24, Bariatric surgery status Postoperative malabsorption, Order for Future Visit, Copy Result To Dietitians, [facility], Orig Ref Doc No ORP Reason: Self-referral Vitamin D Level, Routine collect, Serum, *Est. Start date 11/17/24, Bariatric surgery status Postoperative malabsorption, Order for Future Visit, Copy Result To Dietitians, [facility], Orig Ref Doc No ORP Reason: Self-referral Vitamin E Level-Espinoza, Routine collect, Serum, *Est. Start date 11/17/24, Bariatric surgery status Postoperative malabsorption, Order for Future Visit, Copy Result To Dietitians, [facility], Orig Ref Doc No ORP Reason: Self-referral Vitamin K1 Level-Espinoza, Routine collect, Serum, *Est. Start date 11/17/24, Bariatric surgery status Postoperative malabsorption, Order for Future Visit, Copy Result To Dietitians, [facility], Orig Ref Doc No ORP Reason: Self-referral Zinc, Serum (ZN_S) - [place]ino[place], Routine collect, Serum, *Est. Start date 11/17/24, Bariatric surgery status Postoperative malabsorption, Order for Future Visit, Copy Result To Dietitians, [facility], Orig Ref Doc No ORP Reason: Self-referral Postoperative malabsorption Ordered: CBC with Auto Differential, Routine collect, Blood, *Est. Start date 11/17/24, Bariatric surgery status Postoperative malabsorption, Order for Future Visit, Copy Result To Dietitians, [facility], Orig Ref Doc No ORP Reason: Self-referral Comprehensive Metabolic Panel, Routine collect, Blood, *Est. Start date 11/17/24, Bariatric surgery status Postoperative malabsorption, Order for Future Visit, Copy Result To Dietitians, [facility], Orig Ref Doc No ORP Reason: Self-referral Copper, Serum-Espinoza, Routine collect, Serum, *Est. Start date 11/17/24, Bariatric surgery status Postoperative malabsorption, Order for Future Visit, Copy Result To Dietitians, [facility], Orig Ref Doc No ORP Reason: Self-referral Ferritin Level, Routine collect, Blood, *Est. Start date 11/17/24, Bariatric surgery status Postoperative malabsorption, Order for Future Visit, Copy Result To Dietitians, [facility], Orig Ref Doc No ORP Reason: Self-referral Folate Level, Routine collect, Blood, *Est. Start date 11/17/24, Bariatric surgery status Postoperative malabsorption, Order for Future Visit, Copy Result To Dietitians, [facility], Orig Ref Doc No ORP Reason: Self-referral Intact PTH, Routine collect, PLASMA, *Est. Start date 11/17/24, Bariatric surgery status Postoperative malabsorption, Order for Future Visit, Copy Result To Dietitians, [facility], Orig Ref Doc No ORP Reason: Self-referral Iron Level and TIBC, Routine collect, PLASMA, *Est. Start date 11/17/24, Bariatric surgery status Postoperative malabsorption, Order for Future Visit, Copy Result To Dietitians, [facility], Orig Ref Doc No ORP Reason: Self-referral Lipid Profile, Routine collect, Blood, *Est. Start date 11/17/24, Bariatric surgery status Postoperative malabsorption, Order for Future Visit, Copy Result To Dietitians, [facility], Orig Ref Doc No ORP Reason: Self-referral Magnesium Level, Routine collect, Blood, *Est. Start date 11/17/24, Bariatric surgery status Postoperative malabsorption, Order for Future Visit, Copy Result To Dietitians, [facility], Orig Ref Doc No ORP Reason: Self-referral Phosphorus Level, Routine collect, Blood, *Est. Start date 11/17/24, Bariatric surgery status Postoperative malabsorption, Order for Future Visit, Copy Result To Dietitians, [facility], Orig Ref Doc No ORP Reason: Self-referral Vitamin A Level-[place], Routine collect, Serum, *Est. Start date 11/17/24, Bariatric surgery status Postoperative malabsorption, Order for Future Visit, Copy Result To Dietitians, [facility], Orig Ref Doc No ORP Reason: Self-referral Vitamin B1 (Thiamin) Whole Blood-[place], Routine collect, Blood, *Est. Start date 11/17/24, Bariatric surgery status Postoperative malabsorption, Order for Future Visit, Copy Result To Dietitians, [facility], Orig Ref Doc No ORP Reason: Self-referral Vitamin B12 Level, Routine collect, Blood, *Est. Start date 11/17/24, Bariatric surgery status Postoperative malabsorption, Order for Future Visit, Copy Result To Dietitians, [facility], Orig Ref Doc No ORP Reason: Self-referral Vitamin D Level, Routine collect, Serum, *Est. Start date 11/17/24, Bariatric surgery status Postoperative malabsorption, Order for Future Visit, Copy Result To Dietitians, [facility], Orig Ref Doc No ORP Reason: Self-referral Vitamin E Level-[place], Routine collect, Serum, *Est. Start date 11/17/24, Bariatric surgery status Postoperative malabsorption, Order for Future Visit, Copy Result To Dietitians, [facility], Orig Ref Doc No ORP Reason: Self-referral Vitamin K1 Level-[place], Routine collect, Serum, *Est. Start date 11/17/24, Bariatric surgery status Postoperative malabsorption, Order for Future Visit, Copy Result To Dietitians, [facility], Orig Ref Doc No ORP Reason: Self-referral Zinc, Serum (ZN_S) - [place], Routine collect, Serum, *Est. Start date 11/17/24, Bariatric surgery status Postoperative malabsorption, Order for Future Visit, Copy Result To Dietitians, [facility], Orig Ref Doc No ORP Reason: [...] Lipid Profile Magnesium Level Phosphorus Level Copper, serum-[place] Vitamin B1 (Thiamin) Whole Blood-[place] Vitamin B12 Level Vitamin K1 level-[place] Vitamin A level-[place] Vitamin D Level Zinc Level-[place] Patient advised to continue Bariatric MVI along with [id number] mg per day with Vitamin D. 4) [...] Results Visit Information Attending Physician: Adriel Bloom RADIOLOGIC TECHNOLOGIST Primary Care Physician: Junie Ferguson RADIOLOGIC TECHNOLOGIST Visit Date: 11/17/2024 This note is in error-redicitated due to encounter change 11/17/2024 Op/Procedure Note Patient's Name: RACHEL LORENZ Date of Service: 11/12/2024 Preoperative Diagnosis: (1) left buttock hematoma Postoperative Diagnosis: (1) left buttock hematoma Procedure Performed: (1) evacuation of post-surgical hematoma (95456) Attending Surgeon: Dr. Chris Warner Inspector Tool Surgeon(s): Dr. Angi Scott Anesthesia: general Estimated [...] loss Procedure Performed: (1) bilateral buttock lift (63234 x2) Attending Surgeon: Dr. Chris Warner Inspector Tool Surgeon(s): Dr. Angi Scott; Dr. Krystle Hernandez [...] hours weekly transdermal film, extended release)Every Friday. [id number] Microgram Daily. multivitamin (Flintstones Multivitamins)Daily. multivitamin with [...] POD 2 thighplasty bleeding and swelling Attending: Walker Ram MD Priority: Within 4 Hours Yes w/notification to [...] hours weekly transdermal film, extended release)Every Friday. [id number] Microgram Daily. multivitamin (Flintstones Multivitamins)Daily. multivitamin with [...] swelling status post bilateral thighplasty Requesting Provider Walker Ram MD History of Present Illness Patient is a [...] surgery, consent form reviewed and signed. NPO @dc. Plastic Surgery Recommendations: -Admit to obs. -Consent reviewed and signed. -Compression garments to all four extremities / unless showering. -PRS to reevaluate tomorrow am, possible OR tomorrow. NPO @mn. -Hold DVT ppx. Patient discussed with Dr. [...] changes in the meanwhile. Chris Warner MD compliance attorney Plastic and Reconstructive Surgery 08/08/2024 Op/Procedure Note [...] weight loss Procedure Performed: (1) bilateral brachioplasty (37546 x2) (2) bilateral medial thighplasty (03149 x2) Attending Surgeon: Dr. Chris Warner Inspector Tool Surgeon(s): Dr. Howard Leonard; Dr. Angi Pedraza; [...] Family Practice, Referring Physicians Within As Needed [address] [address]- Additional Instructions: Medication Reconciliation Unchanged albuterol (Ventolin HFA 90 mcg/inh inhalation aerosol)as needed as needed for wheezing. biotinOral Daily. calcium-vitamin D (Caltrate 600+D oral tablet, chewable)1 tab(s) Twice daily. estradiol (Estradiol Patch 0.1 mg/24 hours weekly transdermal film, extended release)Every Friday. [id number] Microgram Daily. multivitamin (Flintstones Multivitamins)Daily. multivitamin with iron (Multiple Vitamins with Iron oral tablet)1 Tablet(s) with zinc Oral Daily. ED Forms Attestation by Herson Frausto MD on January 09, 2024 21:30 I personally [...] acid for IV infusion 1, IV iohexol, 01714 mg, IV iohexol 350 mg/mL injectable solution: [...] okay to follow up with GI at [facility]. Po challenge successfully passed in the ED. Dispo: Patient discharged home and provided with return precautions. Assessment/Plan 1. Gastritis Patient Education Gastritis Follow Up No qualifying data available Medication Administration Given multivitamins for injection 10 mL + thiamine for IV infusion 100 mg + folic acid for IV infusion 1, IV iohexol, 89317 mg, IV iohexol 350 mg/mL injectable solution: [...] hours weekly transdermal film, extended release)Every Friday. [id number] Microgram Daily. multivitamin (Flintstones Multivitamins)Daily. multivitamin with iron (Multiple Vitamins with Iron oral tablet)1 Tablet(s) with zinc Oral Daily. Attestation by Herson Frausto MD on January 07, 2024 09:52 I personally saw and evaluated the patient. I discussed the management with the resident and reviewed the resident s note. I agree with the documented findings and plan of care. Procedures: _ Critical Care: _ [1] CT Abdomen and Pelvis; Jerry AYOUB, Marilin Sumner 01/05/2024 14:53 CDT 01/05/2024 General Surgery Consult [...] outpatient Recommend that she get to her remanufacturing technician prior to May as previously scheduled, there is some concern for pancreatic insufficiency as she has been having changes in her bowel movements and bloom stools as well as an increased lipase Patient seen with bariatric fellow Orlin Valdez MD – Staff: Dr. Aviles Attestation by Romario Aviles MD on January 05, 2024 22:12 I personally [...] the short term, and she has a remanufacturing technician that is already seeing her for these issues. I would suggest she see her remanufacturing technician sooner rather than later. If she has [place] [facility] problems with fecal incontinence, I am happy [...] lidocaine topical(lidocaine 4% patch), 1 Patch, Transdermal, [id number] oxyCODONE(_oxyCODONE 5 mg oral tablet), 5 mg= [...] Adriel [facility] [address] [address] Confirmed POP 11/22/2024 09:40 AM CDT Chris Warner MD Surg Plastic Surgery [facility] [place] [address]- Confirmed Nursing/Other Orders Regular Diet. Ordered on [...] Information Status POP 08/16/2024 10:30 AM CDT Timmy AYOUB, Chris PEREZ Surg Plastic Surgery [facility] [place] [address]- Confirmed TLH RT1 11/17/2024 11:45 AM CDT Adriel [facility] [address] [address] Confirmed Nursing/Other Orders Regular Diet. [...] 11/12/2024 History and Physical Admission Note Benita Sandoval have examined the patient. A full history and physical has been documented on _07/27_ by _Dr. Pedraza_. There is no change in the patient's condition and we will proceed with the plan of care as previously documented. 08/06/2024 Vital Signs Vital Sign Value Date Comments Source SpO2 99 % 08/09/2024 15:58:32 [facility] Heart Rate 72 bpm 08/09/2024 15:58:23 [facility] Heart Rate 77 bpm 08/09/2024 13:46:14 [facility] SpO2 100 % 08/09/2024 13:46:14 [facility] Heart Rate 79 bpm 08/09/2024 13:30:55 [facility] SpO2 100 % 08/09/2024 13:30:54 [facility] SBP NIBP 124 mm[Hg] 08/09/2024 13:27:01 [facility] DBP NIBP 59 mm[Hg] 08/09/2024 13:27:01 [facility] Mean NIBP 74 mm[Hg] 08/09/2024 13:27:01 [facility] SBP NIBP 128 mm[Hg] 08/09/2024 08:18:00 [facility] DBP NIBP 48 mm[Hg] 08/09/2024 08:18:00 [facility] Temperature (Celsius) 36.5 Kareen 08/09/2024 08:18:00 [facility] Respiratory Rate 16 breaths/min 08/09/2024 08:18:00 [facility] Mean NIBP 77 mm[Hg] 08/09/2024 08:18:00 [facility] Heart Rate 74 bpm 08/09/2024 08:18:00 [facility] SpO2 100 % 08/09/2024 08:18:00 [facility] Temperature (Celsius) 36.7 Kareen 08/09/2024 04:30:00 [facility] SBP NIBP 116 mm[Hg] 08/09/2024 04:30:00 [facility] DBP NIBP 53 mm[Hg] 08/09/2024 04:30:00 [facility] Respiratory Rate 14 breaths/min 08/09/2024 04:30:00 [facility] Mean NIBP 78 mm[Hg] 08/09/2024 04:30:00 [facility] Respiratory Rate 20 breaths/min 08/09/2024 03:34:55 [facility] Respiratory Rate 19 breaths/min 08/09/2024 03:29:20 [facility] Mean NIBP 77 mm[Hg] 08/09/2024 02:30:00 [facility] SBP NIBP 117 mm[Hg] 08/09/2024 02:30:00 [facility] DBP NIBP 59 mm[Hg] 08/09/2024 02:30:00 [facility] Weight (kg) 77.7 kg 08/09/2024 00:39:00 [facility] Heart Rate 70 bpm 08/06/2024 22:00:00 [facility] Respiratory Rate 16 breaths/min 08/06/2024 22:00:00 [facility] SBP NIBP 130 mm[Hg] 08/06/2024 22:00:00 [facility] DBP NIBP 90 mm[Hg] 08/06/2024 22:00:00 [facility] SpO2 100 % 08/06/2024 22:00:00 [facility] Heart Rate 70 bpm 08/06/2024 20:45:00 [facility] SpO2 100 % 08/06/2024 20:45:00 [facility] SBP NIBP 130 mm[Hg] 08/06/2024 20:45:00 [facility] DBP NIBP 90 mm[Hg] 08/06/2024 20:45:00 [facility] Respiratory Rate 16 breaths/min 08/06/2024 20:45:00 [facility] Heart Rate 60 bpm 08/06/2024 20:32:12 [facility] SpO2 100 % 08/06/2024 20:32:11 [facility] Respiratory Rate 14 breaths/min 08/06/2024 20:31:51 [facility] Mean NIBP 90 mm[Hg] 08/06/2024 20:30:00 [facility] SBP NIBP 130 mm[Hg] 08/06/2024 20:30:00 [facility] DBP NIBP 69 mm[Hg] 08/06/2024 20:30:00 [facility] Heart Rate 61 bpm 08/06/2024 20:16:37 [facility] SpO2 97 % 08/06/2024 20:16:37 [facility] Respiratory Rate 16 breaths/min 08/06/2024 20:16:17 [facility] SBP NIBP 122 mm[Hg] 08/06/2024 20:15:00 [facility] DBP NIBP 70 mm[Hg] 08/06/2024 20:15:00 [facility] Mean NIBP 90 mm[Hg] 08/06/2024 20:15:00 [facility] Mean NIBP 80 mm[Hg] 08/06/2024 20:00:00 [facility] Mean NIBP 88 mm[Hg] 08/06/2024 19:45:00 [facility] Temperature (Celsius) 36.2 Kareen 08/06/2024 19:15:00 [facility] Height (cm) 168 cm 08/06/2024 13:14:00 [facility] Weight (kg) 70.5 kg 08/06/2024 13:14:00 [facility] Temperature (Celsius) 36.2 Kareen 08/06/2024 13:14:00 [facility] Height (cm) 168 cm 07/26/2024 17:21:00 [facility] BSA Michelle 1.81 07/26/2024 17:21:00 [facility] SBP NIBP 104 mm[Hg] 07/26/2024 17:21:00 [facility] DBP NIBP 71 mm[Hg] 07/26/2024 17:21:00 [facility] Weight (kg) 71.1 kg 07/26/2024 17:21:00 [facility] Temperature (Celsius) 36.7 Kareen 07/26/2024 17:21:00 [facility] BMI 25.2 kg/m2 07/26/2024 17:21:00 [facility] Heart Rate 66 bpm 07/26/2024 17:21:00 [facility] Heart Rate 74 bpm 01/06/2024 01:30:00 [facility] SpO2 98 % 01/06/2024 01:30:00 [facility] SpO2 100 % 01/06/2024 00:34:01 [facility] Heart Rate 59 bpm 01/06/2024 00:34:00 [facility] Mean NIBP 104 mm[Hg] 01/06/2024 00:34:00 [facility] SBP NIBP 121 mm[Hg] 01/06/2024 00:34:00 [facility] DBP NIBP 83 mm[Hg] 01/06/2024 00:34:00 [facility] Heart Rate 56 bpm 01/05/2024 23:30:00 [facility] SpO2 97 % 01/05/2024 23:30:00 [facility] Heart Rate 61 bpm 01/05/2024 21:25:00 [facility] SpO2 100 % 01/05/2024 21:25:00 [facility] Mean NIBP 105 mm[Hg] 01/05/2024 20:10:00 [facility] SBP NIBP 120 mm[Hg] 01/05/2024 20:10:00 [facility] DBP NIBP 93 mm[Hg] 01/05/2024 20:10:00 [facility] Weight (kg) 72.1 kg 01/05/2024 17:35:00 [facility] SBP NIBP 116 mm[Hg] 01/05/2024 17:35:00 [facility] DBP NIBP 81 mm[Hg] 01/05/2024 17:35:00 [facility] Respiratory Rate 18 breaths/min 01/05/2024 17:35:00 [facility] Temperature (Celsius) 36.5 Kareen 01/05/2024 17:35:00 [facility] Temperature (Celsius) 35.9 Kareen 01/05/2024 16:16:00 [facility] Heart Rate 76 bpm 01/05/2024 16:16:00 [facility] SBP NIBP 108 mm[Hg] 01/05/2024 16:16:00 [facility] DBP NIBP 72 mm[Hg] 01/05/2024 16:16:00 [facility] Height (cm) 166.2 cm 01/05/2024 16:16:00 [facility] Weight (kg) 70.95 kg 01/05/2024 16:16:00 [facility] BMI 25.7 kg/m2 01/05/2024 16:16:00 [facility] BSA Michelle 1.79 01/05/2024 16:16:00 [facility] Encounters Location Location Details Encounter Type Encounter Number Reason For Visit Attending Provider ADM Date DC Date Status Source [facility] [id number] Chris Warner 01/04 15:37 :17 01/05 04:59 :59 [facility] Emergency [id number] Len Marks 01/04 17:28 :23 01/05 01:32 :00 [facility] PreReg [id number] Chris Warner 04/02 11:00 :00 06/02 05:59 :59 [facility] Surg Plastic Surgery Between Visit [id number] 04/13 17:17 :27 04/14 05:59 :59 [facility] Surg Plastic Surgery Between Visit [id number] 07/02 14:32 :11 07/03 05:59 :59 [facility] Surg Plastic Surgery Clinic [id number] Chris Warner 07/26 16:03 :23 07/27 05:59 :59 [facility] Day Surgery [id number] Chris Warner 08/06 12:31 :39 08/06 22:46 :00 [facility] Nurse Phone Call Clinic [id number] Aram Chou 08/06 13:56 :11 08/07 05:59 :59 [facility] Observation [id number] Pravin Fonseca 08/09 00:12 :50 08/09 16:42 :00 [facility] zzMU Surg General Surgery Between Visit [id number] 08/11 18:14 :12 08/12 04:59 :59 [facility] Surg Plastic Surgery Clinic [id number] Chris Warner 08/16 15:05 :29 08/17 04:59 :59 [facility] Surg Plastic Surgery Clinic [id number] Chris Warner 08/30 16:12 :57 08/31 04:59 :59 [facility] Surg Plastic Surgery Clinic [id number] Chris Warner 10/06 12:58 :07 10/07 04:59 :59 [facility] Observation [id number] Angi Scott 11/12 09:27 :51 11/14 16:00 :00 [facility] Nurse Phone Call Clinic [id number] Aram Chou 11/12 12:37 :33 11/13 04:59 :59 [facility] Non-Admit [id number] Adriel Bloom 11/17 13:09 :38 11/18 04:59 :59 [facility] Virtual Care [id number] Adriel Bloom 11/17 17:21 :21 11/18 04:59 :59 [facility] Surg Plastic Surgery Clinic [id number] Chris Timmy 11/22 13:42 :50 11/23 04:59 :59 [facility] Between Visit [id number] 12/02 10:13 :01 12/02 23:59 :59 [facility] Between Visit [id number] 12/06 13:24 :24 12/07 04:59 :59 [facility] Surg Plastic Surgery Clinic [id number] Chris Timmy 12/06 15:44 :38 12/07 04:59 :59 [facility] Procedures Procedure Code Date Perfomer Comments Source brachioplasty, thighplasty 08/06/2024 06:00:00 [facility] Social History Social History Date Source Social History TypeResponse Sex Female Sex Representation Female (finding) 12/07/2024 [facility] Social History TypeResponse Sex Female Sex Representation Female (finding) 11/23/2024 [facility] Social History TypeResponse Sex Female Sex Representation Female (finding) 11/18/2024 [facility] Social History TypeResponse Sex Female Sex Representation Female (finding) 11/14/2024 [facility] Social History TypeResponse Sex Female Sex Representation Female (finding) 11/13/2024 [facility] Social History TypeResponse Sex Female Sex Representation Female (finding) 10/07/2024 [facility] Social History TypeResponse Sex Female Sex Representation Female (finding) 08/31/2024 [facility] Social History TypeResponse Sex Female Sex Representation Female (finding) 08/17/2024 [facility] Social History TypeResponse Sex Female Sex Representation Female (finding) 08/12/2024 [facility] Social History TypeResponse Sex Female Sex Representation Female (finding) 08/09/2024 [facility] Social History TypeResponse Sex Female Sex Representation Female (finding) 08/07/2024 [facility] Social History TypeResponse Sex Female Sex Representation Female (finding) 08/06/2024 [facility] Social History TypeResponse Sex Female Sex Representation Female (finding) 07/27/2024 [facility] Social History TypeResponse Sex Female Sex Representation Female (finding) 07/03/2024 [facility] Social History TypeResponse Sex Female Sex Representation Female (finding) 06/02/2024 [facility] Social History TypeResponse Sex Female Sex Representation Female (finding) 04/14/2024 [facility] Social History TypeResponse Sex Female Sex Representation Female (finding) 01/06/2024 [facility] Social History TypeResponse Sex Female Sex Representation Female (finding) 01/06/2024 [facility]
[2024-12-12 23:45] VITALS: BP 124/82; PULSE 71; RESP 18; TEMP 36.4; O2SAT 100; BMI 24.2
--- NOTE | 2024-12-12 23:50 | ECG_ITS ---
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 Measurements Intervals [place] Rate: 70 P: 66 SD: 211 QRS: 55 QRSD: 87 T: 47 QT: 414 QTc: 449 Interpretive Statements SINUS RHYTHM WITH FIRST DEGREE AV BLOCK Compared to ECG 12/19/2021 11:33:48 First degree AV block now present Electronically Signed On 12-14-2024 09:57:55 CDT by Misbah De Los Santos M.D. [email or web address]
--- OUTSIDE RECORDS SUMMARY | 2024-12-12 23:51 | XMS_ITS | Clinical Summary ---
Author Organization [employer] Address [address] 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 Gender Identity Not on file Sexual Orientation Not on file Last Filed Vital Signs Vital Sign Reading Time Taken Comments Blood Pressure 133/90 06/11/2017 11:54 AM MOTORCYCLE RACER Pulse 87 06/11/2017 11:54 AM MOTORCYCLE RACER Temperature 37 C (98.6 F) 06/11/2017 11:54 AM MOTORCYCLE RACER Respiratory Rate 20 06/11/2017 11:54 AM MOTORCYCLE RACER Oxygen Saturation - - Inhaled Oxygen Concentration - - Weight 96.6 kg (213 lb) 06/11/2017 8:47 AM MOTORCYCLE RACER Height 167.6 cm (5' 6 ) 06/11/2017 8:47 AM MOTORCYCLE RACER Body Mass Index 34.38 06/11/2017 8:47 AM MOTORCYCLE RACER Plan of Treatment Health Maintenance Due Date [...] 2021 INFLUENZA VACCINE (#1) 2024 Care Teams Human Resources Executive Assistant Relationship Specialty Start Date End Date Junie Ferguson APN [address] [place] [id number] PCP - General NURSE PRACTITIONER 06/15/15
--- OUTSIDE RECORDS SUMMARY | 2024-12-12 23:51 | XMS_ITS | Patient Health Record ---
Author Organization [facility] Address [address] [place] [address] Care Team Providers Care Makeup Sales Advisor Name Role Phone [facility] Primary Care Provider [phone] [facility] Unavailable Unavailable Allergies Allergen (clinical drug ingredient) Drug/Non Drug Allergy documented on EMR Reaction Allergy Type Onset Date Status morphine Morphine Unknown Drug Allergy Active Results Component Value Reference Range Flag Notes CBC w\ Auto Diff 63754 Reviewed date:09/20/2024 12:54:57 PM Interpretation: Performing Lab: Notes/Report: Diagnosis Description: Essential (primary) hypertension WBC 5.0 4.5-11.0 X10'3 RBC 4.47 4.00-5.20 X10'6 Hgb 12.0 12.0-16.0 G/DL Hct 39.7 36.0-46.0 % MCV 88.8 80.0-100.0 FL MCH 26.8 27.0-31.0 PG LOW MCHC 30.2 31.0-37.0 G/DL LOW Platelet 331 150-400 X10'3 RDW-SD 41.7 35.0-49.0 FL RDW-CV 12.6 12.2-15.6 % MPV 10.0 9.2-12.0 FL Neutro Auto% 40.6 40.0-70.0 % Lymph Auto% 48.8 22.0-44.0 % HI Austin Auto% 6.4 3.0-7.0 % Eos Auto% 3.2 2.0-4.0 % Baso Auto% 0.8 0.0-1.0 % Imm Gran% .2 .0-.4 % Neutro Abs 2.03 .80-7.70 Absolute Neutrophil Count 2030 NA Lymph Abs 2.44 .10-4.10 Austin Abs .32 .20-1.00 Eos Abs .16 .00-.40 Baso Abs .04 .00-.20 Imm Gran Abs .01 .00-.10 NRBC# .00 .00-.20 X10'3 NRBC% .00 .00-.20 /100 int act WBC's Hemoglobin A1c 51166 Reviewed date:09/20/2024 12:53:43 PM Interpretation: Performing Lab: Notes/Report: Diagnosis Description: Type 2 diabetes mellitus without complications Hgb A1c 4.6 3.8-6.4 % Interpretation Of Hgb A1c: 4.5-6.2 % nondiabetics. >7.0 % diabetics. EAG 85 NA Estimated Aver age Glucose(EAG). Lipid Panel Reflex DLDL 8006 1, 48333 Reviewed date:09/20/2024 12:54:13 PM Interpretation: Performing Lab: Notes/Report: Diagnosis Description: Essential (primary) hypertension Trig 159 NA Classification Guidelines:Triglycerides Adults: >20yrs Desirable <150 Borderline [...] LDL 119 0-130 MG/DL LDL result is inaccurate , if Trig is >400 mg/dl. See DLDL result. Thyroid Stimulating Hormone (TSH) 47261 Reviewed date:09/20/2024 12:54:27 PM Interpretation: Performing Lab: Notes/Report: Diagnosis Description: Hypothyroidism, unspecified TSH .556 .358-3.740 MlU/ML Vitamin D Total (B) 17174 Reviewed date:09/20/2024 12:56:44 PM Interpretation: Performing Lab: Notes/Report: Diagnosis Description: Other mcc (current) drug therapy Vitamin D Total 67.4 30.0-100.0 ng/mL Deficiency: < 20 ng/mL Insufficiency: 20??? < 30 ng/mL Sufficiency: 30???100 ng/mL Performed on the Siemens trend.lyllretickr IM Analyzer Vitamin B12 (B) 56993 Reviewed date:09/20/2024 12:55:08 PM Interpretation: Performing Lab: Notes/Report: Diagnosis Description: Other mcc (current) drug therapy [id number] 1486 211-911 pg/mL HI Comprehensive Metabolic Pane l (CMP) 45596 Reviewed date:09/20/2024 12:55:55 PM Interpretation: Performing Lab: Notes/Report: Diagnosis Description: Essential (primary) hypertension Glucose Serum 88 71-110 MG/DL Testing p erformed at [facility], [address] [place] [address] [place] [address]. CLIA ID#: [id number] BUN 17 7-21 MG/DL Creat .54 .51-1.17 MG/DL H-cwsigv-l-benzoquinone imine (NAPQI) is a metabolite of acetaminophen, [...] potential for falsely depressed results. GFR 113.0 NA Calculation pe rformed from GFR calculator provided by the [employer]. Glomerular Filtration rate(GRF) is the best overall index of kidney function. Normal GFR varies according to age,sex, body size, and declines with age. The [employer] recommends using the CKD-EPI Creatinine Equation(2020) to estimate GFR. BUN/Creat Ratio 31.5 12.0-20.0 % HI Total Protein 7.0 5.8-8.0 G/DL Albumin 4.5 3.2-4.8 G/DL Globulin 2.5 2.3-3.5 G/DL Alb/Glob 1.8 0.8-2.2 Calcium 9.9 8.7-10.4 MG/DL Sodium 141 136-145 MMOL/L Potassium 4.7 3.5-5.1 MMOL/L Chloride 107 98-107 MMOL/L CO2 29.5 20.0-31.0 MMOL/L Anion Gap 9 5-15 Alk Phos 87 46-116 Bili Total .3 .3-1.2 MG/DL Use of this assay is not recommended for patients undergoing treatment with eltrombopag due to the potential for falsely elevated results. AST/SGOT 33 15-37 UNIT/L ALT/SGPT 50 12-78 UNIT/L Osmo Serum,Calculated 293 280-300 MOSM/KG Hemoglobin A1c 99653 Reviewed date:04/26/2024 07:51:04 AM Interpretation:Normal Performing Lab: Notes/Report: Normal Hgb A1c 5.2 EAG 103 Reason For Referral Reason actinic keratosis; d yschromia Diagnosis 1 Actinic keratoses (L 57.0) Referral Organization [facility] Referring Provider First Name Junie Referring Provider Last Name Ferguson Referring Provider Speciality Nurse Kush her Referred Provider [facility], Referred Provider Specialty Dermatology Referral Priority Routine Reason Left Shoulder pain Diagnosis 1 Shoulder pain, left (M25.512) Referral Organization [facility] Referring Provider First Name Junie Referring Provider Last Name Ferguson Referring Provider Speciality Nurse Kush her Referred Organization [facility] Referred Address [address] [place] [phone], Referred Provider Specialty Orthopedic S urgery Referral Priority Routine Medications Medication SIG (Take, Route, Frequency, Duration) Notes Start Date End Date Status Levothyroxine Sodium 150 MCG Tablet TAKE 1 TABLET BY MOUTH EVERY DAY IN THE MORNING ON EMPTY STOMACH FOR 30 DAYS; Duration: 30 Not-Taking Pantoprazole Sodium 40 MG Tablet Delayed Release TAKE 1 TABLET BY MOUTH EVERY DAY FOR 30 DAYS; Duration: 30 Active Victoza 18 MG/3ML Solution Pen-injector 0.6 mg sq q day x 1 week then 1.2 mg sq q day as directed Subcutaneous daily; Duration: 30 days Not-Taking Ventolin HFA 108 (90 Base) MCG/ACT Aerosol Solution INHALE 2 PUFFS BY MOUTH 4 TIMES DAILY NEEDED FOR 30 DAYS; Duration: 30 days Active metFORMIN HCl 500 MG Tablet TAKE 2 TABLETS BY MOUTH TWICE DAILY AFTER A MEAL FOR BLOOD SUGAR; Duration: 30 Not-Taking Multivitamin Active Levothyroxine Sodium 137 MCG Tablet TAKE 1 TABLET BY MOUTH IN THE MORNING ON AN EMPTY STOMACH ONCE A DAY FOR 30 DAYS; Duration: 30 Active Cyclobenzaprine HCl 10 MG Tablet TAKE 1 TABLET BY MOUTH EVERY 8 HOURS NEEDED FOR MUSCLE SPASM Oral; Duration: 7 Days Not-Taking Docusate Sodium 100 MG Capsule TAKE 1 CAPSULE BY MOUTH TWICE A DAY; Duration: 30 Not-Taking traMADol HCl 50 MG Tablet TAKE 1 TABLET BY MOUTH EVERY 8 HOURS NEEDED FOR PAIN Oral; Duration: 7 Days Not-Taking Estradiol 0.1 MG/24HR Patch Weekly APPLY ONE PATCH TO SKIN EVERY WEEK; Duration: 28 days Active Furosemide 20 MG Tablet TAKE 1 TABLET BY MOUTH EVERY DAY NEEDED FOR SWELLING; Duration: 30 days Not-Taking Triamterene-HCTZ 37.5-25 MG Tablet TAKE 1 TABLET BY MOUTH EVERY DAY IN THE MORNING FOR 30 DAYS; Duration: 30 Not-Taking busPIRone HCl 10 MG Tablet TAKE 1/2-1 TA BLET BY MOUTH TWICE DAILY NEEDED FOR ANXIETY FOR 30 DAYS; Duration: 30 days Active Immunizations Vaccine Route Administration Date Status Comme nts Flucelvax Trivalent, Syringe 0.5 mL, PF Unknown 025 Refused Social History Tobacco Use: Social History Observation Description Date Details (start date - stop date) Never Smoker NA - NA Social History Depression Screening Social Info Question Answer Notes depression screening findings Findings Negative (0 -4) PHQ-9 Little interest or p abdiaziz in doing things Not at all Feeling [...] way Not at all Total Score 0 Drugs/Alcohol: Social Info Question Answer Notes Alcohol Screen (Audit-C) Did you have a drink containing alcohol in the past year? Yes How often did you have a drink containing alcohol in the past year? Monthly or less (1 point) How many drinks did you have on a typical day when you were drinking in the past year? 1 or 2 drinks (0 point) How often did you have 6 or more drinks on one occasion in the past year? Never (0 point) Points 1 Interpretation Negative Drugs Have you used drugs other than those for medical reasons in the past 12 months? No Tobacco Use: Social Info Question Answer Notes xTobacco Use/Smoking Are you a nonsmoker Additional Details Category Social Info Options Details Drugs/Alcohol: Do you smoke marijuana? De nies Do you drink alcohol? 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) 09/15/19 25 Active confirmed Problem Angiotensin-conve rting-enzyme inhibitor adverse reaction (995880900) Adverse effect of angiotensin-conve rting-enzyme inhibitors, initial encounter (T46.4X5A) Active confirmed Problem Type II diabetes mellitus without complication (547472068) Controlled type 2 diabetes mellitus without complication, without long-term current use of insulin (E11.9) Active confirmed Problem Bronchitis (00810502) Bronchitis (J40) Active confirmed Problem Anxiety (45910384) Anxiety (F41.9) Active confirmed Problem Type II diabetes mellitus without complication (986768751) Type 2 diabetes mellitus without complication, without long-term current use of insulin (E11.9) Active confirmed Problem Hyponatremia (10989220) Hyponatremia (E87.1) Active confirmed Problem Hyperglycemia due to type 2 diabetes mellitus (711115064790224) Type 2 diabetes mellitus with hyperglycemia, without long-term current use of insulin (E11.65) Active confirmed Problem Sinusitis (38847414) Sinusitis (J32.9) Active confirmed Problem Exacerbation of moderate persistent asthma (disorder) (697937431) Moderate persistent asthmatic bronchitis with acute exacerbation (J45.41) Active confirmed Problem Acute maxillary sinusitis (82559493) Acute non-recurrent maxillary sinusitis (J01.00) Active confirmed Problem Obesity (069056809) Obesity (BMI 30-39.9) (E66.9) Active confirmed Problem Menopause (146805514) Menopause (Z78.0) Active confirmed Problem Acquired hypothyroidism (655952628) Acquired hypothyroidism (E03.9) Active confirmed Problem Acute frontal sinusitis (30714260) Acute non-recurrent frontal sinusitis (J01.10) Active confirmed Problem Swelling (83593822) Swelling (R60.9) Active confirmed Problem Morbid obesity (999081074) Morbid obesity (E66.01) Active confirmed Problem Obese class II (133104920849541) Body mass index [BMI] 35.0-35.9, adult (Z68.35) Active confirmed Problem Body mass index 35.00 to 39.99 (314507430998023) Body mass index [BMI] 37.0-37.9, adult (Z68.37) Active confirmed Problem Primary hypertension (86596054) Primary hypertension (I10) Active confirmed Problem Acute cough (8017443811413753 04) Acute cough (R05.1) Active confirmed Problem Cough (finding) (73144494) Other specified cough (R05.8) Active confirmed Vital Signs Heart Rate 65 /min 09/14/2024 Temperature 97.7 degrees Fahrenheit 09/14/2024 Respiratory Rate 18 /min 09/14/2024 Height-cm 167.64 cm 09/14/2024 Oximetry 100 % 09/14/2024 Blood pressure diastolic 82 mm Hg 09/14/2024 Weight-kg 72.12 kg 09/14/2024 Height 66 in 09/14/2024 Blood pressure systolic 125 mm Hg 09/14/2024 Weight 159 lbs 09/14/2024 BMI 25.66 kg/m2 09/14/2024 Encounters Encounter Location Date Provider Diagnosis [facility] [address] [address] 05/31/2024 Junie Ferguson Shoulder pain, left M25.512 ; Acquired hypothyroidism E03.9 ; Gastric bypass status for obesity Z98.84 ; Menopause Z78.0 ; Bronchitis J40 ; Anxiety F41.9 ; Actinic keratoses L57.0 and Depression screen Z13.31 [facility] Office [address] [address] 09/14/2024 [facility] Immunization not car ried out because of patient refusal Z28.21 ; Bronchitis J40 ; Acquired hypothyroidism E03.9 ; Type 2 diabetes mellitus without complications E11.9 ; Sinusitis J32.9 ; Primary hypertension I10 ; Bariatric surgery status Z98.84 ; Drug therapy continued Z79.899 and Absence of uterus Z90.710 [facility] Office [address] [address] 01/01/2024 [facility] Type 2 diabetes christopher itus without complication, without long-term current use of insulin E11.[address] [address] 03/25/[address] [address] 05/03/[address] [address] 05/03/[address] [address] 09/02/[address] [address] 09/24/2024 [facility] Assessments Encounter Date Diagnosis (ICD Code) Assessment Notes Treatment Notes Treatment Clinical Notes Section Notes 05/31/2024 Shoulder pain, left (ICD-10 - M25.512) x ray 05/31/2024 Acquired hypothyroidism (ICD-10 - E03.9) tsh; levothyroxine 09/14/2024 Immunization not carried out because of patient refusal (ICD-10 - Z28.21) 09/14/2024 Bronchitis (ICD-10 - J40) cephalexin depomedrol/decadr on im 01/01/2024 Type 2 diabetes mellitus without complication, without long-term current use of insulin (ICD-10 - E11.9) 09/14/2024 Acquired hypothyroidism (ICD-10 - E03.9) tsh 05/31/2024 Gastric bypass status for obesity (ICD-10 - Z98.84) 09/14/2024 Type 2 diabetes mellitus without complications (ICD-10 - E11.9) ha1c 05/31/2024 Menopause (ICD-10 - Z78.0) 05/31/2024 Bronchitis (ICD-10 - J40) inhaler prn 09/14/2024 Sinusitis (ICD-10 - J32.9) 09/14/2024 Primary hypertension (ICD-10 - I10) cbc cmp lipids 05/31/2024 Anxiety (ICD-10 - F41.9) buspar 05/31/2024 Actinic keratoses (ICD-10 - L57.0) renetta [...] Name Order Date Thyroid Stimulating Hormone (TSH) 85932 05/31/2024 Shoulder Min 3V Left-24924 05/31/2024 Insurance Providers Payer Name Payer Address Payer Phone Subscriber Number Group Number Insured Name Patient Relationship to Insured Coverage Start Date Coverage End Date [facility] [employer] [address] [place] [address] [id number] Kathleen uTttle Self - patient is the insured Medications Administered Medication Instructions Date of Administration Dosage Notes DEPO-Medrol 12/30/2022 40 mg [facility] 07490-530 3-01 pt tolerated well/instructed to wait 20 min DEPO-Medrol 09/14/2024 40 mg [facility] 76240-193 3-01 pt tolerated well/instructed to wait 20 min dexAMETHasone 12/30/2022 4 mg [facility] 40427-1 423-00 pt tolerated well/instructed to wait 20 min dexAMETHasone 09/14/2024 4 mg [facility] 54345-2 423-00 pt tolerated well/instructed to wait 20 min Rocephin 12/30/2022 1 g [facility] [phone] -11 pt tolerated well/instructed to wait 20 min Medical (General) History Medical History History ICD Code Pneumonia anemia migraine headaches diabetes mellitus Back Trouble bronchitis Hypothyroidism Surgical History Surgery Date(Month/Year) gastric bypass 2022 partial hysterectomy 2021 tummy tuck 2020 tubal ligation 1996 Hospitalization History Reason Date(Month/Year) see surgical history childbirth childbirth childbirth
--- OUTSIDE RECORDS SUMMARY | 2024-12-12 23:51 | XMS_ITS | Data Portability ---
Author Organization [facility] Address [address] [place] [address] Assessment No assessment recorded. Plan of Treatment Reminders Order Date Submit Date Provider Last Modified By Organization Details Last Modified Time Details Appointments None recorded. Lab None recorded. Referral None recorded. Procedures None recorded. Surgeries None recorded. Imaging None recorded. Medication Orders doxycycline hyclate 100 mg capsule 2023 024 [facility] #[id number], [address], [facility], [place], [address], 4 10:10:50 doxycycline hyclate 100 mg capsule 2022 024 [facility], [address], [place], [address], 4 10:08:04 Patient TargetsNo targets recorded. Patient InstructionsNo instructions recorded. Reason for Referral None Reported. Problems Name Problem SNOMED Code Status Onset Date Resolution Date Notes Provider Name and Address Organization Details Recorded Time Type 2 diabetes mellitus without complicati on 391397384 Active 2017 Diabetes Mellitus, Type II; 8 7:00PM by Sue Alvarez MA, Office Visit; Promoted; acuity set as *; Not Available [facility] 3 03:11:02 Disorder of thyroid gland 09944074 Active 2017 Thyroid Disease; 8 7:00PM by Sue Alvarez MA, Office Visit; Promoted; acuity set as *; Not Available [facility] 3 03:11:02 Type 2 diabetes mellitus 89723414 Active 2017 TYPE II DIABETES MELLITUS; 8 3:31PM by Kathleen Casey CMT, Office Visit; Promoted; acuity set as *; Not Available [facility] 3 03:11:02 Problem Notes None recorded. Medical Equipment None Reported. Allergies Allergen ID Allergen Name Allergen Category Reaction Reaction Severity Criticality Documentation Date Start Date Code Code System Note Provider Name and Address Organization Details Recorded Time 36786 morphine sulfate medicatio n Not available Not available Not available 12/28/2022 28009 RxNorm Comme nt: Recor ded 01/09 3:30P M by Pernell robles CMT, Offic e Visit ; Promo aron; Lupillo ray ce: *; Reaso n: Drug aller gy; ; Not Available [facility] 3 02:28:05 Medications Name Sig Start Date Stop Date Status Note LastModified by Organization Details LastModified Time losartan 50 mg tablet TAKE 1 TABLET BY MOUTH EVERY DAY 06/28 completed Not Available Not Available Not Available metformin 500 mg tablet TAKE 2 TABLETS BY MOUTH TWICE DAILY AFTER A MEAL FOR BLOOD SUGAR 06/28 completed Not Available Not Available Not Available doxycycli ne hyclate 100 mg capsule Take 1 capsule twice a day by oral route for 7 days. 2023 active Not Available Not Available Not Avai lable azithromy ana 250 mg tablet TAKE 2 TABLETS BY MOUTH TODAY, THEN TAKE 1 TABLET DAILY FOR 4 DAYS 06/28 completed Not Available Not Available Not Available ibuprofen 800 mg tablet TAKE 1 TABLET BY MOUTH THREE TIMES A DAY AFTER MEALS NEEDED FOR INFLAMAT ORY PAIN FOR 30 DAYS 06/28 completed Not Available Not Available Not Available ondansetr on HCl 4 mg tablet TAKE 1 TABLET BY MOUTH EVERY 6 HOURS NEEDED active Not Available Not Available No t Available pantopraz ole 40 mg tablet,de layed release TAKE 1 TABLET BY MOUTH DAILY active Not Available Not Available No t Available oseltamiv ir 75 mg capsule TAKE 1 CAPSULE BY MOUTH TWICE DAILY 06/28 completed Not Available Not Available Not Available buspirone 10 mg tablet TAKE 1/2-1 TABLET BY MOUTH TWICE DAILY NEEDED FOR ANXIETY FOR 30 DAYS active Not Available Not Available No t Available levothyro xine 150 mcg tablet TAKE 1 TABLET BY MOUTH EVERY DAY IN THE MORNING ON EMPTY STOMACH FOR 30 DAYS active Not Available Not Available No t Available triamtere ne 37.5 mg-hydroc hlorothia zide 25 mg tablet TAKE 1 TABLET BY MOUTH EVERY DAY IN THE MORNING FOR 30 DAYS 06/28 completed Not Available Not Available Not Available furosemid e 20 mg tablet TAKE 1 TABLET BY MOUTH EVERY DAY NEEDED FOR SWELLING active Not Available Not Available No t Available levofloxa ana 500 mg tablet TAKE 1 TABLET BY MOUTH EVERY DAY FOR 5 DAYS 06/28 completed Not Available Not Available Not Available methylpre dnisolone 4 mg tablets in a dose pack TAKE 6 TABLETS ON DAY 1 DIRECTED ON PACKAGE AND DECREASE BY 1 TAB EACH DAY FOR A TOTAL OF 6 DAYS 06/28 completed Not Available Not Available Not Available estradiol 0.1 mg/24 hr weekly transderm al patch APPLY ONE PATCH TO SKIN EVERY WEEK active Not Available Not Available No t Available Ventolin HFA 90 mcg/actua tion aerosol inhaler INHALE 2 PUFFS BY MOUTH 4 TIMES DAILY NEEDED FOR 30 DAYS active Not Available Not Available No t Available Multivita mins daily active 0; Recorded 01/10/20 18 3:30PM by Kathleen Casey CMT, Office Visit; Not Available Not Available Not Available metformin two times daily 06/28 completed 0; Recorded 01/10/20 18 3:30PM by Kathleen Casey CMT, Office Visit; Not Available Not Available Not Available [facility] Levothyro xine Sodium daily 06/28 completed 0; Recorded 01/10/20 18 3:30PM by Kathleen Casey CMT, Office Visit; Not Available Not Available Not Available Victoza 3-Toño 0.6 mg/0.1 mL (18 mg/3 mL) subcutane ous pen injector INJECT 0.6 MG SUBCUTAN EOUSLY DAILY DIRECTED FOR 1 WEEK THEN INJECT 1.2 MG DAILY FOR 30 DAYS 06/28 completed Not Available Not Available Not Available TechLITE Pen Needle 32 gauge x 5/32 FOR USE WITH VICTOZA 06/28 completed Not Available Not Available Not Available Vitals Date Recorded Body height Body mass index (BMI) Body weight Oxygen saturation Oxygen saturation in Arterial blood by Pulse oximetry Heart rate Respiratory rate Body temperature Systolic And Diastolic Provider Name and Address Organization Details Last Updated DateTime 4 167.64 cm 26 kg/m2 62201.0 9 g 99 % 99 % 74 /min 12 /min 97.3 [degF] 108/72 mm[Hg] Monica Ramirez [facility] 4 09:59:27 Date Recorded Body height Body mass index (BMI) Body weight Body temperature Heart rate Oxygen saturation Oxygen saturation in Arterial blood by Pulse oximetry Respiratory rate Systolic And Diastolic Provider Name and Address Organization Details Last Updated DateTime 3 167.64 cm 32.3 kg/m2 76445.4 7 g 97.1 [degF] 87 /min 99 % 99 % 20 /min 130/80 mm[Hg] JENNIFER YOUNG [facility] 3 11:42:53 Social History None recorded. Functional Status None recorded. Mental Status None recorded. Family History Nothing Reported. Medical History No medical history recorded. Gynecological HistoryNo gynecological history recorded. Obstetrics History GPAL:G 0 P 0 0 0 0 Past Encounters Encounter ID Performer Location Encounter Start Date Encounter Closed Date Diagnosis/Indication Diagnosis SNOMED-CT Code Diagnosis ICD10 Code Diagnosis Note [id number] [facility] ([facility]) [address] [place] [address] 12/28/2022 11:35:54 01/13/2023 07:46:13 Acute upper respiratory infection 52852532 J06.9 Start doxycyclin e today. Encouraged patient to push fluids and use cool mist humidifier at night. Can take tylenol/ib uprofen as needed for pain and fever. Encouraged patient to return for further evaluation if no improvemen t in 3-5 days. If severe SOB or chest pain occurs, go to ED. Patient verbalized understand ing. [id number] Jerome Mejia DO [facility] ([facility]) [address] [place] [address] 06/28/2023 09:28:10 06/28/2023 10:34:03 Acute bacterial sinusitis 04495276 J01.90 Discussed use of doxy for her sinus infection. May take OTC meds as label directs. f/u if symptoms worsen or concerns arise. Low back pain 739727444 M54.50 No signs of infection today. No trauma. 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 F/u with PCP if pain persists or new symptoms develop. Health Concerns Section Related Observation LastModified by Organization Detai ls LastModified Time None Recorded Concern Status LastModified by Organization Details LastModified Time None Recorded Advance Directives Directive None Recorded Payers Insurance Date Sequence Insurance Name Policy Number Policy Bryant Covered Member ID Bryant Member ID Guarantor Name 07/10/2023 1 [facility] (MEDICAID REPLACEMENT - HMO) JAVIER Kathleen Cortes [id number] Kathleen Cortes Notes Date Note Type Note Provider Name and Address Organization Details Recorded Time 12/28/2022 text/html Sinusitis/Allerg yRepor aron bypatient.Quality:hoar seness;congested;color ed phlegm;productive cough walk-in, PCP Junie Ferguson Patient is a 47 year old female who reports to walk in clinic today for cough. Patient reports productive cough, congestion, and hoarse voice for 7 days. She recently had bariatric surgery so when she coughs, her abdomen will hurt. Denies any fevers. Has been taking OTC allergy medications with no relief. Regis Sanders MD [address] [place] [address], [phone], [facility], [facility] 01/10/2023 10:02:32 06/28/2023 text/html Upper Respirator y SymptomsReported bypatient.Location:pietro st; throat; nasal Quality:congested;dry cough;nasal discharge Severity:mild; pain level 4/10 Duration:symptoms lasting less than 2 weeks Onset/Timing:gradual Context:sick contact Alleviating Factors:analgesics; decongestant Associated Symptoms:chest pain(feels like there is mucous there);sore throatNotes:48 y/o female presents with 1 week of sinus pressure, ear pressure, post nasal drainage, dry cough. Denies wheezing, fever, sob. Has been taking mucinex for her symptoms.Pt states her tailbone has been hurting a little for the last 1 month. 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 Denies any falls/trauma. No pain with bowel movements. She can feel a lump by her tailbone. 1 week post nasal drainage that is irritating her throat and causing her to cough. 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 has been using mucinex. little bit of ear pressure. no fever. denies sob or wheezing.fx tailbone 29 years ago. about 1 month ago developed pain there and noticed a lump. not red or no drainage. no recent trauma. no change with bowel movements. [facility] [address] [place], [address], [facility] 06/28/2023 10:32:41 OBGyn Episode No OBEpisode recorded.
--- OUTSIDE RECORDS SUMMARY | 2024-12-12 23:51 | XMS_ITS | Clinical Summary ---
Author Organization [facility] Address [address] [place] [phone] Care Team Providers Care Broaching Machine Operator Name Role Phone Ferguson, Junie White APN [...] on file Legal Sex Female 4:39 AM BEEF [employer] Gender Identity Not on file Sexual Orientation Not on file Occupation Industry Job Start Date Job End Date Not on file Not on file Not on file Not on file Last Filed Vital Signs Vital Sign Reading Time Taken Comments Blood Pressure 133/90 06/11/2017 11:54 AM [employer] WORK[employer] Pulse 87 06/11/2017 11:54 AM [employer] WORKER Temperature 37 C (98.6 F) 06/11/2017 11:54 AM B[employer]F [employer] WORKER Respiratory Rate 20 06/11/2017 11:54 AM BEEF [employer] WORKER Oxygen Saturation 99% 06/11/2017 11:54 AM BEEF [employer] WORKER Inhaled Oxygen Concentration - - Weight 96.6 kg (213 lb) 06/11/2017 8:47 AM BEEF [employer] WORKER Height 167.6 cm (5' 6 ) 06/11/2017 8:47 AM BEEF [employer] WORKER Body Mass Index 34.38 06/11/2017 8:47 AM BEEF [employer] WORKER Plan of Treatment Health Maintenance Due Date [...] 2021 INFLUENZA VACCINE (#1) 2024 Care Teams Broaching Machine Operator Relationship Specialty Start Date End Date Junie Ferguson APN [facility] [address] [address] PCP - General NURSE PRACTITIONER 06/15/15
--- OUTSIDE RECORDS SUMMARY | 2024-12-12 23:52 | XMS_ITS | Encounter Summary ---
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
--- OUTSIDE RECORDS SUMMARY | 2024-12-12 23:52 | XMS_ITS | Data Portability ---
Author Organization [facility] [employer] [facility], [address] Address [address] [place] [address] Assessment No assessment recorded. Plan of Treatment Reminders Order Date Submit Date Provider Last Modified By Organization Details Last Modified Time Details Appointments None record ed. Lab None record ed. Referral None record ed. Procedures None record ed. Surgeries None record ed. Imaging None record ed. Medication Orders None record ed. Patient TargetsNo targets recorded. Patient InstructionsNo instructions recorded. Reason for Referral None Reported. Procedures Surgical History Date Name Laterality Status Provider Name and Address Organization Details Recorded Time OC-UDS Send Out Template DOT completed ESTEFANÍA RIBEIRO - [employer] [facility] 05/22/2022 12:25:47 Imaging Results None recorded. Procedure Notes None recorded. Medical Equipment None Reported. Medications Name Sig Start Date Stop Date Status Note LastModified by Organization Details LastModified Time losartan 50 mg tablet TAKE 1 TABLET BY MOUTH EVERY DAY active Not Available Not Available No t Available metformin 500 mg tablet TAKE 2 TABLETS BY MOUTH TWICE DAILY AFTER A MEAL FOR BLOOD SUGAR active Not Available Not Available Not Available levothyroxin e 137 mcg tablet TAKE 1 TABLET BY MOUTH EVERY DAY IN THE MORNING ON EMPTY STOMACH FOR 30 DAYS active Not Available Not Available No t Available azithromycin 250 mg tablet TAKE 2 TABLETS BY MOUTH TODAY, THEN TAKE 1 TABLET DAILY FOR 4 DAYS active Not Available Not Available No t Available ibuprofen 800 mg tablet TAKE 1 TABLET BY MOUTH THREE TIMES A DAY AFTER MEALS NEEDED FOR INFLAMATORY PAIN FOR 30 DAYS active Not Available Not Available No t Available phenazopyrid ine 200 mg tablet TAKE 1 TABLET BY MOUTH EVERY 8 HOURS NEEDED FOR URINARY PAIN active Not Available Not Available No t Available hydroxyzine pamoate 50 mg capsule TAKE 1 TABLET BY MOUTH EVERY 8 HOURS NEEDED FOR ACUTE ANXIETY active Not Available Not Available No t Available metronidazol e 500 mg tablet TAKE 500 MG BY MOUTH TWICE A DAY FOR 7 DAYS active Not Available Not Available N ot Available phentermine 37.5 mg tablet TAKE 1 TABLET BY MOUTH EVERY DAY FOR 30 DAYS active Not Available Not Available No t Available ketorolac 10 mg tablet TAKE 1 TABLET BY MOUTH EVERY 6 HOURS FOR PAIN active Not Available Not Available No t Available oseltamivir 75 mg capsule TAKE 1 CAPSULE BY MOUTH TWICE DAILY active Not Available Not Available No t Available ferrous sulfate 325 mg (65 mg iron) tablet TAKE 1 TABLET BY MOUTH TWICE A DAY active Not Available Not Available No t Available nitrofuranto in macrocrystal 100 mg capsule TAKE 1 CAPSULE BY MOUTH TWICE DAILY WITH FOOD active Not Available Not Available No t Available buspirone 10 mg tablet TAKE 1/2 TO 1 TABLET BY MOUTH TWICE DAILY NEEDED FOR ANXIETY FOR 30 DAYS active Not Available Not Available No t Available lisinopril 10 mg tablet TAKE 1 TABLET BY MOUTH EVERY DAY FOR 30 DAYS active Not Available Not Available No t Available levothyroxin e 150 mcg tablet TAKE 1 TABLET BY MOUTH EVERY DAY IN THE MORNING ON EMPTY STOMACH FOR 30 DAYS active Not Available Not Available No t Available docusate sodium 100 mg capsule TAKE 1 CAPSULE BY MOUTH TWICE A DAY active Not Available Not Available No t Available triamterene 37.5 mg-hydrochlo rothiazide 25 mg tablet TAKE 1 TABLET BY MOUTH EVERY DAY IN THE MORNING FOR 30 DAYS active Not Available Not Available No t Available furosemide 20 mg tablet TAKE 1 TABLET BY MOUTH EVERY DAY NEEDED FOR SWELLING active Not Available Not Available No t Available levofloxacin 500 mg tablet TAKE 1 TABLET BY MOUTH EVERY DAY FOR 5 DAYS active Not Available Not Available No t Available methylpredni solone 4 mg tablets in a dose pack TAKE 6 TABLETS ON DAY 1 DIRECTED ON PACKAGE AND DECREASE BY 1 TAB EACH DAY FOR A TOTAL OF 6 DAYS active Not Available Not Available No t Available estradiol 0.1 mg/24 hr weekly transdermal patch APPLY ONE PATCH TO SKIN EVERY WEEK active Not Available Not Available No t Available Ventolin HFA 90 mcg/actuatio n aerosol inhaler INHALE 2 PUFFS BY MOUTH 4 TIMES DAILY NEEDED FOR 30 DAYS active Not Available Not Available Not Available nitrofuranto in monohydrate/ macrocrystal s 100 mg capsule TAKE 1 CAPSULE BY MOUTH TWICE DAILY FOR 5 DAYS active Not Available Not Available No t Available Vitals None Recorded Social History None recorded. Functional Status None recorded. Mental Status None recorded. Family History Nothing Reported. Medical History No medical history recorded. Gynecological HistoryNo gynecological history recorded. Obstetrics History GPAL:G 0 P 0 0 0 0 Past Encounters Encounter ID Performer Location Encounter Start Date Encounter Closed Date Diagnosis/Indication Diagnosis SNOMED-CT Code Diagnosis ICD10 Code Diagnosis Note [id number] [facility] [place] [id number] [address] [address] [place] [address] 02/15/2022 11:59:25 02/15/2022 13:10:21 [id number] SCOTT LACEY, INCOME TAX ANALYST [address] [address] [place] [address] 05/22/2022 10:37:21 05/22/2022 12:46:59 Physical examination 9958196 Z04.9 Health Concerns Section Related Observation LastModified by Organization Detai ls LastModified Time None Recorded Concern Status LastModified by Organization Details LastModified Time None Recorded Advance Directives Directive None Recorded Payers Insurance Date Sequence Insurance Name Policy Number Policy Bryant Covered Member ID Bryant Member ID Guarantor Name 05/22/2022 OC-ESCREEN Kathleen SOLIMAN TORI MAGS TORI Kathleen Cortes OBGyn Episode No OBEpisode recorded.
--- NOTE | 2024-12-12 23:57 | XRR_ITS ---
PROCEDURE INFORMATION: Exam: XR Chest Exam date and time: 12/13/2024 12:02 AM Age: 49 years old Clinical indication: Other: Syncope; Prior surgery; Surgery date: 6+ months; Surgery type: Gb. Gastric bypass; EMS arrival for syncopal episode TECHNIQUE: Imaging protocol: Radiologic exam of the chest. Views: 1 view. COMPARISON: CR XR chest 1V portable [id number] 11/17/2024 3:13 PM FINDINGS: Lungs: Unremarkable. No consolidation. Pleural spaces: Unremarkable. No pleural effusion. No pneumothorax. Heart/Mediastinum: Unremarkable. No cardiomegaly. Bones/joints: Unremarkable. XR/XR chest 1V portable [id number] IMPRESSION: No acute findings.
[2024-12-13 00:11] LABS: Hematocrit 34.8 % (36-47); Hemoglobin 11.40 g/dL (11.27-16.99); Mean Corpuscular HGB Conc 32.8 g/dL (30-55); Mean Corpuscular Hemoglobin 27.0 pg (27-33); Mean Corpuscular Volume 82.5 fl (85-98); Nucleated Red Blood Cells % 0 %; Platelet Count 330 10^3/cmm (157-399); Red Blood Count 4.22 10^6/uL (3.85-5.65); White Blood Count 5.92 10^3/uL (3.29-11.43)
[2024-12-13 00:25] LABS: HCG, Serum Qual Negative (Negative)
[2024-12-13 00:34] LABS: Alanine Aminotransferase 38 U/L (0-33); Albumin Level 4.3 g/dL (3.5-5.2); Alkaline Phosphatase 85 U/L (35-105); Anion Gap 19.3 (5-19); Aspartate Amino Transferase 33 U/L (0-32); Blood Urea Nitrogen 26 mg/dL (6-20); Calcium 9.3 mg/dL (8.5-10.5); Carbon Dioxide 21 mmol/L (22-29); Chloride 104 mmol/L (98-107); Creatinine Clr Calc Pharmacy 136.4060; Globulin 3.1 g/dL (1.3-4.6); Glucose 89 mg/dL (65-115); Magnesium 2.2 mg/dL (1.7-2.3); Osmolality Calculated 296 mOsm/kg (285-295); Potassium 3.3 mmol/L (3.5-5.1); Sodium 141 mmol/L (136-145); Thyroid Stimulating Hormone 0.09 uIU/mL (0.27-4.20); Total Protein 7.4 g/dL (6.6-8.7)
--- NOTE | 2024-12-13 00:52 | ED_ITS ---
HPI - Syncope 2 General: Chief Complaint: Syncope Stated Complaint: N/V/D Time Seen by Provider: 12/12/24 23:50 History of Present Illness: Patient is a 49-year-old female history of gastric bypass, history of plastic surgery/buttocks in October, presents when she was having a bowel movement, diarrhea, but states that she was not pushing hard, passed out on the table. heard syncope, reported approximately 10 seconds, picked his up, placed her on the toilet, and wrapped her with a rag, where she was somewhat out of it. After she looked like she was passing out again, he summoned 911. Patient denies any chest pain. She admits to lightheadedness and dizziness. Patient gives pertinence history of taking Compazine approximately 30 minutes before events. Vitals were stable at time of EMS. Associated symptoms: Deny abdominal pain, chest pain, fever(s), headache(s) or nausea Related Data Home Medications ?Medication ?Instructions ?Recorded ?Confirmed levothyroxine 137 mcg tablet 137 mcg PO QAM 12/19/21 0 11/17/24 multivitamin 2 tab PO DAILY 12/19/2110/31 albuterol sulfate 90 mcg/actuation 2 puff inhalation Q ID 11/17/24 11/17/24 aerosol inhaler (Ventolin HFA) docusate calcium 240 mg capsule 240 mg PO DAILY consti pation 11/17/24 11/17/24 (Stool Softener (docusate calcium)) estradiol 0.1 mg/24 hr weekly 1 patch topical Q7D 10/3111/17/24 transdermal patch tamsulosin 0.4 mg capsule (Flomax) 0.4 mg PO DAILY 11/17/24 Previous Rx's ?Medication ?Instructions ?Recorded ondansetron HCl 4 mg tablet 4 mg PO Q6H PRN nausea and 12/07/22 vomiting #20 tabs tramadol 50 mg tablet 50 mg PO Q8H PRN pain #20 ta bs 08/28/24 ondansetron 4 mg disintegrating 4 mg PO Q8H PRN nausea and 12/13/24 tablet vomiting 4 days #14 tabs Allergies Allergy/AdvReac Type Severity Reaction Status Date / Time morphine Allergy anaphylaxis Verified 01/23/24 10:24 Review of Systems 2 Const: Denies: fever(s) or chills ENMT: Denies: throat pain Card: Denies: chest pain or palpitations Resp: Denies: dyspnea or productive cough GI: Denies: abdominal pain, nausea or vomiting : Denies: flank pain or difficulty voiding Musc: Denies: neck pain, back pain or extremity pain Skin/Breast: Denies: rash or pruritus Neuro: Reports: other (syncope); Denies: headache(s), numbness in extremities or sensory changes PFSH ED 2 PFSH: Medical History (Updated 12/13/24 @ 01:21 by QUINTIN Santana) Aftercare following surgery of the genitourinary system No pertinent past medical history neghx: htn,dvt/pe PCP: Comfort Ferguson Hypothyroid Type 2 diabetes mellitus Surgical History Hx of tubal ligation (~1996) Hx of abdominal surgery (~2020) tummy tuck, muscle reconstruction Family History Family/Other Breast cancer Maternal Aunt--dx age 40's Colon cancer Paternal Uncle---dx age 60's Maternal Aunt-- dx age 60's Mother Diabetes Heart disease Hypercholesteremia Hypertension Ovarian cancer dx age 20's Thyroid disease Father Diabetes Heart disease Stroke Grandmother Diabetes Paternal Grandfather Diabetes Paternal Denies family history of Uterine cancer Physical Exam 2 Const: COMMON NORMALS: no acute distress, average body habitus, patient oriented x3 and no limitations HENMT: COMMON NORMALS: normocephalic and atraumatic HEAD & SCALP: n ormocephalic and atraumatic Neck/C-Spine: COMMON NORMALS: full ROM and no lymphadenopathy Lymph: LYMPHATIC: no lymphadenopathy noted Chest: COMMONS NORMALS: normal inspection of the chest and normal palpation of entire chest wall Resp: COMMON NORMALS: normal respiratory effort and No retractions Cardio: COMMON NORMALS: regular rate and regular rhythm RATE: regular rate RHYTHM: regular rhythm GI: COMMON NORMALS: Normal to inspection, nondistended, normoactive bowel sounds present, Soft to palpation, non-tender and No hepatosplenomegaly present PALPATION: Yes Soft to palpation and Yes No hepatosplenomegaly present : COMMON NORMALS: Yes no CVA tenderness BLADDER/KIDNEY EXAM: Yes no CVA tenderness Back/Pelvis: COMMON NORMALS: no CVA tenderness Extremity: COMMON NORMALS: normal to inspection, full ROM and capillary refill normal Neuro: COMMON NORMALS: patient oriented x3 and CN's II-XII intact bilaterally Psych: COMMON NORMALS: mental status grossly normal and Normal thought process present THOUGHT PROCESS: Normal thought process present Skin: COMMON NORMALS: no rashes or lesions noted, no wounds and turgor normal GENERAL SKIN EXAM: no rashes or lesions noted and turgor normal Course 2 Vital Signs: Vital signs: Vital Signs Temperature 97.5 F L 12/12/24 23:45 Pulse Rate 71 12/12/24 23:45 Respiratory Rate 18 12/12/24 23:45 Blood Pressure 124/82 12/12/24 23:45 Pulse Oximetry 100 12/12/24 23:45 Oxygen Delivery Me thod Room Air 12/12/24 23:45 MDM - Syncope Medical Decision Making Patient is 49-year-old female with syncope tonight while on the toilet. Typically this is straight vasovagal, however hers is somewhat complex with her history stating she was not having a forceful bowel movement, as well she has a first-degree AV block, so potentially combined with the vasovagal is the culprit. I have placed a consult for cardiology for event monitor. As well, patient has secondary hypothyroidism due to her and exogenous use of her levothyroxine. I have asked her to hold it for 1 week, then decrease the dose by one half starting next Friday. Patient states understanding. She will follow-up with her primary care physician, and call for appointment this a.m. She is improved after nearly 2 L of fluid, and Zofran. She is going to hold her generic Compazine, and I have sent Zofran to the pharmacy to help with symptoms. She will return for further issues. Lab Data 12/12/24 23:40 12/12/24 23:40 Laboratory Results WBC 5.92 10^3/uL (3.29-11.43) 12/12/24 23:40 RBC 4.22 10^6/uL (3.85-5.65) 12/12/24 23:40 Hgb 11.40 g/dL (11.27-16.99) 12/12/24 23:40 Hct 34.8 % (36-47) L 12/12/24 23:40 MCV 82.5 fl (85-98) L 12/12/24 23:40 MCH 27.0 pg (27-33) 12/12/24 23:40 MCHC 32.8 g/dL (30-55) 12/12/24 23:40 RDW 14.6 % (12.1-15.1) 12/12/24 23:40 Plt Count 330 10^3/cmm (157-399) 12/12/24 23:40 MPV 9.5 fL (7.4-10.4) 12/12/24 23:40 Neut % (Auto) 40.5 % 12/12/24 23:40 Lymph % (Auto) 46.5 % 12/12/24 23:40 [place] % (Auto) 9.0 % 12/12/24 23:40 Eos % (Auto) 2.9 % 12/12/24 23:40 Baso % (Auto) 0.8 % 12/12/24 23:40 Neut # (Auto) 2.40 10^3/uL (1.8-7.7) 12/12/24 23:40 Lymph # (Auto) 2.8 10^3/uL (0.8-4.8) 12/12/24 23:40 [place] # (Auto) 0.5 10^3/uL (0.2-0.9) 12/12/24 23:40 Eos # (Auto) 0.2 10^3/uL (0.0-0.8) 12/12/24 23:40 Baso # (Auto) 0.1 10^3/uL (0.0-0.1) 12/12/24 23:40 Nucleated RBC % (auto) 0 % 12/12/24 23:40 Nucleated RBCs # 0.0 /100WBC 12/12/24 23:40 Sodium 141 mmol/L (136-145) 12/12/24 23:40 Potassium 3.3 mmol/L (3.5-5.1) L 12/12/24 23:40 Chloride 104 mmol/L (98-107) 12/12/24 23:40 Carbon Dioxide 21 mmol/L (22-29) L 12/12/24 23:40 Anion Gap 19.3 (5-19) H 12/12/24 23:40 BUN 26 mg/dL (6-20) H 12/12/24 23:40 Creatinine 0.5 mg/dL (0.5-0.9) 12/12/24 23:40 GFR Calculation 131.7 mL/min (90-130) H 12/12/24 23:40 Glucose 89 mg/dL (65-115) 12/12/24 23:40 Calculated Osmolality 296 mOsm/kg (285-295) H 12/12/24 23:40 Calcium 9.3 mg/dL (8.5-10.5) 12/12/24 23:40 Magnesium 2.2 mg/dL (1.7-2.3) 12/12/24 23:40 Total Bilirubin 0.3 mg/dL (0.15-1.2) 12/12/24 23:40 AST 33 U/L (0-32) H 12/12/24 23:40 ALT 38 U/L (0-33) H 12/12/24 23:40 Alkaline Phosphatase 85 U/L (35-105) 12/12/24 23:40 Total Protein 7.4 g/dL (6.6-8.7) 12/12/24 23:40 Albumin 4.3 g/dL (3.5-5.2) 12/12/24 23:40 Globulin 3.1 g/dL (1.3-4.6) 12/12/24 23:40 TSH 0.09 uIU/mL (0.27-4.20) L 12/12/24 23:40 HCG, Qual Negative (Negative) 12/12/24 23:40 Urine Color Yellow (Yellow) 12/13/24 00:50 Urine Appearance Cloudy (CLEAR) A 12/13/24 00:50 Urine pH 5.5 (5-7) 12/13/24 00:50 Ur Specific [place] 1.022 (1.005-1.030) 12/13/24 00:50 Urine Protein Negative (Negative) 12/13/24 00:50 Urine Glucose (UA) Negative (Normal) 12/13/24 00:50 Urine Ketones Negative (Negative) 12/13/24 00:50 Urine Blood Negative (Negative) 12/13/24 00:50 Urine Nitrate Negative (Negative) 12/13/24 00:50 Urine Bilirubin Negative (Negative) 12/13/24 00:50 Urine Urobilinogen 1.0 mg/dL (Negative) 12/13/24 00:50 Ur Leukocyte Esterase Negative (Negative) 12/13/24 00:50 Urine RBC 3-5 /hpf (0-2) 12/13/24 00:50 Urine WBC 0-5 /hpf (0-5) 12/13/24 00:50 Ur Squamous Epith Cells 6-10 /hpf (0-5) 12/13/24 00:50 Amorphous Sediment Not Reportable 12/13/24 00:50 Urine Bacteria 3+ /hpf (NONE) H 12/13/24 00:50 Hyaline Casts 1.21 /lpf 12/13/24 00:50 XR interpretation done by ED provider, pending radiology final review ED provider radiology interpretation(s): no acute findings Discharge Plan Discharge Patient Disposition: Home Clinical Impression: Vasovagal syncope, Secondary hyperthyroidism, Hypokalemia Condition: Stable Prescriptions: New ondansetron 4 mg tablet,disintegrating 4 mg PO Q8H PRN (Reason: nausea and vomiting) 4 Days Qty: 14 0RF No Action multivitamin Tablet 2 tab PO DAILY levothyroxine 137 mcg tablet 137 mcg PO QAM tramadol 50 mg tablet 50 mg PO Q8H PRN (Reason: pain) Qty: 20 0RF albuterol sulfate [Ventolin HFA] 90 mcg/actuation HFA aerosol inhaler 2 puff inhalation QID estradiol 0.1 mg/24 hr patch weekly 1 patch topical Q7D docusate calcium [Stool Softener (docusate jabier)] 240 mg Capsule 240 mg PO DAILY tamsulosin [Flomax] 0.4 mg Capsule 0.4 mg PO DAILY ondansetron HCl 4 mg tablet 4 mg PO Q6H PRN (Reason: nausea and vomiting) Qty: 20 0RF Discharge Orders: Discharge ED (Routine); Ordered 12/13/24 Ordered By: Nita Perera Referrals: Ferguson,GIULIANA ZamanN [Primary Care Provider, Nurse Practitioner] Discharge Diet: Full LIquid Discharge Activity: Resume usual activity Patient Instructions: Syncope (ED), Heart Block (ED), Opioid Safety, Pain Management, Patient Portal & [facility] Instructions Activity Restrictions/Additional Instructions: You have a first-degree block on your heart rhythm. You will need an event monitor and follow-up with cardiology as we discussed. Case management has an order to set up for you. Please check with your doctor in the morning regarding follow-up for this visit today. Your potassium was slightly low, however you were given replacement. Your doctor may want to repeat your labs in the next 2 days. Stop taking your other nausea medication for now. I did send generic Zofran to the pharmacy to utilize for nausea, vomiting, and diarrhea Stop your levothyroxine x 1 week. Start half the dosage, cut the pill in half starting a week from Friday, the . Return to ED for reoccurrence of your passing out also called syncope, nausea, and vomiting. You will need to start with a clear liquid diet, then full liquid diet as you tolerate. Increase your fluid intake. Print Language: Lithuanian Coding Level of Care Code ED Liv[employer] Judging Coach for Katalina Kolb
[2024-12-13 00:57] LABS: Glucose Urine UA Negative (Normal); Nitrate Urine Negative (Negative); Specific Gravity, Urine 1.022 (1.005-1.030)
[2024-12-13 01:00] VITALS: BP 112/63; PULSE 87; RESP 16; O2SAT 97
[2024-12-13 01:01] LABS: Add Urine Microscopic? YES
[2024-12-13] MEDS: ondansetron 2 mg/ML SDV 2 mL 4 MG IVP (01:10)
[2024-12-13 01:58] VITALS: BP 123/90; PULSE 84; RESP 16; O2SAT 100
== END 2024-12-13 02:00 | disposition home or self-care (01) ==
PROVIDERS: Emergency Provider Physician Assistant; PCP Nurse Practitioner Family
DX: R55 Syncope and collapse (principal); E05.80 Other thyrotoxicosis without thyrotoxic crisis or storm; E87.6 Hypokalemia; E11.9 Type 2 diabetes mellitus without complications
CPT/HCPCS: 71045; 80053; 81001; 83735; 84443; 84703; 85025; 93005; 96361; 96374; 99285; J2405; J7030; J9999

== ENCOUNTER → 2025-05-11 16:07 | Outpatient (BNVA) | payer MEDICAID, SELFPAY | PROVIDERS: PCP Nurse Practitioner Family; Visit Provider Obstetrics & Gynecology | DX: Z01.419 Encounter for gynecological examination (general) (routine) without abnormal findings (principal) | CPT/HCPCS: 87624 ==

== ENCOUNTER → 2025-05-25 12:39 | Outpatient (BNVA) | payer MEDICAID, SELFPAY | PROVIDERS: PCP Nurse Practitioner Family | DX: J06.9 Acute upper respiratory infection, unspecified (principal) | CPT/HCPCS: 87400; 87426 ==